=== PATIENT | female | born 1975 | race Two or more races ===

== ENCOUNTER 2016-08-09 08:21 | Emergency (ER) | payer OTHER ==
[~2016-08-09] VITALS: Ht 157.5 cm; Wt 72.6 kg
[~2016-08-09 08:21] MED LIST: ASPI-231 PO
[2016-08-09 09:31] LABS: Urine Bilirubin Negative (Negative); Urine Blood Negative /uL (Negative); Urine Color Yellow (Yellow); Urine Glucose Normal (Normal); Urine Ketone Negative (Negative); Urine RBC 3 /hpf (0 - 4); Urine Squamous Epithelial Cell FEW /hpf (<5); Urine Urobilinogen Normal (Negative); Urine pH 6.5 (5.0-8.0)
[2016-08-09 09:34] LABS: Urine Nitrite POSITIVE (Negative)
[2016-08-09 09:36] LABS: Basophils # (auto) 0 uL; Basophils % (auto) 0.5 % (0.0-2.0); Eosinophils # (auto) 0.1 uL; Eosinophils % (auto) 1.2 % (0.0-7.0); Hematocrit 42.7 % (36.0-46.0); Hemoglobin 14.3 g/dL (12.2-16.2); Lymphocytes # (auto) 1.8 uL; Lymphocytes % (auto) 21.2 % (10.0-50.0); Mean Corpuscular Hgb Conc. 33.4 g/dL (32.0-36.0); Mean Corpuscular Volume 92.7 fL (80.0-100.0); Monocytes # (auto) 0.4 uL; Neutrophils # (auto) 6.2 uL; Neutrophils % (auto) 72.1 % (37.0-80.0); Platelet Count (auto) 259 10^3/uL (140-450); Red Cell Distribution Width 13.1 % (11.6-16.0); White Blood Cell 8.6 10^3/uL (4.4-10.8)
[2016-08-09 09:53] LABS: Albumin 3.8 g/dL (3.4-5.0); BUN/Creatinine Ratio 14.9; Bilirubin, Total 0.3 mg/dL (0.2-1.0); Calcium 9.2 mg/dL (8.5-10.1); Potassium 3.8 mmol/L (3.5-5.1); Total Protein 7.9 g/dL (6.4-8.2)
[2016-08-09] MEDS ORDERED: MORPHINE SULFATE 4 MG/ML SYRG IV ONE (10:45)
[2016-08-09] MEDS ORDERED: ONDANSETRON HCL 4 MG/2 ML VIAL IV ONE (10:45)
[2016-08-09] MEDS ORDERED: SODIUM CHLORIDE 0.9% 1,000 ML IV ONE ×2 (11:49)
[2016-08-09] MEDS ORDERED: NITROFURANTOIN (MONO) 100 mg CAP PO ONE (12:00)
[2016-08-09 13:13] VITALS: BP 101/72
== END 2016-08-09 13:19 | disposition home or self-care (01) ==
LOC: ER 08:21
DX: N20.0 Calculus of kidney (principal); N39.0 Urinary tract infection, site not specified; K21.9 Gastro-esophageal reflux disease without esophagitis; E78.5 Hyperlipidemia, unspecified; I25.2 Old myocardial infarction
CPT/HCPCS: 36415; 74176; 80053; 81001; 81025; 85025; 85049; 96361; 96374; 96375; 99285; J2270; J2405; J7030

== ENCOUNTER 2016-12-10 17:50 | Inpatient (IN) | payer SELFPAY ==
[~2016-12-10] VITALS: Ht 154.9 cm; Wt 75.7 kg
[2016-12-10 18:39] LABS: Basophils # (auto) 0 uL; Basophils % (auto) 0.3 % (0.0-2.0); Eosinophils # (auto) 0.1 uL; Eosinophils % (auto) 1.1 % (0.0-7.0); Hematocrit 40.9 % (36.0-46.0); Hemoglobin 14.1 g/dL (12.2-16.2); Lymphocytes # (auto) 2.7 uL; Lymphocytes % (auto) 24.1 % (10.0-50.0); Mean Corpuscular Hemoglobin 32.4 pg (28.0-32.0); Mean Corpuscular Hgb Conc. 34.4 g/dL (32.0-36.0); Mean Platelet Volume 11.4 fL (7.4-10.4); Monocytes # (auto) 0.5 uL; Monocytes % (auto) 4.6 % (0.0-12.0); Neutrophils # (auto) 7.9 uL; Neutrophils % (auto) 69.9 % (37.0-80.0); Platelet Count (auto) 273 10^3/uL (140-450); Red Cell Distribution Width 13.2 % (11.6-16.0); White Blood Cell 11.3 10^3/uL (4.4-10.8)
[2016-12-10 19:02] LABS: Albumin 3.6 g/dL (3.4-5.0); Anion Gap 12 (5-15); Aspartate Aminotransferase 11 U/L (15-37); BUN/Creatinine Ratio 11.9; Blood Urea Nitrogen 18 mg/dL (7-18); Calcium 8.9 mg/dL (8.5-10.1); Carbon Dioxide 24 mmol/L (21-32); Chloride 104 mmol/L (98-107); GFR African American 49 mL/min; GFR Non-African American 41 mL/min; Glucose 110 mg/dL (74-106); Potassium 3.4 mmol/L (3.5-5.1); Sodium 140 mmol/L (136-145)
[2016-12-10 19:07] LABS: Alkaline Phosphatase 74 U/L (45-117); Bilirubin, Total 0.2 mg/dL (0.2-1.0); Total Protein 7.7 g/dL (6.4-8.2)
[2016-12-10 22:10] LABS: Urine Bilirubin Negative (Negative); Urine Blood Negative /uL (Negative); Urine Color Yellow (Yellow); Urine Glucose Normal (Normal); Urine Ketone Negative (Negative); Urine Mucus FEW (None Seen); Urine Nitrite Negative (Negative); Urine RBC 3 /hpf (0 - 4); Urine Squamous Epithelial Cell MOD /hpf (<5); Urine Urobilinogen Normal (Negative)
[2016-12-11] MEDS ORDERED: ONDANSETRON HCL 4 MG/2 ML VIAL IV ONE (00:15)
[2016-12-11] MEDS ORDERED: MORPHINE SULFATE 4 MG/ML SYRG IV ONE (00:15)
[2016-12-11] MEDS ORDERED: cefTRIAXone 1GM/50ML D5W 50 ML IV ONE (00:30)
[2016-12-11] MEDS ORDERED: NITROGLYCERIN 0.4 MG SL TAB SL PRN (03:00)
[2016-12-11] MEDS ORDERED: MORPHINE SULF INJ 2 MG/ML SYRINGE 1ML IV PRN (03:00)
[2016-12-11] MEDS ORDERED: CLOPIDOGREL BISULFATE 75 MG TAB PO ONE (03:00)
[2016-12-11] MEDS ORDERED: ONDANSETRON HCL 4 MG/2 ML VIAL IV PRN (03:00)
[2016-12-11] MEDS ORDERED: ATORVASTATIN 20 MG TAB PO ONE (03:00)
[2016-12-11] MEDS ORDERED: ACETAMINOPHEN 325 MG TAB PO PRN (03:00)
[2016-12-11] MEDS ORDERED: POTASSIUM CHL 20 Meq TABLET PO ONE (03:00)
[2016-12-11] MEDS ORDERED: TEMAZEPAM 15 MG CAP PO PRN (03:00)
[2016-12-11] MEDS ORDERED: HYDROcodone-ACET 5/325MG TAB PO PRN (03:00)
[2016-12-11 03:50] LABS: Cholesterol 192 mg/dL (< 200); HDL Cholesterol 42 mg/dL (40-59); LDL Cholesterol 132 mg/dL (< 100); Triglycerides 260 mg/dL (< 150)
[2016-12-11 05:17] VITALS: BP 109/71
[2016-12-11 09:00] VITALS: BP 99/60
[2016-12-11] MEDS: ASPirin 81 mg TAB PO SCH (09:49)
[2016-12-11] MEDS: ENOXAPARIN SOD 40 MG/0.4 ML SYRINGE SC SCH (09:49)
[2016-12-11] MEDS: FAMOTIDINE 20 MG TAB PO SCH ×2 (09:49→21:43)
[2016-12-11] MEDS ORDERED: CLOPIDOGREL BISULFATE 75 MG TAB PO SCH (10:00)
[2016-12-11 13:00] VITALS: BP 115/73
[2016-12-11] MEDS: SODIUM CHLORIDE 0.9% 1,000 ML IV SCH (14:04)
[2016-12-11 16:48] VITALS: BP 104/74
[2016-12-11 22:00] VITALS: BP 109/63
[2016-12-11] MEDS ORDERED: ATORVASTATIN 20 MG TAB PO SCH (22:00)
[2016-12-11] MEDS ORDERED: cefTRIAXone 1GM/50ML D5W 50 ML IV SCH (22:00)
[2016-12-12] MEDS: SODIUM CHLORIDE 0.9% 1,000 ML IV SCH (02:38)
[2016-12-12 05:30] VITALS: BP 106/65
[2016-12-12 09:00] VITALS: BP 112/72
[2016-12-12] MEDS: ENOXAPARIN SOD 40 MG/0.4 ML SYRINGE SC SCH (10:00)
[2016-12-12] MEDS ORDERED: ATOR20TA50 PO (10:45)
[2016-12-12] MEDS: FAMOTIDINE 20 MG TAB PO SCH (10:52)
[2016-12-12] MEDS: ASPirin 81 mg TAB PO SCH (10:52)
[2016-12-12 11:08] LABS: Basophils # (auto) 0.1 uL; Basophils % (auto) 0.7 % (0.0-2.0); Eosinophils # (auto) 0.1 uL; Eosinophils % (auto) 0.9 % (0.0-7.0); Hematocrit 39.5 % (36.0-46.0); Hemoglobin 13.6 g/dL (12.2-16.2); Lymphocytes # (auto) 1.8 uL; Lymphocytes % (auto) 19.6 % (10.0-50.0); Mean Corpuscular Hemoglobin 31.8 pg (28.0-32.0); Mean Corpuscular Hgb Conc. 34.3 g/dL (32.0-36.0); Mean Corpuscular Volume 92.5 fL (80.0-100.0); Mean Platelet Volume 10.9 fL (7.4-10.4); Monocytes # (auto) 0.6 uL; Monocytes % (auto) 6.4 % (0.0-12.0); Neutrophils # (auto) 6.6 uL; Neutrophils % (auto) 72.4 % (37.0-80.0); Platelet Count (auto) 254 10^3/uL (140-450); Red Cell Distribution Width 13.2 % (11.6-16.0); White Blood Cell 9.1 10^3/uL (4.4-10.8)
[2016-12-12 11:37] LABS: BUN/Creatinine Ratio 15.2; Calcium 8.7 mg/dL (8.5-10.1); Potassium 3.9 mmol/L (3.5-5.1)
[2016-12-12 13:00] VITALS: BP 111/77
[2016-12-12] MEDS ORDERED: DOXY-216 PO (15:14)
[2016-12-12] MEDS ORDERED: SACC250C PO (15:14)
[2016-12-12 16:39] VITALS: BP 103/69
== END 2016-12-12 17:10 | disposition home or self-care (01) | DRG 205 ==
LOC: ER 17:56 → TELE 17:57 → TELE-WESTW 12-11 03:30 → UNDODISIN 12-11 14:52
PROVIDERS: ADMIT Nurse Practitioner; ATTEND Internal Medicine
DX: M94.0 Chondrocostal junction syndrome [Tietze] (principal); N17.0 Acute kidney failure with tubular necrosis; N39.0 Urinary tract infection, site not specified; K21.9 Gastro-esophageal reflux disease without esophagitis; I10 Essential (primary) hypertension; E78.5 Hyperlipidemia, unspecified; E87.6 Hypokalemia; Z91.041 Radiographic dye allergy status; Z90.49 Acquired absence of other specified parts of digestive tract; I25.2 Old myocardial infarction; Z83.3 Family history of diabetes mellitus; Z82.49 Family history of ischemic heart disease and other diseases of the circulatory system; Z87.442 Personal history of urinary calculi
CPT/HCPCS: 36415; 71010; 76775; 80048; 80053; 80061; 81001; 81025; 83735; 84484; 85025; 85379; 87086; 87088; 87186; 93005; 93306; 96365; 96375; J0696; J2405

== ENCOUNTER 2017-06-30 13:43 | Emergency (ER) | payer SELFPAY ==
[~2017-06-30] VITALS: Ht 154.9 cm; Wt 77.1 kg
[~2017-06-30 13:43] MED LIST changes: +ATOR20TA50 PO; +DOXY-216 PO; +SACC250C PO
[2017-06-30 14:18] LABS: Basophils # (auto) 0.1 uL; Basophils % (auto) 0.8 % (0.0-2.0); Eosinophils # (auto) 0.1 uL; Eosinophils % (auto) 0.8 % (0.0-7.0); Hematocrit 43.4 % (36.0-46.0); Hemoglobin 14.7 g/dL (12.2-16.2); Lymphocytes # (auto) 2.1 uL; Lymphocytes % (auto) 22.2 % (10.0-50.0); Mean Corpuscular Hemoglobin 32.3 pg (28.0-32.0); Mean Corpuscular Hgb Conc. 33.9 g/dL (32.0-36.0); Mean Corpuscular Volume 95.2 fL (80.0-100.0); Mean Platelet Volume 10.1 fL (6.9-10.8); Monocytes # (auto) 0.4 uL; Monocytes % (auto) 4.3 % (0.0-12.0); Neutrophils # (auto) 6.7 uL; Neutrophils % (auto) 71.9 % (37.0-80.0); Nucleated Red Blood Cells % 0.1 %; Platelet Count (auto) 276 10^3/uL (140-450); Red Cell Distribution Width 13.4 % (11.8-14.3); White Blood Cell 9.4 10^3/uL (4.4-10.8)
[2017-06-30 15:01] LABS: Albumin 3.8 g/dL (3.4-5.0); Alkaline Phosphatase 71 U/L (45-117); Anion Gap 10 (5-15); Aspartate Aminotransferase 10 U/L (15-37); BUN/Creatinine Ratio 19.5; Bilirubin, Total 0.2 mg/dL (0.2-1.0); Blood Urea Nitrogen 16 mg/dL (7-18); Calcium 10.5 mg/dL (8.5-10.1); Carbon Dioxide 25 mmol/L (21-32); Chloride 103 mmol/L (98-107); GFR African American 99 mL/min; GFR Non-African American 82 mL/min; Glucose 88 mg/dL (74-106); Magnesium 2.2 mg/dL (1.6-2.6); Potassium 3.3 mmol/L (3.5-5.1); Sodium 138 mmol/L (136-145); Total Protein 8.3 g/dL (6.4-8.2)
[2017-06-30] MEDS ORDERED: POTASSIUM CHL 10% (20 MEQ/15ML) 15ml ORAL SOLN PO ONE (16:00)
[2017-06-30] MEDS ORDERED: POTASSIUM CHL 20 Meq TABLET PO ONE ×2 (16:02→16:15)
[2017-06-30 16:31] VITALS: BP 117/73
== END 2017-06-30 16:33 | disposition home or self-care (01) ==
LOC: ER 13:43
DX: F41.9 Anxiety disorder, unspecified (principal); K21.9 Gastro-esophageal reflux disease without esophagitis; E78.5 Hyperlipidemia, unspecified; I25.2 Old myocardial infarction; Z90.49 Acquired absence of other specified parts of digestive tract
CPT/HCPCS: 36415; 80053; 83735; 84484; 84702; 85025; 93005

== ENCOUNTER 2018-10-27 11:44 | Emergency (ER) | payer OTHER ==
[~2018-10-27] VITALS: Ht 152.4 cm; Wt 72.6 kg
[2018-10-27 12:19] LABS: Urine Bacteria NONE SEEN /hpf (None Seen); Urine Blood Negative /uL (Negative); Urine Mucus FEW (None Seen); Urine Specific Gravity 1.016 (1.001-1.035); Urine WBC 29 /hpf (0 - 5)
[2018-10-27 13:15] LABS: Basophils # (auto) 0 uL; Basophils % (auto) 0.4 % (0.0-2.0); Eosinophils # (auto) 0.1 uL; Eosinophils % (auto) 0.8 % (0.0-7.0); Hematocrit 44.1 % (36.0-46.0); Hemoglobin 14.8 g/dL (12.2-16.2); Lymphocytes # (auto) 1.9 uL; Lymphocytes % (auto) 24.4 % (10.0-50.0); Mean Corpuscular Hgb Conc. 33.6 g/dL (32.0-36.0); Mean Corpuscular Volume 95.3 fL (80.0-100.0); Monocytes # (auto) 0.6 uL; Monocytes % (auto) 7.4 % (0.0-12.0); Neutrophils # (auto) 5.2 uL; Nucleated Red Blood Cells % 0.1 %; Platelet Count (auto) 224 10^3/uL (140-450); Red Blood Cells 4.63 10^6/uL (4.0-5.20); Red Cell Distribution Width 13.3 % (11.8-14.3); White Blood Cell 7.8 10^3/uL (4.4-10.8)
[2018-10-27 13:31] LABS: Albumin 3.7 g/dL (3.4-5.0); Anion Gap 6 (5-15); Blood Urea Nitrogen 14 mg/dL (7-18); Calcium 9.3 mg/dL (8.5-10.1); Carbon Dioxide 25 mmol/L (21-32); Chloride 108 mmol/L (98-107); Glucose 89 mg/dL (74-106); Magnesium 2.3 mg/dL (1.6-2.6); Potassium 3.8 mmol/L (3.5-5.1); Sodium 139 mmol/L (136-145)
[2018-10-27 13:37] LABS: Alanine Aminotransferase 14 U/L (13-56); Alkaline Phosphatase 65 U/L (45-117); Aspartate Aminotransferase 13 U/L (15-37); BUN/Creatinine Ratio 15.2; Bilirubin, Total 0.3 mg/dL (0.2-1.0); GFR African American 86 mL/min; GFR Non-African American 71 mL/min; Total Protein 7.8 g/dL (6.4-8.2)
[2018-10-27] MEDS: NITROFURANTOIN (MONO) 100 mg CAP PO ONE (15:15)
[2018-10-27] MEDS: ASPirin 81 mg TAB PO ONE (15:15)
[2018-10-27 15:20] VITALS: BP 114/71
== END 2018-10-27 15:43 | disposition home or self-care (01) ==
LOC: ER 11:47
DX: R07.89 Other chest pain (principal); N39.0 Urinary tract infection, site not specified; R20.0 Anesthesia of skin; R42 Dizziness and giddiness; K21.9 Gastro-esophageal reflux disease without esophagitis; E78.5 Hyperlipidemia, unspecified; Z79.82 Long term (current) use of aspirin; Z79.899 Other long term (current) drug therapy; Z90.49 Acquired absence of other specified parts of digestive tract
CPT/HCPCS: 36415; 80053; 81001; 83735; 84484; 85025; 93005

== ENCOUNTER 2019-07-01 18:32 | Emergency (ER) | payer OTHER ==
[~2019-07-01] VITALS: Ht 152.4 cm; Wt 71.2 kg
[2019-07-01 19:22] LABS: Basophils # (auto) 0.1 uL; Basophils % (auto) 0.8 % (0.0-2.0); Eosinophils # (auto) 0.1 uL; Eosinophils % (auto) 1.5 % (0.0-7.0); Hematocrit 41.1 % (36.0-46.0); Hemoglobin 14.3 g/dL (12.2-16.2); Lymphocytes # (auto) 2.2 uL; Lymphocytes % (auto) 24.5 % (10.0-50.0); Mean Corpuscular Hgb Conc. 34.8 g/dL (32.0-36.0); Mean Corpuscular Volume 94.8 fL (80.0-100.0); Monocytes # (auto) 0.6 uL; Monocytes % (auto) 6.2 % (0.0-12.0); Nucleated Red Blood Cells % 0.1 %; Platelet Count (auto) 233 10^3/uL (140-450); Red Blood Cells 4.34 10^6/uL (4.0-5.20)
[2019-07-01 19:45] LABS: Albumin 3.8 g/dL (3.4-5.0); BUN/Creatinine Ratio 16.1; Calcium 8.7 mg/dL (8.5-10.1); Potassium 3.4 mmol/L (3.5-5.1)
[2019-07-01 19:47] LABS: Bilirubin, Total 0.4 mg/dL (0.2-1.0); Total Protein 7.8 g/dL (6.4-8.2)
[2019-07-01 20:43] LABS: Urine Blood 3+ /uL (Negative); Urine Specific Gravity 1.011 (1.001-1.035)
[2019-07-01 22:17] VITALS: BP 123/78
== END 2019-07-01 22:19 | disposition home or self-care (01) ==
LOC: ER 18:33
DX: R42 Dizziness and giddiness (principal); F41.9 Anxiety disorder, unspecified; N39.0 Urinary tract infection, site not specified; K21.9 Gastro-esophageal reflux disease without esophagitis; E78.5 Hyperlipidemia, unspecified; I25.2 Old myocardial infarction; Z90.49 Acquired absence of other specified parts of digestive tract; Z79.899 Other long term (current) drug therapy
CPT/HCPCS: 36415; 70450; 71046; 80053; 81003; 84484; 85025

== ENCOUNTER 2019-12-06 18:31 | Emergency (ER) | payer OTHER ==
[~2019-12-06] VITALS: Ht 154.9 cm; Wt 72.6 kg
[~2019-12-06 18:31] MED LIST changes: -DOXY-216 PO; +DOXY-286 PO
[2019-12-06 20:13] VITALS: BP 118/82
== END 2019-12-06 20:23 | disposition home or self-care (01) ==
LOC: ER 18:31
DX: B02.9 Zoster without complications (principal); M79.652 Pain in left thigh; K21.9 Gastro-esophageal reflux disease without esophagitis; E78.5 Hyperlipidemia, unspecified; I25.2 Old myocardial infarction; Z90.49 Acquired absence of other specified parts of digestive tract

== ENCOUNTER 2021-09-28 09:30 | Emergency (ER) | payer OTHER ==
[~2021-09-28] VITALS: Ht 154.9 cm; Wt 74.4 kg
[~2021-09-28 09:30] MED LIST changes: -ASPI-231 PO; +ASPI1TAB20 PO
[2021-09-28] MEDS ORDERED: MORPHINE SULFATE 4 MG/ML SYR/VIAL IM ONE (10:00)
[2021-09-28] MEDS ORDERED: ONDANSETRON HCL 4 MG/2 ML VIAL IM ONE (10:00)
[2021-09-28] MEDS ORDERED: NEOMYCIN-BACITRACIN-POLYM 15GM TOP OINT TOP ONE ×2 (11:39→11:45)
[2021-09-28] MEDS ORDERED: NEOMOIN6 EX (11:39)
[2021-09-28 11:56] VITALS: BP 122/87
== END 2021-09-28 11:57 | disposition home or self-care (01) ==
LOC: ER 09:30
DX: T23.202A Burn of second degree of left hand, unspecified site, initial encounter (principal); K21.9 Gastro-esophageal reflux disease without esophagitis; E78.5 Hyperlipidemia, unspecified; Z90.49 Acquired absence of other specified parts of digestive tract; X19.XXXA Contact with other heat and hot substances, initial encounter; Y93.89 Activity, other specified; Y92.89 Other specified places as the place of occurrence of the external cause; Y99.8 Other external cause status
CPT/HCPCS: 96372; 99284; J2270; J2405

== ENCOUNTER 2024-05-09 19:25 | Emergency (ER) | payer SELFPAY ==
[~2024-05-09] VITALS: Ht 152.4 cm; Wt 73.4 kg
[~2024-05-09 19:25] MED LIST changes: +NEOMOIN6 EX
[2024-05-09] MEDS ORDERED: AZIT-43 PO (21:26)
[2024-05-09] MEDS: DexAMETHasone SOD PHOS 10MG/1ML VIAL INJ IM ONE (21:45)
[2024-05-09 21:57] VITALS: BP 112/77; PULSE 79; RESP 19; TEMP 97.7; O2SAT 97
== END 2024-05-09 22:00 | disposition home or self-care (01) ==
LOC: ER 19:25
DX: J02.9 Acute pharyngitis, unspecified (principal); F41.9 Anxiety disorder, unspecified; K21.9 Gastro-esophageal reflux disease without esophagitis; E78.5 Hyperlipidemia, unspecified; Z79.899 Other long term (current) drug therapy; Z79.84 Long term (current) use of oral hypoglycemic drugs; Z90.49 Acquired absence of other specified parts of digestive tract
CPT/HCPCS: 96372; 99283; J1100

== ENCOUNTER 2024-12-21 16:01 | Inpatient (IN) | payer MEDICAID, OTHER ==
[~2024-12-21] VITALS: Ht 152.4 cm; Wt 71.7 kg
[~2024-12-21 16:01] MED LIST changes: +AZIT-43 PO
--- NOTE | 2024-12-21 16:13 | ED.PDOC ---
HPI Comments HPI: Poor Historian. 49-year-old female presents to emergency department for evaluation of midsternal and left-sided chest pain that started earlier today while at rest. Pain is intermittent in nature. No particular alleviating or precipitating factors. Patient has some mild associated shortness of breath. Denies any other acute symptoms. Vitals: temperature of 98.7F, pulse rate of 75, respiratory rate of 16, blood pressure of 161/74, SpO2 of 94%RA Past Medical History: [place] Past Surgical History: Cholecystectomy, breast cyst removal REVIEW OF SYSTEMS: CONSTITUTIONAL: Denies acute: fever, diaphoresis, chills, generalized weakness. HEAD: Denies acute: headache, photophobia Eyes: Denies acute: Double vision, vision loss, eye pain, eye discharge. EARS: Denies acute: tinnitus, hearing loss, ear discharge, ear pain, THROAT: Denies acute: sore throat, swelling, difficulty swallowing , pain with swallowing, change in voice. NECK: Denies acute: neck pain, neck swelling, stiff neck. HEART: Denies acute : palpitations, LUNGS: Denies acute: SOB, wheezing, cough, hemoptysis ABDOMEN: Denies acute: abdominal pain, Nausea, Vomiting, diarrhea, melena , hematemesis, hematochezia SKIN: Denies acute: rash, redness, lesions, itchiness. EXTREMITIES: Denies acute: calf pain, numbness, tingling, weakness, denies pain in extremity. Denies acute: Low back pain. Neuro: Denies acute: focal neurological deficit, motor or sensory focal neurological deficit, tremors, seizure like activity, confusion, dizziness, change in mental status, loss of bowel or bladder function, cauda equina like symptoms. : Denies acute: dysuria, hematuria, flank pain, increase in urinary frequency. PSYCH: Denies acute: hallucination, suicidal ideation, homicidal ideation. FEMALE: Denies acute: abnormal vaginal bleeding, foul odor, unusual discharge. PHYSICAL EXAM: General: --mild-----acute distress, awake and alert. Head: normocephalic, atraumatic. Neck: supple, trachea is midline, no swelling. Throat: Normal phonation. Eyes:, no erythema, no purulent discharge, no proptosis, no icterus. Heart: regular rate, regular rhythm, no significant murmur appreciated. Lungs: no apparent respiratory distress, Able to speak in full sentences. No wheezing, no rhonchi, no crackles. No stridors Clear to auscultation bilaterally. Abdomen: non tender to palpation, non distended, soft, no guarding, no rebound, + bowel sounds. Neuro: Awake, Alert, oriented to name, self, situation, follows commands GCS=15. Speech is normal. Skin: no petechia, no purpura, no cyanosis, non-pale, not jaundice. Lower extremities: --no - Pitting edema no deformity, no focal swelling, no calf TTP. Makes eye contact. moves all four extremities. Face: no apparent facial droop. Ambulating in the ED independently. ED COURSE: Time Seen by MD: 16:03 Primary Care Provider: LULÚ Reviewed Notes: Nurses Notes, Medications, Allergies Allergies: Uncoded Allergies: CONTRAST (Allergy, Unknown, 08/16/15) Home Meds Active Scripts Azithromycin (Azithromycin) 250 Mg Tab, 250 MG PO DAILY MDD 500 for 5 Days, #6 TAB 0 Refills 2 TABLETS ORALLY ON DAY ONE, THEN 1 TABLET ORALLY DAILY FOR 4 DAYS Prov:DUNCAN BARRON INVENTORY CONTROL MANAGER 05/09/24 Dhfqlouq-Odktxcitmz-Tqdnadwtv- (Neosporin + Pain Relief) Relf Max Oin, 1 MAX EX DAILY for 10 Days, #5 OIN Prov:PEGGY GORDON MD 09/28/21 Yeast (S. Boulardii)(S. Cerevi (Florastor) 250 Mg Cap, 250 MG PO DAILY, #10 CAP Prov:JADA JAIMES MD 12/12/16 Doxycycline Hyclate (DOXYCYCLINE HYCLATE) 100 Mg Tab, 1 TAB PO BID, #20 TAB Prov:JADA JAIMES MD 12/12/16 Atorvastatin Calcium (ATORVASTATIN CALCIUM) 20 Mg Tab, 20 MG PO HS, #30 TAB Prov:JADA JAIMES MD 12/12/16 Reported Medications Aspirin (Aspir-81) 81 Mg Tab, 1 TAB PO DAILY, #30 TAB 5 Refills 08/22/15 Information Source: Patient Past Medical History PAST MEDICAL HISTORY: Anxiety, GERD, High Lipids, [place] Surgical History: Cholecystectomy ASSISTANT CORPORATE SECRETARY History: No Pertinent ASSISTANT CORPORATE SECRETARY History Family History Family History: Reviewed,noncontributory to illness, Family hx of DM Social History Smoker: Non-Smoker Alcohol: Denies ETOH Use Drugs: Denies Drug Use Lives In: Home Was a procedure done? Was a procedure done?: No CP Differential Dx Differential Diagnosis: N/A Differential Diagnosis: Other (Ddx include but not limitied to gastritis, musculoskeletal pain, radiculopathy, atypical chest pain, dissection, aneurysm, ACS, unstable angina, hiatal hernia, GERD, anxiety, costochondritis, PE, pneumothroax, neoplasm, cardiac ischemia, drug abuse, anemia.) X-Ray, Labs, Meds, VS Vital Signs Date Time Temp Pulse Resp B/P (MAP) Pulse Ox O2 Delivery O2 Flow Rate FiO2 12/21/24 17:06 74 12/21/24 16:18 98.7 75 16 161/74 (103) 94 98.7 12/21/24 16:07 74 Lab Test 12/21/24 17:03 12/21/24 16:17 12/21/24 16:09 Range/Units Troponin I High Sensitivity < 3 L < 3 L </=34 ng/L White Blood Count 8.0 4.4-10.8 10^3/uL Red Blood Count 4.48 4.0-5.20 10^6/uL Hemoglobin 14.4 12.2-16.2 g/dL Hematocrit 42.2 36.0-46.0 % Mean Corpuscular Volume 94.4 80.0-100.0 fL Mean Corpuscular Hemoglobin 32.1 H 28.0-32.0 pg Mean Corpuscular Hemoglobin Concent 34.0 32.0-36.0 g/dL Red Cell Distribution Width 13.1 11.8-14.3 % Platelet Count 216 140-450 10^3/uL Mean Platelet Volume 10.9 H 6.9-10.8 fL Neutrophils (%) (Auto) 66.6 37.0-80.0 % Lymphocytes (%) (Auto) 24.9 10.0-50.0 % Monocytes (%) (Auto) 6.8 0.0-12.0 % Eosinophils (%) (Auto) 1.2 0.0-7.0 % Basophils (%) (Auto) 0.5 0.0-2.0 % Neutrophils # (Auto) 5.3 1.6-8.6 10 ^3/uL Lymphocytes # (Auto) 2.0 0.4-5.4 10 ^3/uL Monocytes # (Auto) 0.5 0-1.3 10 ^3/uL Eosinophils # (Auto) 0.1 0-0.8 10 ^3/uL Basophils # (Auto) 0 0-0.2 10 ^3/uL Nucleated Red Blood Cells 0.1 % Sodium Level 139 136-145 mmol/L Potassium Level 3.8 3.5-5.1 mmol/L Chloride Level 107 98-107 mmol/L Carbon Dioxide Level 23 20-31 mmol/L Anion Gap 9 5-15 Blood Urea Nitrogen 15 9-23 mg/dL Creatinine 0.91 0.550-1.02 mg/dL Glomerular Filtration Rate Calc 78 >90 mL/min BUN/Creatinine Ratio 16.5 10.0-20.0 Serum Glucose 92 74-106 mg/dL Calcium Level 10.2 8.7-10.4 mg/dL Magnesium Level 2.2 1.6-2.6 mg/dL Total Bilirubin 0.3 0.2-1.0 mg/dL Aspartate Amino Transferase (AST) 14 13-40 U/L Alanine Aminotransferase (ALT) 15 7-40 U/L Alkaline Phosphatase 56 46-116 U/L Total Protein 7.0 5.7-8.2 g/dL Albumin 4.4 3.2-4.8 g/dL Urine Color Light-yellow Yellow Urine Clarity Turbid H Clear Urine pH 6.0 5.0-9.0 Urine Specific [place] 1.012 1.001-1.035 Urine Protein Negative Negative Urine Ketones Negative Negative Urine Blood Trace H Negative /uL Urine Nitrite Negative Negative Urine Bilirubin Negative Negative Urine Urobilinogen Normal Negative mg/dL Urine Leukocyte Esterase 2+ Negative /uL Urine RBC 2 0 - 4 /hpf Urine Microscopic WBC 24 H 0-5 /HPF Urine Squamous Epithelial Cells Few <5 /hpf Urine Bacteria Few H None Seen /hpf Urine Mucus Few None Seen Urine Yeast (Budding) Occasional None Seen /hpf Urine Glucose Normal Normal mg/dL [facility] [id number] [place] [id number] Ph: [phone] DIAGNOSTIC IMAGING Diagnostic Imaging Report : [id number] Signed PATIENT: MAICOL AMARO ACCT: [id number] UNIT: [id number] : 1975 LOC: ER ROOM / BED: / AGE / SEX: 49 / F ADM STATUS: REG ER SERVICE 1609 ORDERING PHYSICIAN: JANES ARGUETA DO PROCEDURE(s): CXRP - CHEST PORTABLE REASON: cp ORDER NUMBER(s): [id number], ACCESSION NUMBER(s): [id number] CHEST RADIOGRAPH Indication: cp Technique: Single frontal view of the chest was obtained COMPARISON: None FINDINGS: Lines and Tubes: None Lungs: Clear Pleura: No effusion. No pneumothorax. Cardiomediastinal contours: Unremarkable Bones: Unremarkable IMPRESSION: 1. No acute disease. ATED BY: MERCY BUENO MD DICTATED DATE/TIME: 12/21/24 1640 SIGNED BY: MERCY BUENO MD SIGNED DATE/TIME: 12/21/24 1640 CC: Time of 1ST Reevaluation: 00:00 Reevaluation 1ST: Improved Patient Education/Counseling: Diagnosis, Treatment Family Education/Counseling: No Family Present Comments Patient presented with the above HPI.--chest pain----workup was initiated. patient was found with the above mentioned diagnosis. the following medications were ordered: please refer to order lists of meds and tests obtained by myself Dr. Argueta. Patient ED course and VS have been stabilized. Patient has been reassessed in the ED and remained in a stable condition. Pertinent incidental findings were discussed with the patient and/or family. Patient/family voices understanding and is agreeable with plan. Patient has been observed in the ED adequate length of time to insure improvement/stability. Escalation of care considered: Consideration of escalation to observation or admission Patient was ADMITTED to the medicine team for further evaluation and treatment of their presentation. All the reports of any imaging studies that were ordered by myself were reviewed by myself. Departure 1 Departure Time of Disposition: 16:31 Impression: Primary Impression: Chest pain Disposition: ADMITTED INPATIENT Admit to: [facility] Condition: Guarded Additional Instructions: [place] [address] Ph: [phone] DIAGNOSTIC IMAGING Diagnostic Imaging Report : [id number] Signed PATIENT: MAICOL AMARO ACCT: [id number] UNIT: [id number] : 1975 LOC: ER ROOM / BED: / AGE / SEX: 49 / F ADM STATUS: REG ER SERVICE 1609 ORDERING PHYSICIAN: JANES ARGUETA DO PROCEDURE(s): CXRP - CHEST PORTABLE REASON: cp ORDER NUMBER(s): [id number], ACCESSION NUMBER(s): [id number] CHEST RADIOGRAPH Indication: cp Technique: Single frontal view of the chest was obtained COMPARISON: None FINDINGS: Lines and Tubes: None Lungs: Clear Pleura: No effusion. No pneumothorax. Cardiomediastinal contours: Unremarkable Bones: Unremarkable IMPRESSION: 1. No acute disease. ATED BY: MERCY BUENO MD DICTATED DATE/TIME: 12/21/24 1640 SIGNED BY: MERCY BUENO MD SIGNED DATE/TIME: 12/21/24 1640 CC: Discharged With: Self Critical Care Note Critical Care Time?: No Heart Score Heart Score: Heart Score Response (Comments) Value History Moderate Suspicious 1 EKG Normal 0 Age 45-64 1 Risk Factors 1 or 2 risk factors 1 Troponin Normal limit 0 Total 3 I personally scribed for JANES ARGUETA DO ([email or web address]) on 12/21/24 at 16:53. Electronically submitted by Karen Roca ([email or web address]). I personally scribed for JANES ARGUETA DO ([email or web address]) on 12/21/24 at 23:58. Electronically submitted by Helder Lorenzana ([email or web address]). JANES ARGUETA DO December 21, 2024 16:13
[2024-12-21] MEDS: NITROGLYCERIN 0.4 MG SL TAB SL ONE (16:30)
[2024-12-21] MEDS: ASPirin-EC 325mg tab PO ONE (16:30)
--- NOTE | 2024-12-21 16:42 | DVH ---
CHEST RADIOGRAPH Indication: cp Technique: Single frontal view of the chest was obtained COMPARISON: None FINDINGS: Lines and Tubes: None Lungs: Clear Pleura: No effusion. No pneumothorax. Cardiomediastinal contours: Unremarkable Bones: Unremarkable IMPRESSION: 1. No acute disease.
[2024-12-21 16:43] LABS: Basophils # (auto) 0 10 ^3/uL (0-0.2); Basophils % (auto) 0.5 % (0.0-2.0); Eosinophils # (auto) 0.1 10 ^3/uL (0-0.8); Eosinophils % (auto) 1.2 % (0.0-7.0); Hematocrit 42.2 % (36.0-46.0); Hemoglobin 14.4 g/dL (12.2-16.2); Lymphocytes % (auto) 24.9 % (10.0-50.0); Mean Corpuscular Hemoglobin 32.1 pg (28.0-32.0); Mean Corpuscular Volume 94.4 fL (80.0-100.0); Monocytes # (auto) 0.5 10 ^3/uL (0-1.3); Monocytes % (auto) 6.8 % (0.0-12.0); Neutrophils # (auto) 5.3 10 ^3/uL (1.6-8.6); Neutrophils % (auto) 66.6 % (37.0-80.0); Nucleated Red Blood Cells % 0.1 %; Platelet Count (auto) 216 10^3/uL (140-450); Red Blood Cells 4.48 10^6/uL (4.0-5.20); Red Cell Distribution Width 13.1 % (11.8-14.3)
--- NOTE | 2024-12-21 16:47 | DVHHP2 ---
History of Present Illness Reason for Visit: chest pain History of Present Illness 49-year-old female past medical history [place] in 2009 hyperlipidemia anxiety occurs surgical history gallbladder surgery breast cyst removal on the left breast chief complaint patient complains of left chest wall pain that started around 2:12 a.m. today the pain is sharp in nature which is off and on nothing makes it better nothing makes it worse patient states she complain of shortness of the breath she also complains of leg swelling and calf pain patient denies any tearing sensation in her chest patient also complains about on her left breast she has a old surgical incision and she states it is there is pain there along with a lump under the skin she states it was old surgical incision where suture was never removed is causing some pain there was no drainage from the area no heat. When evaluating patient's labs and imaging from the ED CBC unremarkable CMP unremarkable chest x-ray unremarkable I patient was given nitro and aspirin in the ED UA with few bacteria but denies any urinary symptoms troponin x2 was negative. With these findings we will admit and ask for Cardiology evaluation Past Medical History See HPI above Past Surgical History See HPI above Family History Reviewed, non-contributory to the management of this case. Past Social History The patient lives at home, denies smoking, alcohol or illicit drugs abuse. Review of Systems Constitutional: No: Fever, Chills, Sweats, Weakness, Malaise, Other Eyes: No: Pain, Vision change, Conjunctivae inflammation, Eyelid inflammation, Other, Redness ENT: No: Ear pain, Ear discharge, Nose pain, Nose discharge, Nose congestion, Mouth pain, Mouth swelling, Throat pain, Throat swelling, Other Respiratory: No: Cough, Dry, Shortness of breath, SOB with excertion, Wheezing, Hemoptysis, Pleuritic Pain, Sputum, Wheezing, Other Cardiovascular: Chest Pain; No: Palpitations, Orthopnea, Paroxysmal Noc. Dyspnea, Edema, Lt Headedness, Other Gastrointestinal: No: Nausea, Vomiting, Abdominal Pain, Diarrhea, Constipation, Melena, Hematochezia, Other Genitourinary: No Dysuria, No Frequency, No Incontinence, No Hematuria, No Retention, No Other Musculoskeletal: No: other, neck pain, shoulder pain, arm pain, back pain, hand pain, leg pain, foot pain Skin: No: Rash, Lesions, Jaundice, Bruising, Other Neurological: No: Weakness, Numbness, Incoordination, Change in speech, Confusion, Seizures, Other Allergies: Uncoded Allergies: CONTRAST (Allergy, Unknown, 08/16/15) Exam Vital Signs Vital Signs Date Time Temp Pulse Resp B/P (MAP) Pulse Ox O2 Delivery O2 Flow Rate FiO2 12/21/24 16:18 98.7 75 16 161/74 (103) 94 98.7 General Appearance: Alert, Oriented X3, Cooperative, No acute distress HEENT: Atraumatic, PERRLA, EOMI, Mucous membr. moist/pink Respiratory: Clear to auscultation, Normal air movement Cardiovascular: Regular rate, Normal S1, Normal S2, No murmurs, Other (left chest wall surgical incision old healed no drainage noted ) Abdominal: Normal bowel sounds, Soft, No tenderness, No hepatospenomegaly, No masses Extremities: No clubbing, No cyanosis, No edema, Normal pulses, No tenderness/swelling Skin: No rashes, No breakdown, No significant lesion Neuro: Normal gait, Normal speech, Strength at 5/5 X4 ext, Normal tone, Sensation intact, Cranial nerves 3-12 NL Psych/Mental Status: Mental status NL, Mood NL Labs/Xrays Labs Test 12/21/24 16:17 Range/Units Assessment/Plan Assessment/Plan Acute chest pain r/o acs cxr normal ekg no stemi, trop negative ordered Cards consult pending eval and recs ordered asa atorvastatin ordered Echocardiogram follow-up results ordered ddimer fu results ordered morphine as needed for pain, ordered nitro prn chronic problems hld anxiety gerds FEN/PPx protonix No DVT prophylaxis patient is ambulatory SCDs Diet Plan admit to telemetry cards consult follow-up recs Plan discussed with: Patient Date of Service: December 21, 2024 Billing Provider: MARC MARTIN DNP Common Visit Codes: [id number] INP/OBS CARE (HIGH) MARC MARTIN DNP December 21, 2024 16:47
[2024-12-21 17:02] LABS: Alanine Aminotransferase 15 U/L (7-40); Albumin 4.4 g/dL (3.2-4.8); Alkaline Phosphatase 56 U/L (46-116); Anion Gap 9 (5-15); Aspartate Aminotransferase 14 U/L (13-40); BUN/Creatinine Ratio 16.5 (10.0-20.0); Blood Urea Nitrogen 15 mg/dL (9-23); Calcium 10.2 mg/dL (8.7-10.4); Carbon Dioxide 23 mmol/L (20-31); Chloride 107 mmol/L (98-107); Glucose 92 mg/dL (74-106); Potassium 3.8 mmol/L (3.5-5.1); Sodium 139 mmol/L (136-145)
[2024-12-21 17:03] LABS: Bilirubin, Total 0.3 mg/dL (0.2-1.0)
--- NOTE | 2024-12-21 17:03 | ECG ---
[facility] Test Date: 2024-12-21 Test Time: 16:07:24 Pat Name: MAICOL AMARO Department: ER Room: Gender: F Administrative Judge: MEAGAN : 1975 Requested By: JANES ARGUETA Order Number: [id number] Reading MD: Measurements Intervals [place] Rate: 74 P: 32 OR: 138 QRS: -11 QRSD: 84 T: 23 QT: 373 QTc: 414 Interpretive Statements Sinus rhythm Abnormal R-wave progression, early transition Please click the below link to view image of tracing.
--- NOTE | 2024-12-21 17:07 | ECG ---
[facility] Test Date: 2024-12-21 Test Time: 17:06:04 Pat Name: MAICOL AMARO Department: ER Room: Gender: F Choir Director: MEAGAN : 1975 Requested By: JANES ARGUETA Order Number: [id number] Reading MD: Measurements Intervals [place] Rate: 74 P: 25 SD: 148 QRS: -11 QRSD: 85 T: 15 QT: 386 QTc: 429 Interpretive Statements Sinus rhythm Abnormal R-wave progression, early transition Please click the below link to view image of tracing.
[2024-12-21 17:43] LABS: Urine Bacteria FEW /hpf (None Seen); Urine Blood TRACE /uL (Negative); Urine Budding Yeast OCCASIONAL /hpf (None Seen); Urine Clarity Turbid (Clear); Urine Color Light-Yellow (Yellow); Urine Mucus FEW (None Seen); Urine Protein, UAD Negative (Negative); Urine Specific Gravity 1.012 (1.001-1.035); Urine Squamous Epithelial Cell FEW /hpf (<5); Urine Urobilinogen Normal (Negative); Urine WBC 24 /HPF (0-5)
[2024-12-21] MEDS ORDERED: ONDANSETRON HCL 4 MG/2 ML VIAL IV PRN (18:15)
[2024-12-21] MEDS ORDERED: MORPHINE SULFATE 4 MG/ML SYR/VIAL IV PRN (18:15)
[2024-12-21] MEDS ORDERED: NITROGLYCERIN 0.4 MG SL TAB SL PRN ×2 (18:15)
--- NOTE | 2024-12-21 19:02 | DVH ---
US OF THE RIGHT BREAST INDICATION: eval for left breast cyst TECHNIQUE: All 4 quadrants, subareolar region and axillary region of the RIGHT breast were evaluated with ultrasound COMPARISON: None available FINDINGS: No solid or suspicious masses. No areas of architectural distortion. No malignant adenopathy. Left breast at total cochlear is cyst measuring 1.1 x 0.8 by 0.6 cm.. IMPRESSION: 1. There is no sonographic evidence for malignancy 2. Left breast at 12:00 p.m. there is a cysts as described above. 3. ACR Bi Rads Category:Category 2 Annual screening mammography recommended.
--- NOTE | 2024-12-21 20:55 | ECG ---
[facility] Test Date: 2024-12-21 Test Time: 19:03:04 Pat Name: MAICOL AMARO Department: ER Room: [address] [place] [address] Gender: F Spring Tester: JAYMIE : 1975 Requested By: JANES ARGUETA Order Number: [id number] Reading MD: Measurements Intervals [place] Rate: 68 P: 22 NM: 150 QRS: -3 QRSD: 87 T: 17 QT: 387 QTc: 412 Interpretive Statements Sinus rhythm Abnormal R-wave progression, early transition Please click the below link to view image of tracing.
[2024-12-21] MEDS: METOPROLOL TARTRATE 25 MG TAB PO SCH (22:00)
[2024-12-21] MEDS: ATORVASTATIN 20 MG TAB PO SCH (22:00)
[2024-12-22 02:45] VITALS: BP 131/80; PULSE 70; RESP 20; TEMP 97.8; O2SAT 98
[2024-12-22 05:00] VITALS: BP 97/60; PULSE 75; RESP 19; TEMP 97.9; O2SAT 95
[2024-12-22 06:43] LABS: Basophils # (auto) 0 10 ^3/uL (0-0.2); Basophils % (auto) 0.5 % (0.0-2.0); Eosinophils # (auto) 0.1 10 ^3/uL (0-0.8); Eosinophils % (auto) 1.6 % (0.0-7.0); Hemoglobin 13.8 g/dL (12.2-16.2); Lymphocytes % (auto) 28.1 % (10.0-50.0); Mean Corpuscular Hemoglobin 32.6 pg (28.0-32.0); Mean Corpuscular Hgb Conc. 34.6 g/dL (32.0-36.0); Mean Corpuscular Volume 94.1 fL (80.0-100.0); Monocytes # (auto) 0.5 10 ^3/uL (0-1.3); Monocytes % (auto) 7.1 % (0.0-12.0); Neutrophils # (auto) 4.5 10 ^3/uL (1.6-8.6); Neutrophils % (auto) 62.7 % (37.0-80.0); Platelet Count (auto) 198 10^3/uL (140-450); Red Blood Cells 4.25 10^6/uL (4.0-5.20); Red Cell Distribution Width 13.5 % (11.8-14.3); White Blood Cell 7.1 10^3/uL (4.4-10.8)
[2024-12-22 07:00] LABS: Alanine Aminotransferase 13 U/L (7-40); Albumin 4.1 g/dL (3.2-4.8); Alkaline Phosphatase 52 U/L (46-116); Anion Gap 9 (5-15); Aspartate Aminotransferase 13 U/L (13-40); BUN/Creatinine Ratio 15.1 (10.0-20.0); Blood Urea Nitrogen 13 mg/dL (9-23); Calcium 9.8 mg/dL (8.7-10.4); Carbon Dioxide 22 mmol/L (20-31); Glucose 91 mg/dL (74-106); Potassium 3.7 mmol/L (3.5-5.1); Sodium 141 mmol/L (136-145); Total Protein 6.7 g/dL (5.7-8.2)
[2024-12-22 07:01] LABS: Bilirubin, Total 0.4 mg/dL (0.2-1.0)
[2024-12-22 07:07] LABS: Chloride 110 mmol/L (98-107)
[2024-12-22 09:00] VITALS: BP 109/63; PULSE 77; RESP 18; TEMP 98.4; O2SAT 95
[2024-12-22] MEDS: ACETAMINOPHEN 325 MG TAB PO PRN (11:02)
[2024-12-22] MEDS: ASPirin 81 mg TAB PO SCH (11:02)
[2024-12-22] MEDS: DOCUSATE SOD 100 MG CAP PO SCH (12:14)
[2024-12-22 13:00] VITALS: BP 104/63; PULSE 79; RESP 18; TEMP 98.7; O2SAT 95
--- NOTE | 2024-12-22 14:34 | DVHPN2 ---
Reviewed: Care Plan, H&P, Labs, Medications, Previous Orders, Radiology Changes from previous H/P or p: No Changes Eyes: No Pain, No Vision change, No Conjunctivae inflammation, No Eyelid inflammation, No Other, No Redness ENT: No Ear pain, No Ear discharge, No Nose pain, No Nose discharge, No Nose congestion, No Mouth pain, No Mouth swelling, No Throat pain, No Throat swelling, No Other Cardiovascular: Chest Pain; No Palpitations, No Orthopnea, No Paroxysmal Noc. Dyspnea, No Edema, No Lt Headedness, No Other Respiratory: No Cough, No Dry, No Shortness of breath, No SOB with excertion, No Wheezing, No Hemoptysis, No Pleuritic Pain, No Sputum, No Other Gastrointestinal: No Nausea, No Vomiting, No Abdominal Pain, No Diarrhea, No Constipation, No Melena, No Hematochezia, No Other Genitourinary: No Dysuria, No Frequency, No Incontinence, No Hematuria, No Retention, No Other Musculoskeletal: No other, No neck pain, No shoulder pain, No arm pain, No back pain, No hand pain, No leg pain, No foot pain Skin: No Rash, No Lesions, No Jaundice, No Bruising, No Other Objective Vitals Vital Signs Date Time Temp Pulse Resp B/P (MAP) Pulse Ox O2 Delivery O2 Flow Rate FiO2 12/22/24 13:00 98.7 79 18 104/63 (77) 95 98.7 12/22/24 01:34 Room Air* 0 21 Medications Current Medications Medications Dose Ordered Sig/Natali Route Start Time Stop Time Status Last Admin Dose Admin Aspirin 81 mg DAILY PO 12/22/24 10:00 12/22/24 11:02 81 MG Atorvastatin Calcium 40 mg HS PO 12/21/24 22:00 Metoprolol Tartrate 25 mg Q12HR PO 12/21/24 22:00 Morphine Sulfate 2 mg Q30MP PRN IV 12/21/24 18:15 Acetaminophen 325 mg Q4HP PRN PO 12/21/24 18:15 12/22/24 11:02 325 MG Docusate Sodium 100 mg DAILY PO 12/22/24 10:00 12/22/24 12:14 100 MG Nitroglycerin 0.4 mg Q5MINP PRN SL 12/21/24 18:15 Ondansetron HCl 4 mg Q4HP PRN IV 12/21/24 18:15 Nitroglycerin 0.4 mg Q5MINP PRN SL 12/21/24 18:15 UNV Laboratory Results Laboratory Tests 12/22/24 05:48 Chemistry Test 12/21/24 16:17 12/22/24 05:48 Albumin 4.4 g/dL (3.2-4.8) 4.1 g/dL (3.2-4.8) Calcium Level 10.2 mg/dL (8.7-10.4) 9.8 mg/dL (8.7-10.4) Magnesium Level 2.2 mg/dL (1.6-2.6) Total Protein 7.0 g/dL (5.7-8.2) 6.7 g/dL (5.7-8.2) LFT Test 12/21/24 16:17 12/22/24 05:48 Alanine Aminotransferase (ALT) 15 U/L (7-40) 13 U/L (7-40) Alkaline Phosphatase 56 U/L (46-116) 52 U/L (46-116) Aspartate Amino Transferase (AST) 14 U/L (13-40) 13 U/L (13-40) Total Bilirubin 0.3 mg/dL (0.2-1.0) 0.4 mg/dL (0.2-1.0) Urinalysis Test 12/21/24 16:09 Urine Color Light-yellow (Yellow) Urine Clarity Turbid (Clear) H Urine pH 6.0 (5.0-9.0) Urine Specific [place] 1.012 (1.001-1.035) Urine Protein Negative (Negative) Urine Ketones Negative (Negative) Urine Blood Trace /uL (Negative) H Urine Nitrite Negative (Negative) Urine Bilirubin Negative (Negative) Urine Urobilinogen Normal mg/dL (Negative) Urine Leukocyte Esterase 2+ /uL (Negative) Urine RBC 2 /hpf (0 - 4) Urine Microscopic WBC 24 /HPF (0-5) H Urine Squamous Epithelial Cells Few /hpf (<5) Urine Bacteria Few /hpf (None Seen) H Urine Mucus Few (None Seen) Urine Yeast (Budding) Occasional /hpf (None Urine Glucose Normal mg/dL (Normal) Labs and/or images reviewed: Labs reviewed by me, Image(s) reviewed by me Assessment/Plan Assessment/Plan Chest pain rule out coronary artery disease: Troponin negative x3: Cardiology consult GERD Anxiety Hypercholesterolemia History of [place] 2008 Plan discussed with: Patient My Orders Orders - DEONDRE STEVENS MD Procedure Category Date Status Time * Cardiology Consult CONS 12/22/24 Verified 14:31 Date of Service: December 22, 2024 Billing Provider: DEONDRE STEVENS MD Common Visit Codes: [id number] INP/OBS CARE(HIGH) DEONDRE STEVENS MD December 22, 2024 14:33
[2024-12-22 17:00] VITALS: BP 118/71; PULSE 87; RESP 14; TEMP 99.2; O2SAT 98
--- NOTE | 2024-12-23 08:18 | DVHDS2 ---
Discharge Summary Date of Admission December 21, 2024 at 18:10 Date of Discharge: December 22, 2024 Admitting Diagnosis Chest pain Wounds: None Labs/Diagnostic Data: Laboratory Results Test 12/22/24 05:48 12/21/24 17:03 12/21/24 16:17 12/21/24 16:09 White Blood Count 7.1 10^3/uL (4.4-10.8) Red Blood Count 4.25 10^6/uL (4.0-5.20) Hemoglobin 13.8 g/dL (12.2-16.2) Hematocrit 40.0 % (36.0-46.0) Mean Corpuscular Volume 94.1 fL (80.0-100.0) Mean Corpuscular Hemoglobin 32.6 pg (28.0-32.0) Mean Corpuscular Hemoglobin Concent 34.6 g/dL (32.0-36.0) Red Cell Distribution Width 13.5 % (11.8-14.3) Platelet Count 198 10^3/uL (140-450) Mean Platelet Volume 10.9 fL (6.9-10.8) Neutrophils (%) (Auto) 62.7 % (37.0-80.0) Lymphocytes (%) (Auto) 28.1 % (10.0-50.0) Monocytes (%) (Auto) 7.1 % (0.0-12.0) Eosinophils (%) (Auto) 1.6 % (0.0-7.0) Basophils (%) (Auto) 0.5 % (0.0-2.0) Neutrophils # (Auto) 4.5 10 ^3/uL (1.6-8.6) Lymphocytes # (Auto) 2.0 10 ^3/uL (0.4-5.4) Monocytes # (Auto) 0.5 10 ^3/uL (0-1.3) Eosinophils # (Auto) 0.1 10 ^3/uL (0-0.8) Basophils # (Auto) 0 10 ^3/uL (0-0.2) Nucleated Red Blood Cells 0.0 % Sodium Level 141 mmol/L (136-145) Potassium Level 3.7 mmol/L (3.5-5.1) Chloride Level 110 mmol/L (98-107) Carbon Dioxide Level 22 mmol/L (20-31) Anion Gap 9 (5-15) Blood Urea Nitrogen 13 mg/dL (9-23) Creatinine 0.86 mg/dL (0.550-1.02) Glomerular Filtration Rate Calc 83 mL/min (>90) BUN/Creatinine Ratio 15.1 (10.0-20.0) Serum Glucose 91 mg/dL (74-106) Calcium Level 9.8 mg/dL (8.7-10.4) Total Bilirubin 0.4 mg/dL (0.2-1.0) Aspartate Amino Transferase (AST) 13 U/L (13-40) Alanine Aminotransferase (ALT) 13 U/L (7-40) Alkaline Phosphatase 52 U/L (46-116) Total Protein 6.7 g/dL (5.7-8.2) Albumin 4.1 g/dL (3.2-4.8) Troponin I High Sensitivity < 3 ng/L (</=34) Magnesium Level 2.2 mg/dL (1.6-2.6) Urine Color Light-yellow (Yellow) Urine Clarity Turbid (Clear) Urine pH 6.0 (5.0-9.0) Urine Specific [place] 1.012 (1.001-1.035) Urine Protein Negative (Negative) Urine Ketones Negative (Negative) Urine Blood Trace /uL (Negative) Urine Nitrite Negative (Negative) Urine Bilirubin Negative (Negative) Urine Urobilinogen Normal mg/dL (Negative) Urine Leukocyte Esterase 2+ /uL (Negative) Urine RBC 2 /hpf (0 - 4) Urine Microscopic WBC 24 /HPF (0-5) Urine Squamous Epithelial Cells Few /hpf (<5) Urine Bacteria Few /hpf (None Seen) Urine Mucus Few (None Seen) Urine Yeast (Budding) Occasional /hpf (None Urine Glucose Normal mg/dL (Normal) Other Laboratory Tests 12/22/24 05:48 Brief Hx & Hospital Course: 49-year-old female with a history of anxiety hypercholesterolemia TX in 2008 GERD came in complaining of chest pain. Troponin negative x3 all labs were normal treated per ACS protocol . Echocardiogram done result pending cardiology consult was placed but patient left AMA prior to cardiology evaluation. Consequences and complications of leaving AMA including possible explained to the patient and she verbalized understanding. Patient left AMA from the ER holding area. Consults/Reason for consult Cardiology consult pending Operations or Procedures Echocardiogram result pending Condition at Discharge: Fair Final Diagnosis/Problems List Chest pain rule out coronary artery disease: Troponin negative x3: Cardiology consult GERD Anxiety Hypercholesterolemia History of [place] 2009 Discharge Disposition: AMA Discharge Instruct/Medications Diet comment: Not applicable Patient left AMA Activity comment: Not applicable Patient left AMA Follow Up/Referral: Not applicable Patient left AMA Medications: Not applicable Patient left AMA 36 (Time taken for discharge summary 36 minutes) Discharge Statement: "Patient was advised to return to the ER or call 911 if any headaches, dizziness, shortness of breath, chest pain, abdominal pain, bleeding, fevers, or worsening of medical condition. Patient was counseled about treatment plan, medications, possible side effects, patientverbalized understanding. All questions were answered to the best of my ability. This discharge took greater then 30 minutes in planning, reviewing documentation, counseling the patient, and discussing with other team members." ASSESSMENT ASSESSMENT Hospital Course Left AMA Assessment Date of Service: December 23, 2024 Billing Provider: DEONDRE STEVENS MD Common Visit Codes: 33426-QSK/OBS DISCH DAY >30min DEONDRE STEVENS MD December 23, 2024 08:18
--- NOTE | 2024-12-23 11:42 | DVHSR ---
APPROVED REPORT EXAM: Two-dimensional and M-mode echocardiogram with Doppler and color Doppler. Blood Pressure: 97/60 mmHg INDICATION Chest Pain RISK FACTORS Height: 5', Weight: 158 DIMENSIONS LVDd4.4 (3.8-5.7cm)LA (2D)3.2 (1.9-4.0cm)Aortic Root3.5 (2.0-3.7cm) LVDs3.0 (2.5-4.0cm)LA (MM) (1.9-4.0cm)Aortic Cusp Exc1.7 (1.5-2.0cm) EF (%) 60.0 (55-70%)Rt. Atrium3.7 (1.9-4.0cm)Asc. Aorta cm IVSd0.9 (0.7-1.1cm)RV (D) (1.8-2.4cm) PWd1.0 (0.7-1.1cm) Mitral Valve MitralMitral Stenosis E wave0.60m/sMV Mean GR.mmHg A wave0.70m/sMV Peak GR.mmHg E/A ratio0.92D MVAcm2 Aortic Valve Aortic ValveAortic Stenosis V10.70m/Lili Mean GR.4mmHg V21.30m/Lili Peak GR.7mmHg LVOT Diameter2.2 (1.8-2.4cm)Doppler AVA2.05cm2 Pulmonic Valve V20.50m/s Tricuspid Valve TR Velocity2.20m/s [id number] Conclusion lvef 65% by visual estimate normal RV function normal atria no severe valve abnormalities noted limited study
== END 2024-12-22 19:03 | disposition left against medical advice (07) | DRG 198 ==
LOC: ER 16:01 → OVERFLOW 18:10
PROVIDERS: ADMIT Family Medicine; ATTEND Family Medicine
DX: I25.10 Atherosclerotic heart disease of native coronary artery without angina pectoris (principal); E78.00 Pure hypercholesterolemia, unspecified; F41.9 Anxiety disorder, unspecified; Z53.29 Procedure and treatment not carried out because of patient's decision for other reasons; K21.9 Gastro-esophageal reflux disease without esophagitis; I25.2 Old myocardial infarction; Z91.041 Radiographic dye allergy status; Z79.82 Long term (current) use of aspirin; Z90.49 Acquired absence of other specified parts of digestive tract
CPT/HCPCS: 36415; 71045; 76642; 80053; 81001; 83735; 84484; 85025; 93005; 93306; G0378

== ENCOUNTER 2025-02-01 09:49 | Inpatient (IN) | payer MEDICAID, OTHER ==
[~2025-02-01] VITALS: Ht 154.9 cm; Wt 71.8 kg
--- NOTE | 2025-02-01 10:27 | ED.PDOC ---
GI ASSESSMENT HPI Comments 49 y/o F, with PMHx of HTN, HLD, and GA presents to the ED for CC of bright red blood per rectum. Patient states, she has been experiencing bright red blood streaked bowels x1week with increased blood in stool onset, today (02/01/25). Patient denies previous symptoms in the past. She denies any EtOH or NSAID use or AC use. No prior abdominal surgeries. Patient denies abdominal pain, nausea, vomiting, constipation, or excessive strain with having a BM, dizziness, chest pain, palpitations. No other symptoms or modifying factors present at this time. She has never had a colonoscopy previously. Chief Complaint: GI Bleed Time Seen by MD: 10:00 Primary Care Provider: NONE Reviewed Notes: Nurses Notes, Medications, Allergies Allergies: Uncoded Allergies: CONTRAST (Allergy, Unknown, 08/16/15) Home Meds Active Scripts Azithromycin (Azithromycin) 250 Mg Tab, 250 MG PO DAILY MDD 500 for 5 Days, #6 TAB 0 Refills 2 TABLETS ORALLY ON DAY ONE, THEN 1 TABLET ORALLY DAILY FOR 4 DAYS Prov:DUNCAN BARRON INVENTORY REPRESENTATIVE 05/09/24 Kesjoucj-Mrjndnfwki-Ktpkskbke- (Neosporin + Pain Relief) Relf Max Oin, 1 MAX EX DAILY for 10 Days, #5 OIN Prov:PEGGY GORDON MD 09/28/21 Yeast (S. Boulardii)(S. Cerevi (Florastor) 250 Mg Cap, 250 MG PO DAILY, #10 CAP Prov:JADA JAIMES MD 12/12/16 Doxycycline Hyclate (DOXYCYCLINE HYCLATE) 100 Mg Tab, 1 TAB PO BID, #20 TAB Prov:JADA JAIMES MD 12/12/16 Atorvastatin Calcium (ATORVASTATIN CALCIUM) 20 Mg Tab, 20 MG PO HS, #30 TAB Prov:JADA JAIMES MD 12/12/16 Reported Medications Aspirin (Aspir-81) 81 Mg Tab, 1 TAB PO DAILY, #30 TAB 5 Refills 08/22/15 Information Source: Patient Mode of Arrival: Ambulatory Timing: Weeks Duration: Since onset Prehospital treatment: None Quality: None Vomitus: None Stool: Blood Streaked Severity: Moderate Recent: None Recent Hx of: None Pain Location: None Modifying Factors: Nothing Associated sign and symptoms: Blood in Stool Past Medical History PAST MEDICAL HISTORY: Anxiety, GERD, High Lipids, GA Surgical History: Cholecystectomy CLINICAL IMMUNOLOGIST History: No Pertinent CLINICAL IMMUNOLOGIST History Family History Family History: Reviewed,noncontributory to illness, Family hx of DM Social History Smoker: Non-Smoker Alcohol: Denies ETOH Use Drugs: Denies Drug Use Lives In: Home Constitutional: denies: chills, diaphoresis, fatigue, fever, malaise, sweats, weakness, others EENTM: denies: blurred vision, double vision, ear bleeding, ear discharge, ear drainage, ear pain, ear ringing, eye pain, eye redness, hearing loss, mouth pain, mouth swelling, nasal discharge, nose bleeding, nose congestion, nose pain, photophobia, tearing, throat pain, throat swelling, voice changes, others Respiratory: denies: cough, hemoptysis, orthopnea, SOB at rest, shortness of b reath, SOB with excertion, stridor, wheezing, others Cardiovascular: denies: chest pain, dizzy spells, diaphoresis, Dyspnea on exertion, edema, irregular heart beat, left arm pain, lightheadedness, palpitations, PND, syncope, others Gastrointestinal: reports: blood streaked bowels; denies: abdomen distended, abdominal pain, constipated, diarrhea, dysphagia, difficulty swallowing, hematemesis, melena, nausea, poor appetite, poor fluid intake, rectal bleeding, rectal pain, vomiting, others Genitourinary: denies: abnormal vagina bleeding, burning, dyspareunia, dysuria, flank pain, frequency, hematuria, incontinence, pain, , vagina discharge, urgency, others Neurological: denies: dizziness, fainting, headache, left sided numbness, left sided weakness, numbness, paresthesia, pre-existing deficit, right sided numbness, right sided weakness, seizure, speech problems, tingling, tremors, weakness, others Musculoskeletal: denies: back pain, gout, joint pain, joint swelling, muscle pain, muscle stiffness, neck pain, others Integumetry: denies: bruises, change in color, change in hair/nails, dryness, laceration, lesions, lumps, rash, wounds, others Allergic/Immunocompromised: denies: Difficulty Healing, Frequent Infections, Hives, Itching, others Hematologic/Lymphatic: denies: anemia, blood clots, easy bleeding, easy brui sing, swollen glands, others Endocrine: denies: excessive hunger, excessive sweating, excessive thirst, ex cessive urination, flushing, intolerance to cold, intolerance to heat, unexplained weight gain, unexplained weight loss, others Psychiatric: denies: anxiety, bipolar disorder, depression, hopeless, panic disorder, schizophrenia, sleepless, suicidal, others All Other Systems: Reviewed and Negative Physical Exam General Appearance: No Apparent Distress, Normal HEENT: Normal ENT Inspection, Pharynx Normal, TMs Normal Neck: Full Range of Motion, Non-Tender, Normal, Normal Inspection Respiratory: Chest Non-Tender, Lungs Clear, No Accessory Muscle Use, No Respiratory Distress, Normal Breath Sounds Cardiovascular: No Edema, No JVD, No Murmur, No Gallop, Normal Peripheral Pulses, Regular Rate/Rhythm Breast Exam: Deferred Gastrointestinal: No Organomegaly, Non Tender, No Pulsatile Mass, Normal Bowel Sounds, Soft Genitalia: Deferred Pelvic: Deferred Rectal: Deferred Extremities: No calf tenderness, Normal capillary refill, Normal inspection, Normal range of motion, Non-tender, No pedal edema Neurologic: Alert, rod buster II-XII nml as Tested, No Motor Deficits, Normal Affect, Normal Mood, No Sensory Deficits Cerebellar Function: Normal Reflexes: Normal Skin: Dry, Normal Color, Warm Lymphatic: No Adenopathy Was a procedure done? Was a procedure done?: No GI differential Dx Differential Diagnosis: Constipation, Diverticular disease, Gastritis/PUD, Gastroenteritis, GI hemorrhage, Inflammatory BD, Anemia, Stress Ulcer, Other (hemorrhiods) X-Ray, Labs, Meds, VS Vital Signs Date Time Temp Pulse Resp B/P (MAP) Pulse Ox O2 Delivery O2 Flow Rate FiO2 02/01/25 11:36 68 16 97 Room Air 02/01/25 11:36 97.9 78 16 142/68 (92) 97 97.9 02/01/25 09:54 98.0 76 16 123/68 (86) 96 98.0 Lab Test 02/01/25 10:23 Range/Units White Blood Count 7.2 4.4-10.8 10^3/uL Red Blood Count 4.38 4.0-5.20 10^6/uL Hemoglobin 14.1 12.2-16.2 g/dL Hematocrit 40.7 36.0-46.0 % Mean Corpuscular Volume 93.1 80.0-100.0 fL Mean Corpuscular Hemoglobin 32.3 H 28.0-32.0 pg Mean Corpuscular Hemoglobin Concent 34.7 32.0-36.0 g/dL Red Cell Distribution Width 13.3 11.8-14.3 % Platelet Count 208 140-450 10^3/uL Mean Platelet Volume 10.2 6.9-10.8 fL Neutrophils (%) (Auto) 72.4 37.0-80.0 % Lymphocytes (%) (Auto) 20.7 10.0-50.0 % Monocytes (%) (Auto) 5.6 0.0-12.0 % Eosinophils (%) (Auto) 0.8 0.0-7.0 % Basophils (%) (Auto) 0.5 0.0-2.0 % Neutrophils # (Auto) 5.2 1.6-8.6 10 ^3/uL Lymphocytes # (Auto) 1.5 0.4-5.4 10 ^3/uL Monocytes # (Auto) 0.4 0-1.3 10 ^3/uL Eosinophils # (Auto) 0.1 0-0.8 10 ^3/uL Basophils # (Auto) 0 0-0.2 10 ^3/uL Nucleated Red Blood Cells 0.1 % Prothrombin Time 10.9 9.3-11.8 sec Prothrombin Time INR 1.03 0.9-1.15 Activated Partial Thromboplast Time 26.9 24.5-34.5 SEC Sodium Level 140 136-145 mmol/L Potassium Level 3.8 3.5-5.1 mmol/L Chloride Level 107 98-107 mmol/L Carbon Dioxide Level 24 20-31 mmol/L Anion Gap 9 5-15 Blood Urea Nitrogen 11 9-23 mg/dL Creatinine 0.92 0.550-1.02 mg/dL Glomerular Filtration Rate Calc 77 >90 mL/min BUN/Creatinine Ratio 12.0 10.0-20.0 Serum Glucose 100 74-106 mg/dL Calcium Level 10.1 8.7-10.4 mg/dL Current Medications Medications (Trade) Dose Ordered Sig/Natali Route Start Time Stop Time Status Last Admin Pantoprazole Sodium (Protonix) 80 mg ONCE ONCE IV 02/01/25 11:15 02/01/25 11:16 DC 02/01/25 11:27 X-Ray, Labs, Meds, VS Comment Patient presenting with bright red blood per rectum for 1 week. VSS and no abdominal tenderness at this time. Will check labs to evaluate for anemia, infection, electrolyte abnormality, dehydration, etc. Urinalysis to evaluate for hematuria or infection CTAP to evaluate for acute appendicitis, colitis, diverticulitis, diverticulosis, etc. Will treat with IV protonix bolus Time of 1ST Reevaluation: 10:30 Reevaluation 1ST: Unchanged Patient Education/Counseling: Diagnosis, Treatment Family Education/Counseling: No Family Present SEPSIS Sepsis Screen Date sepsis recognized/suspect: Feb 01, 2025 Time Sepsis recognized/suspect: 953 Recent Procedure: No On Antibiotic Therapy: No Respiratory Rate >20: No Heart Rate >90: No Temp<36 C (96.8 F) or >38.3 C: No SBP <90 or MAP <65 mmHG: No New Acute Mental Status Change: No Is the patient on CPAP, BIPAP,: No Physician Orders Urinalysis (02/01/25 10:15) Ct Ab Pel Wo Con-No Oral Or Iv (02/01/25 11:05) Vital Signs Date Time Temp Pulse Resp B/P (MAP) Pulse Ox O2 Delivery O2 Flow Rate FiO2 02/01/25 11:36 68 16 97 Room Air 02/01/25 11:36 97.9 78 16 142/68 (92) 97 97.9 02/01/25 09:54 98.0 76 16 123/68 (86) 96 98.0 Laboratory Tests Test 02/01/25 10:23 White Blood Count 7.2 10^3/uL (4.4-10.8) Medications Medications Dose Ordered Sig/Natali Route Start Time Stop Time Status Last Admin Dose Admin Pantoprazole Sodium 80 mg ONCE ONCE IV 02/01/25 11:15 02/01/25 11:16 DC 02/01/25 11:27 Departure 1 Departure Time of Disposition: 12:27 (Labs unremarkable but pending CTAP. Signed out to Dr. Courtney pending results of CTAP and admission for GIB.) Impression: Primary Impression: GI bleed Qualified Codes: K92.2 - Gastrointestinal hemorrhage, unspecified Disposition: 30 STILL A PATIENT Condition: Guarded Critical Care Note Critical Care Time?: Yes (35 min-critical care time only) Critical care comment: GI bleed Stability Stability form required: No Heart Score Heart Score: Heart Score Response (Comments) Value History N/A 0 EKG N/A 0 Age N/A 0 Risk Factors N/A 0 Troponin N/A 0 Total 0 I personally scribed for TRIXIE MATTA MD ([email or web address]) on 02/01/25 at 10:27. Electronically submitted by Karen Roca ([email or web address]). TRIXIE MATTA MD Feb 01, 2025 10:27
[2025-02-01 10:35] LABS: Hematocrit 40.7 % (36.0-46.0); Hemoglobin 14.1 g/dL (12.2-16.2); Mean Corpuscular Hemoglobin 32.3 pg (28.0-32.0); Mean Corpuscular Volume 93.1 fL (80.0-100.0); Nucleated Red Blood Cells % 0.1 %
[2025-02-01 10:40] LABS: Potassium 3.8 mmol/L (3.5-5.1); Sodium 140 mmol/L (136-145)
[2025-02-01 10:41] LABS: Anion Gap 9 (5-15); Calcium 10.1 mg/dL (8.7-10.4); Carbon Dioxide 24 mmol/L (20-31)
[2025-02-01 10:42] LABS: Chloride 107 mmol/L (98-107)
[2025-02-01 10:47] LABS: BUN/Creatinine Ratio 12.0 (10.0-20.0); Blood Urea Nitrogen 11 mg/dL (9-23); Glucose 100 mg/dL (74-106)
[2025-02-01 10:49] LABS: INR 1.03 (0.9-1.15); Partial Thromboplastin Time 26.9 SEC (24.5-34.5); Prothrombin Time 10.9 sec (9.3-11.8)
[2025-02-01] MEDS: PANTOPRAZOLE 40 MG/10 ML VIAL INJ IV ONE (11:27)
--- NOTE | 2025-02-01 12:33 | DVH ---
CLINICAL INFORMATION: GI bleed. TECHNIQUE: Axial CT images of the abdomen and pelvis were obtained without IV contrast. Coronal and s agittal reformatted images were obtained, reviewed, and stored. Evaluation of the parenchymal organs is limited without IV contrast. Evaluation of the bowel and mesentery is limited without oral contras t. All CT scans at this medical facility are performed using dose modulation techniques as appropriat e to a performed exam including the following: Automated exposure control was utilized; adjustment of the MA and/or KV according to patient size; and use of iterative reconstruction technique. CTDIvol = 10.25 mGy DLP = 537.89 mGy-cm COMPARISON: None FINDINGS: Lung bases: Lung bases are clear. Liver: Grossly unremarkable in its noncontrast enhanced appearance. No abnormal density or focal lesi on identified. Biliary: Cholecystectomy. Spleen: Unremarkable. Pancreas: Grossly unremarkable in its noncontrast enhanced appearance. Adrenal glands: Unremarkable. No mass. Kidneys: Lobulated contour of both kidneys consistent with scarring. Large staghorn calculi involving most of the left renal collecting system, including the left renal pelvis, with additional left anuradha l cortical calculi. Multiple smaller right renal calculi also noted. No ureteral calculi are seen. No hydronephrosis. Aorta/Vascular: No aneurysm or significant calcification. Retroperitoneum: No mass or lymphadenopathy. Bowel/mesentery: No small bowel obstruction. No free air or free fluid. Appendix is visualized and ap pears unremarkable. Scattered small colonic diverticula without adjacent inflammatory changes to sug gest diverticulitis. Pelvic organs: Uterus is mildly lobulated, possibly due to fibroids. Bilateral adnexal cysts, with th e largest measuring up to 5 cm in the right adnexal region. Bladder: Unremarkable. No mass. Abdominal wall: Small fat containing umbilical hernia. Bones: No acute fracture or suspicious intraosseous lesion. Grade 1-2 anterolisthesis of L5 on S1 wit h chronic bilateral pars defects at L5. IMPRESSION: 1. Scattered small colonic diverticula without adjacent inflammatory changes to suggest diverticuliti s. 2. Bilateral renal calculi, including large staghorn calculi in the left kidney and areas of renal sc arring bilaterally. No hydronephrosis or ureteral calculi visualized. 3. Bilateral adnexal cysts, with the largest measuring up to 5 cm in the right adnexal region. Slight ly lobulated contour of the uterus, possibly due to fibroids. Correlate with clinical findings. If c linically indicated, pelvic ultrasound could be obtained to further characterize. 4. Additional findings as detailed above.
[2025-02-01 13:38] LABS: Urine Protein, UAD Negative (Negative)
--- NOTE | 2025-02-01 13:52 | ED.PDOC ---
Departure 1 Departure Time of Disposition: 12:27 (Labs unremarkable but pending CTAP. Signed out to Dr. Courtney pending results of CTAP and admission for GIB.) Impression: Primary Impression: GI bleed Qualified Codes: K92.2 - Gastrointestinal hemorrhage, unspecified Disposition: 09 ADMITTED INPATIENT Admit to: Med Surg Condition: Guarded TARI COURTNEY MD Feb 01, 2025 13:52
[2025-02-01] MEDS ORDERED: DOCUSATE SOD 100 MG CAP PO PRN (15:30)
[2025-02-01] MEDS ORDERED: ONDANSETRON HCL 4 MG/2 ML VIAL IV PRN (15:30)
[2025-02-01] MEDS ORDERED: HYDROcodone-ACET 5/325MG TAB PO PRN (15:30)
[2025-02-01] MEDS ORDERED: ACETAMINOPHEN 325 MG TAB PO PRN (15:30)
--- NOTE | 2025-02-01 18:26 | DVHHP2 ---
History of Present Illness Reason for Visit: GI bleed History of Present Illness The patient is a 49 years old female with past medical history of anxiety, GERD, hyperlipidemia, and [place] who presented to [facility] ED with complaint of bright red blood per rectum. Patient reports, she has been experiencing bright red blood streaked bowels x1week with increased blood in stool onset, today (02/01/25). Patient was seen and evaluated in the ED, laboratory data shows WBC 7.2, platelets 208, sodium 140, potassium 3.8, BUN 11, creatinine 0.92, glucose 100, calcium 10.1, blood pressure 142/68, heart rate 78, temperature 97.9 F, O2 saturation 97% on room air. Abdomen/pelvis CT revealing scattered small colonic diverticula without adjacent inflammatory changes to suggest diverticulitis. Please see medication orders section in the computer. On my assessment, patient denied chest pain, no headache, no dizziness, no shortness of breath, no abdominal pain, no nausea, no vomiting, no fever, no chills. Patient was admitted for further evaluation and medical management. Past Medical History Anxiety, GERD, High Lipids, [place] Past Surgical History Cholecystectomy Family History Reviewed, noncontributory to the management of this case. Past Social History The patient lives at home, denies smoking, alcohol or illicit drugs abuse. Review of Systems Constitutional: No: Fever, Chills, Sweats, Weakness, Malaise, Other Eyes: No: Pain, Vision change, Conjunctivae inflammation, Eyelid inflammation, Other, Redness ENT: No: Ear pain, Ear discharge, Nose pain, Nose discharge, Nose congestion, Mouth pain, Mouth swelling, Throat pain, Throat swelling, Other Respiratory: No: Cough, Dry, Shortness of breath, SOB with excertion, Wheezing, Hemoptysis, Pleuritic Pain, Sputum, Wheezing, Other Cardiovascular: No: Chest Pain, Palpitations, Orthopnea, Paroxysmal Noc. Dyspnea, Edema, Lt Headedness, Other Gastrointestinal: Melena, Other (Blood streak bowel); No: Nausea, Vomiting, Abdominal Pain, Diarrhea, Constipation, Hematochezia Genitourinary: No Dysuria, No Frequency, No Incontinence, No Hematuria, No Retention, No Other Musculoskeletal: No: other, neck pain, shoulder pain, arm pain, back pain, hand pain, leg pain, foot pain Skin: No: Rash, Lesions, Jaundice, Bruising, Other Neurological: No: Weakness, Numbness, Incoordination, Change in speech, Confusion, Seizures, Other Allergies: Uncoded Allergies: CONTRAST (Allergy, Unknown, 08/16/15) Medications Current Medications Medications Dose Ordered Sig/Natali Route Start Time Stop Time Status Last Admin Dose Admin Pantoprazole Sodium 40 mg DAILY IV 02/02/25 10:00 Sodium Chloride 10 ml Q8HR IV 02/01/25 22:00 Acetaminophen/ Hydrocodone Bitart 1 tab Q4HP PRN PO 02/01/25 15:30 Ondansetron HCl 4 mg Q4HP PRN IV 02/01/25 15:30 Docusate Sodium 100 mg BIDPRN PRN PO 02/01/25 15:30 Acetaminophen 650 mg Q6HP PRN PO 02/01/25 15:30 Exam Vital Signs Vital Signs Date Time Temp Pulse Resp B/P (MAP) Pulse Ox O2 Delivery O2 Flow Rate FiO2 02/01/25 17:35 97.5 76 24 123/72 (89) 96 97.5 02/01/25 11:36 Room Air General Appearance: Alert, Oriented X3, Cooperative, No acute distress HEENT: Atraumatic, PERRLA, EOMI, Mucous membr. moist/pink Respiratory: Normal air movement Cardiovascular: Regular rate, Normal S1, Normal S2, No murmurs Abdominal: Normal bowel sounds, Soft, No tenderness, No hepatospenomegaly, No masses Extremities: No clubbing, No cyanosis, No edema, Normal pulses, No tenderness/swelling Skin: No rashes, No breakdown, No significant lesion Neuro: Normal gait, Normal speech, Strength at 5/5 X4 ext, Normal tone, Sensation intact, Cranial nerves 3-12 NL, Reflexes 2+ Psych/Mental Status: Mental status NL, Mood NL Labs/Xrays Labs Test 02/01/25 13:28 02/01/25 10:23 Range/Units Urine Color Light-yellow Yellow Urine Clarity Clear Clear Urine pH 6.0 5.0-9.0 Urine Specific [place] 1.009 1.001-1.035 Urine Protein Negative Negative Urine Ketones Negative Negative Urine Blood Negative Negative /uL Urine Nitrite Negative Negative Urine Bilirubin Negative Negative Urine Urobilinogen Normal Negative mg/dL Urine Leukocyte Esterase 1+ Negative /uL Urine RBC 1 0 - 4 /hpf Urine Microscopic WBC 16 H 0-5 /HPF Urine Squamous Epithelial Cells Few <5 /hpf Urine Bacteria Few H None Seen /hpf Urine Glucose Normal Normal mg/dL White Blood Count 7.2 4.4-10.8 10^3/uL Red Blood Count 4.38 4.0-5.20 10^6/uL Hemoglobin 14.1 12.2-16.2 g/dL Hematocrit 40.7 36.0-46.0 % Mean Corpuscular Volume 93.1 80.0-100.0 fL Mean Corpuscular Hemoglobin 32.3 H 28.0-32.0 pg Mean Corpuscular Hemoglobin Concent 34.7 32.0-36.0 g/dL Red Cell Distribution Width 13.3 11.8-14.3 % Platelet Count 208 140-450 10^3/uL Mean Platelet Volume 10.2 6.9-10.8 fL Neutrophils (%) (Auto) 72.4 37.0-80.0 % Lymphocytes (%) (Auto) 20.7 10.0-50.0 % Monocytes (%) (Auto) 5.6 0.0-12.0 % Eosinophils (%) (Auto) 0.8 0.0-7.0 % Basophils (%) (Auto) 0.5 0.0-2.0 % Neutrophils # (Auto) 5.2 1.6-8.6 10 ^3/uL Lymphocytes # (Auto) 1.5 0.4-5.4 10 ^3/uL Monocytes # (Auto) 0.4 0-1.3 10 ^3/uL Eosinophils # (Auto) 0.1 0-0.8 10 ^3/uL Basophils # (Auto) 0 0-0.2 10 ^3/uL Nucleated Red Blood Cells 0.1 % Prothrombin Time 10.9 9.3-11.8 sec Prothrombin Time INR 1.03 0.9-1.15 Activated Partial Thromboplast Time 26.9 24.5-34.5 SEC Sodium Level 140 136-145 mmol/L Potassium Level 3.8 3.5-5.1 mmol/L Chloride Level 107 98-107 mmol/L Carbon Dioxide Level 24 20-31 mmol/L Anion Gap 9 5-15 Blood Urea Nitrogen 11 9-23 mg/dL Creatinine 0.92 0.550-1.02 mg/dL Glomerular Filtration Rate Calc 77 >90 mL/min BUN/Creatinine Ratio 12.0 10.0-20.0 Serum Glucose 100 74-106 mg/dL Calcium Level 10.1 8.7-10.4 mg/dL PATIENT: MAICOL AMARO ACCT: [id number] UNIT: [id number] : 1975 LOC: ER ROOM / BED: / AGE / SEX: 49 / F ADM STATUS: REG ER SERVICE 1105 ORDERING PHYSICIAN: TRIXIE MATTA MD PROCEDURE(s): ABPL - CT AB PEL WO CON-NO ORAL OR IV REASON: GI bleed ORDER NUMBER(s): [id number], ACCESSION NUMBER(s): [id number] CLINICAL INFORMATION: GI bleed. TECHNIQUE: Axial CT images of the abdomen and pelvis were obtained without IV contrast. Coronal and sagittal reformatted images were obtained, reviewed, and stored. Evaluation of the parenchymal organs is limited without IV contrast. Evaluation of the bowel and mesentery is limited without oral contrast. All CT scans at this medical facility are performed using dose modulation techniques as appropriate to a performed exam including the following: Automated exposure control was utilized; adjustment of the MA and/or KV according to patient size; and use of iterative reconstruction technique. CTDIvol = 10.25 mGy DLP = 537.89 mGy-cm COMPARISON: None FINDINGS: Lung bases: Lung bases are clear. Liver: Grossly unremarkable in its noncontrast enhanced appearance. No abnormal density or focal lesion identified. Biliary: Cholecystectomy. Spleen: Unremarkable. Pancreas: Grossly unremarkable in its noncontrast enhanced appearance. Adrenal glands: Unremarkable. No mass. Kidneys: Lobulated contour of both kidneys consistent with scarring. Large staghorn calculi involving most of the left renal collecting system, including the left renal pelvis, with additional left renal cortical calculi. Multiple smaller right renal calculi also noted. No ureteral calculi are seen. No hydronephrosis. Aorta/Vascular: No aneurysm or significant calcification. Retroperitoneum: No mass or lymphadenopathy. Bowel/mesentery: No small bowel obstruction. No free air or free fluid. Appendix is visualized and appears unremarkable. Scattered small colonic diverticula w ithout adjacent inflammatory changes to suggest diverticulitis. Pelvic organs: Uterus is mildly lobulated, possibly due to fibroids. Bilateral adnexal cysts, with the largest measuring up to 5 cm in the right adnexal region. Bladder: Unremarkable. No mass. Abdominal wall: Small fat containing umbilical hernia. Bones: No acute fracture or suspicious intraosseous lesion. Grade 1-2 anterolisthesis of L5 on S1 with chronic bilateral pars defects at L5. IMPRESSION: 1. Scattered small colonic diverticula without adjacent inflammatory changes to suggest diverticulitis. 2. Bilateral renal calculi, including large staghorn calculi in the left kidney and areas of renal scarring bilaterally. No hydronephrosis or ureteral calculi visualized. 3. Bilateral adnexal cysts, with the largest measuring up to 5 cm in the right adnexal region. Slightly lobulated contour of the uterus, possibly due to fibroids. Correlate with clinical findings. If clinically indicated, pelvic ultrasound could be obtained to further characterize. 4. Additional findings as detailed above. Assessment/Plan Assessment/Plan GI bleed Gastrointestinal hemorrhage, unspecified Plan 1. Admit to med surge unit 2. Breathing treatment 3. Pain control management 4. Management of fluids and electrolytes 5. Consultation for hospitalist 6. Diagnostic tests abdomen/pelvis CT 7. DVT prophylaxis-on SCDs 8. Repeat labs CBC, CMP in a.m. 9. Continue with current medical management 10. Treatment plan discussed with patient and RN. Patient verbalized understanding. Plan discussed with: Patient, Other (RN) My Orders Orders - JASEN SAXENA DNP Procedure Category Date Status Time Pantoprazole PHA 02/02/25 In Process (Protonix) 10:00 Allergies ROGELIO 02/01/25 In Process 15:19 Code Status CODE 02/01/25 Transmitted 15:19 Sodium Chloride Lock PHA 02/01/25 In Process (Saline Lock Ns) 22:00 Oxygen Per Hour RT 02/01/25 Transmitted 15:19 Hydrocodone-Acet PHA 02/01/25 In Process 5/325mg Tab (Fellows 15:30 Ondansetron Hcl PHA 02/01/25 In Process (Zofran) 15:30 Docusate Sodium PHA 02/01/25 In Process Capsule (Colace 15:30 Complete Blood Count LAB 02/02/25 Verified 04:00 Comprehensive LAB 02/02/25 Verified Metabolic Panel 04:00 Condition: Serious ROGELIO 02/01/25 In Process 15:19 Acetaminophen Tablet PHA 02/01/25 In Process (Tylenol Tablet) 15:30 Clear Liq Diet DIET 02/01/25 Transmitted Dinner Bedrest With Bathroom ROGELIO 02/01/25 In Process Privileg 15:19 Sequential ROGELIO 02/01/25 In Process Compression Device Problem List: (1) GI bleed (2) Gastrointestinal hemorrhage, unspecified Date of Service: Feb 01, 2025 Billing Provider: JASEN SAXENA DNP Common Visit Codes: 61087-[id number] INP/OBS CARE (HIGH) JASEN SAXENA DNP Feb 01, 2025 18:26
[2025-02-01] MEDS ORDERED: NITROGLYCERIN 0.4 MG SL TAB SL PRN (18:30)
[2025-02-01] MEDS ORDERED: MORPHINE SULFATE INJ 2 MG/ml SYRG IV PRN (18:30)
[2025-02-01 22:35] VITALS: RESP 16
[2025-02-01 22:45] VITALS: BP 114/73; PULSE 74; RESP 18; TEMP 97.5; O2SAT 96
[2025-02-01] MEDS: SODIUM CHLOR 0.9% PF (SALINE LOCK) 10ML VIAL/SYR IV SCH (22:57)
[2025-02-01 22:59] VITALS: BP 114/73; PULSE 72; RESP 19; TEMP 98.1; O2SAT 96
[2025-02-02 04:22] LABS: Hematocrit 39.2 % (36.0-46.0); Hemoglobin 13.6 g/dL (12.2-16.2); Mean Corpuscular Hemoglobin 32.5 pg (28.0-32.0); Mean Corpuscular Volume 93.4 fL (80.0-100.0); Nucleated Red Blood Cells % 0.0 %
[2025-02-02 04:28] LABS: Alanine Aminotransferase 15 U/L (7-40); Albumin 3.9 g/dL (3.2-4.8); Alkaline Phosphatase 50 U/L (46-116); Anion Gap 8 (5-15); BUN/Creatinine Ratio 12.6 (10.0-20.0); Bilirubin, Total 0.5 mg/dL (0.2-1.0); Blood Urea Nitrogen 11 mg/dL (9-23); Calcium 9.0 mg/dL (8.7-10.4); Carbon Dioxide 24 mmol/L (20-31); Glucose 91 mg/dL (74-106); Potassium 3.6 mmol/L (3.5-5.1); Sodium 140 mmol/L (136-145); Total Protein 6.4 g/dL (5.7-8.2)
[2025-02-02 04:29] LABS: Chloride 108 mmol/L (98-107)
[2025-02-02 05:10] VITALS: BP 114/64; PULSE 84; RESP 16; TEMP 98.3; O2SAT 96
[2025-02-02 08:32] VITALS: BP 116/72; PULSE 70; RESP 16; TEMP 98.2; O2SAT 95
[2025-02-02] MEDS: PANTOPRAZOLE 40 MG/10 ML VIAL INJ IV SCH (08:52)
[2025-02-02 12:00] VITALS: BP 111/67; PULSE 64; RESP 17; TEMP 98.1; O2SAT 95
--- NOTE | 2025-02-02 17:03 | DVHPN2 ---
Subjective Patient reporting having bloody stools history evening Reviewed: Care Plan, H&P, Labs, Medications Changes from previous H/P or p: No Changes General: Per HPI Eyes: No Pain, No Vision change, No Conjunctivae inflammation, No Eyelid inflammation, No Other, No Redness ENT: No Ear pain, No Ear discharge, No Nose pain, No Nose discharge, No Nose congestion, No Mouth pain, No Mouth swelling, No Throat pain, No Throat swelling, No Other Cardiovascular: No Chest Pain, No Palpitations, No Orthopnea, No Paroxysmal Noc. Dyspnea, No Edema, No Lt Headedness, No Other Respiratory: No Cough, No Dry, No Shortness of breath, No SOB with excertion, No Wheezing, No Hemoptysis, No Pleuritic Pain, No Sputum, No Other Gastrointestinal: No Nausea, No Vomiting, No Abdominal Pain, No Diarrhea, No Constipation; Melena; No Hematochezia; Other (Blood streak bowel) Genitourinary: No Dysuria, No Frequency, No Incontinence, No Hematuria, No Retention, No Other Musculoskeletal: No other, No neck pain, No shoulder pain, No arm pain, No back pain, No hand pain, No leg pain, No foot pain Skin: No Rash, No Lesions, No Jaundice, No Bruising, No Other Objective Vitals Vital Signs Date Time Temp Pulse Resp B/P (MAP) Pulse Ox O2 Delivery O2 Flow Rate FiO2 02/02/25 12:00 98.1 64 17 111/67 (82) 95 98.1 02/01/25 22:45 Room Air* 0 21 Intake/Output Intake and Output 02/02/25 07:00 Intake Total 200 ml Output Total 2 ml Balance 198 ml Intake Oral 200 ml Output Urine Total 2 ml General Appearance: Alert, Oriented X3, Cooperative, No acute distress, mild distress HEENT: Atraumatic, PERRLA Cardiovascular: Normal S1, Normal S2 Abdomen: Normal bowel sounds, Soft, No tenderness, No hepatospenomegaly Musculoskeletal: Normal sensory function, Normal motor function Skin: Dry, Intact Psych/Mental Status: Mental status NL, Mood NL Medications Current Medications Medications Dose Ordered Sig/Natali Route Start Time Stop Time Status Last Admin Dose Admin Pantoprazole Sodium 40 mg DAILY IV 02/02/25 10:00 02/02/25 08:52 40 MG Sodium Chloride 10 ml Q8HR IV 02/01/25 22:00 02/02/25 13:27 10 ML Acetaminophen/ Hydrocodone Bitart 1 tab Q4HP PRN PO 02/01/25 15:30 Ondansetron HCl 4 mg Q4HP PRN IV 02/01/25 15:30 Docusate Sodium 100 mg BIDPRN PRN PO 02/01/25 15:30 Acetaminophen 650 mg Q6HP PRN PO 02/01/25 15:30 Nitroglycerin 0.4 mg Q5MINP PRN SL 02/01/25 18:30 Morphine Sulfate 2 mg Q30M PRN IV 02/01/25 18:30 Laboratory Results Laboratory Tests 02/02/25 03:24 Chemistry Test 02/02/25 03:24 Albumin 3.9 g/dL (3.2-4.8) Calcium Level 9.0 mg/dL (8.7-10.4) Total Protein 6.4 g/dL (5.7-8.2) LFT Test 02/02/25 03:24 Alanine Aminotransferase (ALT) 15 U/L (7-40) Alkaline Phosphatase 50 U/L (46-116) Aspartate Amino Transferase (AST) 18 U/L (13-40) Total Bilirubin 0.5 mg/dL (0.2-1.0) Urinalysis Test 02/01/25 13:28 Urine Color Light-yellow (Yellow) Urine Clarity Clear (Clear) Urine pH 6.0 (5.0-9.0) Urine Specific [place] 1.009 (1.001-1.035) Urine Protein Negative (Negative) Urine Ketones Negative (Negative) Urine Blood Negative /uL (Negative) Urine Nitrite Negative (Negative) Urine Bilirubin Negative (Negative) Urine Urobilinogen Normal mg/dL (Negative) Urine Leukocyte Esterase 1+ /uL (Negative) Urine RBC 1 /hpf (0 - 4) Urine Microscopic WBC 16 /HPF (0-5) H Urine Squamous Epithelial Cells Few /hpf (<5) Urine Bacteria Few /hpf (None Seen) H Urine Glucose Normal mg/dL (Normal) Labs and/or images reviewed: Labs reviewed by me, Image(s) reviewed by me Assessment/Plan Assessment/Plan Impression: -rectal bleeding -rule out internal hemorrhoid bleeding -constipation -dyslipidemia -GERD Plan: -PPI -GI consultation -stool for occult blood -continue current diet -further course of care per GI recommendations Total time spent with patient discussing and formulating plan of care: 35 minutes. This medical document was created using an electronic medical record system with [employer] dictation system. Although this document has been carefully reviewed, there may still be some phonetic and typographical errors. These areas are purely typographical due to imperfections of the software programs, and do not reflect any compromise in the patient's medical care. Plan discussed with: Patient, Other (RN) Date of Service: Feb 03, 2025 Billing Provider: ASIF MATTHEWS NP Common Visit Codes: [id number] INP/OBS CARE(HIGH) ASIF MATTHEWS NP Feb 02, 2025 17:03
[2025-02-02 20:00] VITALS: PULSE 78; RESP 18; O2SAT 96
[2025-02-02 21:00] VITALS: BP 98/67; PULSE 78; RESP 18; TEMP 97.8; O2SAT 96
[2025-02-03 01:00] VITALS: BP 100/62; PULSE 68; RESP 16; TEMP 97.7; O2SAT 96
[2025-02-03 05:00] VITALS: BP 98/60; PULSE 72; RESP 18; TEMP 97.9; O2SAT 95
[2025-02-03 07:44] LABS: Hematocrit 40.6 % (36.0-46.0); Hemoglobin 14.0 g/dL (12.2-16.2); Mean Corpuscular Hemoglobin 32.1 pg (28.0-32.0); Mean Corpuscular Volume 93.3 fL (80.0-100.0); Nucleated Red Blood Cells % 0.1 %
[2025-02-03 08:00] VITALS: PULSE 72; RESP 18; O2SAT 95
[2025-02-03 09:00] VITALS: BP 100/64; PULSE 64; RESP 18; TEMP 98; O2SAT 94
[2025-02-03 13:00] VITALS: BP 116/64; PULSE 72; RESP 20; TEMP 98.6; O2SAT 96
--- NOTE | 2025-02-03 14:25 | DVHDS2 ---
Discharge Summary Date of Admission Feb 01, 2025 at 18:24 Date of Discharge: Feb 03, 2025 Admitting Diagnosis GI bleed Labs/Diagnostic Data: Laboratory Results Test 02/03/25 06:09 02/02/25 03:24 02/01/25 13:28 02/01/25 10:23 White Blood Count 7.1 10^3/uL (4.4-10.8) Red Blood Count 4.35 10^6/uL (4.0-5.20) Hemoglobin 14.0 g/dL (12.2-16.2) Hematocrit 40.6 % (36.0-46.0) Mean Corpuscular Volume 93.3 fL (80.0-100.0) Mean Corpuscular Hemoglobin 32.1 pg (28.0-32.0) Mean Corpuscular Hemoglobin Concent 34.4 g/dL (32.0-36.0) Red Cell Distribution Width 13.2 % (11.8-14.3) Platelet Count 186 10^3/uL (140-450) Mean Platelet Volume 11.1 fL (6.9-10.8) Neutrophils (%) (Auto) 69.2 % (37.0-80.0) Lymphocytes (%) (Auto) 21.7 % (10.0-50.0) Monocytes (%) (Auto) 7.0 % (0.0-12.0) Eosinophils (%) (Auto) 1.8 % (0.0-7.0) Basophils (%) (Auto) 0.3 % (0.0-2.0) Neutrophils # (Auto) 4.9 10 ^3/uL (1.6-8.6) Lymphocytes # (Auto) 1.5 10 ^3/uL (0.4-5.4) Monocytes # (Auto) 0.5 10 ^3/uL (0-1.3) Eosinophils # (Auto) 0.1 10 ^3/uL (0-0.8) Basophils # (Auto) 0 10 ^3/uL (0-0.2) Nucleated Red Blood Cells 0.1 % Sodium Level 140 mmol/L (136-145) Potassium Level 3.6 mmol/L (3.5-5.1) Chloride Level 108 mmol/L (98-107) Carbon Dioxide Level 24 mmol/L (20-31) Anion Gap 8 (5-15) Blood Urea Nitrogen 11 mg/dL (9-23) Creatinine 0.87 mg/dL (0.550-1.02) Glomerular Filtration Rate Calc 82 mL/min (>90) BUN/Creatinine Ratio 12.6 (10.0-20.0) Serum Glucose 91 mg/dL (74-106) Calcium Level 9.0 mg/dL (8.7-10.4) Total Bilirubin 0.5 mg/dL (0.2-1.0) Aspartate Amino Transferase (AST) 18 U/L (13-40) Alanine Aminotransferase (ALT) 15 U/L (7-40) Alkaline Phosphatase 50 U/L (46-116) Total Protein 6.4 g/dL (5.7-8.2) Albumin 3.9 g/dL (3.2-4.8) Urine Color Light-yellow (Yellow) Urine Clarity Clear (Clear) Urine pH 6.0 (5.0-9.0) Urine Specific [place] 1.009 (1.001-1.035) Urine Protein Negative (Negative) Urine Ketones Negative (Negative) Urine Blood Negative /uL (Negative) Urine Nitrite Negative (Negative) Urine Bilirubin Negative (Negative) Urine Urobilinogen Normal mg/dL (Negative) Urine Leukocyte Esterase 1+ /uL (Negative) Urine RBC 1 /hpf (0 - 4) Urine Microscopic WBC 16 /HPF (0-5) Urine Squamous Epithelial Cells Few /hpf (<5) Urine Bacteria Few /hpf (None Seen) Urine Glucose Normal mg/dL (Normal) Prothrombin Time 10.9 sec (9.3-11.8) Prothrombin Time INR 1.03 (0.9-1.15) Activated Partial Thromboplast Time 26.9 SEC (24.5-34.5) Other Laboratory Tests 02/03/25 06:09 02/02/25 03:24 Brief Hx & Hospital Course: History of Present Illness The patient is a 49 years old female with past medical history of anxiety, GERD, hyperlipidemia, and [place] who presented to [facility] ED with complaint of bright red blood per rectum. Patient reports, she has been experiencing bright red blood streaked bowels x1week with increased blood in stool onset, today (02/01/25). Patient was seen and evaluated in the ED, laboratory data shows WBC 7.2, platelets 208, sodium 140, potassium 3.8, BUN 11, creatinine 0.92, glucose 100, calcium 10.1, blood pressure 142/68, heart rate 78, temperature 97.9 F, O2 saturation 97% on room air. Abdomen/pelvis CT revealing scattered small colonic diverticula without adjacent inflammatory changes to suggest diverticulitis. Please see medication orders section in the computer. On my assessment, patient denied chest pain, no headache, no dizziness, no shortness of breath, no abdominal pain, no nausea, no vomiting, no fever, no chills. Patient was admitted for further evaluation and medical management. Course of hospitalization: Further discussion with the patient reveals that she has had intermittent blood- streaked bowels for the past one week, worse the day prior to coming in the hospital. While in the hospital she has not had any bowel movements. Patient's hematology has remained normal. GI consultation was obtained. Colonoscopy will be deferred to outpatient services. Patient was tolerating oral intake without any issues. Patient will be discharged home and is instructed to take [id number] Colace or other stool softeners for constipation greater than two days. Patient was also recommended to follow up with her PCP regarding her reported anxiety. Physical examination General: Alert and Oriented x3. No acute distress. Well-nourished. Eyes: EOMI. Anicteric. HENT: Moist mucous membranes. Lungs: Clear to auscultation bilaterally. No accessory muscle use. Cardiovascular: Regular rate and rhythm. No murmur. No JVD. Abdomen: Soft, non-tender and non-distended. No palpable masses. Extremities: No edema. Non-tender. Skin: No rashes or lesions. Warm. Neurologic: No focal neurological deficits. CN II-XII grossly intact, but not individually tested. Psychiatric: Cooperative. Appropriate mood and affect. Total time spent with patient discussing and formulating plan of care: 35 minutes. This medical document was created using an electronic medical record system with [employer] dictation system. Although this document has been carefully reviewed, there may still be some phonetic and typographical errors. These areas are purely typographical due to imperfections of the software programs, and do not reflect any compromise in the patient's medical care. Condition at Discharge: Fair Final Diagnosis/Problems List Rectal bleeding, probably secondary to internal hemorrhoids Secondary diagnosis: GERD Dyslipidemia Anxiety Discharge Disposition: Home Discharge Instruct/Medications Diet: Regular Activity: No Restrictions, As Tolerated Follow Up/Referral: Follow up with Dr. Vidhya Hankins in 3-4 weeks Medications: Recommend [id number] softeners for constipation greater than two days Scheduled Aspirin (Aspir-81), 1 TAB PO DAILY, (Reported) Atorvastatin Calcium (Atorvastatin Calcium), 20 MG PO HS Azithromycin (Azithromycin), 250 MG PO DAILY Doxycycline Hyclate (Doxycycline Hyclate), 1 TAB PO BID Eezhcoot-Nasmdqpszu-Ygazmhlmv- (Neosporin + Pain Relief), 1 MAX EX DAILY Yeast (S. Boulardii)(S. Cerevi (Florastor), 250 MG PO DAILY 36 Discharge Statement: "Patient was advised to return to the ER or call 911 if any headaches, dizziness, shortness of breath, chest pain, abdominal pain, bleeding, fevers, or worsening of medical condition. Patient was counseled about treatment plan, medications, possible side effects, patientverbalized understanding. All questions were answered to the best of my ability. This discharge took greater then 30 minutes in planning, reviewing documentation, counseling the patient, and discussing with other team members." ASSESSMENT ASSESSMENT Assessment Rectal bleeding, probably secondary to internal hemorrhoids Date of Service: Feb 03, 2025 Billing Provider: ASIF MATTHEWS NP Common Visit Codes: [id number]/OBS DISCH DAY >30min ASIF MATTHEWS NP Feb 03, 2025 14:25
[2025-02-03 15:46] VITALS: BP 128/75; PULSE 65; RESP 18; TEMP 98.2; O2SAT 98
--- NOTE | 2025-02-03 22:36 | DVHINCON2 ---
Date of service: Feb 03, 2025 (Late entryPatient seen at bedside at 10:00 a.m.) Referring Physician Carlo Hicks Reason for Consultation Rectal bleeding History of Present Illness The patient is a 49 years old female with past medical history of anxiety, GERD, hyperlipidemia, and NE who presented to [facility] ED with complaint of bright red blood per rectum. Patient reports, she has been experiencing brigh t red blood streaked bowels x1week with increased blood in stool onset on (02/01/25). Abdomen/pelvis CT revealing scattered small colonic diverticula without adjacent inflammatory changes to suggest diverticulitis. She has not had a prior colonoscopy Today patient was seen at bedside out of bed to chair, she states she has not had any further bleeding or a bowel movement. Her H&H is stable Past Medical History Past Medical History Anxiety, GERD, High Lipids, NE Past Surgical History Past Surgical History Cholecystectomy Family History: FH: diabetes mellitus GRANDMOTHER, Family History Family History Reviewed, noncontributory to the management of this case. Social History Social History The patient lives at home, denies smoking, alcohol or illicit drugs abuse. Allergies: Uncoded Allergies: CONTRAST (Allergy, Unknown, 08/16/15) Home Meds Active Scripts Azithromycin (Azithromycin) 250 Mg Tab, 250 MG PO DAILY MDD 500 for 5 Days, #6 TAB 0 Refills 2 TABLETS ORALLY ON DAY ONE, THEN 1 TABLET ORALLY DAILY FOR 4 DAYS Prov:DUNCAN BARRON 05/09/24 Vlqmptrg-Kzqpvlbmuv-Xywyfrwvb- (Neosporin + Pain Relief) Relf Max Oin, 1 MAX EX DAILY for 10 Days, #5 OIN Prov:PEGGY GORDON MD 09/28/21 Yeast (S. Boulardii)(S. Cerevi (Florastor) 250 Mg Cap, 250 MG PO DAILY, #10 CAP Prov:JADA JAIMES MD 12/12/16 Doxycycline Hyclate (DOXYCYCLINE HYCLATE) 100 Mg Tab, 1 TAB PO BID, #20 TAB Prov:JADA JAIMES MD 12/12/16 Atorvastatin Calcium (ATORVASTATIN CALCIUM) 20 Mg Tab, 20 MG PO HS, #30 TAB Prov:JADA JAIMES MD 12/12/16 Reported Medications Aspirin (Aspir-81) 81 Mg Tab, 1 TAB PO DAILY, #30 TAB 5 Refills 1/26/16 Vital Signs Vital Signs Date Time Temp Pulse Resp B/P (MAP) Pulse Ox O2 Delivery O2 Flow Rate FiO2 02/03/25 15:46 98.2 65 18 98 02/03/25 13:00 116/64 (81) 02/03/25 08:00 Room Air* 0 21 Physical Exam General Appearance: Alert, Oriented X3, Cooperative, No acute distress, mild distress HEENT: Atraumatic, PERRLA Cardiovascular: Normal S1, Normal S2 Abdomen: Normal bowel sounds, Soft, No tenderness, No hepatospenomegaly Musculoskeletal: Normal sensory function, Normal motor function Skin: Dry, Intact Psych/Mental Status: Mental status NL, Mood NL Labs/Diagnostic Data Labs Test 02/03/25 06:09 02/02/25 03:24 02/01/25 13:28 02/01/25 10:23 Range/Units White Blood Count 7.1 4.4-10.8 10^3/uL Red Blood Count 4.35 4.0-5.20 10^6/uL Hemoglobin 14.0 12.2-16.2 g/dL Hematocrit 40.6 36.0-46.0 % Mean Corpuscular Volume 93.3 80.0-100.0 fL Mean Corpuscular Hemoglobin 32.1 H 28.0-32.0 pg Mean Corpuscular Hemoglobin Concent 34.4 32.0-36.0 g/dL Red Cell Distribution Width 13.2 11.8-14.3 % Platelet Count 186 140-450 10^3/uL Mean Platelet Volume 11.1 H 6.9-10.8 fL Neutrophils (%) (Auto) 69.2 37.0-80.0 % Lymphocytes (%) (Auto) 21.7 10.0-50.0 % Monocytes (%) (Auto) 7.0 0.0-12.0 % Eosinophils (%) (Auto) 1.8 0.0-7.0 % Basophils (%) (Auto) 0.3 0.0-2.0 % Neutrophils # (Auto) 4.9 1.6-8.6 10 ^3/uL Lymphocytes # (Auto) 1.5 0.4-5.4 10 ^3/uL Monocytes # (Auto) 0.5 0-1.3 10 ^3/uL Eosinophils # (Auto) 0.1 0-0.8 10 ^3/uL Basophils # (Auto) 0 0-0.2 10 ^3/uL Nucleated Red Blood Cells 0.1 % Sodium Level 140 136-145 mmol/L Potassium Level 3.6 3.5-5.1 mmol/L Chloride Level 108 H 98-107 mmol/L Carbon Dioxide Level 24 20-31 mmol/L Anion Gap 8 5-15 Blood Urea Nitrogen 11 9-23 mg/dL Creatinine 0.87 0.550-1.02 mg/dL Glomerular Filtration Rate Calc 82 >90 mL/min BUN/Creatinine Ratio 12.6 10.0-20.0 Serum Glucose 91 74-106 mg/dL Calcium Level 9.0 8.7-10.4 mg/dL Total Bilirubin 0.5 0.2-1.0 mg/dL Aspartate Amino Transferase (AST) 18 13-40 U/L Alanine Aminotransferase (ALT) 15 7-40 U/L Alkaline Phosphatase 50 46-116 U/L Total Protein 6.4 5.7-8.2 g/dL Albumin 3.9 3.2-4.8 g/dL Urine Color Light-yellow Yellow Urine Clarity Clear Clear Urine pH 6.0 5.0-9.0 Urine Specific [place] 1.009 1.001-1.035 Urine Protein Negative Negative Urine Ketones Negative Negative Urine Blood Negative Negative /uL Urine Nitrite Negative Negative Urine Bilirubin Negative Negative Urine Urobilinogen Normal Negative mg/dL Urine Leukocyte Esterase 1+ Negative /uL Urine RBC 1 0 - 4 /hpf Urine Microscopic WBC 16 H 0-5 /HPF Urine Squamous Epithelial Cells Few <5 /hpf Urine Bacteria Few H None Seen /hpf Urine Glucose Normal Normal mg/dL Prothrombin Time 10.9 9.3-11.8 sec Prothrombin Time INR 1.03 0.9-1.15 Activated Partial Thromboplast Time 26.9 24.5-34.[address] SCAN ABD PELVIS IMPRESSION: 1. Scattered small colonic diverticula without adjacent inflammatory changes to suggest diverticulitis. 2. Bilateral renal calculi, including large staghorn calculi in the left kidney and areas of renal scarring bilaterally. No hydronephrosis or ureteral calculi visualized. 3. Bilateral adnexal cysts, with the largest measuring up to 5 cm in the right adnexal region. Slightly lobulated contour of the uterus, possibly due to fibroids. Correlate with clinical findings. If clinically indicated, pelvic ultrasound could be obtained to further characterize. Problems(with codes): (1) Fibroid uterus (2) Gastrointestinal hemorrhage, unspecified (3) GI bleed (4) Anxiety (5) Staghorn kidney stones (6) UTI (urinary tract infection) Plan/Recommendation Plan Patient appears to be stable for discharge from GI point of view She was advised to follow up in my office in 2-4 weeks to arrange outpatient elective colonoscopy Patient was advised to avoid aspirin NSAIDs and to take stool softeners as needed She will follow up with the urologist and OBGYN as an outpatient also Plan discussed with: Patient, Other (Nurse) FOREST VILLA MD Feb 03, 2025 22:36
== END 2025-02-03 16:30 | disposition home or self-care (01) | DRG 254 ==
LOC: ER 09:49 → OVERFLOW 18:24 → EAST 02-02 17:28
PROVIDERS: ADMIT Nurse Practitioner Acute Care; ATTEND Nurse Practitioner Acute Care
DX: K64.8 Other hemorrhoids (principal); E78.5 Hyperlipidemia, unspecified; K21.9 Gastro-esophageal reflux disease without esophagitis; K59.00 Constipation, unspecified; F41.9 Anxiety disorder, unspecified; K57.30 Diverticulosis of large intestine without perforation or abscess without bleeding; I25.2 Old myocardial infarction; Z90.49 Acquired absence of other specified parts of digestive tract; Z91.041 Radiographic dye allergy status; Z83.3 Family history of diabetes mellitus
CPT/HCPCS: 36415; 74176; 80048; 80053; 81001; 85025; 85610; 85730; 96374; 99291; G0378; J2470

== ENCOUNTER 2025-03-17 14:33 | Inpatient (IN) | payer MEDICAID ==
[~2025-03-17] VITALS: Ht 154.9 cm; Wt 68.3 kg
--- NOTE | 2025-03-17 15:19 | ED.PDOC ---
History of Present Illness HPI Comments 50-year-old female presents to the ER with a prior medical history of anxiety, GERD, high lipids, mi, kidney stones: Surgical history of cholecystectomy, cyst removal and a chief complaint of flank pain. Patient reports on having right flank pain for two days associated with no bowel movement. Denies chills, fever, N/V/D, SOB, CP. No other associated symptoms, modifiers, recent injuries or sick contacts present at this time. Chief Complaint: Flank Pain Time Seen by MD: 15:15 Primary Care Provider: NONE Reviewed Notes: Nurses Notes, Medications, Allergies Allergies: Uncoded Allergies: CONTRAST (Allergy, Unknown, 08/16/15) Home Meds Active Scripts Azithromycin (Azithromycin) 250 Mg Tab, 250 MG PO DAILY MDD 500 for 5 Days, #6 TAB 0 Refills 2 TABLETS ORALLY ON DAY ONE, THEN 1 TABLET ORALLY DAILY FOR 4 DAYS Prov:DUNCAN BARRON SENIOR GROUP MANAGER 05/09/24 Hjowuhmm-Omyuacoqwv-Tpapibwot- (Neosporin + Pain Relief) Relf Max Oin, 1 MAX EX DAILY for 10 Days, #5 OIN Prov:PEGGY GORDON MD 09/28/21 Yeast (S. Boulardii)(S. Cerevi (Florastor) 250 Mg Cap, 250 MG PO DAILY, #10 CAP Prov:JADA JAIMES MD 12/12/16 Doxycycline Hyclate (DOXYCYCLINE HYCLATE) 100 Mg Tab, 1 TAB PO BID, #20 TAB Prov:JADA JAIMES MD 12/12/16 Atorvastatin Calcium (ATORVASTATIN CALCIUM) 20 Mg Tab, 20 MG PO HS, #30 TAB Prov:JADA JAIMES MD 12/12/16 Reported Medications Aspirin (Aspir-81) 81 Mg Tab, 1 TAB PO DAILY, #30 TAB 5 Refills 08/22/15 Information Source: Patient Mode of Arrival: Ambulatory Severity: Moderate Timing: Days Duration: Since onset, Days Prehospital treatment: None Past Medical History PAST MEDICAL HISTORY: Anxiety, GERD, High Lipids, Kidney Stones, [place] Surgical History: Cholecystectomy Surgical History (Other): History removal [employer] History: Ovarian Cysts Family History Family History: Reviewed,noncontributory to illness, Unknown Social History Smoker: Non-Smoker Alcohol: Denies ETOH Use Drugs: Denies Drug Use Lives In: Home Constitutional: denies: chills, diaphoresis, fatigue, fever, malaise, sweats, weakness, others EENTM: denies: blurred vision, double vision, ear bleeding, ear discharge, ear drainage, ear pain, ear ringing, eye pain, eye redness, hearing loss, mouth pain, mouth swelling, nasal discharge, nose bleeding, nose congestion, nose pain, photophobia, tearing, throat pain, throat swelling, voice changes, others Respiratory: denies: cough, hemoptysis, orthopnea, SOB at rest, shortness of breath, SOB with excertion, stridor, wheezing, others Cardiovascular: denies: chest pain, dizzy spells, diaphoresis, Dyspnea on exertion, edema, irregular heart beat, left arm pain, lightheadedness, palpitations, PND, syncope, others Gastrointestinal: denies: abdomen distended, abdominal pain, blood streaked bowels, constipated, diarrhea, dysphagia, difficulty swallowing, hematemesis, melena, nausea, poor appetite, poor fluid intake, rectal bleeding, rectal pain, vomiting, others Genitourinary: reports: flank pain; denies: abnormal vagina bleeding, burning, dyspareunia, dysuria, frequency, hematuria, incontinence, pain, , vagina discharge, urgency, others Neurological: denies: dizziness, fainting, headache, left sided numbness, left sided weakness, numbness, paresthesia, pre-existing deficit, right sided numbness, right sided weakness, seizure, speech problems, tingling, tremors, weakness, others Musculoskeletal: denies: back pain, gout, joint pain, joint swelling, muscle pain, muscle stiffness, neck pain, others Integumetry: denies: bruises, change in color, change in hair/nails, dryness, laceration, lesions, lumps, rash, wounds, others Allergic/Immunocompromised: denies: Difficulty Healing, Frequent Infections, Hives, Itching, others Hematologic/Lymphatic: denies: anemia, blood clots, easy bleeding, easy bruising, swollen glands, others Endocrine: denies: excessive hunger, excessive sweating, excessive thirst, excessive urination, flushing, intolerance to cold, intolerance to heat, unexplained weight gain, unexplained weight loss, others Psychiatric: denies: anxiety, bipolar disorder, depression, hopeless, panic disorder, schizophrenia, sleepless, suicidal, others All Other Systems: Reviewed and Negative Physical Exam General Appearance: Moderate Distress, Normal HEENT: Normal ENT Inspection, Pharynx Normal, TMs Normal Neck: Full Range of Motion, Non-Tender, Normal, Normal Inspection Respiratory: Chest Non-Tender, Lungs Clear, No Accessory Muscle Use, No Respiratory Distress, Normal Breath Sounds Cardiovascular: No Edema, No JVD, No Murmur, No Gallop, Normal Peripheral Pulses, Regular Rate/Rhythm Breast Exam: Deferred Gastrointestinal: Diffuse, No Organomegaly, No Pulsatile Mass, Normal Bowel Sounds, Soft Genitalia: Deferred Pelvic: Deferred Rectal: Deferred Extremities: No calf tenderness, Normal capillary refill, Normal inspection, Normal range of motion, Non-tender, No pedal edema Musculoskeletal : Apperance: Normal Neurologic: Alert, perennial house manager II-XII nml as Tested, No Motor Deficits, Normal Affect, Normal Mood, No Sensory Deficits Cerebellar Function: Normal Reflexes: Normal Skin: Dry, Normal Color, Warm Peripheral Pulses: 3+ Radial (R), 3+ Radial (L) Lymphatic: No Adenopathy Was a procedure done? Was a procedure done?: No Differential Dx Considerations may include: Anemia Electrolyte imbalance X-Ray, Labs, Meds, VS Vital Signs Date Time Temp Pulse Resp B/P (MAP) Pulse Ox O2 Delivery O2 Flow Rate FiO2 03/17/25 14:36 99.0 119 18 109/76 96 99.0 Lab Test 03/17/25 15:55 03/17/25 15:52 Range/Units Urine Color Light-brown Yellow Urine Clarity Ex.turbid Clear Urine pH 6.0 5.0-9.0 Urine Specific [place] 1.012 1.001-1.035 Urine Protein 2+ H Negative Urine Ketones Negative Negative Urine Blood 3+ H Negative /uL Urine Nitrite Negative Negative Urine Bilirubin Negative Negative Urine Urobilinogen Normal Negative mg/dL Urine Leukocyte Esterase 3+ Negative /uL Urine RBC 27 0 - 4 /hpf Urine WBC Clumps Present None Seen /hpf Urine Microscopic WBC 465 H 0-5 /HPF Urine Squamous Epithelial Cells Few <5 /hpf Urine Bacteria Few H None Seen /hpf Urine Mucus Few None Seen Urine Yeast (Budding) Many None Seen /hpf Urine Glucose Normal Normal mg/dL White Blood Count 14.8 H 4.4-10.8 10^3/uL Red Blood Count 4.80 4.0-5.20 10^6/uL Hemoglobin 15.3 12.2-16.2 g/dL Hematocrit 45.3 36.0-46.0 % Mean Corpuscular Volume 94.4 80.0-100.0 fL Mean Corpuscular Hemoglobin 31.9 28.0-32.0 pg Mean Corpuscular Hemoglobin Concent 33.8 32.0-36.0 g/dL Red Cell Distribution Width 13.9 11.8-14.3 % Platelet Count 229 140-450 10^3/uL Mean Platelet Volume 10.3 6.9-10.8 fL Neutrophils (%) (Auto) 85.6 H 37.0-80.0 % Lymphocytes (%) (Auto) 7.9 L 10.0-50.0 % Monocytes (%) (Auto) 6.1 0.0-12.0 % Eosinophils (%) (Auto) 0.1 0.0-7.0 % Basophils (%) (Auto) 0.3 0.0-2.0 % Neutrophils # (Auto) 12.7 H 1.6-8.6 10 ^3/uL Lymphocytes # (Auto) 1.2 0.4-5.4 10 ^3/uL Monocytes # (Auto) 0.9 0-1.3 10 ^3/uL Eosinophils # (Auto) 0 0-0.8 10 ^3/uL Basophils # (Auto) 0 0-0.2 10 ^3/uL Nucleated Red Blood Cells 0.1 % Sodium Level 137 136-145 mmol/L Potassium Level 3.7 3.5-5.1 mmol/L Chloride Level 102 98-107 mmol/L Carbon Dioxide Level 25 20-31 mmol/L Anion Gap 10 5-15 Blood Urea Nitrogen 14 9-23 mg/dL Creatinine 1.13 H 0.550-1.02 mg/dL Glomerular Filtration Rate Calc 60 >90 mL/min BUN/Creatinine Ratio 12.4 10.0-20.0 Serum Glucose 107 H 74-106 mg/dL Calcium Level 9.6 8.7-10.4 mg/dL Patient alert. Complaining of flank pain. Vitals stable. Answering all questions. WBC elevated. Possible urosepsis. Establish intravenous access. Was given fluids. Was given Rocephin. Explained to the patient. Continue monitoring. Time of 1ST Reevaluation: 15:45 Reevaluation 1ST: Unchanged Patient Education/Counseling: Diagnosis, Treatment, Prognosis Family Education/Counseling: No Family Present SEPSIS Sepsis Screen Date sepsis recognized/suspect: Mar 17, 2025 Time Sepsis recognized/suspect: 6 Recent Procedure: No On Antibiotic Therapy: No Respiratory Rate >20: No Heart Rate >90: Yes Temp<36 C (96.8 F) or >38.3 C: No SBP <90 or MAP <65 mmHG: No New Acute Mental Status Change: No Is the patient on CPAP, BIPAP,: No Physician Orders Sodium Chloride 0.9% (03/17/25 15:45) Ct Ab Pel Wo Con-No Oral Or Iv (03/17/25 15:32) Vital Signs Date Time Temp Pulse Resp B/P (MAP) Pulse Ox O2 Delivery O2 Flow Rate FiO2 03/17/25 14:36 99.0 119 18 109/76 96 99.0 Laboratory Tests Test 03/17/25 15:52 White Blood Count 14.8 10^3/uL (4.4-10.8) H Departure 1 Departure Time of Disposition: 16:38 Impression: Primary Impression: Sepsis due to urinary tract infection Disposition: ADMITTED INPATIENT Admit to: Med Surg Condition: Guarded Critical Care Note Critical Care Time?: No Stability Stability form required: No Heart Score Heart Score: Heart Score Response (Comments) Value History N/A 0 EKG N/A 0 Age N/A 0 Risk Factors N/A 0 Troponin N/A 0 Total 0 I personally scribed for PEGGY GORDON MD ([email or web address]) on 03/17/25 at 15:19. Electronically submitted by Odell Ugalde ([email or web address]). PEGGY GORDON MD Mar 17, 2025 15:19
[2025-03-17] MEDS: SODIUM CHLORIDE 0.9% 1,000 ML IVB ONE (15:45)
[2025-03-17 16:10] LABS: Hematocrit 45.3 % (36.0-46.0); Hemoglobin 15.3 g/dL (12.2-16.2); Mean Corpuscular Hemoglobin 31.9 pg (28.0-32.0); Mean Corpuscular Volume 94.4 fL (80.0-100.0); Nucleated Red Blood Cells % 0.1 %
[2025-03-17 16:20] LABS: Chloride 102 mmol/L (98-107); Potassium 3.7 mmol/L (3.5-5.1); Sodium 137 mmol/L (136-145)
[2025-03-17 16:21] LABS: Anion Gap 10 (5-15); Carbon Dioxide 25 mmol/L (20-31)
[2025-03-17 16:22] LABS: Calcium 9.6 mg/dL (8.7-10.4)
[2025-03-17 16:26] LABS: Urine Budding Yeast MANY /hpf (None Seen); Urine Protein, UAD 2+ (Negative); Urine WBC Clumps PRESENT /hpf (None Seen)
[2025-03-17 16:27] LABS: BUN/Creatinine Ratio 12.4 (10.0-20.0); Blood Urea Nitrogen 14 mg/dL (9-23)
--- NOTE | 2025-03-17 16:27 | DVH ---
Exam: CT CT AB PEL WO CON-NO ORAL OR IV History: stone Comparison Study: CT CT AB PEL WO CON-NO ORAL OR IV on DOS: 02/01/25 TECHNIQUE: Multidetector CT of the abdomen andpelvis without IV contrast. Axial, coronal and sagittal multiplanar reformats were obtained from the axial data set by the technologist. Radiation Dose Information: CT Dose: CTDI volume is mGy. Dose-length product is mGy*cm FINDINGS: The lung bases are clear. Partially visualized heart is normal in size with trace pericardial effusi on. Mild hepatomegaly. Otherwise, liver, spleen, pancreas and adrenal glands unremarkable. Status post c holecystectomy. Redemonstration of Relatively unchanged multiple bilateral renal calculi with a large left renal stag horn calculus. There is associated dilatation of the left renal calyces with mild left hydroureter w ith no associated obstructing ureteral calculus. There is [id number] left renal perinephric fat stranding. Mild distention of the urinary bladder. Bulky appearance of the uterus with possible uter ine fibroids. 5.3 cm right ovarian cyst. Mild gastric wall thickening. Small bowel loops unremarkable. Appendix is not completely visualized w ith the visualized appendix unremarkable. Without complete visualization of the appendix, can not exc lude acute appendicitis. Small to moderate amount of fecal material within the colon. Mild distal rec rahul wall thickening which is most likely from inadequate distension. No evidence of intraperitoneal free air or free fluid. No evidence of aortic aneurysm. No significant lymphadenopathy. Soft tissues are unremarkable. Sclerotic focus over the bilateral femoral heads which may represent s [place]. IMPRESSION: Bilateral renal calculi with a large left renal staghorn calculus. There is associated dilatation of the left renal calyces with [id number] asymmetric left-sided perinephric fat stranding. 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 Mild left hydroureter with no obstructing calculus noted. 5.3 cm right ovarian cyst. Mild gastric wall thickening which may be due to inadequate distention with mild gastritis not exclud ed.
[2025-03-17 16:28] LABS: Glucose 107 mg/dL (74-106)
[2025-03-17] MEDS: SODIUM CHLORIDE 0.9% 1,000 ML IV ONE ×2 (16:30→19:43)
[2025-03-17] MEDS: CLINDAMYCIN 300MG IV 50 ML IV ONE (16:45)
[2025-03-17] MEDS: KETOROLAC TROMETH 30 MG/ML 1ML VIAL IV ONE (19:53)
[2025-03-17] MEDS: ONDANSETRON HCL 4 MG/2 ML VIAL IV ONE (19:53)
--- NOTE | 2025-03-17 23:12 | DVHHP2 ---
History of Present Illness History of Present Illness This is a 50-year-old female with a past medical history of anxiety, gastroesophageal reflux disease (GERD), hyperlipidemia, myocardial infarction 2008 , and rt kidney stones, who presents to the Emergency Department with a chief complaint of right flank pain for 2 days, suddenly worsen yesterday, 10/10 intensity, aggravated on walking and no relieving factors. She also has a surgical history of cholecystectomy and right ovarian cyst removal. The patient reports experiencing right flank pain which is associated with absence of bowel movements. She get fever at home and took Tylenol, loss of appetite, nausea, generalized weakness. She currently denies vomiting, diarrhea, shortness of breath, chest pain, or any other associated symptoms. There are no known recent injuries, sick contacts, or symptom modifiers. She arrived ambulatory and reports moderate severity of symptoms. No prehospital treatment was administered. Patient stated heart attack 2008 and hospitalization, angiogram done which came back negative. Seen by director of search engine optimization 3 years back and discontinue all medication. 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 Review of Systems Constitutional: Yes: Fever, Chills, Malaise; No: Sweats, Weakness, Other Eyes: No: Pain, Vision change, Conjunctivae inflammation, Eyelid inflammation, Other, Redness ENT: No: Ear pain, Ear discharge, Nose pain, Nose discharge, Nose congestion, Mouth pain, Mouth swelling, Throat pain, Throat swelling, Other Respiratory: No: Cough, Dry, Shortness of breath, SOB with excertion, Wheezing, Hemoptysis, Pleuritic Pain, Sputum, Wheezing, Other Cardiovascular: No: Chest Pain, Palpitations, Orthopnea, Paroxysmal Noc. Dyspnea, Edema, Lt Headedness, Other Gastrointestinal: Nausea, Abdominal Pain, Other (Both costo vertebral angle tender on deep palpation); No: Vomiting, Diarrhea, Constipation, Melena, Hematochezia Genitourinary: No Dysuria; Frequency; No Incontinence, No Hematuria, No Retention, No Other Musculoskeletal: back pain; No: other, neck pain, shoulder pain, arm pain, hand pain, leg pain, foot pain Skin: No: Rash, Lesions, Jaundice, Bruising, Other Neurological: No: Weakness, Numbness, Incoordination, Change in speech, Confusion, Seizures, Other Allergies: Uncoded Allergies: CONTRAST (Allergy, Unknown, 08/16/15) Medications Current Medications Medications Dose Ordered Sig/Natali Route Start Time Stop Time Status Last Admin Dose Admin Sodium Chloride 1,000 ml @ 120 mls/hr Q8H20M IV 03/17/25 23:15 UNV Ceftriaxone Sodium 50 ml @ 100 mls/hr DAILY@09 IV 03/18/25 09:00 UNV Exam Vital Signs Vital Signs Date Time Temp Pulse Resp B/P (MAP) Pulse Ox O2 Delivery O2 Flow Rate FiO2 03/17/25 20:43 110 20 99 Room Air 03/17/25 20:43 99.1 116/67 (83) 99.1 General Appearance: Alert, Oriented X3, Cooperative HEENT: Atraumatic, PERRLA, EOMI Respiratory: Clear to auscultation, Normal air movement Cardiovascular: Regular rate, Normal S1, Normal S2 Abdominal: Normal bowel sounds, Soft, Other (Costovertebral angle tender on deep palpation) Extremities: No clubbing, No cyanosis, No edema, Normal pulses Skin: No rashes, No breakdown Neuro: Normal gait, Normal speech, Strength at 5/5 X4 ext, Sensation intact Labs/Xrays Labs Test 03/17/25 15:55 03/17/25 15:52 Range/Units Urine Color Light-brown Yellow Urine Clarity Ex.turbid Clear Urine pH 6.0 5.0-9.0 Urine Specific [place] 1.012 1.001-1.035 Urine Protein 2+ H Negative Urine Ketones Negative Negative Urine Blood 3+ H Negative /uL Urine Nitrite Negative Negative Urine Bilirubin Negative Negative Urine Urobilinogen Normal Negative mg/dL Urine Leukocyte Esterase 3+ Negative /uL Urine RBC 27 0 - 4 /hpf Urine WBC Clumps Present None Seen /hpf Urine Microscopic WBC 465 H 0-5 /HPF Urine Squamous Epithelial Cells Few <5 /hpf Urine Bacteria Few H None Seen /hpf Urine Mucus Few None Seen Urine Yeast (Budding) Many None Seen /hpf Urine Glucose Normal Normal mg/dL White Blood Count 14.8 H 4.4-10.8 10^3/uL Red Blood Count 4.80 4.0-5.20 10^6/uL Hemoglobin 15.3 12.2-16.2 g/dL Hematocrit 45.3 36.0-46.0 % Mean Corpuscular Volume 94.4 80.0-100.0 fL Mean Corpuscular Hemoglobin 31.9 28.0-32.0 pg Mean Corpuscular Hemoglobin Concent 33.8 32.0-36.0 g/dL Red Cell Distribution Width 13.9 11.8-14.3 % Platelet Count 229 140-450 10^3/uL Mean Platelet Volume 10.3 6.9-10.8 fL Neutrophils (%) (Auto) 85.6 H 37.0-80.0 % Lymphocytes (%) (Auto) 7.9 L 10.0-50.0 % Monocytes (%) (Auto) 6.1 0.0-12.0 % Eosinophils (%) (Auto) 0.1 0.0-7.0 % Basophils (%) (Auto) 0.3 0.0-2.0 % Neutrophils # (Auto) 12.7 H 1.6-8.6 10 ^3/uL Lymphocytes # (Auto) 1.2 0.4-5.4 10 ^3/uL Monocytes # (Auto) 0.9 0-1.3 10 ^3/uL Eosinophils # (Auto) 0 0-0.8 10 ^3/uL Basophils # (Auto) 0 0-0.2 10 ^3/uL Nucleated Red Blood Cells 0.1 % Sodium Level 137 136-145 mmol/L Potassium Level 3.7 3.5-5.1 mmol/L Chloride Level 102 98-107 mmol/L Carbon Dioxide Level 25 20-31 mmol/L Anion Gap 10 5-15 Blood Urea Nitrogen 14 9-23 mg/dL Creatinine 1.13 H 0.550-1.02 mg/dL Glomerular Filtration Rate Calc 60 >90 mL/min BUN/Creatinine Ratio 12.4 10.0-20.0 Serum Glucose 107 H 74-106 mg/dL Calcium Level 9.6 8.7-10.4 mg/dL SEPSIS Sepsis Screen Date sepsis recognized/suspect: Mar 17, 2025 Time Sepsis recognized/suspect: 2045 Recent Procedure: No On Antibiotic Therapy: No Respiratory Rate >20: No Heart Rate >90: Yes Temp<36 C (96.8 F) or >38.3 C: No SBP <90 or MAP <65 mmHG: No New Acute Mental Status Change: No Is the patient on CPAP, BIPAP,: No Physician Orders Ct Ab Pel Wo Con-No Oral Or Iv (03/17/25 15:32) Urine Bacterial Culture (03/17/25 16:29) Admit (03/17/25 23:05) Code Status (03/17/25 23:05) 0.9% Ns 1000 Ml (03/17/25 23:15) Notify Md Of Changes From Base (03/17/25 23:05) Ceftriaxone Ivpb Rocephin (03/18/25 09:00) Regular Diet (03/18/25 Breakfast) Hydrocodone-Acet 5/325mg Tab ([place] (03/17/25 23:15) Enoxaparin Sodium (Lovenox) (03/18/25 10:00) * Urology Consult (03/17/25 23:05) Vital Signs Date Time Temp Pulse Resp B/P (MAP) Pulse Ox O2 Delivery O2 Flow Rate FiO2 03/17/25 20:43 110 20 99 Room Air 03/17/25 20:43 99.1 110 20 116/67 (83) 96 99.1 Laboratory Tests Test 03/17/25 15:52 White Blood Count 14.8 10^3/uL (4.4-10.8) H Medications Medications Dose Ordered Sig/Natali Route Start Time Stop Time Status Last Admin Dose Admin Ceftriaxone Sodium 50 ml @ 100 mls/hr ONCE ONCE IV 03/17/25 16:30 03/17/25 16:59 DC 03/17/25 19:53 100 MLS/HR Clindamycin Phosphate 50 ml @ 50 mls/hr ONCE ONCE IV 03/17/25 16:45 03/17/25 17:44 DC 03/17/25 16:45 50 MLS/HR Ketorolac Tromethamine 30 mg ONCE ONCE IV 03/17/25 15:45 03/17/25 15:46 DC 03/17/25 19:53 30 MG Ondansetron HCl 4 mg ONCE ONCE IV 03/17/25 15:45 03/17/25 15:46 DC 03/17/25 19:53 4 MG Sodium Chloride 1,000 ml @ 1,000 mls/hr Q1H ONCE IV 03/17/25 16:30 03/17/25 17:29 DC 03/17/25 16:30 1,000 MLS/HR Sodium Chloride 1,000 ml @ 1,000 mls/hr Q1H ONCE IVB 03/17/25 15:45 03/17/25 16:44 DC 03/17/25 15:45 1,000 MLS/HR Assessment/Plan Assessment/Plan Sepsis due to urinary tract infection/ pyelonephritis possible Gram-positive or Gram-negative organism Patient came with flank pain, nausea, decreased appetite, fatigue. Lab shows leukocytosis with left shift WBC 14.8, neutrophil 85.6, tachycardia, CT abdomen and pelvis without contrast:Bilateral renal calculi with a large left renal staghorn calculus. There is associated dilatation of the left renal calyces with [id number] asymmetric left-sided perinephric fat stranding. Correlate for Possible xanthogranulomatous pyelonephritis. Mild left hyd roureter with no obstructing calculus noted. UA shows turbid appearance, blood 3+, leukocyte esterase 3+, RBC 27, WBC clumps, WBC 465, bacteria few Blood culture and urine culture follow NSS 120 cc/ hour [place] 5 - 325 mg p.o. q.6 p.r.n. Ceftriaxone 1 g IV daily Urology consult TAMIA due to vasomotor nephropathy Creatinine 1.13, baseline 0.86 NSS 120 cc/hours Avoid nephrotoxic drugs History of [place] 2008 Not on any medication Medication dyskinesia continued by director of search engine optimization 3 years ago Right ovarian cyst CT abdomen and pelvis shows 5.3 cm right ovarian cyst Follow-up lining brusher as outpatient Gastritis CT abdomen shows:Mild gastric wall thickening which may be due to inadequate distention with mild gastritis. Pantoprazole 40 mg p.o. daily Depression Not on any medication Obesity, BMI 29.3 Lifestyle modification A1c, lipid profile Diet: Regular GI prophylaxis: Pantoprazole 40 mg p.o. daily DVT prophylaxis: Lovenox 40 mg sc daily Goals of care discussions, more than 29 minute spent with patient. Full code status. Case discussed with Dr. Foote Plan discussed with: Patient, Other (Nurse) My Orders Orders - JAY GASTON RESIDENT Procedure Category Date Status Time Admit ADMIT 03/17/25 Transmitted 23:05 Code Status CODE 03/17/25 Transmitted 23:05 0.9% Ns 1000 Ml PHA 03/17/25 Transmitted 23:15 Notify Md Of Changes ROGELIO 03/17/25 Transmitted From Base 23:05 Ceftriaxone Ivpb PHA 03/18/25 Transmitted Rocephin 09:00 Regular Diet DIET 03/18/25 Transmitted Breakfast Hydrocodone-Acet PHA 03/17/25 Transmitted 5/325mg Tab ([place] 23:15 Enoxaparin Sodium PHA 03/18/25 Transmitted (Lovenox) 10:00 * Urology Consult CONS 03/17/25 Transmitted 23:05 Date of Service: Mar 17, 2025 Billing Provider: MALACHI FOOTE MD Common Visit Codes: 06507-YLPQVIZ INP/OBS CARE (HIGH) Secondary Visit Codes: 73733-[id number] CARE PLAN 30 MINUTES JAY GASTON RESIDENT Mar 17, 2025 23:12
[2025-03-18] MEDS: HYDROcodone-ACET 5/325MG TAB PO PRN (02:36)
[2025-03-18 04:55] LABS: Hematocrit 40.5 % (36.0-46.0); Hemoglobin 13.6 g/dL (12.2-16.2); Mean Corpuscular Hemoglobin 32.0 pg (28.0-32.0); Mean Corpuscular Volume 95.1 fL (80.0-100.0); Nucleated Red Blood Cells % 0.1 %
[2025-03-18 05:00] VITALS: BP 93/45; PULSE 83; RESP 16; TEMP 98.1; O2SAT 98
[2025-03-18 05:10] LABS: Alanine Aminotransferase 11 U/L (7-40); Albumin 4.2 g/dL (3.2-4.8); Alkaline Phosphatase 60 U/L (46-116); Anion Gap 9 (5-15); BUN/Creatinine Ratio 12.6 (10.0-20.0); Bilirubin, Total 0.8 mg/dL (0.2-1.0); Blood Urea Nitrogen 11 mg/dL (9-23); Cholesterol 150 mg/dL (< 200); HDL Cholesterol 53 mg/dL (40-59); Potassium 3.8 mmol/L (3.5-5.1); Sodium 138 mmol/L (136-145); Total Protein 6.8 g/dL (5.7-8.2); Triglycerides 91 mg/dL (< 150)
[2025-03-18] MEDS: SODIUM CHLORIDE 0.9% 1,000 ML IV SCH (05:15)
[2025-03-18 05:19] LABS: Calcium 8.5 mg/dL (8.7-10.4); Carbon Dioxide 19 mmol/L (20-31); Chloride 110 mmol/L (98-107); Glucose 127 mg/dL (74-106)
[2025-03-18] MEDS: ENOXAPARIN SOD 40 MG/0.4 ML SYRINGE SC SCH (09:08)
[2025-03-18 09:38] VITALS: BP 90/47; PULSE 89; RESP 18; TEMP 98.6; O2SAT 91
[2025-03-18] MEDS: PIPERACILLIN-TAZOB 3.375GM 100 ML IV ONE (09:55)
[2025-03-18 11:28] LABS: Hepatitis B Surface Antigen Negative (Negative); Hepatitis C Antibody Negative (Negative)
[2025-03-18] MEDS: POLYETHYLENE GLYCOL 17 GM PWDR PO ONE (11:40)
--- NOTE | 2025-03-18 11:58 | DVHINCON2 ---
Date of service: Mar 18, 2025 Referring Physician Hospitalist Reason for Consultation Large left staghorn calculus History of Present Illness 50-year-old female presents to the ER with a prior medical history of anxiety, GERD, high lipids, mi, kidney stones: Surgical history of cholecystectomy, cyst removal and a chief complaint of flank pain. Patient reports on having right flank pain for two days associated with no bowel movement. Denies chills, fever, N/V/D, SOB, CP. No other associated symptoms, modifiers, recent injuries or sick contacts present at this time. Chief Complaint: Flank Pain Primary Care Provider: NONE Reviewed Notes: Nurses Notes, Medications, Allergies Allergies: Uncoded Allergies: CONTRAST (Allergy, Unknown, 08/16/15) Home Meds Active Scripts Azithromycin (Azithromycin) 250 Mg Tab, 250 MG PO DAILY MDD 500 for 5 Days, #6 TAB 0 Refills 2 TABLETS ORALLY ON DAY ONE, THEN 1 TABLET ORALLY DAILY FOR 4 DAYS Prov:DUNCAN BARRON SENIOR AUDITOR 05/09/24 Acrixsdp-Sovxtprcmh-Vimeupnow- (Neosporin + Pain Relief) Relf Max Oin, 1 MAX EX DAILY for 10 Days, #5 OIN Prov:PEGGY GORDON MD 09/28/21 Yeast (S. Boulardii)(S. Cerevi (Florastor) 250 Mg Cap, 250 MG PO DAILY, #10 CAP Prov:JADA JAIMES MD 12/12/16 Doxycycline Hyclate (DOXYCYCLINE HYCLATE) 100 Mg Tab, 1 TAB PO BID, #20 TAB Prov:JADA JAIMES MD 12/12/16 Atorvastatin Calcium (ATORVASTATIN CALCIUM) 20 Mg Tab, 20 MG PO HS, #30 TAB Prov:JADA JAIMES MD 12/12/16 Reported Medications Aspirin (Aspir-81) 81 Mg Tab, 1 TAB PO DAILY, #30 TAB 5 Refills 08/22/15 Information Source: Patient Mode of Arrival: Ambulatory Severity: Moderate Timing: Days Duration: Since onset, Days Prehospital treatment: None Past Medical History Anxiety, GERD, High Lipids, Kidney Stones, [place] Surgical History: Cholecystectomy Past Surgical History Family History: FH: diabetes mellitus GRANDMOTHER, Allergies: Uncoded Allergies: CONTRAST (Allergy, Unknown, 08/16/15) Home Meds Active Scripts Azithromycin (Azithromycin) 250 Mg Tab, 250 MG PO DAILY MDD 500 for 5 Days, #6 TAB 0 Refills 2 TABLETS ORALLY ON DAY ONE, THEN 1 TABLET ORALLY DAILY FOR 4 DAYS Prov:DUNCAN BARRON SENIOR AUDITOR 05/09/24 Qqzirfku-Otqniavebt-Cjqvisbmd- (Neosporin + Pain Relief) Relf Max Oin, 1 MAX EX DAILY for 10 Days, #5 OIN Prov:PEGGY GORDON MD 09/28/21 Yeast (S. Boulardii)(S. Cerevi (Florastor) 250 Mg Cap, 250 MG PO DAILY, #10 CAP Prov:JADA JAIMES MD 12/12/16 Doxycycline Hyclate (DOXYCYCLINE HYCLATE) 100 Mg Tab, 1 TAB PO BID, #20 TAB Prov:JADA JAIMES MD 12/12/16 Atorvastatin Calcium (ATORVASTATIN CALCIUM) 20 Mg Tab, 20 MG PO HS, #30 TAB Prov:JADA JAIMES MD 12/12/16 Reported Medications Aspirin (Aspir-81) 81 Mg Tab, 1 TAB PO DAILY, #30 TAB 5 Refills 08/22/15 Current Medications Current Medications Medications (Trade) Dose Ordered Sig/Natali Route PRN Reason Start Time Stop Time Status Last Admin Sodium Chloride 1,000 ml @ 120 mls/hr Q8H20M IV 03/17/25 23:15 03/18/25 09:56 Ceftriaxone Sodium 50 ml @ 100 mls/hr DAILY@2000 IV 03/18/25 20:00 03/18/25 08:41 DC Acetaminophen/ Hydrocodone Bitart ([place] 5/325MG Tab) 1 tab Q6HPRN PRN PO MILD PAIN (1-3 PAIN SCALE) 03/17/25 23:15 03/18/25 02:36 Enoxaparin Sodium (Lovenox) 40 mg DAILY SC 03/18/25 10:00 03/18/25 09:08 Piperacillin Sod/ Tazobactam Sod 100 ml @ 25 mls/hr Q8HR IV 03/18/25 14:00 Review of Systems Constitutional: denies: chills, diaphoresis, fatigue, fever, malaise, sweats, weakness, others EENTM: denies: blurred vision, double vision, ear bleeding, ear discharge, ear drainage, ear pain, ear ringing, eye pain, eye redness, hearing loss, mouth pain, mouth swelling, nasal discharge, nose bleeding, nose congestion, nose pain, photophobia, tearing, throat pain, throat swelling, voice changes, others Respiratory: denies: cough, hemoptysis, orthopnea, SOB at rest, shortness of breath, SOB with excertion, stridor, wheezing, others Cardiovascular: denies: chest pain, dizzy spells, diaphoresis, Dyspnea on exertion, edema, irregular heart beat, left arm pain, lightheadedness, palpitations, PND, syncope, others Gastrointestinal: denies: abdomen distended, abdominal pain, blood streaked bowels, constipated, diarrhea, dysphagia, difficulty swallowing, hematemesis, melena, nausea, poor appetite, poor fluid intake, rectal bleeding, rectal pain, vomiting, others Genitourinary: reports: flank pain; denies: abnormal vagina bleeding, burning, dyspareunia, dysuria, frequency, hematuria, incontinence, pain, , vagina discharge, urgency, others Neurological: denies: dizziness, fainting, headache, left sided numbness, left sided weakness, numbness, paresthesia, pre-existing deficit, right sided numbness, right sided weakness, seizure, speech problems, tingling, tremors, weakness, others Musculoskeletal: denies: back pain, gout, joint pain, joint swelling, muscle pain, muscle stiffness, neck pain, others Integumetry: denies: bruises, change in color, change in hair/nails, dryness, laceration, lesions, lumps, rash, wounds, others Allergic/Immunocompromised: denies: Difficulty Healing, Frequent Infections, Hives, Itching, others Hematologic/Lymphatic: denies: anemia, blood clots, easy bleeding, easy bruising, swollen glands, others Endocrine: denies: excessive hunger, excessive sweating, excessive thirst, excessive urination, flushing, intolerance to cold, intolerance to heat, unexplained weight gain, unexplained weight loss, others Psychiatric: denies: anxiety, bipolar disorder, depression, hopeless, panic disorder, schizophrenia, sleepless, suicidal, others All Other Systems: Reviewed and Negative Vital Signs Vital Signs Date Time Temp Pulse Resp B/P (MAP) Pulse Ox O2 Delivery O2 Flow Rate FiO2 03/18/25 09:38 98.6 89 18 90/47 (61) 91 98.6 03/17/25 20:43 Room Air Physical Exam General Appearance: Moderate Distress, Normal HEENT: Normal ENT Inspection, Pharynx Normal, TMs Normal Neck: Full Range of Motion, Non-Tender, Normal, Normal Inspection Respiratory: Chest Non-Tender, Lungs Clear, No Accessory Muscle Use, No Respiratory Distress, Normal Breath Sounds Cardiovascular: No Edema, No JVD, No Murmur, No Gallop, Normal Peripheral Pulses, Regular Rate/Rhythm Breast Exam: Deferred Gastrointestinal: Diffuse, No Organomegaly, No Pulsatile Mass, Normal Bowel Sounds, Soft Genitalia: Deferred Pelvic: Deferred Rectal: Deferred Extremities: No calf tenderness, Normal capillary refill, Normal inspection, Normal range of motion, Non-tender, No pedal edema Musculoskeletal : Apperance: Normal Neurologic: Alert, enginehouse brakeman II-XII nml as Tested, No Motor Deficits, Normal Affect, Normal Mood, No Sensory Deficits Cerebellar Function: Normal Reflexes: Normal Skin: Dry, Normal Color, Warm Peripheral Pulses: 3+ Radial (R), 3+ Radial (L) Lymphatic: No Adenopathy Labs/Diagnostic Data Labs Test 03/18/25 09:14 03/18/25 04:16 03/17/25 15:55 Range/Units Lactic Acid Level 1.0 0.4-2.0 mmol/L White Blood Count 17.4 H 4.4-10.8 10^3/uL Red Blood Count 4.26 4.0-5.20 10^6/uL Hemoglobin 13.6 12.2-16.2 g/dL Hematocrit 40.5 # 36.0-46.0 % Mean Corpuscular Volume 95.1 80.0-100.0 fL Mean Corpuscular Hemoglobin 32.0 28.0-32.0 pg Mean Corpuscular Hemoglobin Concent 33.7 32.0-36.0 g/dL Red Cell Distribution Width 13.7 11.8-14.3 % Platelet Count 204 140-450 10^3/uL Mean Platelet Volume 10.5 6.9-10.8 fL Neutrophils (%) (Auto) 85.8 H 37.0-80.0 % Lymphocytes (%) (Auto) 5.7 L 10.0-50.0 % Monocytes (%) (Auto) 8.2 0.0-12.0 % Eosinophils (%) (Auto) 0.0 0.0-7.0 % Basophils (%) (Auto) 0.3 0.0-2.0 % Neutrophils # (Auto) 14.9 H 1.6-8.6 10 ^3/uL Lymphocytes # (Auto) 1.0 0.4-5.4 10 ^3/uL Monocytes # (Auto) 1.4 H 0-1.3 10 ^3/uL Eosinophils # (Auto) 0 0-0.8 10 ^3/uL Basophils # (Auto) 0 0-0.2 10 ^3/uL Nucleated Red Blood Cells 0.1 % Sodium Level 138 136-145 mmol/L Potassium Level 3.8 3.5-5.1 mmol/L Chloride Level 110 H 98-107 mmol/L Carbon Dioxide Level 19 L 20-31 mmol/L Anion Gap 9 5-15 Blood Urea Nitrogen 11 9-23 mg/dL Creatinine 0.87 0.550-1.02 mg/dL Glomerular Filtration Rate Calc 82 >90 mL/min BUN/Creatinine Ratio 12.6 10.0-20.0 Serum Glucose 127 H 74-106 mg/dL Hemoglobin A1c 5.2 <5.7 % A1C Calcium Level 8.5 L 8.7-10.4 mg/dL Total Bilirubin 0.8 0.2-1.0 mg/dL Aspartate Amino Transferase (AST) 13 13-40 U/L Alanine Aminotransferase (ALT) 11 7-40 U/L Alkaline Phosphatase 60 46-116 U/L Total Protein 6.8 5.7-8.2 g/dL Albumin 4.2 3.2-4.8 g/dL Triglycerides Level 91 < 150 mg/dL Cholesterol Level 150 < 200 mg/dL LDL Cholesterol 89 < 100 mg/dL HDL Cholesterol 53 40-59 mg/dL Vitamin D 25-Hydroxy 28.4 L 30.0-100 ng/mL Thyroid Stimulating Hormone (TSH) 1.12 0.55-4.78 uIU/mL Hepatitis B Surface Antigen Negative Negative Hepatitis C Antibody Negative Negative Urine Color Light-brown Yellow Urine Clarity Ex.turbid Clear Urine pH 6.0 5.0-9.0 Urine Specific [place] 1.012 1.001-1.035 Urine Protein 2+ H Negative Urine Ketones Negative Negative Urine Blood 3+ H Negative /uL Urine Nitrite Negative Negative Urine Bilirubin Negative Negative Urine Urobilinogen Normal Negative mg/dL Urine Leukocyte Esterase 3+ Negative /uL Urine RBC 27 0 - 4 /hpf Urine WBC Clumps Present None Seen /hpf Urine Microscopic WBC 465 H 0-5 /HPF Urine Squamous Epithelial Cells Few <5 /hpf Urine Bacteria Few H None Seen /hpf Urine Mucus Few None Seen Urine Yeast (Budding) Many None Seen /hpf Urine Glucose Normal Normal mg/dL [facility] [id number] [facility] [address] Ph: [phone] DIAGNOSTIC IMAGING Diagnostic Imaging Report : [id number] Signed PATIENT: MAICOL AMARO ACCT: [id number] UNIT: [id number] : 1975 LOC: ER ROOM / BED: / AGE / SEX: 50 / F ADM STATUS: REG ER SERVICE 1532 ORDERING PHYSICIAN: PEGGY GORDON MD PROCEDURE(s): ABPL - CT AB PEL WO CON-NO ORAL OR IV REASON: stone ORDER NUMBER(s): [id number], ACCESSION NUMBER(s): [id number] Exam: CT CT AB PEL WO CON-NO ORAL OR IV History: stone Comparison Study: CT CT AB PEL WO CON-NO ORAL OR IV on DOS: 02/01/25 TECHNIQUE: Multidetector CT of the abdomen andpelvis without IV contrast. Axial, coronal and sagittal multiplanar reformats were obtained from the axial data set by the technologist. Radiation Dose Information: CT Dose: CTDI volume is mGy. Dose-length product is mGy*cm FINDINGS: The lung bases are clear. Partially visualized heart is normal in size with trace pericardial effusion. Mild hepatomegaly. Otherwise, liver, spleen, pancreas and adrenal glands unremarkable. Status post cholecystectomy. Redemonstration of Relatively unchanged multiple bilateral renal calculi with a large left renal staghorn calculus. There is associated dilatation of the left renal calyces with mild left hydroureter with no associated obstructing ureteral calculus. There is [id number] left renal perinephric fat stranding. Mild distention of the urinary bladder. Bulky appearance of the uterus with possible uterine fibroids. 5.3 cm right ovarian cyst. Mild gastric wall thickening. Small bowel loops unremarkable. Appendix is not completely visualized with the visualized appendix unremarkable. Without complete visualization of the appendix, can not exclude acute appendicitis. Small to moderate amount of fecal material within the colon. Mild distal rectal wall thickening which is most likely from inadequate distension. No evidence of intraperitoneal free air or free fluid. No evidence of aortic aneurysm. No significant lymphadenopathy. Soft tissues are unremarkable. Sclerotic focus over the bilateral femoral heads which may represent small bone island. IMPRESSION: Bilateral renal calculi with a large left renal staghorn calculus. There is associated dilatation of the left renal calyces with [id number] asymmetric left-sided perinephric fat stranding. Correlate for Possible xanthogranulomatous pyelonephritis. Mild left hydroureter with no obstructing calculus noted. 5.3 cm right ovarian cyst. Mild gastric wall thickening which may be due to inadequate distention with mild gastritis not excluded. ATED BY: EMI PARKER DO DICTATED DATE/TIME: 03/17/25 1624 SIGNED BY: EMI PARKER DO SIGNED DATE/TIME: 03/17/25 1624 CC: Assessment Bilateral nephrolithiasis Large left staghorn calculus Plan/Recommendation Left percutaneous nephrostomy tube for access and proceed with PCNL when stable Plan discussed with: Patient, Other LINDSEY DANIELSON MD Mar 18, 2025 11:58
[2025-03-18 13:00] VITALS: BP 96/45; PULSE 94; RESP 20; TEMP 98.6; O2SAT 96
[2025-03-18] MEDS: SODIUM CHLORIDE 0.9% 1,000 ML IV ONE (13:06)
[2025-03-18 13:55] LABS: INR 1.15 (0.9-1.15); Partial Thromboplastin Time 37.1 SEC (24.5-34.5); Prothrombin Time 12.0 sec (9.3-11.8)
--- NOTE | 2025-03-18 14:29 | DVH ---
CHEST RADIOGRAPH Indication: R/o effusion Technique: Single frontal view of the chest was obtained Comparison: XY CHEST PORTABLE on DOS: 12/21/24 FINDINGS: Lines and Tubes: None Lungs: No focal consolidation. Pleura: No effusion. No pneumothorax. Cardiomediastinal contours: Unremarkable Bones: No acute osseous abnormality. IMPRESSION: No acute cardiopulmonary disease.
[2025-03-18] MEDS: PIPERACILLIN-TAZOB 3.375GM 100 ML IV SCH (16:17)
[2025-03-18 16:33] VITALS: BP 126/71; PULSE 115; RESP 18; TEMP 99.2; O2SAT 95
--- NOTE | 2025-03-18 16:36 | DVHPNRES ---
Progress Note Date Seen: Mar 18, 2025 Resident Creating Document: DONITA BILLY RESIDENT Medical Necessity Reason Pt with a Central, PICC or Fol: No Subjective Review of Systems Patient is a 50 year old female with prior medical history of nephrolithiasis, myocardial infarction without stent placement in 2008, and GERD, who presented to the ED with chief complaint of flank pain. The patient refers sudden onset of intense flank pain 3 days ago described as cramp like, bilateral but worse on her left, radiating forward to lumbar region and down toward lower extremities, 10/10 in intensity, aggravated by movements, with no relieving factors, associated with chills, nausea, and febrile sensation. Additionally refers constipation for the last 3 days. The patient states she started her menstrual period on Friday, and for this reason is unsure if she has had hematuria associated to current symptoms. She denies vomiting, chest pain, palpitations, and other symptoms. Due to persistence of symptoms she sought medical care. on evaluation in the ED, the patient was in moderate distress and tachycardic. Initial labs show WBCs 14.8, neutrophils 12.7, creatinine 1.13. UA turbid, nitrites negative, ULE 3+, WBCs 27, WBC clumps, WBC 465, and bacteria few. Abdominal pelvis CT shows bilateral renal calculi with a large left renal staghorn calculus, there is associated dilation of the left renal calyces with [id number] asymmetric left-sided perinephric fat stranding, mild left hydroureter with no obstructing calculus noted. The patient was placed on IV fluids, IV antibiotics, and pain regimen. The patient was admitted for further workup monitoring. Personal history: Nephrolithiasis, [place] in 2008 without placement of stents, GERD Allergies: IV contrast states it causes hives Surgical: Cholecystectomy, angiogram, ovarian cyst removal, left breast cyst removal, tubal ligation Social: Denies drug, tobacco, and alcohol use. States she lives with her children and feels safe. Patient seen at bedside. Patient states that she feels well, states that the abdominal pain has resolved, she is tolerating oral diet and has slept well. Currently denies abdominal pain, back pain, nausea, vomiting, bowel movements, palpitations, and fever. Patient has been hypotensive since last night, she has been given bolus of IV fluids, other vitals have been within range. Follow-up labs show an increasing leukocytosis to 17.4, neutrophils 14.9, and improvement in renal function. The patient was seen by Urology, state they will place left percutaneous nephrostomy tube and we will proceed with a percutaneous nephrolithotomy when stable. Due to patient of sepsis, ceftriaxone has been discontinued the patient has been started on Zosyn. We will continue to monitor. Review of Systems: Constitutional: Denies weight loss, fever and chills. HEENT: Denies changes in vision and hearing. Respiratory: Denies shortness of breath and cough Cardiovascular: Denies chest discomfort or palpitations GI: refers constipation, denies abdominal distention, abdominal pain, diarrhea : Denies dysuria and urinary frequency. Musculoskeletal: Currently refers no symptoms Skin: Denies rash and pruritus. Neurological: denies dizziness headache vision or hearing problems Objective vital signs Vital Sign Date Time Temp Pulse Resp B/P (MAP) Pulse Ox O2 Delivery O2 Flow Rate FiO2 03/18/25 13:00 98.6 94 20 96/45 (62) 96 98.6 03/18/25 08:00 Room Air* 0 21 medications Current Medications Medications Dose Ordered Sig/Natali Route Start Time Stop Time Status Last Admin Dose Admin Sodium Chloride 1,000 ml @ 120 mls/hr Q8H20M IV 03/17/25 23:15 03/18/25 16:17 120 MLS/HR Acetaminophen/ Hydrocodone Bitart 1 tab Q6HPRN PRN PO 03/17/25 23:15 03/18/25 02:36 1 TAB Enoxaparin Sodium 40 mg DAILY SC 03/18/25 10:00 03/18/25 09:08 40 MG Piperacillin Sod/ Tazobactam Sod 100 ml @ 25 mls/hr Q8HR IV 03/18/25 14:00 03/18/25 16:17 25 MLS/HR Examination General: The patient seems comfortable, alert and oriented in person place and time. Patient following commands HEENT: Normocephalic, atraumatic, normal reactive pupils, EOM intact, pink conjunctiva, pink dry mucous membrane Respiratory/pulmonary: Bilateral chest expansion, no pain on chest palpation, clear lungs bilaterally, vesicular murmurs present in almost all lung simpson, no associated crackles or wheezes. Cardiovascular: On evaluation patient is slightly tachycardic, normal rhythm, normal S1 and S2 Abdomen: Abdomen nondistended, normal bowel sounds, soft, mild pain to palpation in left lumbar region, no CVA tenderness, no palpable masses. Extremities: no deformities, there is no peripheral edema present at the lower extremities, pulses are palpable. Skin: No rashes or pruritus Neurological: Intact cranial nerves with no focal neurologic deficits laboratory and microbiology Laboratory Tests 03/18/25 04:16 Test 03/18/25 04:16 Range/Units Serum Glucose 127 H 74-106 mg/dL Problem List/Assessment/Plan Problem List/Assessment/Plan Assessment and Plan: Sepsis secondary to acute complicated UTI - Ceftriaxone 1 g IV, discontinued - Zosyn 3.375 g IV q8hrs - NS 500 cc bolus IV once - NS 120cc/hr IV - Blood cultures ordered - Urine culture ordered - Continue to monitor vitals and labs Acute intractable abdominal and back pain due to Left Staghorn Calculi -Abdominopelvic CT: Large left renal staghorn calculus -Urology: will place left percutaneous nephrostomy tube and we will proceed with a percutaneous nephrolithotomy when stable -Monitor renal function -[place] 5 mg p.o. q.6 hours PRN TAMIA likely due to obstructive uropathy, secondary to above - IV fluids - Monitor renal function - Avoid nephrotoxic drugs Bilateral nephrolithiasis -Abdominopelvic CT: Abdominal pelvis CT shows bilateral renal calculi with a large left renal staghorn calculus - IV fluids Left hydroureter -Abdominopelvic CT: mild left hydroureter with no obstructing calculus noted GERD Right Ovarian Cyst -Abdominopelvic CT: 5.3 cm right ovarian cyst History of [place] in 2008 with no stents Diet: Regular DVT prophylaxis: Enoxaparin 40 mg sc daily GI prophylaxis: Not indicated Case discussed with Dr. Arias Goals of care discussed with the patient for over 25 minutes. FULL CODE. Plan discussed with: Patient My Orders My Orders Orders - DONITA BILLY RESIDENT Procedure Category Date Status Time Piperacillin-Tazob PHA 03/18/25 In Process 3.375gm (Zosyn 3.375g 14:00 Strict I & O ROGELIO 03/18/25 In Process 13:44 Chest Xray 1 View XY 03/18/25 Resulted 13:44 Date of Service: Mar 18, 2025 Billing Provider: GRISEL ARIAS MD Common Visit Codes: [id number] INP/OBS CARE(HIGH) Secondary Visit Codes: [id number] CARE PLAN 30 MINUTES DONITA BILLY RESIDENT Mar 18, 2025 16:36 GRISEL ARIAS MD Mar 20, 2025 20:57
[2025-03-18 21:00] VITALS: BP 114/68; PULSE 118; RESP 20; TEMP 100.5; O2SAT 94
[2025-03-18] MEDS: LACTULOSE 20Gm/30ML SOLN PO ONE (21:40)
[2025-03-19 01:00] VITALS: BP 105/61; PULSE 112; RESP 20; TEMP 101; O2SAT 94
[2025-03-19] MEDS: ACETAMINOPHEN 325 MG TAB PO ONE (02:58)
[2025-03-19 05:00] VITALS: BP 96/59; PULSE 89; RESP 20; TEMP 98.7; O2SAT 91
[2025-03-19 05:26] LABS: Hematocrit 35.4 % (36.0-46.0); Hemoglobin 11.9 g/dL (12.2-16.2); Mean Corpuscular Hemoglobin 31.8 pg (28.0-32.0); Mean Corpuscular Volume 94.8 fL (80.0-100.0); Nucleated Red Blood Cells % 0.0 %
[2025-03-19 05:35] LABS: Potassium 3.8 mmol/L (3.5-5.1); Sodium 141 mmol/L (136-145)
[2025-03-19 05:36] LABS: Anion Gap 9 (5-15); Carbon Dioxide 22 mmol/L (20-31)
[2025-03-19 05:39] LABS: Calcium 8.3 mg/dL (8.7-10.4); Chloride 110 mmol/L (98-107)
[2025-03-19 05:41] LABS: BUN/Creatinine Ratio 7.8 (10.0-20.0)
[2025-03-19 05:43] LABS: Blood Urea Nitrogen 8 mg/dL (9-23); Glucose 121 mg/dL (74-106)
[2025-03-19 09:30] VITALS: BP 100/67; PULSE 83; RESP 16; TEMP 98.2; O2SAT 95
[2025-03-19] MEDS: SODIUM CHLORIDE 0.9% 500 ML IV ONE (13:07)
[2025-03-19 13:27] VITALS: BP 101/69; PULSE 80; RESP 17; TEMP 98.6; O2SAT 96
--- NOTE | 2025-03-19 15:50 | DVHPNRES ---
Progress Note Date Seen: Mar 19, 2025 Resident Creating Document: DONITA BILLY RESIDENT Medical Necessity Reason Pt with a Central, PICC or Fol: No Subjective Review of Systems Patient is a 50 year old female with prior medical history of nephrolithiasis, myocardial infarction without stent placement in 2008, and GERD, who presented to the ED with chief complaint of flank pain. The patient refers sudden onset of intense flank pain 3 days ago described as cramp like, bilateral but worse on her left, radiating forward to lumbar region and down toward lower extremities, 10/10 in intensity, aggravated by movements, with no relieving factors, associated with chills, nausea, and febrile sensation. Additionally refers constipation for the last 3 days. The patient states she started her menstrual period on Friday, and for this reason is unsure if she has had hematuria associated to current symptoms. She denies vomiting, chest pain, palpitations, and other symptoms. Due to persistence of symptoms she sought medical care. on evaluation in the ED, the patient was in moderate distress and tachycardic. Initial labs show WBCs 14.8, neutrophils 12.7, creatinine 1.13. UA turbid, nitrites negative, ULE 3+, WBCs 27, WBC clumps, WBC 465, and bacteria few. Abdominal pelvis CT shows bilateral renal calculi with a large left renal staghorn calculus, there is associated dilation of the left renal calyces with [id number] asymmetric left-sided perinephric fat stranding, mild left hydroureter with no obstructing calculus noted. The patient was placed on IV fluids, IV antibiotics, and pain regimen. The patient was admitted for further workup monitoring. Personal history: Nephrolithiasis, [place] in 2008 without placement of stents, GERD Allergies: IV contrast states it causes hives Surgical: Cholecystectomy, angiogram, ovarian cyst removal, left breast cyst removal, tubal ligation Social: Denies drug, tobacco, and alcohol use. States she lives with her children and feels safe. Patient seen at bedside. Patient states that she feels well, denies any abdominal pain, tolerating oral diet, slept well, and has been able to ambulate without issue. Refers overnight she had 1 febrile episode, But otherwise felt fine. Currently denies abdominal pain, back pain, nausea, vomiting, palpitations, and fever. Patient had febrile spikes overnight ranging from 100.5-101.3. Blood pressure has continued to be borderline, NS bolus has been given and she will continue on fluids. Labs are significant for improvement of leukocytosis. Preliminary urine culture is growing >100,000 CFU/mL mixed lisa, blood cultures are negative at 24 hours of growth. she will continue on current management of IV antibiotics and IV fluids. Pending procedure with Urology on Friday. We will continue to monitor. Objective vital signs Vital Sign Date Time Temp Pulse Resp B/P (MAP) Pulse Ox O2 Delivery O2 Flow Rate FiO2 03/19/25 13:27 98.6 80 17 101/69 (80) 96 98.6 03/19/25 08:00 Room Air* 0 21 Total Intake and Output 03/18/25 03/18/25 03/19/25 15:00 23:00 07:00 Intake Total 100 ml 700 ml Balance 100 ml 700 ml medications Current Medications Medications Dose Ordered Sig/Natali Route Start Time Stop Time Status Last Admin Dose Admin Sodium Chloride 1,000 ml @ 120 mls/hr Q8H20M IV 03/17/25 23:15 03/19/25 08:37 120 MLS/HR Acetaminophen/ Hydrocodone Bitart 1 tab Q6HPRN PRN PO 03/17/25 23:15 03/18/25 02:36 1 TAB Enoxaparin Sodium 40 mg DAILY SC 03/18/25 10:00 03/19/25 10:03 40 MG Piperacillin Sod/ Tazobactam Sod 100 ml @ 25 mls/hr Q8HR IV 03/18/25 14:00 03/19/25 05:17 25 MLS/HR Examination General: The patient seems comfortable, alert and oriented in person place and time. Patient following commands HEENT: Normocephalic, atraumatic, normal reactive pupils, EOM intact, pink conjunctiva, pink dry mucous membrane Respiratory/pulmonary: Bilateral chest expansion, no pain on chest palpation, clear lungs bilaterally, vesicular murmurs present in almost all lung simpson, no associated crackles or wheezes. Cardiovascular: On evaluation patient is slightly tachycardic, normal rhythm, normal S1 and S2 Abdomen: Abdomen nondistended, normal bowel sounds, soft, no pain to palpation in left lumbar region, no CVA tenderness, no palpable masses. Extremities: no deformities, there is no peripheral edema present at the lower extremities, pulses are palpable. Skin: No rashes or pruritus Neurological: Intact cranial nerves with no focal neurologic deficits laboratory and microbiology Laboratory Tests 03/19/25 05:02 Test 03/19/25 05:02 Range/Units Serum Glucose 121 H 74-106 mg/dL Microbiology Date/Time Source Procedure Growth Status 03/18/25 15:00 Voided Urine Urine Culture - Preliminary Resulted 03/18/25 09:14 Blood Blood Culture - Preliminary NO GROWTH AFTER 24 HOURS OF INCUBATION. Resulted Problem List/Assessment/Plan Problem List/Assessment/Plan Assessment and Plan: Sepsis secondary to acute complicated UTI - Ceftriaxone 1 g IV, discontinued - Zosyn 3.375 g IV q8hrs - NS 500 cc bolus IV - NS 120cc/hr IV - Blood cultures Preliminary: Negative at 24 hours of incubation - Urine culture preliminary: >100,000 CFU/mL mixed lisa - Continue to monitor vitals and labs Acute intractable abdominal and back pain due to Left Staghorn Calculi -Abdominopelvic CT: Large left renal staghorn calculus -Urology: will place left percutaneous nephrostomy tube and we will proceed with a percutaneous nephrolithotomy when stable -Monitor renal function -[place] 5 mg p.o. q.6 hours PRN TAMIA likely due to obstructive uropathy, secondary to above - IV fluids - Monitor renal function - Avoid nephrotoxic drugs Bilateral nephrolithiasis -Abdominopelvic CT: Abdominal pelvis CT shows bilateral renal calculi with a large left renal staghorn calculus - IV fluids Left hydroureter -Abdominopelvic CT: mild left hydroureter with no obstructing calculus noted GERD Right Ovarian Cyst -Abdominopelvic CT: 5.3 cm right ovarian cyst History of [place] in 2008 with no stents Diet: Regular DVT prophylaxis: Enoxaparin 40 mg sc daily GI prophylaxis: Not indicated Case discussed with Dr. Arias Goals of care discussed with the patient for over 30 minutes. FULL CODE. Plan discussed with: Patient Date of Service: Mar 19, 2025 Billing Provider: GRISEL ARISA MD Common Visit Codes: [id number] INP/OBS CARE(HIGH) DONITA BILLY RESIDENT Mar 19, 2025 15:50 GRISEL ARIAS MD Mar 20, 2025 20:57
[2025-03-19 17:17] VITALS: BP 111/72; PULSE 82; RESP 18; TEMP 98.9; O2SAT 95
[2025-03-19 21:00] VITALS: BP_SYST 101; BP_SYST 122; BP_DIAS 59; BP_DIAS 76; PULSE 68; PULSE 87; RESP 17; TEMP 98; TEMP 98.1; O2SAT 93; O2SAT 96
[2025-03-20] VITALS (7 sets, daily range): BP systolic 103–122; BP diastolic 56–80; PULSE 80–89; RESP 14–20; TEMP 97.9–98.3; O2SAT 95–97
[2025-03-20 07:31] LABS: Hematocrit 34.1 % (36.0-46.0); Hemoglobin 11.7 g/dL (12.2-16.2); Mean Corpuscular Hemoglobin 32.4 pg (28.0-32.0); Mean Corpuscular Volume 94.0 fL (80.0-100.0); Nucleated Red Blood Cells % 0.1 %
[2025-03-20 07:40] LABS: Sodium 141 mmol/L (136-145)
[2025-03-20 07:41] LABS: Anion Gap 10 (5-15); Calcium 8.7 mg/dL (8.7-10.4); Carbon Dioxide 22 mmol/L (20-31); Chloride 109 mmol/L (98-107); Potassium 3.4 mmol/L (3.5-5.1)
[2025-03-20 07:46] LABS: BUN/Creatinine Ratio 7.6 (10.0-20.0); Glucose 90 mg/dL (74-106)
[2025-03-20 07:50] LABS: Blood Urea Nitrogen 6 mg/dL (9-23)
[2025-03-20] MEDS: POTASSIUM CHL 20 Meq TABLET PO ONE (11:35)
[2025-03-20] MEDS: CHOLECALCIFEROL (VITD3) 1,000UNIT=25mCg TAB PO ONE (11:38)
[2025-03-20 13:17] LABS: Urine Protein, UAD Negative (Negative); Urine WBC Clumps PRESENT /hpf (None Seen)
--- NOTE | 2025-03-20 15:37 | DVHPNRES ---
Progress Note Date Seen: Mar 20, 2025 Resident Creating Document: JEREMÍAS STEPHEN RESIDENT Medical Necessity Reason Pt with a Central, PICC or Fol: No Subjective Review of Systems Patient is a 50 year old female with prior medical history of nephrolithiasis, myocardial infarction without stent placement in 2008, and GERD, who presented to the ED with chief complaint of flank pain. The patient refers sudden onset of intense flank pain 3 days ago described as cramp like, bilateral but worse on her left, radiating forward to lumbar region and down towards lower extremities, 10/10 in intensity, aggravated by movements, with no relieving factors, associated with chills, nausea, and febrile sensation. Additionally refers constipation for the last 3 days. The patient states she started her menstrual period on Friday, and for this reason is unsure if she has had hematuria associated to current symptoms. She denies vomiting, chest pain, palpitations, and other symptoms. Due to persistence of symptoms she sought medical care. On evaluation in the ED, the patient was in moderate distress and tachycardic. Initial labs show WBCs 14.8, neutrophils 12.7, creatinine 1.13. UA turbid, nitrites negative, ULE 3+, WBCs 27, WBC clumps, WBC 465, and bacteria few. Abdominal pelvis CT shows bilateral renal calculi with a large left renal staghorn calculus, there is associated dilation of the left renal calyces with [id number] asymmetric left-sided perinephric fat stranding, mild left hydroureter with no obstructing calculus noted. The patient was placed on IV fluids, IV antibiotics, and pain regimen. The patient was admitted for further workup monitoring. Personal history: Nephrolithiasis, [place] in 2008 without placement of stents, GERD Allergies: IV contrast states it causes hives Surgical: Cholecystectomy, angiogram, ovarian cyst removal, left breast cyst removal, tubal ligation Social: Denies drug, tobacco, and alcohol use. States she lives with her children and feels safe. Review of Systems: Constitutional: Denies weight loss, fever and chills. HEENT: Denies changes in vision and hearing. Respiratory: Denies shortness of breath and cough Cardiovascular: Denies chest discomfort or palpitations GI: refers constipation, denies abdominal distention, abdominal pain, diarrhea : Denies dysuria and urinary frequency. Musculoskeletal: Currently refers no symptoms Skin: Denies rash and pruritus. Neurological: denies dizziness headache vision or hearing problems Patient seen at bedside. Patient states that she feels well, denies any abdominal pain, tolerating oral diet, slept well, and has been able to ambulate without issue. Refers overnight she had 1 febrile episode, But otherwise felt fine. Currently denies abdominal pain, back pain, nausea, vomiting, palpitations, and fever. Patient had febrile spikes overnight ranging from 100.5-101.3. Blood pressure has continued to be borderline, NS bolus has been given and she will continue on fluids. Labs are significant for improvement of leukocytosis. Preliminary urine culture is growing >100,000 CFU/mL mixed lisa, blood cultures are negative at 24 hours of growth. She will continue on current management of IV antibiotics and IV fluids. Pending procedure with Urology on Friday. We will continue to monitor. Patient was seen at bedside. She states that she has no abdominal pain, vomiting and fever overnight. Labs sow marked improvement in leukocytosis with WBC now at 8.8. We will continue to monitor her while continuing IV antibiotics and IV fluids. She was given 2000 mg daily of oral vitamin-D after her vitamin-D was found to be below normal. She has a pending urology procedure tomorrow. Objective vital signs Vital Sign Date Time Temp Pulse Resp B/P (MAP) Pulse Ox O2 Delivery O2 Flow Rate FiO2 03/20/25 13:28 98.1 86 14 122/74 (90) 95 98.1 03/20/25 08:00 Room Air* 0 21 Total Intake and Output 03/19/25 03/19/25 03/20/25 15:00 23:00 07:00 Intake Total 680 ml 1625 ml Output Total 600 ml 1600 ml Balance 80 ml 25 ml medications Current Medications Medications Dose Ordered Sig/Natali Route Start Time Stop Time Status Last Admin Dose Admin Sodium Chloride 1,000 ml @ 120 mls/hr Q8H20M IV 03/17/25 23:15 03/20/25 01:43 120 MLS/HR Acetaminophen/ Hydrocodone Bitart 1 tab Q6HPRN PRN PO 03/17/25 23:15 03/18/25 02:36 1 TAB Enoxaparin Sodium 40 mg DAILY SC 03/18/25 10:00 03/19/25 10:03 40 MG Piperacillin Sod/ Tazobactam Sod 100 ml @ 25 mls/hr Q8HR IV 03/18/25 14:00 03/20/25 15:05 25 MLS/HR Cholecalciferol 2,000 unit DAILY PO 03/21/25 10:00 Examination General: The patient seems comfortable, alert and oriented in person place and time. Patient following commands HEENT: Normocephalic, atraumatic, normal reactive pupils, EOM intact, pink conjunctiva, pink dry mucous membrane Respiratory/pulmonary: Bilateral chest expansion, no pain on chest palpation, clear lungs bilaterally, vesicular murmurs present in almost all lung simpson, no associated crackles or wheezes. Cardiovascular: On evaluation patient is slightly tachycardic, normal rhythm, normal S1 and S2 Abdomen: Abdomen nondistended, normal bowel sounds, soft, no pain to palpation in left lumbar region, no CVA tenderness, no palpable masses. Extremities: no deformities, there is no peripheral edema present at the lower extremities, pulses are palpable. Skin: No rashes or pruritus Neurological: Intact cranial nerves with no focal neurologic deficits laboratory and microbiology Laboratory Tests 03/20/25 06:38 Test 03/20/25 06:38 Range/Units Serum Glucose 90 74-106 mg/dL Microbiology Date/Time Source Procedure Growth Status 03/18/25 15:00 Voided Urine Urine Culture - Final Complete 03/18/25 09:14 Blood Blood Culture - Preliminary NO GROWTH AFTER 48 HOURS OF INCUBATION. Resulted Labs and/or images reviewed: Labs reviewed by me, Image(s) reviewed by me Problem List/Assessment/Plan Problem List/Assessment/Plan Sepsis secondary to acute complicated UTI - Ceftriaxone 1 g IV, discontinued - Zosyn 3.375 g IV q8hrs - NS 500 cc bolus IV - NS 120cc/hr IV - Blood cultures Preliminary: Negative at 24 hours of incubation - Urine culture preliminary: >100,000 CFU/mL mixed lisa - Continue to monitor vitals and labs Acute intractable abdominal and back pain due to Left Staghorn Calculi -Abdominopelvic CT: Large left renal staghorn calculus -Urology: will place left percutaneous nephrostomy tube and we will proceed with a percutaneous nephrolithotomy when stable -Monitor renal function -[place] 5 mg p.o. q.6 hours PRN TAMIA likely due to obstructive uropathy, secondary to above - IV fluids - Monitor renal function - Avoid nephrotoxic drugs Bilateral nephrolithiasis -Abdominopelvic CT: Abdominal pelvis CT shows bilateral renal calculi with a large left renal staghorn calculus - IV fluids Left hydroureter -Abdominopelvic CT: mild left hydroureter with no obstructing calculus noted GERD Right Ovarian Cyst -Abdominopelvic CT: 5.3 cm right ovarian cyst History of [place] in 2009 with no stents Diet: Regular DVT prophylaxis: Enoxaparin 40 mg sc daily GI prophylaxis: Not indicated Case discussed with Dr. Arias Goals of care discussed with the patient for over 30 minutes. FULL CODE. Plan discussed with: Patient Plan discussed with: Patient My Orders My Orders Orders - JEREMÍAS STEPHEN Procedure Category Date Status Time Cholecalciferol PHA 03/21/25 In Process Tablet (Vitamin D3 10:00 Dietary Evaluation Review Comments: 1) Add cardiac restriction to diet 2) Encourage optimal PO intake 3) Refer to outpatient RD for weigth management 4) Follow-up with urology and cardiology 5) Continue to monitor I&O, labs, and skin integrity Expected Outcomes/Goals: 1) appetite and labs to improve 2) gradual wt loss 3) f/u in 3-5 days Date of Service: Mar 20, 2025 Billing Provider: GRISEL ARIAS MD Common Visit Codes: [id number] INP/OBS CARE(HIGH) JEREMÍAS STEPHEN RESIDENT Mar 20, 2025 15:37 GRISEL ARIAS MD Mar 20, 2025 20:58
[2025-03-21] VITALS (7 sets, daily range): BP systolic 113–128; BP diastolic 67–84; PULSE 71–84; RESP 18–20; TEMP 97.9–98.4; O2SAT 95–98
[2025-03-21 01:16] LABS: Urine Protein, UAD Negative (Negative)
--- NOTE | 2025-03-21 07:24 | DVH ---
CLINICAL INFORMATION: 50 years old, Female; Procedure. TECHNIQUE: Single AP portable chest radiograph was obtained. COMPARISON: XY CHEST XRAY 1 VIEW on DOS: 03/18/25, XY CHEST PORTABLE on DOS: 12/21/24 FINDINGS: Lungs: Low lung volumes with bibasilar atelectasis. Ill-defined opacities in the left lower lung, may be atelectasis, although infectious or inflammatory etiology not excluded. No pneumothorax or pleura l effusion visualized. Small calcified granuloma in the left upper lung. Cardiac: Heart size is within normal limits. Pulmonary vasculature: Unremarkable. Mediastinum/ricardo: Unremarkable. Bones: No acute osseous abnormality identified. Other: No other significant findings. IMPRESSION: Low lung volumes with bibasilar atelectasis. Ill-defined opacities in the left lung base, possibly a telectasis. Superimposed infectious or inflammatory etiology not excluded in the appropriate clinica l setting. Correlate with clinical findings.
[2025-03-21 07:26] LABS: Hematocrit 35.0 % (36.0-46.0); Hemoglobin 12.1 g/dL (12.2-16.2); Mean Corpuscular Hemoglobin 32.4 pg (28.0-32.0); Mean Corpuscular Volume 93.7 fL (80.0-100.0); Nucleated Red Blood Cells % 0.1 %
[2025-03-21 07:40] LABS: INR 1.03 (0.9-1.15); Partial Thromboplastin Time 29.5 SEC (24.5-34.5); Prothrombin Time 10.9 sec (9.3-11.8)
[2025-03-21 07:50] LABS: Alanine Aminotransferase 25 U/L (7-40); Alkaline Phosphatase 83 U/L (46-116); Anion Gap 11 (5-15); BUN/Creatinine Ratio 9.4 (10.0-20.0); Calcium 9.1 mg/dL (8.7-10.4); Carbon Dioxide 22 mmol/L (20-31); Glucose 93 mg/dL (74-106); Potassium 3.7 mmol/L (3.5-5.1); Sodium 142 mmol/L (136-145); Total Protein 6.5 g/dL (5.7-8.2)
[2025-03-21 07:51] LABS: Albumin 3.9 g/dL (3.2-4.8); Bilirubin, Total 0.4 mg/dL (0.2-1.0)
[2025-03-21 07:52] LABS: Blood Urea Nitrogen 8 mg/dL (9-23); Chloride 109 mmol/L (98-107)
[2025-03-21] MEDS: CHOLECALCIFEROL (VITD3) 1,000UNIT=25mCg TAB PO SCH (08:52)
--- NOTE | 2025-03-21 10:11 | DVHPNRES ---
Progress Note Date Seen: Mar 21, 2025 Resident Creating Document: JEREMÍAS STEPHEN RESIDENT Medical Necessity Reason Pt with a Central, PICC or Fol: No Subjective Review of Systems Patient is a 50 year old female with prior medical history of nephrolithiasis, myocardial infarction without stent placement in 2008, and GERD, who presented to the ED with chief complaint of flank pain. The patient refers sudden onset of intense flank pain 3 days ago described as cramp like, bilateral but worse on her left, radiating forward to lumbar region and down towards lower extremities, 10/10 in intensity, aggravated by movements, with no relieving factors, associated with chills, nausea, and febrile sensation. Additionally refers constipation for the last 3 days. The patient states she started her menstrual period on Friday, and for this reason is unsure if she has had hematuria associated to current symptoms. She denies vomiting, chest pain, palpitations, and other symptoms. Due to persistence of symptoms she sought medical care. On evaluation in the ED, the patient was in moderate distress and tachycardic. Initial labs show WBCs 14.8, neutrophils 12.7, creatinine 1.13. UA turbid, nitrites negative, ULE 3+, WBCs 27, WBC clumps, WBC 465, and bacteria few. Abdominal pelvis CT shows bilateral renal calculi with a large left renal staghorn calculus, there is associated dilation of the left renal calyces with [id number] asymmetric left-sided perinephric fat stranding, mild left hydroureter with no obstructing calculus noted. The patient was placed on IV fluids, IV antibiotics, and pain regimen. The patient was admitted for further workup monitoring. Personal history: Nephrolithiasis[place] in [place] without placement of stents, GERD Allergies: IV contrast states it causes hives Surgical: Cholecystectomy, angiogram, ovarian cyst removal, left breast cyst removal, tubal ligation Social: Denies drug, tobacco, and alcohol use. States she lives with her children and feels safe. Review of Systems: Constitutional: Denies weight loss, fever and chills. HEENT: Denies changes in vision and hearing. Respiratory: Denies shortness of breath and cough Cardiovascular: Denies chest discomfort or palpitations GI: refers constipation, denies abdominal distention, abdominal pain, diarrhea : Denies dysuria and urinary frequency. Musculoskeletal: Currently refers no symptoms Skin: Denies rash and pruritus. Neurological: denies dizziness headache vision or hearing problems 03/19-Patient seen at bedside. Patient states that she feels well, denies any abdominal pain, tolerating oral diet, slept well, and has been able to ambulate without issue. Refers overnight she had 1 febrile episode, But otherwise felt fine. Currently denies abdominal pain, back pain, nausea, vomiting, palpitations, and fever. Patient had febrile spikes overnight ranging from 100.5-101.3. Blood pressure has continued to be borderline, NS bolus has been given and she will continue on fluids. Labs are significant for improvement of leukocytosis. Preliminary urine culture is growing >100,000 CFU/mL mixed lisa, blood cultures are negative at 24 hours of growth. She will continue on current management of IV antibiotics and IV fluids. Pending procedure with Urology on Friday. We will continue to monitor. 03/20-Patient was seen at bedside. She states that she has no abdominal pain, vomiting and fever overnight. Labs sow marked improvement in leukocytosis with WBC now at 8.8. We will continue to monitor her while continuing IV antibiotics and IV fluids. She was given 2000 mg daily of oral vitamin-D after her vitamin- D was found to be below normal. She has a pending urology procedure tomorrow. 03/21-The patient was seen at bedside and mentioned she has no abdominal pain fever or vomiting. Labs are within normal and vitals are stable. She could not undergo the procedure today as Nephrology is waiting for Interventional Radiology to place an access sheath for PCNL. She was told the procedure will be done tomorrow morning. Her antibiotics were discontinued and she was started on oral doxycycline. Objective vital signs Vital Sign Date Time Temp Pulse Resp B/P (MAP) Pulse Ox O2 Delivery O2 Flow Rate FiO2 03/21/25 09:04 97.9 84 18 128/84 (99) 98 97.9 03/21/25 08:00 Room Air* 0 21 Total Intake and Output 03/20/25 03/20/25 03/21/25 15:00 23:00 07:00 Intake Total 3280 ml 850 ml Balance 3280 ml 850 ml medications Current Medications Medications Dose Ordered Sig/Natali Route Start Time Stop Time Status Last Admin Dose Admin Sodium Chloride 1,000 ml @ 120 mls/hr Q8H20M IV 03/17/25 23:15 03/20/25 23:01 120 MLS/HR Acetaminophen/ Hydrocodone Bitart 1 tab Q6HPRN PRN PO 03/17/25 23:15 03/18/25 02:36 1 TAB Enoxaparin Sodium 40 mg DAILY SC 03/18/25 10:00 03/19/25 10:03 40 MG Piperacillin Sod/ Tazobactam Sod 100 ml @ 25 mls/hr Q8HR IV 03/18/25 14:00 03/21/25 05:46 25 MLS/HR Cholecalciferol 2,000 unit DAILY PO 03/21/25 10:00 03/21/25 08:52 2,000 UNIT Examination General: The patient seems comfortable, alert and oriented in person place and time. Patient following commands HEENT: Normocephalic, atraumatic, normal reactive pupils, EOM intact, pink conjunctiva, pink dry mucous membrane Respiratory/pulmonary: Bilateral chest expansion, no pain on chest palpation, clear lungs bilaterally, vesicular murmurs present in almost all lung simpson, no associated crackles or wheezes. Cardiovascular: On evaluation patient is slightly tachycardic, normal rhythm, normal S1 and S2 Abdomen: Abdomen nondistended, normal bowel sounds, soft, no pain to palpation in left lumbar region, no CVA tenderness, no palpable masses. Extremities: no deformities, there is no peripheral edema present at the lower extremities, pulses are palpable. Skin: No rashes or pruritus Neurological: Intact cranial nerves with no focal neurologic deficits laboratory and microbiology Laboratory Tests 03/21/25 06:46 Test 03/21/25 06:46 Range/Units Serum Glucose 93 74-106 mg/dL Microbiology Date/Time Source Procedure Growth Status 03/18/25 15:00 Voided Urine Urine Culture - Final Complete 03/18/25 09:14 Blood Blood Culture - Preliminary NO GROWTH AFTER 72 HOURS OF INCUBATION. Resulted Labs and/or images reviewed: Labs reviewed by me, Image(s) reviewed by me Problem List/Assessment/Plan Problem List/Assessment/Plan Sepsis secondary to acute complicated UTI - Ceftriaxone 1 g IV, discontinued - Zosyn 3.375 g IV q8hrs - NS 500 cc bolus IV - NS 120cc/hr IV - Blood cultures Preliminary: Negative at 24 hours of incubation - Urine culture preliminary: >100,000 CFU/mL mixed lisa - Continue to monitor vitals and labs Acute intractable abdominal and back pain due to Left Staghorn Calculi -Abdominopelvic CT: Large left renal staghorn calculus -Urology: will place left percutaneous nephrostomy tube and we will proceed with a percutaneous nephrolithotomy when stable -Monitor renal function -[place] 5 mg p.o. q.6 hours PRN TAMIA likely due to obstructive uropathy, secondary to above - IV fluids - Monitor renal function - Avoid nephrotoxic drugs Bilateral nephrolithiasis -Abdominopelvic CT: Abdominal pelvis CT shows bilateral renal calculi with a large left renal staghorn calculus - IV fluids Left hydroureter -Abdominopelvic CT: mild left hydroureter with no obstructing calculus noted GERD Right Ovarian Cyst -Abdominopelvic CT: 5.3 cm right ovarian cyst History of [place] in 2008 with no stents Diet: Regular DVT prophylaxis: Enoxaparin 40 mg sc daily GI prophylaxis: Not indicated Case discussed with Dr. Arias Goals of care discussed with the patient for over 30 minutes. FULL CODE. Plan discussed with: Patient Plan discussed with: Patient My Orders My Orders Orders - JEREMÍAS STEPHEN RESIDENT Procedure Category Date Status Time Cholecalciferol PHA 03/21/25 In Process Tablet (Vitamin D3 10:00 Dietary Evaluation Review Comments: 1) Add cardiac restriction to diet 2) Encourage optimal PO intake 3) Refer to outpatient RD for weigth management 4) Follow-up with urology and cardiology 5) Continue to monitor I&O, labs, and skin integrity Expected Outcomes/Goals: 1) appetite and labs to improve 2) gradual wt loss 3) f/u in 3-5 days Date of Service: Mar 21, 2025 Billing Provider: GRISEL ARIAS MD Common Visit Codes: [id number] INP/OBS CARE(HIGH) JEREMÍAS STEPHEN RESIDENT Mar 21, 2025 10:11 GRISEL ARIAS MD Mar 24, 2025 08:54
--- NOTE | 2025-03-21 14:09 | DVHPN2 ---
Progress Note - Dictate Date Seen: Mar 21, 2025 Medical Necessity Reason Pt with a Central, PICC or Fol: No Medical Necessity Reason Staghorn calculus, left kidney vital signs Vital Sign Date Time Temp Pulse Resp B/P (MAP) Pulse Ox O2 Delivery O2 Flow Rate FiO2 03/21/25 13:00 97.9 71 19 122/74 (90) 96 97.9 03/21/25 08:00 Room Air* 0 21 Total Intake and Output 03/20/25 03/20/25 03/21/25 15:00 23:00 07:00 Intake Total 3280 ml 850 ml Balance 3280 ml 850 ml medications Current Medications Medications Dose Ordered Sig/Natali Route Start Time Stop Time Status Last Admin Dose Admin Sodium Chloride 1,000 ml @ 120 mls/hr Q8H20M IV 03/17/25 23:15 03/20/25 23:01 120 MLS/HR Acetaminophen/ Hydrocodone Bitart 1 tab Q6HPRN PRN PO 03/17/25 23:15 03/18/25 02:36 1 TAB Enoxaparin Sodium 40 mg DAILY SC 03/18/25 10:00 03/19/25 10:03 40 MG Cholecalciferol 2,000 unit DAILY PO 03/21/25 10:00 03/21/25 08:52 2,000 UNIT Ceftriaxone Sodium 50 ml @ 100 mls/hr DAILY@09 IV 03/21/25 11:43 03/21/25 13:36 100 MLS/HR laboratory and microbiology Laboratory Tests 03/21/25 06:46 Test 03/21/25 06:46 Range/Units Serum Glucose 93 74-106 mg/dL Problem List Left staghorn renal calculus Assessment/Plan Bilateral nephrolithiasis Large left staghorn calculus Awaiting for Interventional Radiology to place an access sheath for PCNL Dietary Evaluation Review Comments: 1) Add cardiac restriction to diet 2) Encourage optimal PO intake 3) Refer to outpatient RD for weigth management 4) Follow-up with urology and cardiology 5) Continue to monitor I&O, labs, and skin integrity Expected Outcomes/Goals: 1) appetite and labs to improve 2) gradual wt loss 3) f/u in 3-5 days Plan discussed with: Patient, Other LINDSEY DANIELSON MD Mar 21, 2025 14:09
[2025-03-22] VITALS (11 sets, daily range): BP systolic 103–119; BP diastolic 57–76; PULSE 58–87; RESP 15–18; TEMP 97.9–98.2; O2SAT 94–99
[2025-03-22 07:16] LABS: Hematocrit 37.4 % (36.0-46.0); Hemoglobin 12.8 g/dL (12.2-16.2); Mean Corpuscular Hemoglobin 32.0 pg (28.0-32.0); Mean Corpuscular Volume 93.4 fL (80.0-100.0); Nucleated Red Blood Cells % 0.1 %
[2025-03-22 07:21] LABS: Anion Gap 11 (5-15); Carbon Dioxide 24 mmol/L (20-31); Potassium 3.8 mmol/L (3.5-5.1); Sodium 142 mmol/L (136-145)
[2025-03-22 07:22] LABS: Calcium 9.3 mg/dL (8.7-10.4)
[2025-03-22 07:27] LABS: BUN/Creatinine Ratio 9.8 (10.0-20.0); Glucose 97 mg/dL (74-106)
[2025-03-22 07:31] LABS: Blood Urea Nitrogen 8 mg/dL (9-23); Chloride 107 mmol/L (98-107)
[2025-03-22] MEDS: fentaNYL CITRATE 100 MCG/2 ML VL ONE (12:23)
[2025-03-22] MEDS: LIDOCAINE 2%HCL (LOCAL ANESTH.) INJ 20ML MDV ONE (12:24)
[2025-03-22] MEDS: MIDAZOLAM HCL 2MG/2ML 2ml VIAL (1mg/ml) ONE (12:24)
[2025-03-22] MEDS: IODIXANOL 320MG/ML 100ML BTL IV ONE (12:24)
[2025-03-22] MEDS: methylPREDNISolone SOD SUCC 125 MG/2 ML VL ONE (12:41)
[2025-03-22] MEDS: diphenhdrAMINE HCL 50 MG/1 ML VL ONE (12:42)
[2025-03-22] MEDS ORDERED: GLYCOPYRROLATE 0.2 MG/ML 1ML VIAL ONE (12:47)
[2025-03-22] MEDS ORDERED: MIDAZOLAM HCL 2MG/2ML 2ml VIAL (1mg/ml) ONE (12:47)
[2025-03-22] MEDS ORDERED: fentaNYL CITRATE 100 MCG/2 ML VL ONE (12:47)
[2025-03-22] MEDS ORDERED: SUGAMMADEX 200mg/2ml Vial (100MG/ML) IV ONE ×2 (12:47→16:56)
[2025-03-22] MEDS ORDERED: PROPOFOL 10 MG/ML 20 ML IV ONE (12:47)
[2025-03-22] MEDS ORDERED: KETAMINE 50mg/ML 10ml Vial 10 ML ONE (12:47)
[2025-03-22] MEDS ORDERED: ROCURONIUM 10MG/ML 10ML VIAL IV ONE ×2 (12:47→16:34)
[2025-03-22] MEDS ORDERED: ONDANSETRON HCL 4 MG/2 ML VIAL ONE (12:47)
[2025-03-22] MEDS ORDERED: HYDROmorphone HCL 2 MG/ML VL/or syr ONE (12:47)
[2025-03-22] MEDS ORDERED: LIDOCAINE 2% (LOCAL ANESTH.) PF 5ml SDV ONE (12:47)
[2025-03-22] MEDS ORDERED: KETOROLAC TROMETH 30 MG/ML 1ML VIAL ONE (12:47)
--- NOTE | 2025-03-22 15:19 | DVHPNRES ---
Progress Note Date Seen: Mar 22, 2025 Resident Creating Document: ROSY NEIL RESIDENT Medical Necessity Reason Pt with a Central, PICC or Fol: No Subjective Review of Systems Patient is a 50 year old female with prior medical history of nephrolithiasis, myocardial infarction without stent placement in 2008, and GERD, who presented to the ED with chief complaint of flank pain. The patient refers sudden onset of intense flank pain 3 days ago described as cramp like, bilateral but worse on her left, radiating forward to lumbar region and down towards lower extremities, 10/10 in intensity, aggravated by movements, with no relieving factors, associated with chills, nausea, and febrile sensation. Additionally refers constipation for the last 3 days. The patient states she started her menstrual period on Friday, and for this reason is unsure if she has had hematuria associated to current symptoms. She denies vomiting, chest pain, palpitations, and other symptoms. Due to persistence of symptoms she sought medical care. On evaluation in the ED, the patient was in moderate distress and tachycardic. Initial labs show WBCs 14.8, neutrophils 12.7, creatinine 1.13. UA turbid, nitrites negative, ULE 3+, WBCs 27, WBC clumps, WBC 465, and bacteria few. Abdominal pelvis CT shows bilateral renal calculi with a large left renal staghorn calculus, there is associated dilation of the left renal calyces with [id number] asymmetric left-sided perinephric fat stranding, mild left hydroureter with no obstructing calculus noted. The patient was placed on IV fluids, IV antibiotics, and pain regimen. The patient was admitted for further workup monitoring. Personal history: Nephrolithiasis, [place] in 2008 without placement of stents, GERD Allergies: IV contrast states it causes hives Surgical: Cholecystectomy, angiogram, ovarian cyst removal, left breast cyst removal, tubal ligation Social: Denies drug, tobacco, and alcohol use. States she lives with her children and feels safe. Review of Systems: Constitutional: Denies weight loss, fever and chills. HEENT: Denies changes in vision and hearing. Respiratory: Denies shortness of breath and cough Cardiovascular: Denies chest discomfort or palpitations GI: refers constipation, denies abdominal distention, abdominal pain, diarrhea : Denies dysuria and urinary frequency. Musculoskeletal: Currently refers no symptoms Skin: Denies rash and pruritus. Neurological: denies dizziness headache vision or hearing problems 03/19-Patient seen at bedside. Patient states that she feels well, denies any abdominal pain, tolerating oral diet, slept well, and has been able to ambulate without issue. Refers overnight she had 1 febrile episode, But otherwise felt fine. Currently denies abdominal pain, back pain, nausea, vomiting, palpitations, and fever. Patient had febrile spikes overnight ranging from 100.5-101.3. Blood pressure has continued to be borderline, NS bolus has been given and she will continue on fluids. Labs are significant for improvement of leukocytosis. Preliminary urine culture is growing >100,000 CFU/mL mixed lisa, blood cultures are negative at 24 hours of growth. She will continue on current management of IV antibiotics and IV fluids. Pending procedure with Urology on Friday. We will continue to monitor. 03/20-Patient was seen at bedside. She states that she has no abdominal pain, vomiting and fever overnight. Labs sow marked improvement in leukocytosis with WBC now at 8.8. We will continue to monitor her while continuing IV antibiotics and IV fluids. She was given 2000 mg daily of oral vitamin-D after her vitamin- D was found to be below normal. She has a pending urology procedure tomorrow. 03/21-The patient was seen at bedside and mentioned she has no abdominal pain fever or vomiting. Labs are within normal and vitals are stable. She could not undergo the procedure today as Nephrology is waiting for Interventional Radiology to place an access sheath for PCNL. She was told the procedure will be done tomorrow morning. Her antibiotics were discontinued and she was started on oral doxycycline. 03/22-patient is seen today at bedside. Patient denied acute pain. Patient had knee left sided nephrostomy done today. Patient's ceftriaxone 1 g IV daily. Tolerating well. Objective vital signs Vital Sign Date Time Temp Pulse Resp B/P (MAP) Pulse Ox O2 Delivery O2 Flow Rate FiO2 03/22/25 14:20 58 18 105/58 (74) 96 03/22/25 13:50 97.9 97.9 03/21/25 20:00 Room Air* 0 21 Total Intake and Output 03/21/25 03/21/25 03/22/25 15:00 23:00 07:00 Intake Total 150 ml 1950 ml 1700 ml Balance 150 ml 1950 ml 1700 ml medications Current Medications Medications Dose Ordered Sig/Natali Route Start Time Stop Time Status Last Admin Dose Admin Sodium Chloride 1,000 ml @ 120 mls/hr Q8H20M IV 03/17/25 23:15 03/22/25 04:07 120 MLS/HR Acetaminophen/ Hydrocodone Bitart 1 tab Q6HPRN PRN PO 03/17/25 23:15 03/18/25 02:36 1 TAB Enoxaparin Sodium 40 mg DAILY SC 03/18/25 10:00 03/19/25 10:03 40 MG Cholecalciferol 2,000 unit DAILY PO 03/21/25 10:00 03/22/25 09:26 2,000 UNIT Ceftriaxone Sodium 50 ml @ 100 mls/hr DAILY@09 IV 03/21/25 11:43 03/22/25 09: 100 MLS/HR Examination General: The patient seems comfortable, alert and oriented in person place and time. Patient following commands HEENT: Normocephalic, atraumatic, normal reactive pupils, EOM intact, pink conjunctiva, pink dry mucous membrane Respiratory/pulmonary: Bilateral chest expansion, no pain on chest palpation, clear lungs bilaterally, vesicular murmurs present in almost all lung simpson, no associated crackles or wheezes. Cardiovascular: On evaluation patient is slightly tachycardic, normal rhythm, normal S1 and S2 Abdomen: Abdomen nondistended, normal bowel sounds, soft, no pain to palpation in left lumbar region, no CVA tenderness, no palpable masses. Extremities: no deformities, there is no peripheral edema present at the lower extremities, pulses are palpable. Skin: No rashes or pruritus Neurological: Intact cranial nerves with no focal neurologic deficits laboratory and microbiology Laboratory Tests 03/22/25 06:45 Test 03/22/25 06:45 Range/Units Serum Glucose 97 74-106 mg/dL Microbiology Date/Time Source Procedure Growth Status 03/19/25 03:30 Nose MRSA Screen - Final Complete 03/18/25 15:00 Voided Urine Urine Culture - Final Complete 03/18/25 09:14 Blood Blood Culture - Preliminary NO GROWTH AFTER 72 HOURS OF INCUBATION. Resulted Problem List/Assessment/Plan Problem List/Assessment/Plan ASSESSMENT AND PLAN Sepsis secondary to acute complicated UTI -blood culture and uterine culture negative -continue ceftriaxone 1 g IV daily -continue IV normal saline as prescribed Acute intractable abdominal and back pain due to Left Staghorn Calculi Bilateral nephrolithiasis Left hydroureter -Abdominopelvic CT: Abdominal pelvis CT shows bilateral renal calculi with a large left renal staghorn calculus -patient is being followed by Urology -status post left-sided percutaneous nephrostomy -PRN [place] as prescribed TAMIA likely due to obstructive uropathy, secondary to above -continue IV normal saline as prescribed GERD -pantoprazole 40 mg p.o. daily Right Ovarian Cyst -Abdominopelvic CT: 5.3 cm right ovarian cyst -asymptomatic Patient was advised to follow up with the hide puller and janitorial assistant outpatient for further evaluation and care History of [place] in 2008 with no stents Diet: Regular DVT prophylaxis: Enoxaparin 40 mg sc daily GI prophylaxis: Pantoprazole Case discussed with Dr. Arias Goals of care discussed with the patient for over 30 minutes. FULL CODE. Plan discussed with: Patient Plan discussed with: Patient Plan discussed with: Patient, Other (RN) My Orders My Orders Orders - ROSY NEIL Procedure Category Date Status Time Percutaneous XY 03/22/25 Taken Nephrostomy 13:03 Complete Blood Count LAB 03/23/25 Verified 04:00 Basic Metabolic Panel LAB 03/23/25 Verified 04:00 Magnesium LAB 03/23/25 Verified 04:00 Dietary Evaluation Review Comments: 1) Add cardiac restriction to diet 2) Encourage optimal PO intake 3) Refer to outpatient RD for weigth management 4) Follow-up with urology and cardiology 5) Continue to monitor I&O, labs, and skin integrity Expected Outcomes/Goals: 1) appetite and labs to improve 2) gradual wt loss 3) f/u in 3-5 days Date of Service: Mar 22, 2025 Billing Provider: GRISEL ARIAS MD Common Visit Codes: [id number] INP/OBS CARE(HIGH) ROSY NEIL Mar 22, 2025 15:19 GRISEL ARIAS MD Mar 24, 2025 08:54
--- NOTE | 2025-03-22 15:29 | DVH ---
DATE: 03/22/2025 PROCEDURE: Nephrostomy tube placement HISTORY: LT NEPH DRAIN PL DOCUMENTATION: Informed consent was obtained and a procedural time out was performed. SEDATION: Moderate sedation was utilized during the procedure. The patient received benzodiazepines a nd opioids, the dosing of which was documented in the patient s permanent medical record. Pre-sedatio n history and evaluation revealed no contraindications to sedation. The patient s level of consciousn ess and physiologic status was monitored continuously by the physician and nursing staff throughout t he procedure. Total intra-service moderate sedation time was 60 minutes. FLUORO TIME: 9 minutes 5 seconds TECHNIQUE: Following standard prep and under fluoroscopic guidance the lower pole calyx of the left r enal collecting system was punctured with an Accustick needle. A wire was then coiled within the irish al collecting system. Contrast was injected. I attempted numerous times to gain access into the uret er using a stiff Glidewire and Berenstein catheter but was unsuccessful. The catheter was then excha nged over an Amplatz wire for an 8.5 English nephrostomy tube. FINDINGS: An attempt was made to pass a wire and catheter into the bladder which was unsuccessful. I talked to Dr. Vasquez the urologist and explained to him I could take the patient back to the angiography suite tomorrow morning once the system decompresses an attempt again to get into the bladder. IMPRESSION: 1. Unsuccessful attempt to pass a wire and catheter into the bladder, a nephrostomy tube was left in place, if the patient is still here tomorrow I will attempt again to gain access into the bladder thr ough the indwelling access site.
[2025-03-22] MEDS: IOHEXOL 300 MG/ML 100ML BOTTLE IJ ONE (16:31)
[2025-03-22] MEDS ORDERED: ONDANSETRON HCL 4 MG/2 ML VIAL IV PRN (17:30)
[2025-03-22] MEDS ORDERED: METOCLOPRAMIDE HCL 5MG/ml INJ 2ml VIAL IV PRN (17:30)
--- NOTE | 2025-03-22 17:30 | DVHNC2 ---
Procedure - OPERATIVE REPORT Pre-op. Diagnosis: Bilateral renal stones Staghorn calculus, left (>4 cm) Left percutaneous nephrostomy tube Post-op. Diagnosis: Same as pre-op diagnosis Operation: Left ureteroscopy/pyeloscopy, laser lithotripsy with renal evacuation, partial Cystoscopy with left ureteral stent placement Removal of left PNT Anesthesia: General Indications: Patient with large left staghorn calculus underwent left percutaneous nephrostomy tube placement by Interventional Radiology for preparation of PCNL. unfortunately the access was inadequate for percutaneous access of the kidney. Patient was also consented for ureteroscope epic laser lithotripsy with renal evacuation (CVAC). The indications, risks, complications, alternatives and benefits were discussed. All questions were encouraged and answered. Patient is aware of risks/complications including but not limited to infection, bleeding, persistent pain, possible ureteral injury/ureteral stricture requiring additional surgical management, urethral injury, urethral stricture and meatal stenosis. Details of Procedure: After obtaining the consent, patient was taken to OR suite and underwent general anesthesia. Preop antibiotic was given. Timeout was performed and deemed to be correct. With the patient positioned in the lithotomy, the area of the genitalia prepped and draped in usual sterile fashion. 22 F Cystoscope was used to access the urethra and bladder. A sensor tip guide wire was advanced through the scope into the left ureter all the way to the left collecting system under fluoroscopic control. I advanced 13x15 Fr 36 cm access sheet over the working wire all the way to the proximal ureter under fluoroscopy control, then the inner sheet and the working wire was removed. The Digital flexible ureteroscope was advanced through the access sheet. The tip of the renal pelvic staghorn stone was visualized. Now using a 200 micron laser fiber the stone was partially fragmented at the tip into small fragments and suctioned out while in dusting mode. the stone was too hard for the laser lithotripsy. Ureteroscope was then removed and guidewire replaced. The existing nephrostomy tube was not in the collecting system, and it was removed. Ureteral sheath was then removed. At this point the cystoscope was advanced over the wire into the bladder. Now a 6 [address] ureteral stent was advanced under direct visualization through the left ureteral orifice into the kidney. Good proximal curl was seen in the Upper calyce under fluoroscopy and the distal end was seen in the bladder once the wire was removed. Temporary Owens catheter was placed. Patient was placed in supine position in the OR table. Anesthesia was reversed, patient was extubated and transferred awake and in stable conditions to recovery room. Specimens: renal stone fragments Complications: None Findings: The left percutaneous access was inadequate for PCNL. We will re-attempt the percutaneous access at a later time Notes: [address] ureteral stent - Left LINDSEY DANIELSON MD Mar 22, 2025 17:30
[2025-03-22] MEDS ORDERED: HYDROmorphone HCL 2 MG/ML VL/or syr IV PRN (18:00)
[2025-03-22] MEDS: LIDOCAINE W/ EPINEPHRINE 1% 20ML VIAL ONE (18:43)
[2025-03-22] MEDS: PANTOPRAZOLE 40 MG TAB PO ONE (18:43)
--- NOTE | 2025-03-22 19:32 | DVH ---
C-ARM FLUOROSCOPY: PROCEDURE: Lithotripsy. FLUOROSCOPY TIME: 104.3 sec DAP: 22.14 mgy FINDINGS: Spot intraoperative C arm radiographs demonstrating lithotripsy. IMPRESSION: Please refer to surgical report for detailed findings.
--- NOTE | 2025-03-22 19:55 | DVH ---
EXAM: XY KUB ABDOMEN SINGLE VIEW HISTORY: left ureteral stent placement COMPARISON: XY KUB ABDOMEN SINGLE VIEW on DOS: 03/22/25 TECHNIQUE: Supine view of the abdomen FINDINGS/IMPRESSION: Nonobstructive bowel gas pattern noted. There is no evidence for pneumoperitoneum. No abnormal calcif ications noted. Left-sided double-J ureteral stent. Contrast within the left kidney.
[2025-03-23] VITALS (8 sets, daily range): BP systolic 104–121; BP diastolic 65–76; PULSE 67–119; RESP 0–20; TEMP 97.1–99; O2SAT 94–98
[2025-03-23] MEDS: PANTOPRAZOLE 40 MG TAB PO SCH (06:00)
[2025-03-23 06:45] LABS: Hematocrit 35.8 % (36.0-46.0); Hemoglobin 12.4 g/dL (12.2-16.2); Mean Corpuscular Hemoglobin 32.5 pg (28.0-32.0); Mean Corpuscular Volume 93.8 fL (80.0-100.0); Nucleated Red Blood Cells % 0.0 %
[2025-03-23 06:50] LABS: Anion Gap 10 (5-15); Calcium 8.8 mg/dL (8.7-10.4); Carbon Dioxide 22 mmol/L (20-31); Potassium 4.2 mmol/L (3.5-5.1); Sodium 140 mmol/L (136-145)
[2025-03-23 06:56] LABS: BUN/Creatinine Ratio 11.0 (10.0-20.0); Blood Urea Nitrogen 10 mg/dL (9-23); Magnesium 1.9 mg/dL (1.6-2.6)
[2025-03-23 06:58] LABS: Chloride 108 mmol/L (98-107); Glucose 127 mg/dL (74-106)
[2025-03-23] MEDS: HYDROmorphone HCL 2 MG/ML VL/or syr IV ONE (09:41)
--- NOTE | 2025-03-23 14:19 | DVHPNRES ---
Progress Note Date Seen: Mar 23, 2025 Resident Creating Document: JEREMÍAS STEPHEN RESIDENT Medical Necessity Reason Pt with a Central, PICC or Fol: Yes Subjective Review of Systems Patient is a 50 year old female with prior medical history of nephrolithiasis, myocardial infarction without stent placement in 2008, and GERD, who presented to the ED with chief complaint of flank pain. The patient refers sudden onset of intense flank pain 3 days ago described as cramp like, bilateral but worse on her left, radiating forward to lumbar region and down towards lower extremities, 10/10 in intensity, aggravated by movements, with no relieving factors, associated with chills, nausea, and febrile sensation. Additionally refers constipation for the last 3 days. The patient states she started her menstrual period on Friday, and for this reason is unsure if she has had hematuria associated to current symptoms. She denies vomiting, chest pain, palpitations, and other symptoms. Due to persistence of symptoms she sought medical care. On evaluation in the ED, the patient was in moderate distress and tachycardic. Initial labs show WBCs 14.8, neutrophils 12.7, creatinine 1.13. UA turbid, nitrites negative, ULE 3+, WBCs 27, WBC clumps, WBC 465, and bacteria few. Abdominal pelvis CT shows bilateral renal calculi with a large left renal staghorn calculus, there is associated dilation of the left renal calyces with [id number] asymmetric left-sided perinephric fat stranding, mild left hydroureter with no obstructing calculus noted. The patient was placed on IV fluids, IV antibiotics, and pain regimen. The patient was admitted for further workup monitoring. Personal history: Nephrolithiasis, PR in 2008 without placement of stents, GERD Allergies: IV contrast states it causes hives Surgical: Cholecystectomy, angiogram, ovarian cyst removal, left breast cyst removal, tubal ligation Social: Denies drug, tobacco, and alcohol use. States she lives with her children and feels safe. Review of Systems: Constitutional: Denies weight loss, fever and chills. HEENT: Denies changes in vision and hearing. Respiratory: Denies shortness of breath and cough Cardiovascular: Denies chest discomfort or palpitations GI: refers constipation, denies abdominal distention, abdominal pain, diarrhea : Denies dysuria and urinary frequency. Musculoskeletal: Currently refers no symptoms Skin: Denies rash and pruritus. Neurological: denies dizziness headache vision or hearing problems 03/19-Patient seen at bedside. Patient states that she feels well, denies any abdominal pain, tolerating oral diet, slept well, and has been able to ambulate without issue. Refers overnight she had 1 febrile episode, But otherwise felt fine. Currently denies abdominal pain, back pain, nausea, vomiting, palpitations, and fever. Patient had febrile spikes overnight ranging from 100.5-101.3. Blood pressure has continued to be borderline, NS bolus has been given and she will continue on fluids. Labs are significant for improvement of leukocytosis. Preliminary urine culture is growing >100,000 CFU/mL mixed lisa, blood cultures are negative at 24 hours of growth. She will continue on current management of IV antibiotics and IV fluids. Pending procedure with Urology on Friday. We will continue to monitor. 03/20-Patient was seen at bedside. She states that she has no abdominal pain, vomiting and fever overnight. Labs sow marked improvement in leukocytosis with WBC now at 8.8. We will continue to monitor her while continuing IV antibiotics and IV fluids. She was given 2000 mg daily of oral vitamin-D after her vitamin- D was found to be below normal. She has a pending urology procedure tomorrow. 03/21-The patient was seen at bedside and mentioned she has no abdominal pain fever or vomiting. Labs are within normal and vitals are stable. She could not undergo the procedure today as Nephrology is waiting for Interventional Radiology to place an access sheath for PCNL. She was told the procedure will be done tomorrow morning. Her antibiotics were discontinued and she was started on oral doxycycline. 03/22-patient is seen today at bedside. Patient denied acute pain. Patient had left sided nephrostomy done today. Patient's ceftriaxone 1 g IV daily. Tolerating well. 03/23-patient was seen at bedside and complained of abdominal pain. Left ureteroscopy/pyeloscopy, laser lithotripsy with partial renal evacuation was done yesterday. As per the procedure note, the percutaneous access was insufficient to remove the calculus we will be attempted again. The nephrostomy tube was removed and a temporary Owens catheter was placed. Patient was given Dilaudid 0.25 mg once for the abdominal pain. Patient's vitals were stable. White count was high which could be reactive and we are going to follow up on that tomorrow. Objective vital signs Vital Sign Date Time Temp Pulse Resp B/P (MAP) Pulse Ox O2 Delivery O2 Flow Rate FiO2 03/23/25 13:00 97.6 82 20 111/72 (85) 97 97.6 03/22/25 20:00 Nasal Cannula* 2 28 Total Intake and Output 03/22/25 03/22/25 03/23/25 15:00 23:00 07:00 Intake Total 1000 ml 1230 ml Output Total 800 ml 500 ml Balance 200 ml 730 ml medications Current Medications Medications Dose Ordered Sig/Natali Route Start Time Stop Time Status Last Admin Dose Admin Sodium Chloride 1,000 ml @ 120 mls/hr Q8H20M IV 03/17/25 23:15 03/23/25 13:01 120 MLS/HR Acetaminophen/ Hydrocodone Bitart 1 tab Q6HPRN PRN PO 03/17/25 23:15 03/23/25 13:11 1 TAB Enoxaparin Sodium 40 mg DAILY SC 03/18/25 10:00 03/19/25 10:03 40 MG Cholecalciferol 2,000 unit DAILY PO 03/21/25 10:00 03/22/25 09:26 2,000 UNIT Ceftriaxone Sodium 50 ml @ 100 mls/hr DAILY@09 IV 03/21/25 11:43 03/23/25 09:40 100 MLS/HR Pantoprazole Sodium 40 mg DAILY@0600 PO 03/23/25 06:00 03/23/25 06:00 40 MG Examination General: The patient seems comfortable, alert and oriented in person place and time. Patient following commands HEENT: Normocephalic, atraumatic, normal reactive pupils, EOM intact, pink conjunctiva, pink dry mucous membrane Respiratory/pulmonary: Bilateral chest expansion, no pain on chest palpation, clear lungs bilaterally, vesicular murmurs present in almost all lung simpson, no associated crackles or wheezes. Cardiovascular: On evaluation patient is slightly tachycardic, normal rhythm, normal S1 and S2 Abdomen: Abdomen nondistended, normal bowel sounds, soft, no pain to palpation in left lumbar region, no CVA tenderness, no palpable masses. Extremities: no deformities, there is no peripheral edema present at the lower extremities, pulses are palpable. Skin: No rashes or pruritus Neurological: Intact cranial nerves with no focal neurologic deficits laboratory and microbiology Laboratory Tests 03/23/25 04:56 Test 03/23/25 04:56 Range/Units Serum Glucose 127 H 74-106 mg/dL Microbiology Date/Time Source Procedure Growth Status 03/19/25 03:30 Nose MRSA Screen - Final Complete 03/18/25 15:00 Voided Urine Urine Culture - Final Complete 03/18/25 09:14 Blood Blood Culture - Final NO GROWTH AFTER 5 DAYS OF INCUBATION. Complete Labs and/or images reviewed: Labs reviewed by me, Image(s) reviewed by me Problem List/Assessment/Plan Problem List/Assessment/Plan Sepsis secondary to acute complicated UTI - Ceftriaxone 1 g IV, discontinued - Zosyn 3.375 g IV q8hrs - NS 500 cc bolus IV - NS 120cc/hr IV - Blood cultures Preliminary: Negative at 24 hours of incubation - Urine culture preliminary: >100,000 CFU/mL mixed lisa - Continue to monitor vitals and labs Acute intractable abdominal and back pain due to Left Staghorn Calculi -Abdominopelvic CT: Large left renal staghorn calculus -Urology: Left ureteroscopy and laser lithotripsy with partial renal evacuation done on 03/22/25 -Monitor renal function -Brusett 5 mg p.o. q.6 hours PRN TAMIA likely due to obstructive uropathy, secondary to above - IV fluids - Monitor renal function - Avoid nephrotoxic drugs Bilateral nephrolithiasis -Abdominopelvic CT: Abdominal pelvis CT shows bilateral renal calculi with a large left renal staghorn calculus - IV fluids Left hydroureter -Abdominopelvic CT: mild left hydroureter with no obstructing calculus noted GERD Right Ovarian Cyst -Abdominopelvic CT: 5.3 cm right ovarian cyst History of PR in 2008 with no stents Diet: Regular DVT prophylaxis: Enoxaparin 40 mg sc daily GI prophylaxis: Not indicated Case discussed with Dr. Arias Goals of care discussed with the patient for over 30 minutes. FULL CODE. Plan discussed with: Patient Plan discussed with: Patient, Other (rn) Dietary Evaluation Review Comments: 1) Add cardiac restriction to diet 2) Encourage optimal PO intake 3) Refer to outpatient RD for weigth management 4) Follow-up with urology and cardiology 5) Continue to monitor I&O, labs, and skin integrity Expected Outcomes/Goals: 1) appetite and labs to improve 2) gradual wt loss 3) f/u in 3-5 days Date of Service: Mar 23, 2025 Billing Provider: GRISEL ARIAS MD Common Visit Codes: [id number] INP/OBS CARE(HIGH) JULIABERTHAJEREMÍAS RESIDENT Mar 23, 2025 14:19 EMMANUELCHRISTIANANEHEMIAH RESIDENT Mar 24, 2025 07:05 GRISEL ARIAS MD Mar 24, 2025 08:55
[2025-03-24] VITALS (7 sets, daily range): BP systolic 98–119; BP diastolic 57–78; PULSE 94–120; RESP 19–22; TEMP 98–101.5; O2SAT 90–96
[2025-03-24 06:40] LABS: Hematocrit 36.2 % (36.0-46.0); Hemoglobin 12.8 g/dL (12.2-16.2); Mean Corpuscular Hemoglobin 33.1 pg (28.0-32.0); Mean Corpuscular Volume 93.7 fL (80.0-100.0); Nucleated Red Blood Cells % 0.0 %
[2025-03-24 07:02] LABS: Anion Gap 10 (5-15); Carbon Dioxide 24 mmol/L (20-31); Chloride 105 mmol/L (98-107); Potassium 3.9 mmol/L (3.5-5.1); Sodium 139 mmol/L (136-145)
[2025-03-24 07:04] LABS: Calcium 8.6 mg/dL (8.7-10.4)
[2025-03-24 07:09] LABS: BUN/Creatinine Ratio 7.8 (10.0-20.0); Blood Urea Nitrogen 8 mg/dL (9-23); Glucose 115 mg/dL (74-106)
--- NOTE | 2025-03-24 07:58 | DVHPN2 ---
Progress Note - Dictate Date Seen: Mar 24, 2025 Has the PT tested + for MRSA If YES, has PT been informed?: No Medical Necessity Reason Pt with a Central, PICC or Fol: Yes Medical Necessity Reason s/p left URSLL with stent placement Left PCNL not doable due to inadequate access by IR. vital signs Vital Sign Date Time Temp Pulse Resp B/P (MAP) Pulse Ox O2 Delivery O2 Flow Rate FiO2 03/24/25 05:00 98.0 101 22 103/63 (76) 95 98.0 03/23/25 20:00 Room Air* 0 21 Total Intake and Output 03/23/25 03/23/25 03/24/25 15:00 23:00 07:00 Intake Total 300 ml 250 ml Output Total 1000 ml 2500 ml Balance -700 ml -2250 ml medications Current Medications Medications Dose Ordered Sig/Natali Route Start Time Stop Time Status Last Admin Dose Admin Sodium Chloride 1,000 ml @ 120 mls/hr Q8H20M IV 03/17/25 23:15 03/24/25 05:15 120 MLS/HR Acetaminophen/ Hydrocodone Bitart 1 tab Q6HPRN PRN PO 03/17/25 23:15 03/24/25 00:55 1 TAB Enoxaparin Sodium 40 mg DAILY SC 03/18/25 10:00 03/19/25 10:03 40 MG Cholecalciferol 2,000 unit DAILY PO 03/21/25 10:00 03/22/25 09:26 2,000 UNIT Ceftriaxone Sodium 50 ml @ 100 mls/hr DAILY@09 IV 03/21/25 11:43 03/23/25 09:40 100 MLS/HR Pantoprazole Sodium 40 mg DAILY@0600 PO 03/23/25 06:00 03/24/25 06:11 40 MG laboratory and microbiology Laboratory Tests 03/24/25 06:27 Test 03/24/25 06:27 Range/Units Serum Glucose 115 H 74-106 mg/dL Problem List Left staghorn renal calculus Failed percutaneous nephrostomy access Assessment/Plan Bilateral nephrolithiasis Large left staghorn calculus- s/p left URSLL with CVAC and stent placement KUB Will need left PCNL TBA as outpatient. D/C Graciela f/u in clinic one week Dietary Evaluation Review Comments: 1) Add cardiac restriction to diet 2) Encourage optimal PO intake 3) Refer to outpatient RD for weigth management 4) Follow-up with urology and cardiology 5) Continue to monitor I&O, labs, and skin integrity Expected Outcomes/Goals: 1) appetite and labs to improve 2) gradual wt loss 3) f/u in 3-5 days Plan discussed with: Patient, Other LINDSEY DANIELSON MD Mar 24, 2025 07:58
--- NOTE | 2025-03-24 10:58 | DVH ---
Date: 03/24/2025 10:05 AM Examination: XY KUB ABDOMEN SINGLE VIEW History: Left ureteral stent Comparison: XY KUB ABDOMEN SINGLE VIEW on DOS: 03/22/25, XY KUB ABDOMEN SINGLE VIEW on DOS: 03/22/25, C T CT AB PEL WO CON-NO ORAL OR IV on DOS: 03/17/25, CT CT AB PEL WO CON-NO ORAL OR IV on DOS: 02/01/25 TECHNIQUE: Frontal views of the abdomen was obtained. FINDINGS: Bowel gas pattern is unremarkable. The lung bases are unremarkable. No acute osseous abnormality identified. IMPRESSION: Nonobstructive bowel gas pattern. Left ureteral stent. Multiple right renal calculi.
[2025-03-24] MEDS ORDERED: MORPHINE SULFATE INJ 2 MG/ml SYRG IV PRN (11:15)
[2025-03-24] MEDS: SODIUM CHLORIDE 0.9% 1,000 ML IV SCH (14:20)
[2025-03-24] MEDS: CEFEPIME 1GM/50ML 50 ML IV SCH (14:31)
[2025-03-24] MEDS: POLYETHYLENE GLYCOL 17 GM PWDR PO ONE (17:00)
[2025-03-24] MEDS: ACETAMINOPHEN 325 MG TAB PO PRN (17:02)
--- NOTE | 2025-03-24 18:09 | DVHPNRES ---
Progress Note Date Seen: Mar 24, 2025 Resident Creating Document: JEREMÍAS STEPHEN RESIDENT Has the PT tested + for MRSA If YES, has PT been informed?: No Medical Necessity Reason Pt with a Central, PICC or Fol: Yes Subjective Review of Systems Patient is a 50 year old female with prior medical history of nephrolithiasis, myocardial infarction without stent placement in 2008, and GERD, who presented to the ED with chief complaint of flank pain. The patient refers sudden onset of intense flank pain 3 days ago described as cramp like, bilateral but worse on her left, radiating forward to lumbar region and down towards lower extremities, 10/10 in intensity, aggravated by movements, with no relieving factors, associated with chills, nausea, and febrile sensation. Additionally refers constipation for the last 3 days. The patient states she started her menstrual period on Friday, and for this reason is unsure if she has had hematuria associated to current symptoms. She denies vomiting, chest pain, palpitations, and other symptoms. Due to persistence of symptoms she sought medical care. On evaluation in the ED, the patient was in moderate distress and tachycardic. Initial labs show WBCs 14.8, neutrophils 12.7, creatinine 1.13. UA turbid, nitrites negative, ULE 3+, WBCs 27, WBC clumps, WBC 465, and bacteria few. Abdominal pelvis CT shows bilateral renal calculi with a large left renal staghorn calculus, there is associated dilation of the left renal calyces with [id number] asymmetric left-sided perinephric fat stranding, mild left hydroureter with no obstructing calculus noted. The patient was placed on IV fluids, IV antibiotics, and pain regimen. The patient was admitted for further workup monitoring. Personal history: Nephrolithiasis, AL in 2008 without placement of stents, GERD Allergies: IV contrast states it causes hives Surgical: Cholecystectomy, angiogram, ovarian cyst removal, left breast cyst removal, tubal ligation Social: Denies drug, tobacco, and alcohol use. States she lives with her children and feels safe. Review of Systems: Constitutional: Denies weight loss, fever and chills. HEENT: Denies changes in vision and hearing. Respiratory: Denies shortness of breath and cough Cardiovascular: Denies chest discomfort or palpitations GI: refers constipation, denies abdominal distention, abdominal pain, diarrhea : Denies dysuria and urinary frequency. Musculoskeletal: Currently refers no symptoms Skin: Denies rash and pruritus. Neurological: denies dizziness headache vision or hearing problems 03/19-Patient seen at bedside. Patient states that she feels well, denies any abdominal pain, tolerating oral diet, slept well, and has been able to ambulate without issue. Refers overnight she had 1 febrile episode, But otherwise felt fine. Currently denies abdominal pain, back pain, nausea, vomiting, palpitations, and fever. Patient had febrile spikes overnight ranging from 100.5-101.3. Blood pressure has continued to be borderline, NS bolus has been given and she will continue on fluids. Labs are significant for improvement of leukocytosis. Preliminary urine culture is growing >100,000 CFU/mL mixed lisa, blood cultures are negative at 24 hours of growth. She will continue on current management of IV antibiotics and IV fluids. Pending procedure with Urology on Friday. We will continue to monitor. 03/20-Patient was seen at bedside. She states that she has no abdominal pain, vomiting and fever overnight. Labs sow marked improvement in leukocytosis with WBC now at 8.8. We will continue to monitor her while continuing IV antibiotics and IV fluids. She was given 2000 mg daily of oral vitamin-D after her vitamin- D was found to be below normal. She has a pending urology procedure tomorrow. 03/21-The patient was seen at bedside and mentioned she has no abdominal pain fever or vomiting. Labs are within normal and vitals are stable. She could not undergo the procedure today as Nephrology is waiting for Interventional Radiology to place an access sheath for PCNL. She was told the procedure will be done tomorrow morning. Her antibiotics were discontinued and she was started on oral doxycycline. 03/22- Patient is seen today at bedside. Patient denied acute pain. Patient had left sided nephrostomy done today. Patient's ceftriaxone 1 g IV daily. Tolerating well. 03/23- Patient was seen at bedside and complained of abdominal pain. Left ureteroscopy/pyeloscopy, laser lithotripsy with partial renal evacuation was done yesterday. As per the procedure note, the percutaneous access was insufficient to remove the calculus we will be attempted again. The nephrostomy tube was removed and a temporary Owens catheter was placed. Patient was given Dilaudid 0.25 mg once for the abdominal pain. Patient's vitals were stable. White count was high which could be reactive and we are going to follow up on that tomorrow. 03/24- Patient is seen at bedside. She mentions that her abdominal pain has gone down considerably. Her white count today was 15.7 she had tachycardia and low blood pressure. We ordered a repeat urine culture blood culture and started the patient on cefepime. Nephrology saw the patient today and they mentioned that she will need left PCNL TBA as outpatient. They asked her to follow up outpatient in 1 week. We are going to observe the patient and watch for any signs of sepsis. Objective vital signs Vital Sign Date Time Temp Pulse Resp B/P (MAP) Pulse Ox O2 Delivery O2 Flow Rate FiO2 03/24/25 17:02 101.5 03/24/25 16:59 108 20 119/78 (92) 95 03/23/25 20:00 Room Air* 0 21 Total Intake and Output 03/23/25 03/23/25 03/24/25 15:00 23:00 07:00 Intake Total 300 ml 250 ml Output Total 1000 ml 2500 ml Balance -700 ml -2250 ml medications Current Medications Medications Dose Ordered Sig/Natali Route Start Time Stop Time Status Last Admin Dose Admin Enoxaparin Sodium 40 mg DAILY SC 03/18/25 10:00 03/24/25 08:47 40 MG Cholecalciferol 2,000 unit DAILY PO 03/21/25 10:00 03/24/25 08:47 2,000 UNIT Pantoprazole Sodium 40 mg DAILY@0600 PO 03/23/25 06:00 03/24/25 06:11 40 MG Sodium Chloride 1,000 ml @ 60 mls/hr [id number] IV 03/24/25 11:15 03/24/25 14:20 60 MLS/HR Morphine Sulfate 2 mg Q4HPRN PRN IV 03/24/25 11:15 Hold Acetaminophen/ Hydrocodone Bitart 1 tab Q6HP PRN PO 03/24/25 11:15 Cefepime HCl 50 ml @ 12.5 mls/hr Q8HR IV 03/24/25 14:00 03/24/25 14:31 12.5 MLS/HR Acetaminophen 650 mg Q6HP PRN PO 03/24/25 16:45 03/24/25 17:02 650 MG Polyethylene Glycol 17 gm DAILY PO 03/25/25 10:00 Examination General: The patient seems comfortable, alert and oriented in person place and time. Patient following commands HEENT: Normocephalic, atraumatic, normal reactive pupils, EOM intact, pink conjunctiva, pink dry mucous membrane Respiratory/pulmonary: Bilateral chest expansion, no pain on chest palpation, clear lungs bilaterally, vesicular murmurs present in almost all lung simpson, no associated crackles or wheezes. Cardiovascular: On evaluation patient is slightly tachycardic, normal rhythm, normal S1 and S2 Abdomen: Abdomen nondistended, normal bowel sounds, soft, no pain to palpation in left lumbar region, no CVA tenderness, no palpable masses. Extremities: no deformities, there is no peripheral edema present at the lower extremities, pulses are palpable. Skin: No rashes or pruritus Neurological: Intact cranial nerves with no focal neurologic deficits laboratory and microbiology Laboratory Tests 03/24/25 06:27 Test 03/24/25 06:27 Range/Units Serum Glucose 115 H 74-106 mg/dL Microbiology Date/Time Source Procedure Growth Status 03/19/25 03:30 Nose MRSA Screen - Final Complete 03/18/25 15:00 Voided Urine Urine Culture - Final Complete 03/18/25 09:14 Blood Blood Culture - Final NO GROWTH AFTER 5 DAYS OF INCUBATION. Complete Labs and/or images reviewed: Labs reviewed by me, Image(s) reviewed by me Problem List/Assessment/Plan Problem List/Assessment/Plan Sepsis secondary to acute complicated UTI - Ceftriaxone 1 g IV, discontinued - Zosyn 3.375 g IV q8hrs, discontinued -cefepime - NS 500 cc bolus IV - NS 120cc/hr IV - Blood cultures Preliminary: Negative at 24 hours of incubation - Urine culture preliminary: >100,000 CFU/mL mixed lisa - Continue to monitor vitals and labs Acute intractable abdominal and back pain due to Left Staghorn Calculi - s/p left URSLL with CVAC and stent placement -Abdominopelvic CT: Large left renal staghorn calculus on admission -Urology: Left ureteroscopy and laser lithotripsy with partial renal evacuation done on 03/22/25 -Monitor renal function -Foster 5 mg p.o. q.6 hours PRN TAMIA likely due to obstructive uropathy, secondary to above - IV fluids - Monitor renal function - Avoid nephrotoxic drugs Bilateral nephrolithiasis -Abdominopelvic CT: Abdominal pelvis CT shows bilateral renal calculi with a large left renal staghorn calculus - IV fluids Left hydroureter -Abdominopelvic CT: mild left hydroureter with no obstructing calculus noted GERD Right Ovarian Cyst -Abdominopelvic CT: 5.3 cm right ovarian cyst History of AL in 2009 with no stents Diet: Regular DVT prophylaxis: Enoxaparin 40 mg sc daily GI prophylaxis: Not indicated Case discussed with Dr. Wang Goals of care discussed with the patient for over 30 minutes. FULL CODE. Plan discussed with: Patient Plan discussed with: Patient My Orders My Orders Orders - JEREMÍAS STEPHEN Procedure Category Date Status Time Sodium Chloride 0.9% PHA 03/24/25 In Process 11:15 Morphine Sulfate PHA 03/24/25 In Process Injection 11:15 Hydrocodone-Acet PHA 03/24/25 In Process 10/325mg Tab (Foster 11:15 Cefepime 1gm/ 50ml PHA 03/24/25 In Process (Maxipime 1gm/50ml) 14:00 Dietary Evaluation Review Comments: 1) Add cardiac restriction to diet 2) Encourage optimal PO intake 3) Refer to outpatient RD for weigth management 4) Follow-up with urology and cardiology 5) Continue to monitor I&O, labs, and skin integrity Expected Outcomes/Goals: 1) appetite and labs to improve 2) gradual wt loss 3) f/u in 3-5 days Date of Service: Mar 24, 2025 Billing Provider: PEG MURPHY MD Common Visit Codes: [id number] INP/OBS CARE(HIGH) JEREMÍAS STEPHEN Mar 24, 2025 18:08 PEG MURPHY MD Mar 27, 2025 22:14
[2025-03-24] MEDS: HYDROcodone-ACET 10/325MG TAB PO PRN (20:00)
[2025-03-25] VITALS (7 sets, daily range): BP systolic 100–119; BP diastolic 62–79; PULSE 99–106; RESP 18–19; TEMP 98–100.3; O2SAT 94–96
[2025-03-25 07:18] LABS: Hematocrit 35.2 % (36.0-46.0); Hemoglobin 12.0 g/dL (12.2-16.2); Mean Corpuscular Hemoglobin 32.0 pg (28.0-32.0); Mean Corpuscular Volume 93.9 fL (80.0-100.0); Nucleated Red Blood Cells % 0.0 %
[2025-03-25 07:42] LABS: Anion Gap 10 (5-15); Carbon Dioxide 24 mmol/L (20-31); Chloride 104 mmol/L (98-107); Potassium 3.7 mmol/L (3.5-5.1); Sodium 138 mmol/L (136-145)
[2025-03-25 07:43] LABS: Calcium 9.2 mg/dL (8.7-10.4)
[2025-03-25 07:48] LABS: BUN/Creatinine Ratio 9.2 (10.0-20.0)
[2025-03-25 08:09] LABS: Blood Urea Nitrogen 8 mg/dL (9-23); Glucose 107 mg/dL (74-106)
[2025-03-25] MEDS: POLYETHYLENE GLYCOL 17 GM PWDR PO SCH (10:58)
--- NOTE | 2025-03-25 14:43 | DVHPNRES ---
Progress Note Date Seen: Mar 25, 2025 Resident Creating Document: JEREMÍAS STEPHEN RESIDENT Has the PT tested + for MRSA If YES, has PT been informed?: No Medical Necessity Reason Pt with a Central, PICC or Fol: Yes Subjective Review of Systems Patient is a 50 year old female with prior medical history of nephrolithiasis, myocardial infarction without stent placement in 2008, and GERD, who presented to the ED with chief complaint of flank pain. The patient refers sudden onset of intense flank pain 3 days ago described as cramp like, bilateral but worse on her left, radiating forward to lumbar region and down towards lower extremities, 10/10 in intensity, aggravated by movements, with no relieving factors, associated with chills, nausea, and febrile sensation. Additionally refers constipation for the last 3 days. The patient states she started her menstrual period on Friday, and for this reason is unsure if she has had hematuria associated to current symptoms. She denies vomiting, chest pain, palpitations, and other symptoms. Due to persistence of symptoms she sought medical care. On evaluation in the ED, the patient was in moderate distress and tachycardic. Initial labs show WBCs 14.8, neutrophils 12.7, creatinine 1.13. UA turbid, nitrites negative, ULE 3+, WBCs 27, WBC clumps, WBC 465, and bacteria few. Abdominal pelvis CT shows bilateral renal calculi with a large left renal staghorn calculus, there is associated dilation of the left renal calyces with [id number] asymmetric left-sided perinephric fat stranding, mild left hydroureter with no obstructing calculus noted. The patient was placed on IV fluids, IV antibiotics, and pain regimen. The patient was admitted for further workup monitoring. Personal history: Nephrolithiasis, AR in 2008 without placement of stents, GERD Allergies: IV contrast states it causes hives Surgical: Cholecystectomy, angiogram, ovarian cyst removal, left breast cyst removal, tubal ligation Social: Denies drug, tobacco, and alcohol use. States she lives with her children and feels safe. Review of Systems: Constitutional: Denies weight loss, fever and chills. HEENT: Denies changes in vision and hearing. Respiratory: Denies shortness of breath and cough Cardiovascular: Denies chest discomfort or palpitations GI: refers constipation, denies abdominal distention, abdominal pain, diarrhea : Denies dysuria and urinary frequency. Musculoskeletal: Currently refers no symptoms Skin: Denies rash and pruritus. Neurological: denies dizziness headache vision or hearing problems 03/19-Patient seen at bedside. Patient states that she feels well, denies any abdominal pain, tolerating oral diet, slept well, and has been able to ambulate without issue. Refers overnight she had 1 febrile episode, But otherwise felt fine. Currently denies abdominal pain, back pain, nausea, vomiting, palpitations, and fever. Patient had febrile spikes overnight ranging from 100.5-101.3. Blood pressure has continued to be borderline, NS bolus has been given and she will continue on fluids. Labs are significant for improvement of leukocytosis. Preliminary urine culture is growing >100,000 CFU/mL mixed lisa, blood cultures are negative at 24 hours of growth. She will continue on current management of IV antibiotics and IV fluids. Pending procedure with Urology on Friday. We will continue to monitor. 03/20-Patient was seen at bedside. She states that she has no abdominal pain, vomiting and fever overnight. Labs sow marked improvement in leukocytosis with WBC now at 8.8. We will continue to monitor her while continuing IV antibiotics and IV fluids. She was given 2000 mg daily of oral vitamin-D after her vitamin- D was found to be below normal. She has a pending urology procedure tomorrow. 03/21-The patient was seen at bedside and mentioned she has no abdominal pain fever or vomiting. Labs are within normal and vitals are stable. She could not undergo the procedure today as Nephrology is waiting for Interventional Radiology to place an access sheath for PCNL. She was told the procedure will be done tomorrow morning. Her antibiotics were discontinued and she was started on oral doxycycline. 03/22- Patient is seen today at bedside. Patient denied acute pain. Patient had left sided nephrostomy done today. Patient's ceftriaxone 1 g IV daily. Tolerating well. 03/23- Patient was seen at bedside and complained of abdominal pain. Left ureteroscopy/pyeloscopy, laser lithotripsy with partial renal evacuation was done yesterday. As per the procedure note, the percutaneous access was insufficient to remove the calculus we will be attempted again. The nephrostomy tube was removed and a temporary [place] catheter was placed. Patient was given Dilaudid 0.25 mg once for the abdominal pain. Patient's vitals were stable. White count was high which could be reactive and we are going to follow up on that tomorrow. 03/24- Patient is seen at bedside. She mentions that her abdominal pain has gone down considerably. Her white count today was 15.7 she had tachycardia and low blood pressure. We ordered a repeat urine culture blood culture and started the patient on cefepime. Nephrology saw the patient today and they mentioned that she will need left PCNL TBA as outpatient. They asked her to follow up outpatient in 1 week. We are going to observe the patient and watch for any signs of sepsis. 03/25-The patient was seen at bedside. She states that she has no abdominal pain. Her white count today was 15 and she had 3 spikes a fever since yesterday. She looks better clinically and will likely be discharged tomorrow if the vitals remained stable and the labs are within range for outpatient follow-up with Urology. Objective vital signs Vital Sign Date Time Temp Pulse Resp B/P (MAP) Pulse Ox O2 Delivery O2 Flow Rate FiO2 03/25/25 12:47 98.3 106 18 119/79 (92) 96 98.3 03/24/25 20:00 Room Air* 0 21 Total Intake and Output 03/24/25 03/24/25 03/25/25 15:00 23:00 07:00 Intake Total 950 ml 162.5 ml Output Total 1650 ml 1100 ml Balance -700 ml -937.5 ml medications Current Medications Medications Dose Ordered Sig/Natali Route Start Time Stop Time Status Last Admin Dose Admin Enoxaparin Sodium 40 mg DAILY SC 03/18/25 10:00 03/24/25 08:47 40 MG Cholecalciferol 2,000 unit DAILY PO 03/21/25 10:00 03/25/25 11:09 2,000 UNIT Pantoprazole Sodium 40 mg DAILY@0600 PO 03/23/25 06:00 03/25/25 05:07 40 MG Sodium Chloride 1,000 ml @ 60 mls/hr [id number] IV 03/24/25 11:15 03/24/25 14:20 60 MLS/HR Morphine Sulfate 2 mg Q4HPRN PRN IV 03/24/25 11:15 Hold Acetaminophen/ Hydrocodone Bitart 1 tab Q6HP PRN PO 03/24/25 11:15 03/24/25 20:00 1 TAB Cefepime HCl 50 ml @ 12.5 mls/hr Q8HR IV 03/24/25 14:00 03/25/25 05:07 12.5 MLS/HR Acetaminophen 650 mg Q6HP PRN PO 03/24/25 16:45 03/24/25 17:02 650 MG Polyethylene Glycol 17 gm DAILY PO 03/25/25 10:00 03/25/25 10:58 17 GM Examination General: The patient seems comfortable, alert and oriented in person place and time. Patient following commands HEENT: Normocephalic, atraumatic, normal reactive pupils, EOM intact, pink conjunctiva, pink dry mucous membrane Respiratory/pulmonary: Bilateral chest expansion, no pain on chest palpation, clear lungs bilaterally, vesicular murmurs present in almost all lung simpson, no associated crackles or wheezes. Cardiovascular: On evaluation patient is slightly tachycardic, normal rhythm, normal S1 and S2 Abdomen: Abdomen nondistended, normal bowel sounds, soft, no pain to palpation in left lumbar region, no CVA tenderness, no palpable masses. Extremities: no deformities, there is no peripheral edema present at the lower extremities, pulses are palpable. Skin: No rashes or pruritus Neurological: Intact cranial nerves with no focal neurologic deficits laboratory and microbiology Laboratory Tests 03/25/25 06:35 Test 03/25/25 06:35 Range/Units Serum Glucose 107 H 74-106 mg/dL Microbiology Date/Time Source Procedure Growth Status 03/24/25 13:12 Urine - [place] Urine Culture - Preliminary Resulted 03/19/25 03:30 Nose MRSA Screen - Final Complete 03/18/25 09:14 Blood Blood Culture - Final NO GROWTH AFTER 5 DAYS OF INCUBATION. Complete Labs and/or images reviewed: Labs reviewed by me, Image(s) reviewed by me Problem List/Assessment/Plan Problem List/Assessment/Plan Sepsis secondary to acute complicated UTI - Ceftriaxone 1 g IV, discontinued - Zosyn 3.375 g IV q8hrs, discontinued -cefepime - NS 500 cc bolus IV - NS 120cc/hr IV - Blood cultures Preliminary: Negative at 24 hours of incubation - Urine culture preliminary: >100,000 CFU/mL mixed lisa - Continue to monitor vitals and labs Acute intractable abdominal and back pain due to Left Staghorn Calculi - s/p left URSLL with CVAC and stent placement -Abdominopelvic CT: Large left renal staghorn calculus on admission -Urology: Left ureteroscopy and laser lithotripsy with partial renal evacuation done on 03/22/25 -Monitor renal function -[place] 5 mg p.o. q.6 hours PRN TAMIA likely due to obstructive uropathy, secondary to above - IV fluids - Monitor renal function - Avoid nephrotoxic drugs Bilateral nephrolithiasis -Abdominopelvic CT: Abdominal pelvis CT shows bilateral renal calculi with a large left renal staghorn calculus - IV fluids Left hydroureter -Abdominopelvic CT: mild left hydroureter with no obstructing calculus noted GERD Right Ovarian Cyst -Abdominopelvic CT: 5.3 cm right ovarian cyst History of AR in 2008 with no stents Diet: Regular DVT prophylaxis: Enoxaparin 40 mg sc daily GI prophylaxis: Not indicated Case discussed with Dr. Wang Goals of care discussed with the patient for over 30 minutes. FULL CODE. Plan discussed with: Patient Plan discussed with: Patient My Orders My Orders Orders - JEREMÍAS STEPHEN RESIDENT Procedure Category Date Status Time Blood Culture CRISTIAN 03/25/25 Logged 13:33 Dietary Evaluation Review Comments: 1) Add cardiac restriction to diet 2) Encourage optimal PO intake 3) Refer to outpatient RD for weigth management 4) Follow-up with urology and cardiology 5) Continue to monitor I&O, labs, and skin integrity Expected Outcomes/Goals: 1) appetite and labs to improve 2) gradual wt loss 3) f/u in 3-5 days Date of Service: Mar 25, 2025 Billing Provider: PEG MURPHY MD Common Visit Codes: [id number] INP/OBS CARE(HIGH) JEREMÍAS STEPHEN RESIDENT Mar 25, 2025 14:42 SABINE BENITEZ RESIDENT Mar 25, 2025 19:11 PEG MURPHY MD Mar 27, 2025 22:21
[2025-03-26] VITALS (8 sets, daily range): BP systolic 104–115; BP diastolic 65–72; PULSE 67–98; RESP 17–20; TEMP 98.1–99.1; O2SAT 90–97
[2025-03-26 06:52] LABS: Anion Gap 10 (5-15); Carbon Dioxide 25 mmol/L (20-31); Chloride 104 mmol/L (98-107); Sodium 139 mmol/L (136-145)
[2025-03-26 06:53] LABS: Calcium 9.0 mg/dL (8.7-10.4); Hematocrit 34.6 % (36.0-46.0); Hemoglobin 11.7 g/dL (12.2-16.2); Mean Corpuscular Hemoglobin 31.7 pg (28.0-32.0); Mean Corpuscular Volume 93.8 fL (80.0-100.0); Nucleated Red Blood Cells % 0.0 %
[2025-03-26 06:58] LABS: BUN/Creatinine Ratio 8.0 (10.0-20.0); Glucose 105 mg/dL (74-106)
[2025-03-26 07:00] LABS: Blood Urea Nitrogen 7 mg/dL (9-23); Potassium 3.4 mmol/L (3.5-5.1)
[2025-03-26] MEDS ORDERED: POTASSIUM EFFERVESENT TAB 25 MEQ GT ONE (08:30)
[2025-03-26] MEDS: POTASSIUM EFFERVESENT TAB 25 MEQ PO ONE (09:26)
[2025-03-26] MEDS: ERTAPENEM SOD INJ 1 GM in SODIUM CHL 0.9% 50 ML IV SCH (13:41)
--- NOTE | 2025-03-26 15:29 | DVHPNRES ---
Progress Note Date Seen: Mar 26, 2025 Resident Creating Document: JEREMÍAS STEPHEN RESIDENT Has the PT tested + for MRSA If YES, has PT been informed?: No Medical Necessity Reason Pt with a Central, PICC or Fol: Yes Subjective Review of Systems Patient is a 50 year old female with prior medical history of nephrolithiasis, myocardial infarction without stent placement in 2008, and GERD, who presented to the ED with chief complaint of flank pain. The patient refers sudden onset of intense flank pain 3 days ago described as cramp like, bilateral but worse on her left, radiating forward to lumbar region and down towards lower extremities, 10/10 in intensity, aggravated by movements, with no relieving factors, associated with chills, nausea, and febrile sensation. Additionally refers constipation for the last 3 days. The patient states she started her menstrual period on Friday, and for this reason is unsure if she has had hematuria associated to current symptoms. She denies vomiting, chest pain, palpitations, and other symptoms. Due to persistence of symptoms she sought medical care. On evaluation in the ED, the patient was in moderate distress and tachycardic. Initial labs show WBCs 14.8, neutrophils 12.7, creatinine 1.13. UA turbid, nitrites negative, ULE 3+, WBCs 27, WBC clumps, WBC 465, and bacteria few. Abdominal pelvis CT shows bilateral renal calculi with a large left renal staghorn calculus, there is associated dilation of the left renal calyces with [id number] asymmetric left-sided perinephric fat stranding, mild left hydroureter with no obstructing calculus noted. The patient was placed on IV fluids, IV antibiotics, and pain regimen. The patient was admitted for further workup monitoring. Personal history: Nephrolithiasis, [place] in 2008 without placement of stents, GERD Allergies: IV contrast states it causes hives Surgical: Cholecystectomy, angiogram, ovarian cyst removal, left breast cyst removal, tubal ligation Social: Denies drug, tobacco, and alcohol use. States she lives with her children and feels safe. Review of Systems: Constitutional: Denies weight loss, fever and chills. HEENT: Denies changes in vision and hearing. Respiratory: Denies shortness of breath and cough Cardiovascular: Denies chest discomfort or palpitations GI: refers constipation, denies abdominal distention, abdominal pain, diarrhea : Denies dysuria and urinary frequency. Musculoskeletal: Currently refers no symptoms Skin: Denies rash and pruritus. Neurological: denies dizziness headache vision or hearing problems 03/19-Patient seen at bedside. Patient states that she feels well, denies any abdominal pain, tolerating oral diet, slept well, and has been able to ambulate without issue. Refers overnight she had 1 febrile episode, But otherwise felt fine. Currently denies abdominal pain, back pain, nausea, vomiting, palpitations, and fever. Patient had febrile spikes overnight ranging from 100.5-101.3. Blood pressure has continued to be borderline, NS bolus has been given and she will continue on fluids. Labs are significant for improvement of leukocytosis. Preliminary urine culture is growing >100,000 CFU/mL mixed lisa, blood cultures are negative at 24 hours of growth. She will continue on current management of IV antibiotics and IV fluids. Pending procedure with Urology on Friday. We will continue to monitor. 03/20-Patient was seen at bedside. She states that she has no abdominal pain, vomiting and fever overnight. Labs sow marked improvement in leukocytosis with WBC now at 8.8. We will continue to monitor her while continuing IV antibiotics and IV fluids. She was given 2000 mg daily of oral vitamin-D after her vitamin- D was found to be below normal. She has a pending urology procedure tomorrow. 03/21-The patient was seen at bedside and mentioned she has no abdominal pain fever or vomiting. Labs are within normal and vitals are stable. She could not undergo the procedure today as Nephrology is waiting for Interventional Radiology to place an access sheath for PCNL. She was told the procedure will be done tomorrow morning. Her antibiotics were discontinued and she was started on oral doxycycline. 03/22- Patient is seen today at bedside. Patient denied acute pain. Patient had left sided nephrostomy done today. Patient's ceftriaxone 1 g IV daily. Tolerating well. 03/23- Patient was seen at bedside and complained of abdominal pain. Left ureteroscopy/pyeloscopy, laser lithotripsy with partial renal evacuation was done yesterday. As per the procedure note, the percutaneous access was insufficient to remove the calculus we will be attempted again. The nephrostomy tube was removed and a temporary Owens catheter was placed. Patient was given Dilaudid 0.25 mg once for the abdominal pain. Patient's vitals were stable. White count was high which could be reactive and we are going to follow up on that tomorrow. 03/24- Patient is seen at bedside. She mentions that her abdominal pain has gone down considerably. Her white count today was 15.7 she had tachycardia and low blood pressure. We ordered a repeat urine culture blood culture and started the patient on cefepime. Nephrology saw the patient today and they mentioned that she will need left PCNL TBA as outpatient. They asked her to follow up outpatient in 1 week. We are going to observe the patient and watch for any signs of sepsis. 03/25-The patient was seen at bedside. She states that she has no abdominal pain. Her white count today was 15 and she had 3 spikes a fever since yesterday. She looks better clinically and will likely be discharged tomorrow if the vitals remained stable and the labs are within range for outpatient follow-up with Urology. 03/26- The patient was seen at bedside. White Count is showing a downward trend with no fever spikes in the last 24 hours. The patient also mentions she does not have any abdominal pain. Antibiotic was changed from cefepime to IV ertapenem and a midline was placed to continue IV antibiotics at home on discharge tomorrow. Objective vital signs Vital Sign Date Time Temp Pulse Resp B/P (MAP) Pulse Ox O2 Delivery O2 Flow Rate FiO2 03/26/25 13:00 98.6 93 17 109/67 (81) 91 98.6 03/26/25 08:00 Room Air* 0 21 Total Intake and Output 03/25/25 03/25/25 03/26/25 15:00 23:00 07:00 Intake Total 900 ml 362.5 ml Output Total 1550 ml 900 ml Balance -650 ml -537.5 ml medications Current Medications Medications Dose Ordered Sig/Natali Route Start Time Stop Time Status Last Admin Dose Admin Enoxaparin Sodium 40 mg DAILY SC 03/18/25 10:00 03/24/25 08:47 40 MG Cholecalciferol 2,000 unit DAILY PO 03/21/25 10:00 03/26/25 09:00 2,000 UNIT Pantoprazole Sodium 40 mg DAILY@0600 PO 03/23/25 06:00 03/26/25 05:12 40 MG Sodium Chloride 1,000 ml @ 60 mls/hr [id number] IV 03/24/25 11:15 03/25/25 21:03 60 MLS/HR Morphine Sulfate 2 mg Q4HPRN PRN IV 03/24/25 11:15 Hold Acetaminophen/ Hydrocodone Bitart 1 tab Q6HP PRN PO 03/24/25 11:15 03/24/25 20:00 1 TAB Acetaminophen 650 mg Q6HP PRN PO 03/24/25 16:45 03/24/25 17:02 650 MG Polyethylene Glycol 17 gm DAILY PO 03/25/25 10:00 03/26/25 09:00 17 GM Ertapenem 1 gm/ Sodium Chloride 50 ml @ 100 mls/hr DAILY IV 03/26/25 12:45 03/26/25 13:41 100 MLS/HR Examination General: The patient seems comfortable, alert and oriented in person place and time. Patient is following commands. HEENT: Normocephalic, atraumatic, normal reactive pupils, EOM intact, pink conjunctiva, pink dry mucous membrane Respiratory/pulmonary: Bilateral chest expansion, no pain on chest palpation, clear lungs bilaterally, vesicular murmurs present in almost all lung simpson, no associated crackles or wheezes. Cardiovascular: On evaluation patient is slightly tachycardic, normal rhythm, normal S1 and S2 Abdomen: Abdomen nondistended, normal bowel sounds, soft, no pain to palpation in left lumbar region, no CVA tenderness, no palpable masses. Extremities: no deformities, there is no peripheral edema present at the lower extremities, pulses are palpable. Skin: No rashes or pruritus Neurological: Intact cranial nerves with no focal neurologic deficits laboratory and microbiology Laboratory Tests 03/26/25 06:11 Test 03/26/25 06:11 Range/Units Serum Glucose 105 74-106 mg/dL Microbiology Date/Time Source Procedure Growth Status 03/25/25 14:30 Blood Blood Culture - Preliminary NO GROWTH AFTER 24 HOURS OF INCUBATION. Resulted 03/24/25 13:12 Urine - [place] Urine Culture - Final Complete 03/19/25 03:30 Nose MRSA Screen - Final Complete Labs and/or images reviewed: Labs reviewed by me, Image(s) reviewed by me Problem List/Assessment/Plan Problem List/Assessment/Plan Sepsis secondary to acute complicated UTI - Ceftriaxone 1 g IV, discontinued - Zosyn 3.375 g IV q8hrs, discontinued -cefepime - NS 500 cc bolus IV - NS 120cc/hr IV - Blood cultures Preliminary: Negative at 24 hours of incubation - Urine culture preliminary: >100,000 CFU/mL mixed lisa - Continue to monitor vitals and labs Acute intractable abdominal and back pain due to Left Staghorn Calculi - s/p left URSLL with CVAC and stent placement -Abdominopelvic CT: Large left renal staghorn calculus on admission -Urology: Left ureteroscopy and laser lithotripsy with partial renal evacuation done on 03/22/25 -Monitor renal function -[place] 5 mg p.o. q.6 hours PRN TAMIA likely due to obstructive uropathy, secondary to above - IV fluids - Monitor renal function - Avoid nephrotoxic drugs Bilateral nephrolithiasis -Abdominopelvic CT: Abdominal pelvis CT shows bilateral renal calculi with a large left renal staghorn calculus - IV fluids Left hydroureter -Abdominopelvic CT: mild left hydroureter with no obstructing calculus noted GERD Right Ovarian Cyst -Abdominopelvic CT: 5.3 cm right ovarian cyst History of OR in 2008 with no stents Diet: Regular DVT prophylaxis: Enoxaparin 40 mg sc daily GI prophylaxis: Not indicated Case discussed with Dr. Wang Goals of care discussed with the patient for over 30 minutes. FULL CODE. Plan discussed with: Patient Plan discussed with: Patient Plan discussed with: Patient My Orders My Orders Orders - JEREMÍAS STEPHEN Procedure Category Date Status Time Insert Midline ORDERS 03/26/25 Transmitted 12:36 Ertapenem Sod Inj PHA 03/26/25 In Process (Invanz) 12:45 Dietary Evaluation Review Comments: 1) Add cardiac restriction to diet 2) Encourage optimal PO intake 3) Refer to outpatient RD for weigth management 4) Follow-up with urology and cardiology 5) Continue to monitor I&O, labs, and skin integrity Expected Outcomes/Goals: 1) appetite and labs to improve 2) gradual wt loss 3) f/u in 3-5 days Date of Service: Mar 26, 2025 Billing Provider: PEG MURPHY MD Common Visit Codes: [id number] INP/OBS CARE(HIGH) JEREMÍAS STEPHEN RESIDENT Mar 26, 2025 15:29 PEG MURPHY MD Mar 27, 2025 22:36
[2025-03-27] VITALS (7 sets, daily range): BP systolic 104–115; BP diastolic 67–76; PULSE 81–98; RESP 17–19; TEMP 97.9–99.4; O2SAT 90–97
[2025-03-27 07:29] LABS: Hematocrit 33.7 % (36.0-46.0); Hemoglobin 11.7 g/dL (12.2-16.2); Mean Corpuscular Hemoglobin 32.5 pg (28.0-32.0); Mean Corpuscular Volume 93.3 fL (80.0-100.0); Nucleated Red Blood Cells % 0.0 %
[2025-03-27 07:37] LABS: Anion Gap 9 (5-15); Carbon Dioxide 25 mmol/L (20-31); Chloride 105 mmol/L (98-107); Potassium 3.9 mmol/L (3.5-5.1); Sodium 139 mmol/L (136-145)
[2025-03-27 07:38] LABS: Calcium 9.1 mg/dL (8.7-10.4)
[2025-03-27 07:43] LABS: BUN/Creatinine Ratio 10.7 (10.0-20.0); Glucose 96 mg/dL (74-106)
[2025-03-27 07:48] LABS: Blood Urea Nitrogen 8 mg/dL (9-23)
[2025-03-27] MEDS ORDERED: PANT40T PO (10:38)
[2025-03-27] MEDS ORDERED: ERGO1CAP23 PO (10:38)
--- NOTE | 2025-03-27 10:40 | DVHDSRES ---
Discharge Summary Date of Admission Resident Creating Document: JEREMÍAS STEPHEN RESIDENT Mar 17, 2025 at 23:05 Date of Discharge: Mar 27, 2025 Admitting Diagnosis Acute intractable abdominal and back pain due to Left Staghorn Calculi Labs/Diagnostic Data: Laboratory Results Test 03/27/25 06:19 03/23/25 04:56 03/22/25 17:00 03/21/25 06:46 White Blood Count 10.3 10^3/uL (4.4-10.8) Red Blood Count 3.61 10^6/uL (4.0-5.20) Hemoglobin 11.7 g/dL (12.2-16.2) Hematocrit 33.7 % (36.0-46.0) Mean Corpuscular Volume 93.3 fL (80.0-100.0) Mean Corpuscular Hemoglobin 32.5 pg (28.0-32.0) Mean Corpuscular Hemoglobin Concent 34.8 g/dL (32.0-36.0) Red Cell Distribution Width 13.6 % (11.8-14.3) Platelet Count 330 10^3/uL (140-450) Mean Platelet Volume 8.8 fL (6.9-10.8) Neutrophils (%) (Auto) 78.1 % (37.0-80.0) Lymphocytes (%) (Auto) 14.6 % (10.0-50.0) Monocytes (%) (Auto) 5.5 % (0.0-12.0) Eosinophils (%) (Auto) 1.5 % (0.0-7.0) Basophils (%) (Auto) 0.3 % (0.0-2.0) Neutrophils # (Auto) 8.0 10 ^3/uL (1.6-8.6) Lymphocytes # (Auto) 1.5 10 ^3/uL (0.4-5.4) Monocytes # (Auto) 0.6 10 ^3/uL (0-1.3) Eosinophils # (Auto) 0.2 10 ^3/uL (0-0.8) Basophils # (Auto) 0 10 ^3/uL (0-0.2) Nucleated Red Blood Cells 0.0 % Sodium Level 139 mmol/L (136-145) Potassium Level 3.9 mmol/L (3.5-5.1) Chloride Level 105 mmol/L (98-107) Carbon Dioxide Level 25 mmol/L (20-31) Anion Gap 9 (5-15) Blood Urea Nitrogen 8 mg/dL (9-23) Creatinine 0.75 mg/dL (0.550-1.02) Glomerular Filtration Rate Calc 98 mL/min (>90) BUN/Creatinine Ratio 10.7 (10.0-20.0) Serum Glucose 96 mg/dL (74-106) Calcium Level 9.1 mg/dL (8.7-10.4) Magnesium Level 1.9 mg/dL (1.6-2.6) Prothrombin Time 10.9 sec (9.3-11.8) Prothrombin Time INR 1.03 (0.9-1.15) Activated Partial Thromboplast Time 29.5 SEC (24.5-34.5) Total Bilirubin 0.4 mg/dL (0.2-1.0) Aspartate Amino Transferase (AST) 18 U/L (13-40) Alanine Aminotransferase (ALT) 25 U/L (7-40) Alkaline Phosphatase 83 U/L (46-116) Total Protein 6.5 g/dL (5.7-8.2) Albumin 3.9 g/dL (3.2-4.8) Beta HCG, Quantitative 0.4 mIU/mL (1.5-4.2) Test 03/21/25 00:40 03/20/25 03:30 03/18/25 09:14 03/18/25 04:16 Urine Color Colorless (Yellow) Urine Clarity Turbid (Clear) Urine pH 6.5 (5.0-9.0) Urine Specific [place] 1.011 (1.001-1.035) Urine Protein Negative (Negative) Urine Ketones Negative (Negative) Urine Blood 1+ /uL (Negative) Urine Nitrite Negative (Negative) Urine Bilirubin Negative (Negative) Urine Urobilinogen Normal mg/dL (Negative) Urine Leukocyte Esterase 3+ /uL (Negative) Urine RBC 10 /hpf (0 - 4) Urine Microscopic WBC 176 /HPF (0-5) Urine Squamous Epithelial Cells Few /hpf (<5) Urine Bacteria None seen /hpf (None Seen) Urine Mucus Few (None Seen) Urine Glucose Normal mg/dL (Normal) Urine WBC Clumps Present /hpf (None Seen) Lactic Acid Level 1.0 mmol/L (0.4-2.0) Hemoglobin A1c 5.2 % A1C (<5.7) B-Type Natriuretic Peptide 22.23 pg/mL (0-100) Triglycerides Level 91 mg/dL (< 150) Cholesterol Level 150 mg/dL (< 200) LDL Cholesterol 89 mg/dL (< 100) HDL Cholesterol 53 mg/dL (40-59) Vitamin D 25-Hydroxy 28.4 ng/mL (30.0-100) Thyroid Stimulating Hormone (TSH) 1.12 uIU/mL (0.55-4.78) Hepatitis B Surface Antigen Negative (Negative) Hepatitis C Antibody Negative (Negative) Test 03/17/25 15:55 Urine Yeast (Budding) Many /hpf (None Seen) Other Laboratory Tests 03/27/25 06:19 Brief Hx & Hospital Course: HPI- Patient is a 50 year old female with prior medical history of nephrolithiasis, myocardial infarction without stent placement in 2008, and GERD, who presented to the ED with chief complaint of flank pain. The patient refers sudden onset of intense flank pain 3 days ago described as cramp like, bilateral but worse on her left, radiating forward to lumbar region and down towards lower extremities, 10/10 in intensity, aggravated by movements, with no relieving factors, associated with chills, nausea, and febrile sensation. Additionally refers constipation for the last 3 days. The patient states she started her menstrual period on Friday, and for this reason is unsure if she has had hematuria associated to current symptoms. She denies vomiting, chest pain, palpitations, and other symptoms. Due to persistence of symptoms she sought medical care. On evaluation in the ED, the patient was in moderate distress and tachycardic. Initial labs show WBCs 14.8, neutrophils 12.7, creatinine 1.13. UA turbid, nitrites negative, ULE 3+, WBCs 27, WBC clumps, WBC 465, and bacteria few. Abdominal pelvis CT shows bilateral renal calculi with a large left renal staghorn calculus, there is associated dilation of the left renal calyces with iibu-dz-hjmqauxr asymmetric left-sided perinephric fat stranding, mild left hydroureter with no obstructing calculus noted. Hospital course-during hospital course patient was seen by urologist. Patient had- Left ureteroscopy/pyeloscopy, laser lithotripsy with partial renal evacuation, partial Cystoscopy with left ureteral stent placement. Large left staghorn calculus- s/p left URSLL with CVAC and stent placement. Left PCNL not doable due to inadequate access by IR.. As per urology patient will need left PCNL TBA as outpatient. Patient is on IV antibiotic ertapenem due to sepsis likely due to pyelonephritis. Patient is being discharged home with the home health for IV antibiotic therapy you ertapenem 1 g IV daily for 8 days. And follow up with the primary care physician/at the discharge clinic with a CBC, CMP, ESR, CRP in 1 week.. Patient's meds were sent to the pharmacy electronically. Patient was hemodynamically stable on discharge. 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 daily Atorvastatin 20 mg p.o. daily Pantoprazole 20 mg p.o. daily Ergo cholecalciferol 09755 units q.week Please follow up with the primary care physician/at the discharge clinic [address] in 1 week with CBC, CMPM, ESR, CRP Please follow up with the urologist Dr. Dietrich in 1-2 weeks for further evaluation and care of nephrolithiasis/kidney stone Consults/Reason for consult Patient: MAICOL AMARO Acct: [id number] : 1975 Loc: [facility] Age/Sex: 50/F [id number] Progress Note - Dictate Date Seen: Mar 24, 2025 Has the PT tested + for MRSA If YES, has PT been informed?: No Medical Necessity Reason Pt with a Central, PICC or Fol: Yes Medical Necessity Reason s/p left URSLL with stent placement Left PCNL not doable due to inadequate access by IR. vital signs Vital Sign Date Time Temp Pulse Resp B/P (MAP) Pulse Ox O2 Delivery O2 Flow Rate FiO2 03/24/25 05:00 98.0 101 22 103/63 (76) 95 98.0 03/23/25 20:00 Room Air* 0 21 Total Intake and Output 803/23/25 03/24/25 15:00 23:00 07:00 Intake Total 300 ml 250 ml Output Total 1000 ml 2500 ml Balance -700 ml -2250 ml medications Current Medications Medications Dose Ordered Sig/Natali Route Start Time Stop Time Status Last Admin Dose Admin Sodium Chloride 1,000 ml @ 120 mls/hr Q8H20M IV 03/17/25 23:15 03/24/25 05:15 120 MLS/HR Acetaminophen/ Hydrocodone Bitart 1 tab Q6HPRN PRN PO 03/17/25 23:15 03/24/25 00:55 1 TAB Enoxaparin Sodium 40 mg DAILY SC 03/18/25 10:00 03/19/25 10:03 40 MG Cholecalciferol 2,000 unit DAILY PO 03/21/25 10:00 03/22/25 09:26 2,000 UNIT Ceftriaxone Sodium 50 ml @ 100 mls/hr DAILY@09 IV 03/21/25 11:43 03/23/25 09:40 100 MLS/HR Pantoprazole Sodium 40 mg DAILY@0600 PO 03/23/25 06:00 03/24/25 06:11 40 MG laboratory and microbiology Laboratory Tests 03/24/25 06:27 Test 03/24/25 06:27 Range/Units Serum Glucose 115 H 74-106 mg/dL Problem List Left staghorn renal calculus Failed percutaneous nephrostomy access Assessment/Plan Bilateral nephrolithiasis Large left staghorn calculus- s/p left URSLL with CVAC and stent placement KUB Will need left PCNL TBA as outpatient. D/C Owens f/u in clinic one week Dietary Evaluation Review Comments: 1) Add cardiac restriction to diet 2) Encourage optimal PO intake 3) Refer to outpatient RD for weigth management 4) Follow-up with urology and cardiology 5) Continue to monitor I&O, labs, and skin integrity Expected Outcomes/Goals: 1) appetite and labs to improve 2) gradual wt loss 3) f/u in 3-5 days Plan discussed with: Patient, Other LINDSEY VASQUEZ MD Mar 24, 2025 07:58 E/M VISIT PERFORMED BY: TRANSCRIBED BY:LINDSEY VASQUEZ MD TRANSCRIBED DATE/TIME:03/24/25757 ELECTRONICALLY SIGNED BY:LINDSEY VASQUEZ MD 03/24/25757 ELECTRONICALLY CO-SIGNED BY: [facility] [address] [facility] [address] Ph: [phone] PATIENT: MAICOL AMARO ACCT: [id number] : 1975 LOC: CENTRAL ROOM/ROOM: 0221-A AGE/SEX: 50/F ADM STATUS: ADM IN ADM DATE: 03/17/25 UNIT: [id number] HEALTH INFORMATION MANAGEMENT PROCEDURE NOTE - DV :[id number] Signed ORDERING PHYSICIAN: PROCEDURE(s): ORDER NUMBER(s): , ACCESSION NUMBER(s): Procedure - OPERATIVE REPORT Pre-op. Diagnosis: Bilateral renal stones Staghorn calculus, left (>4 cm) Left percutaneous nephrostomy tube Post-op. Diagnosis: Same as pre-op diagnosis Operation: Left ureteroscopy/pyeloscopy, laser lithotripsy with renal evacuation, partial Cystoscopy with left ureteral stent placement Removal of left PNT Anesthesia: General Indications: Patient with large left staghorn calculus underwent left percutaneous nephrostomy tube placement by Interventional Radiology for preparation of PCNL. unfortunately the access was inadequate for percutaneous access of the kidney. Patient was also consented for ureteroscope epic laser lithotripsy with renal evacuation (CVAC). The indications, risks, complications, alternatives and benefits were discussed. All questions were encouraged and answered. Patient is aware of risks/complications including but not limited to infection, bleeding, persistent pain, possible ureteral injury/ureteral stricture requiring additional surgical management, urethral injury, urethral stricture and meatal stenosis. Details of Procedure: After obtaining the consent, patient was taken to OR suite and underwent general anesthesia. Preop antibiotic was given. Timeout was performed and deemed to be correct. With the patient positioned in the lithotomy, the area of the genitalia prepped and draped in usual sterile fashion. 22 F Cystoscope was used to access the urethra and bladder. A sensor tip guide wire was advanced through the scope into the left ureter all the way to the left collecting system under fluoroscopic control. I advanced 13x15 Fr 36 cm access sheet over the working wire all the way to the proximal ureter under fluoroscopy control, then the inner sheet and the working wire was removed. The Digital flexible ureteroscope was advanced through the access sheet. The tip of the renal pelvic staghorn stone was visualized. Now using a 200 micron laser fiber the stone was partially fragmented at the tip into small fragments and suctioned out while in dusting mode. the stone was too hard for the laser lithotripsy. Ureteroscope was then removed and guidewire replaced. The existing nephrostomy tube was not in the collecting system, and it was removed. Ureteral sheath was then removed. At this point the cystoscope was advanced over the wire into the bladder. Now a 6 Fr x [address] ureteral stent was advanced under direct visualization through the left ureteral orifice into the kidney. Good proximal curl was seen in the Upper calyce under fluoroscopy and the distal end was seen in the bladder once the wire was removed. Temporary Owens catheter was placed. Patient was placed in supine position in the OR table. Anesthesia was reversed, patient was extubated and transferred awake and in stable conditions to recovery room. Specimens: renal stone fragments Complications: None Findings: The left percutaneous access was inadequate for PCNL. We will re-attempt the percutaneous access at a later time Notes: 6 [address] x [address] ureteral stent - Left LINDSEY VASQUEZ MD Mar 22, 2025 17:30 DICTATED BY: LINDSEY VASQUEZ MD DICATED DATE/TIME: 03/22/251729 SIGNED BY: LINDSEY VASQUEZ MD <<Signature on File>> SIGNED DATE/TIME: 03/22/25 173 CC: Operations or Procedures [place] [address] Ph: [phone] DIAGNOSTIC IMAGING Diagnostic Imaging Report : [id number] Signed PATIENT: MAICOL AMARO ACCT: [id number] UNIT: [id number] : 1975 LOC: ER ROOM / BED: / AGE / SEX: 50 / F ADM STATUS: REG ER SERVICE 1532 ORDERING PHYSICIAN: PEGGY GORDON MD PROCEDURE(s): ABPL - CT AB PEL WO CON-NO ORAL OR IV REASON: stone ORDER NUMBER(s): [id number], ACCESSION NUMBER(s): [id number] Exam: CT CT AB PEL WO CON-NO ORAL OR IV History: stone Comparison Study: CT CT AB PEL WO CON-NO ORAL OR IV on DOS: 02/01/25 TECHNIQUE: Multidetector CT of the abdomen andpelvis without IV contrast. Axial, coronal and sagittal multiplanar reformats were obtained from the axial data set by the technologist. Radiation Dose Information: CT Dose: CTDI volume is mGy. Dose-length product is mGy*cm FINDINGS: The lung bases are clear. Partially visualized heart is normal in size with trace pericardial effusion. Mild hepatomegaly. Otherwise, liver, spleen, pancreas and adrenal glands unremarkable. Status post cholecystectomy. Redemonstration of Relatively unchanged multiple bilateral renal calculi with a large left renal staghorn calculus. There is associated dilatation of the left renal calyces with mild left hydroureter with no associated obstructing ureteral calculus. There is qvoo-bt-ykxurqpf left renal perinephric fat stranding. Mild distention of the urinary bladder. Bulky appearance of the uterus with possible uterine fibroids. 5.3 cm right ovarian cyst. Mild gastric wall thickening. Small bowel loops unremarkable. Appendix is not completely visualized with the visualized appendix unremarkable. Without complete visualization of the appendix, can not exclude acute appendicitis. Small to moderate amount of fecal material within the colon. Mild distal rectal wall thickening which is most likely from inadequate distension. No evidence of intraperitoneal free air or free fluid. No evidence of aortic aneurysm. No significant lymphadenopathy. Soft tissues are unremarkable. Sclerotic focus over the bilateral femoral heads which may represent small bone island. IMPRESSION: Bilateral renal calculi with a large left renal staghorn calculus. There is associated dilatation of the left renal calyces with pryv-bf-cgynkvke asymmetric left-sided perinephric fat stranding. Correlate for Possible xanthogranulomatous pyelonephritis. Mild left hydroureter with no obstructing calculus noted. 5.3 cm right ovarian cyst. Mild gastric wall thickening which may be due to inadequate distention with mild gastritis not excluded. ATED BY: EMI PARKER DO DICTATED DATE/TIME: 03/17/251623 SIGNED BY: EMI PARKER DO SIGNED DATE/TIME: 03/17/251623 CC: [address] [address] Ph: [phone] DIAGNOSTIC IMAGING Diagnostic Imaging Report : [id number] Signed PATIENT: MAICOL AMARO ACCT: [id number] UNIT: [id number] : 1975 LOC: OVERFLOW ROOM / BED: 1029-ER / A AGE / SEX: 50 / F ADM STATUS: ADM IN SERVICE 1344 ORDERING PHYSICIAN: DONITA BILLY PROCEDURE(s): CXR1 - CHEST XRAY 1 VIEW REASON: R/o effusion ORDER NUMBER(s): [id number], ACCESSION NUMBER(s): [id number] CHEST RADIOGRAPH Indication: R/o effusion Technique: Single frontal view of the chest was obtained Comparison: XY CHEST PORTABLE on DOS: 12/21/24 FINDINGS: Lines and Tubes: None Lungs: No focal consolidation. Pleura: No effusion. No pneumothorax. Cardiomediastinal contours: Unremarkable Bones: No acute osseous abnormality. IMPRESSION: No acute cardiopulmonary disease. ATED BY: LILI SYLVESTER MD DICTATED DATE/TIME: 03/18/25 142 SIGNED BY: LILI SYLVESTER MD SIGNED DATE/TIME: 03/18/25 142 CC: [place] [address] Ph: [phone] DIAGNOSTIC IMAGING Diagnostic Imaging Report : [id number] Signed PATIENT: MAICOL AMARO ACCT: [id number] UNIT: [id number] : 1975 LOC: CENTRAL ROOM / BED: 0221 / A AGE / SEX: 50 / F ADM STATUS: ADM IN SERVICE 1303 ORDERING PHYSICIAN: RSOY NEIL PROCEDURE(s): PERNEPH - PERCUTANEOUS NEPHROSTOMY REASON: LT NEPH DRAIN PL ORDER NUMBER(s): [id number], ACCESSION NUMBER(s): [id number] DATE: 03/22/2025 PROCEDURE: Nephrostomy tube placement HISTORY: LT NEPH DRAIN PL DOCUMENTATION: Informed consent was obtained and a procedural time out was performed. SEDATION: Moderate sedation was utilized during the procedure. The patient received benzodiazepines and opioids, the dosing of which was documented in the patient s permanent medical record. Pre-sedation history and evaluation revealed no contraindications to sedation. The patient s level of consciousness and physiologic status was monitored continuously by the physician and nursing staff throughout the procedure. Total intra-service moderate sedation time was 60 minutes. FLUORO TIME: 9 minutes 5 seconds TECHNIQUE: Following standard prep and under fluoroscopic guidance the lower pole calyx of the left renal collecting system was punctured with an Accustick needle. A wire was then coiled within the renal collecting system. Contrast was injected. I attempted numerous times to gain access into the ureter using a stiff Glidewire and Berenstein catheter but was unsuccessful. The catheter was then exchanged over an Amplatz wire for an 8.5 Indian nephrostomy tube. FINDINGS: An attempt was made to pass a wire and catheter into the bladder which was unsuccessful. I talked to Dr. Vasquez the urologist and explained to him I could take the patient back to the angiography suite tomorrow morning once the system decompresses an attempt again to get into the bladder. IMPRESSION: 1. Unsuccessful attempt to pass a wire and catheter into the bladder, a nephrostomy tube was left in place, if the patient is still here tomorrow I will attempt again to gain access into the bladder through the indwelling access site. ATED BY: MELISSA JEREZ MD DICTATED DATE/TIME: 03/22/251423 SIGNED BY: MELISSA JEREZ MD SIGNED DATE/TIME: 03/22/251423 CC: [place] [address] Ph: [phone] DIAGNOSTIC IMAGING Diagnostic Imaging Report : [id number] Signed PATIENT: MAICOL AMARO ACCT: [id number] UNIT: [id number] : 1975 LOC: CENTRAL ROOM / BED: [address] [place] [address] AGE / SEX: 50 / F ADM STATUS: ADM IN SERVICE 2827 ORDERING PHYSICIAN: LINDSEY VASQUEZ MD PROCEDURE(s): KUB - KUB ABDOMEN SINGLE VIEW REASON: left ureteral stent placement ORDER NUMBER(s): [id number], ACCESSION NUMBER(s): [id number] EXAM: XY KUB ABDOMEN SINGLE VIEW HISTORY: left ureteral stent placement COMPARISON: XY KUB ABDOMEN SINGLE VIEW on DOS: 03/22/25 TECHNIQUE: Supine view of the abdomen FINDINGS/IMPRESSION: Nonobstructive bowel gas pattern noted. There is no evidence for pneumoperitoneum. No abnormal calcifications noted. Left-sided double-J ureteral stent. Contrast within the left kidney. ATED BY: LILI SYLVESTER MD DICTATED DATE/TIME: 03/22/251952 SIGNED BY: LILI SYLVESTER MD SIGNED DATE/TIME: 03/22/251952 CC: [place] [address] Ph: [phone] DIAGNOSTIC IMAGING Diagnostic Imaging Report : [id number] Signed PATIENT: MAICOL AMARO ACCT: [id number] UNIT: [id number] : 1975 LOC: CENTRAL ROOM / BED: [facility] [place]note 2[place] / A AGE / SEX: 50 / F ADM STATUS: ADM IN SERVICE 51 ORDERING PHYSICIAN: LINDSEY VASQUEZ MD PROCEDURE(s): CARM1 - C ARM FLUOROSCOPY UP TO 60MIN REASON: KIDNEY STONE ORDER NUMBER(s): [id number], ACCESSION NUMBER(s): [id number] C-ARM FLUOROSCOPY: PROCEDURE: Lithotripsy. FLUOROSCOPY TIME: 104.3 sec DAP: 22.14 mgy FINDINGS: Spot intraoperative C arm radiographs demonstrating lithotripsy. IMPRESSION: Please refer to surgical report for detailed findings. ATED BY: LILI SYLVESTER MD DICTATED DATE/TIME: 03/22/251928 SIGNED BY: LILI SYLVESTER MD SIGNED DATE/TIME: 03/22/251928 CC: [place] [address] Ph: [phone] DIAGNOSTIC IMAGING Diagnostic Imaging Report : [id number] Signed PATIENT: MAICOL AMARO ACCT: [id number] UNIT: [id number] : 1975 LOC: CENTRAL ROOM / BED: [address] [place] [address] AGE / SEX: 50 / F ADM STATUS: ADM IN SERVICE 51 ORDERING PHYSICIAN: LINDSEY VASQUEZ MD PROCEDURE(s): KUB - KUB ABDOMEN SINGLE VIEW REASON: KIDNEY STONE ORDER NUMBER(s): [id number], ACCESSION NUMBER(s): [id number] C-ARM FLUOROSCOPY: PROCEDURE: Lithotripsy. FLUOROSCOPY TIME: 104.3 sec DAP: 22.14 mgy FINDINGS: Spot intraoperative C arm radiographs demonstrating lithotripsy. IMPRESSION: Please refer to surgical report for detailed findings. ATED BY: LILI SYLVESTER MD DICTATED DATE/TIME: 03/22/251928 SIGNED BY: LILI SYLVESTER MD SIGNED DATE/TIME: 03/22/251928 CC: [place] [address] Ph: [phone] DIAGNOSTIC IMAGING Diagnostic Imaging Report : [id number] Signed PATIENT: MAICOL AMARO ACCT: [id number] UNIT: [id number] : 1975 LOC: CENTRAL ROOM / BED: [address] [place] [address] AGE / SEX: 50 / F ADM STATUS: ADM IN SERVICE 0755 ORDERING PHYSICIAN: LINDSEY VASQUEZ MD PROCEDURE(s): KUB - KUB ABDOMEN SINGLE VIEW REASON: Left ureteral stent ORDER NUMBER(s): [id number], ACCESSION NUMBER(s): [id number] Date: 03/24/2025 10:05 AM Examination: XY KUB ABDOMEN SINGLE VIEW History: Left ureteral stent Comparison: XY KUB ABDOMEN SINGLE VIEW on DOS: 03/22/25, XY KUB ABDOMEN SINGLE VIEW on DOS: 03/22/25, CT CT AB PEL WO CON-NO ORAL OR IV on DOS: 03/17/25, CT CT AB PEL WO CON-NO ORAL OR IV on DOS: 02/01/25 TECHNIQUE: Frontal views of the abdomen was obtained. FINDINGS: Bowel gas pattern is unremarkable. The lung bases are unremarkable. No acute osseous abnormality identified. IMPRESSION: Nonobstructive bowel gas pattern. Left ureteral stent. Multiple right renal calculi. 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 Dietrich in 1-2 weeks magnesium Medications: As above Scheduled Aspirin (Aspir-81), 1 TAB PO DAILY, (Reported) Atorvastatin Calcium (Atorvastatin Calcium), 20 MG PO HS Azithromycin (Azithromycin), 250 MG PO DAILY Doxycycline Hyclate (Doxycycline Hyclate), 1 TAB PO BID Ergocalciferol (Vitamin D 56371 Unit), 50,000 UNIT PO QWEEKLY Ertapenem Sodium (Ertapenem), 1 GM IV DAILY Hucptyvo-Ncezgqrexr-Lkkccvwwh- (Neosporin + Pain Relief), 1 MAX EX DAILY Pantoprazole Sodium Sesquihydr (Pantoprazole Sodium), 20 MG PO DAILY Yeast (S. Boulardii)(S. Cerevi (Florastor), 250 MG PO DAILY Discharge Statement: "Patient was advised to return to the ER or call 911 if any headaches, dizziness, shortness of breath, chest pain, abdominal pain, bleeding, fevers, or worsening of medical condition. Patient was counseled about treatment plan, medications, possible side effects, patientverbalized understanding. All questions were answered to the best of my ability. This discharge took greater then 30 minutes in planning, reviewing documentation, counseling the patient, and discussing with other team members." ASSESSMENT ASSESSMENT Assessment Date of Service: Mar 27, 2025 Billing Provider: PEG MURPHY MD Common Visit Codes: 60560-DGF/OBS DISCH DAY >30min ROSY NEIL Mar 27, 2025 10:40 PEG MURPHY MD Mar 27, 2025 23:02
[2025-03-27] MEDS ORDERED: ERTA1INJ3 IV (12:42)
[2025-03-28] VITALS (7 sets, daily range): BP systolic 107–112; BP diastolic 66–74; PULSE 80–90; RESP 16–19; TEMP 98.2–99; O2SAT 93–97
--- NOTE | 2025-03-28 15:25 | DVHPNRES ---
Progress Note Date Seen: Mar 28, 2025 Resident Creating Document: JEREMÍAS STEPHEN RESIDENT Has the PT tested + for MRSA If YES, has PT been informed?: No Medical Necessity Reason Pt with a Central, PICC or Fol: No Subjective Review of Systems Patient is a 50 year old female with prior medical history of nephrolithiasis, myocardial infarction without stent placement in 2008, and GERD, who presented to the ED with chief complaint of flank pain. The patient refers sudden onset of intense flank pain 3 days ago described as cramp like, bilateral but worse on her left, radiating forward to lumbar region and down towards lower extremities, 10/10 in intensity, aggravated by movements, with no relieving factors, associated with chills, nausea, and febrile sensation. Additionally refers constipation for the last 3 days. The patient states she started her menstrual period on Friday, and for this reason is unsure if she has had hematuria associated to current symptoms. She denies vomiting, chest pain, palpitations, and other symptoms. Due to persistence of symptoms she sought medical care. On evaluation in the ED, the patient was in moderate distress and tachycardic. Initial labs show WBCs 14.8, neutrophils 12.7, creatinine 1.13. UA turbid, nitrites negative, ULE 3+, WBCs 27, WBC clumps, WBC 465, and bacteria few. Abdominal pelvis CT shows bilateral renal calculi with a large left renal staghorn calculus, there is associated dilation of the left renal calyces with [id number] asymmetric left-sided perinephric fat stranding, mild left hydroureter with no obstructing calculus noted. The patient was placed on IV fluids, IV antibiotics, and pain regimen. The patient was admitted for further workup monitoring. Personal history: Nephrolithiasis[place] in [place] without placement of stents, GERD Allergies: IV contrast states it causes hives Surgical: Cholecystectomy, angiogram, ovarian cyst removal, left breast cyst removal, tubal ligation Social: Denies drug, tobacco, and alcohol use. States she lives with her children and feels safe. Review of Systems: Constitutional: Denies weight loss, fever and chills. HEENT: Denies changes in vision and hearing. Respiratory: Denies shortness of breath and cough Cardiovascular: Denies chest discomfort or palpitations GI: refers constipation, denies abdominal distention, abdominal pain, diarrhea : Denies dysuria and urinary frequency. Musculoskeletal: Currently refers no symptoms Skin: Denies rash and pruritus. Neurological: denies dizziness headache vision or hearing problems 03/19-Patient seen at bedside. Patient states that she feels well, denies any abdominal pain, tolerating oral diet, slept well, and has been able to ambulate without issue. Refers overnight she had 1 febrile episode, But otherwise felt fine. Currently denies abdominal pain, back pain, nausea, vomiting, palpitations, and fever. Patient had febrile spikes overnight ranging from 100.5-101.3. Blood pressure has continued to be borderline, NS bolus has been given and she will continue on fluids. Labs are significant for improvement of leukocytosis. Preliminary urine culture is growing >100,000 CFU/mL mixed lisa, blood cultures are negative at 24 hours of growth. She will continue on current management of IV antibiotics and IV fluids. Pending procedure with Urology on Friday. We will continue to monitor. 03/20-Patient was seen at bedside. She states that she has no abdominal pain, vomiting and fever overnight. Labs sow marked improvement in leukocytosis with WBC now at 8.8. We will continue to monitor her while continuing IV antibiotics and IV fluids. She was given 2000 mg daily of oral vitamin-D after her vitamin- D was found to be below normal. She has a pending urology procedure tomorrow. 03/21-The patient was seen at bedside and mentioned she has no abdominal pain fever or vomiting. Labs are within normal and vitals are stable. She could not undergo the procedure today as Nephrology is waiting for Interventional Radiology to place an access sheath for PCNL. She was told the procedure will be done tomorrow morning. Her antibiotics were discontinued and she was started on oral doxycycline. 03/22- Patient is seen today at bedside. Patient denied acute pain. Patient had left sided nephrostomy done today. Patient's ceftriaxone 1 g IV daily. Tolerating well. 03/23- Patient was seen at bedside and complained of abdominal pain. Left ureteroscopy/pyeloscopy, laser lithotripsy with partial renal evacuation was done yesterday. As per the procedure note, the percutaneous access was insufficient to remove the calculus we will be attempted again. The nephrostomy tube was removed and a temporary Owens catheter was placed. Patient was given Dilaudid 0.25 mg once for the abdominal pain. Patient's vitals were stable. White count was high which could be reactive and we are going to follow up on that tomorrow. 03/24- Patient is seen at bedside. She mentions that her abdominal pain has gone down considerably. Her white count today was 15.7 she had tachycardia and low blood pressure. We ordered a repeat urine culture blood culture and started the patient on cefepime. Nephrology saw the patient today and they mentioned that she will need left PCNL TBA as outpatient. They asked her to follow up outpatient in 1 week. We are going to observe the patient and watch for any signs of sepsis. 03/25-The patient was seen at bedside. She states that she has no abdominal pain. Her white count today was 15 and she had 3 spikes a fever since yesterday. She looks better clinically and will likely be discharged tomorrow if the vitals remained stable and the labs are within range for outpatient follow-up with Urology. 03/26- The patient was seen at bedside. White Count is showing a downward trend with no fever spikes in the last 24 hours. The patient also mentions she does not have any abdominal pain. Antibiotic was changed from cefepime to IV ertapenem and a midline was placed to continue IV antibiotics at home on discharge tomorrow. 03/27- The patient was seen at bedside. She had no fever spikes and no abdominal pain. She is continued on IV ertapenem while awaiting midline placement for discharge. 03/28- The patient was seen at bedside. Vitals were stable and labs within range. Midline was placed this morning. Patient is currently waiting for availability of home health services. Patient reports: Feels better Objective vital signs Vital Sign Date Time Temp Pulse Resp B/P (MAP) Pulse Ox O2 Delivery O2 Flow Rate FiO2 03/28/25 13:00 98.2 80 19 108/68 (81) 93 98.2 03/28/25 08:00 Room Air* 0 21 Total Intake and Output 03/27/25 03/27/25 03/28/25 15:00 23:00 07:00 Intake Total 700 ml 720 ml Balance 700 ml 720 ml medications Current Medications Medications Dose Ordered Sig/Natali Route Start Time Stop Time Status Last Admin Dose Admin Enoxaparin Sodium 40 mg DAILY SC 03/18/25 10:00 03/24/25 08:47 40 MG Cholecalciferol 2,000 unit DAILY PO 03/21/25 10:00 03/28/25 10:22 2,000 UNIT Pantoprazole Sodium 40 mg DAILY@0600 PO 03/23/25 06:00 03/28/25 05:50 40 MG Sodium Chloride 1,000 ml @ 60 mls/hr [id number] IV 03/24/25 11:15 03/27/25 21:55 60 MLS/HR Morphine Sulfate 2 mg Q4HPRN PRN IV 03/24/25 11:15 Hold Acetaminophen/ Hydrocodone Bitart 1 tab Q6HP PRN PO 03/24/25 11:15 03/24/25 20:00 1 TAB Acetaminophen 650 mg Q6HP PRN PO 03/24/25 16:45 03/27/25 16:49 650 MG Polyethylene Glycol 17 gm DAILY PO 03/25/25 10:00 03/28/25 10:22 17 GM Ertapenem 1 gm/ Sodium Chloride 50 ml @ 100 mls/hr DAILY IV 03/26/25 12:45 03/28/25 10:12 100 MLS/HR Examination General: The patient seems comfortable, alert and oriented in person place and time. Patient is following commands. HEENT: Normocephalic, atraumatic, normal reactive pupils, EOM intact, pink conjunctiva, pink dry mucous membrane Respiratory/pulmonary: Bilateral chest expansion, no pain on chest palpation, clear lungs bilaterally, vesicular murmurs present in almost all lung simpson, no associated crackles or wheezes. Cardiovascular: On evaluation patient is slightly tachycardic, normal rhythm, normal S1 and S2 Abdomen: Abdomen nondistended, normal bowel sounds, soft, no pain to palpation in left lumbar region, no CVA tenderness, no palpable masses. Extremities: no deformities, there is no peripheral edema present at the lower extremities, pulses are palpable. Skin: No rashes or pruritus Neurological: Intact cranial nerves with no focal neurologic deficits laboratory and microbiology Laboratory Tests 03/27/25 06:19 Test 03/27/25 06:19 Range/Units Serum Glucose 96 74-106 mg/dL Microbiology Date/Time Source Procedure Growth Status 03/25/25 14:30 Blood Blood Culture - Preliminary NO GROWTH AFTER 72 HOURS OF INCUBATION. Resulted 03/24/25 13:12 Urine - [place] Urine Culture - Final Complete 03/19/25 03:30 Nose MRSA Screen - Final Complete Labs and/or images reviewed: Labs reviewed by me, Image(s) reviewed by me Problem List/Assessment/Plan Problem List/Assessment/Plan Sepsis secondary to acute complicated UTI - Ceftriaxone 1 g IV, discontinued - Zosyn 3.375 g IV q8hrs, discontinued -cefepime - NS 500 cc bolus IV - NS 120cc/hr IV - Blood cultures Preliminary: Negative at 24 hours of incubation - Urine culture preliminary: >100,000 CFU/mL mixed lisa - Continue to monitor vitals and labs Acute intractable abdominal and back pain due to Left Staghorn Calculi - s/p left URSLL with CVAC and stent placement -Abdominopelvic CT: Large left renal staghorn calculus on admission -Urology: Left ureteroscopy and laser lithotripsy with partial renal evacuation done on 03/22/25 -Monitor renal function -[place] 5 mg p.o. q.6 hours PRN TAMIA likely due to obstructive uropathy, secondary to above - IV fluids - Monitor renal function - Avoid nephrotoxic drugs Bilateral nephrolithiasis -Abdominopelvic CT: Abdominal pelvis CT shows bilateral renal calculi with a large left renal staghorn calculus - IV fluids Left hydroureter -Abdominopelvic CT: mild left hydroureter with no obstructing calculus noted GERD Right Ovarian Cyst -Abdominopelvic CT: 5.3 cm right ovarian cyst History of [place] in 2008 with no stents Diet: Regular DVT prophylaxis: Enoxaparin 40 mg sc daily GI prophylaxis: Not indicated Case discussed with Dr. Wang Goals of care discussed with the patient for over 30 minutes. FULL CODE. Plan discussed with: Patient Plan discussed with: Patient Dietary Evaluation Review Comments: 1) Add cardiac restriction to diet 2) Encourage optimal PO intake 3) Refer to outpatient RD for weigth management 4) Follow-up with urology and cardiology 5) Continue to monitor I&O, labs, and skin integrity Expected Outcomes/Goals: 1) appetite and labs to improve 2) gradual wt loss 3) f/u in 3-5 days JEREMÍAS STEPHEN RESIDENT Mar 28, 2025 15:25
[2025-03-29 05:13] VITALS: BP 102/65; PULSE 88; RESP 18; TEMP 98; O2SAT 92
[2025-03-29 07:05] LABS: Hematocrit 37.9 % (36.0-46.0); Hemoglobin 12.9 g/dL (12.2-16.2); Mean Corpuscular Hemoglobin 31.9 pg (28.0-32.0); Mean Corpuscular Volume 93.9 fL (80.0-100.0); Nucleated Red Blood Cells % 0.0 %
[2025-03-29 07:14] LABS: Chloride 103 mmol/L (98-107); Potassium 4.4 mmol/L (3.5-5.1); Sodium 136 mmol/L (136-145)
[2025-03-29 07:15] LABS: Anion Gap 9 (5-15); Carbon Dioxide 24 mmol/L (20-31)
[2025-03-29 07:16] LABS: Calcium 9.6 mg/dL (8.7-10.4)
[2025-03-29 07:20] LABS: Glucose 88 mg/dL (74-106)
[2025-03-29 07:21] LABS: BUN/Creatinine Ratio 11.3 (10.0-20.0)
[2025-03-29 07:23] LABS: Blood Urea Nitrogen 8 mg/dL (9-23)
[2025-03-29 08:00] VITALS: PULSE 78; RESP 16; O2SAT 97
[2025-03-29 09:00] VITALS: BP 109/73; PULSE 106; RESP 20; TEMP 97.1; O2SAT 92
[2025-03-29 13:00] VITALS: BP 110/70; PULSE 88; RESP 18; TEMP 98.7; O2SAT 92
[2025-03-29 13:42] VITALS: BP 128/87; PULSE 72; RESP 18; TEMP 98.7; O2SAT 98
--- NOTE | 2025-03-29 16:05 | DVHPNRES ---
Progress Note Date Seen: Mar 29, 2025 Resident Creating Document: JEREMÍAS STEPHEN RESIDENT Has the PT tested + for MRSA If YES, has PT been informed?: No Medical Necessity Reason Pt with a Central, PICC or Fol: No Subjective Review of Systems Patient is a 50 year old female with prior medical history of nephrolithiasis, myocardial infarction without stent placement in 2008, and GERD, who presented to the ED with chief complaint of flank pain. The patient refers sudden onset of intense flank pain 3 days ago described as cramp like, bilateral but worse on her left, radiating forward to lumbar region and down towards lower extremities, 10/10 in intensity, aggravated by movements, with no relieving factors, associated with chills, nausea, and febrile sensation. Additionally refers constipation for the last 3 days. The patient states she started her menstrual period on Friday, and for this reason is unsure if she has had hematuria associated to current symptoms. She denies vomiting, chest pain, palpitations, and other symptoms. Due to persistence of symptoms she sought medical care. On evaluation in the ED, the patient was in moderate distress and tachycardic. Initial labs show WBCs 14.8, neutrophils 12.7, creatinine 1.13. UA turbid, nitrites negative, ULE 3+, WBCs 27, WBC clumps, WBC 465, and bacteria few. Abdominal pelvis CT shows bilateral renal calculi with a large left renal staghorn calculus, there is associated dilation of the left renal calyces with [id number] asymmetric left-sided perinephric fat stranding, mild left hydroureter with no obstructing calculus noted. The patient was placed on IV fluids, IV antibiotics, and pain regimen. The patient was admitted for further workup monitoring. Personal history: Nephrolithiasis, [place] without placement of stents, GERD Allergies: IV contrast states it causes hives Surgical: Cholecystectomy, angiogram, ovarian cyst removal, left breast cyst removal, tubal ligation Social: Denies drug, tobacco, and alcohol use. States she lives with her children and feels safe. Review of Systems: Constitutional: Denies weight loss, fever and chills. HEENT: Denies changes in vision and hearing. Respiratory: Denies shortness of breath and cough Cardiovascular: Denies chest discomfort or palpitations GI: refers constipation, denies abdominal distention, abdominal pain, diarrhea : Denies dysuria and urinary frequency. Musculoskeletal: Currently refers no symptoms Skin: Denies rash and pruritus. Neurological: denies dizziness headache vision or hearing problems 03/19-Patient seen at bedside. Patient states that she feels well, denies any abdominal pain, tolerating oral diet, slept well, and has been able to ambulate without issue. Refers overnight she had 1 febrile episode, But otherwise felt fine. Currently denies abdominal pain, back pain, nausea, vomiting, palpitations, and fever. Patient had febrile spikes overnight ranging from 100.5-101.3. Blood pressure has continued to be borderline, NS bolus has been given and she will continue on fluids. Labs are significant for improvement of leukocytosis. Preliminary urine culture is growing >100,000 CFU/mL mixed lisa, blood cultures are negative at 24 hours of growth. She will continue on current management of IV antibiotics and IV fluids. Pending procedure with Urology on Friday. We will continue to monitor. 03/20-Patient was seen at bedside. She states that she has no abdominal pain, vomiting and fever overnight. Labs sow marked improvement in leukocytosis with WBC now at 8.8. We will continue to monitor her while continuing IV antibiotics and IV fluids. She was given 2000 mg daily of oral vitamin-D after her vitamin- D was found to be below normal. She has a pending urology procedure tomorrow. 03/21-The patient was seen at bedside and mentioned she has no abdominal pain fever or vomiting. Labs are within normal and vitals are stable. She could not undergo the procedure today as Nephrology is waiting for Interventional Radiology to place an access sheath for PCNL. She was told the procedure will be done tomorrow morning. Her antibiotics were discontinued and she was started on oral doxycycline. 03/22- Patient is seen today at bedside. Patient denied acute pain. Patient had left sided nephrostomy done today. Patient's ceftriaxone 1 g IV daily. Tolerating well. 03/23- Patient was seen at bedside and complained of abdominal pain. Left ureteroscopy/pyeloscopy, laser lithotripsy with partial renal evacuation was done yesterday. As per the procedure note, the percutaneous access was insufficient to remove the calculus we will be attempted again. The nephrostomy tube was removed and a temporary Owens catheter was placed. Patient was given Dilaudid 0.25 mg once for the abdominal pain. Patient's vitals were stable. White count was high which could be reactive and we are going to follow up on that tomorrow. 03/24- Patient is seen at bedside. She mentions that her abdominal pain has gone down considerably. Her white count today was 15.7 she had tachycardia and low blood pressure. We ordered a repeat urine culture blood culture and started the patient on cefepime. Nephrology saw the patient today and they mentioned that she will need left PCNL TBA as outpatient. They asked her to follow up outpatient in 1 week. We are going to observe the patient and watch for any signs of sepsis. 03/25-The patient was seen at bedside. She states that she has no abdominal pain. Her white count today was 15 and she had 3 spikes a fever since yesterday. She looks better clinically and will likely be discharged tomorrow if the vitals remained stable and the labs are within range for outpatient follow-up with Urology. 03/26- The patient was seen at bedside. White Count is showing a downward trend with no fever spikes in the last 24 hours. The patient also mentions she does not have any abdominal pain. Antibiotic was changed from cefepime to IV ertapenem and a midline was placed to continue IV antibiotics at home on discharge tomorrow. 03/27- The patient was seen at bedside. Vitals were stable and labs within range. The patient did not have any abdominal pain. Patient was discharged home on IV antibiotics with home health asked to follow-up with urology. All medications were explained thoroughly and all questions answered with all concerns addressed Objective vital signs Vital Sign Date Time Temp Pulse Resp B/P (MAP) Pulse Ox O2 Delivery O2 Flow Rate FiO2 03/29/25 13:42 98.7 72 18 98 03/29/25 13:00 110/70 (83) 03/29/25 08:00 Room Air* 0 21 Total Intake and Output 03/28/25 03/28/25 03/29/25 15:00 23:00 07:00 Intake Total 50 ml 525 ml 400 ml Balance 50 ml 525 ml 400 ml Examination General: The patient seems comfortable, alert and oriented in person place and time. Patient is following commands. HEENT: Normocephalic, atraumatic, normal reactive pupils, EOM intact, pink conjunctiva, pink dry mucous membrane Respiratory/pulmonary: Bilateral chest expansion, no pain on chest palpation, clear lungs bilaterally, vesicular murmurs present in almost all lung simpson, no associated crackles or wheezes. Cardiovascular: On evaluation patient is slightly tachycardic, normal rhythm, normal S1 and S2 Abdomen: Abdomen nondistended, normal bowel sounds, soft, no pain to palpation in left lumbar region, no CVA tenderness, no palpable masses. Extremities: no deformities, there is no peripheral edema present at the lower extremities, pulses are palpable. Skin: No rashes or pruritus Neurological: Intact cranial nerves with no focal neurologic deficits laboratory and microbiology Laboratory Tests 03/29/25 06:40 Test 03/29/25 06:40 Range/Units Serum Glucose 88 74-106 mg/dL Microbiology Date/Time Source Procedure Growth Status 03/25/25 14:30 Blood Blood Culture - Preliminary NO GROWTH AFTER 72 HOURS OF INCUBATION. Resulted 03/24/25 13:12 Urine - [place] Urine Culture - Final Complete 03/19/25 03:30 Nose MRSA Screen - Final Complete Labs and/or images reviewed: Labs reviewed by me, Image(s) reviewed by me Problem List/Assessment/Plan Problem List/Assessment/Plan Sepsis secondary to acute complicated UTI - Ceftriaxone 1 g IV, discontinued - Zosyn 3.375 g IV q8hrs, discontinued -cefepime - NS 500 cc bolus IV - NS 120cc/hr IV - Blood cultures Preliminary: Negative at 24 hours of incubation - Urine culture preliminary: >100,000 CFU/mL mixed lisa - Continue to monitor vitals and labs Acute intractable abdominal and back pain due to Left Staghorn Calculi - s/p left URSLL with CVAC and stent placement -Abdominopelvic CT: Large left renal staghorn calculus on admission -Urology: Left ureteroscopy and laser lithotripsy with partial renal evacuation done on 03/22/25 -Monitor renal function -[place] 5 mg p.o. q.6 hours PRN TAMIA likely due to obstructive uropathy, secondary to above - IV fluids - Monitor renal function - Avoid nephrotoxic drugs Bilateral nephrolithiasis -Abdominopelvic CT: Abdominal pelvis CT shows bilateral renal calculi with a large left renal staghorn calculus - IV fluids Left hydroureter -Abdominopelvic CT: mild left hydroureter with no obstructing calculus noted GERD Right Ovarian Cyst -Abdominopelvic CT: 5.3 cm right ovarian cyst History of [place] with no stents Diet: Regular DVT prophylaxis: Enoxaparin 40 mg sc daily GI prophylaxis: Not indicated Case discussed with Dr. Wang Goals of care discussed with the patient for over 30 minutes. FULL CODE. Plan discussed with: Patient Plan discussed with: Patient Plan discussed with: Patient Plan discussed with: Patient Dietary Evaluation Review Comments: 1) Add cardiac restriction to diet 2) Encourage optimal PO intake 3) Refer to outpatient RD for weigth management 4) Follow-up with urology and cardiology 5) Continue to monitor I&O, labs, and skin integrity Expected Outcomes/Goals: 1) appetite and labs to improve 2) gradual wt loss 3) f/u in 3-5 days JEREMÍAS STEPHEN RESIDENT Mar 29, 2025 16:05
== END 2025-03-29 14:00 | disposition home health service (06) | DRG 710 ==
LOC: ER 14:33 → OVERFLOW 23:05 → CENTRAL 03-18 16:33 → TELE-CENTR 03-19 08:18 → CENTRAL 03-20 06:59
PROVIDERS: ADMIT Student in an Organized Health Care Education/Training Program; ATTEND Student in an Organized Health Care Education/Training Program
PROC: 0TC18ZZ Extirpation of Matter from Left Kidney, Via Natural or Artificial Opening Endoscopic (ICD-10-PCS; 2025-03-22)
PROC: 0T778DZ Dilation of Left Ureter with Intraluminal Device, Via Natural or Artificial Opening Endoscopic (ICD-10-PCS; principal; 2025-03-22 15:57)
PROC: 05HD33Z Insertion of Infusion Device into Right Cephalic Vein, Percutaneous Approach (ICD-10-PCS; 2025-03-28)
PROC: B54MZZA Ultrasonography of Right Upper Extremity Veins, Guidance (ICD-10-PCS; 2025-03-28)
DX: A41.9 Sepsis, unspecified organism (principal); N17.0 Acute kidney failure with tubular necrosis; N13.6 Pyonephrosis; E66.9 Obesity, unspecified; F32.A Depression, unspecified; N20.0 Calculus of kidney; N83.201 Unspecified ovarian cyst, right side; E78.5 Hyperlipidemia, unspecified; F41.9 Anxiety disorder, unspecified; K21.9 Gastro-esophageal reflux disease without esophagitis; N13.9 Obstructive and reflux uropathy, unspecified; Z68.29 Body mass index [BMI] 29.0-29.9, adult; I25.2 Old myocardial infarction; Z91.041 Radiographic dye allergy status; Z79.82 Long term (current) use of aspirin; Z79.899 Other long term (current) drug therapy; Z90.49 Acquired absence of other specified parts of digestive tract; Z83.3 Family history of diabetes mellitus
CPT/HCPCS: 36415; 71045; 74018; 74176; 74425; 76000; 80048; 80053; 80061; 81001; 82306; 82360; 83036; 83605; 83735; 83880; 84443; 84702; 85025; 85610; 85730; 86803; 86850; 86900; 86901; 87040; 87081; 87086; 87340; 96361; 96365; 99152; G0378; J1100; J1335; J1885; J2003; J2250; J2405; J2543; J2704; J3490; Q9967

== ENCOUNTER 2025-04-12 07:20 | Outpatient (CLI) | payer MEDICAID ==
[~2025-04-12 07:20] MED LIST changes: -ASPI1TAB20 PO; +ERGO1CAP23 PO; +ERTA1INJ3 IV; +PANT40T PO
[2025-04-12 08:15] LABS: Hematocrit 37.9 % (36.0-46.0); Hemoglobin 12.9 g/dL (12.2-16.2); Mean Corpuscular Hemoglobin 31.4 pg (28.0-32.0); Mean Corpuscular Volume 92.0 fL (80.0-100.0); Nucleated Red Blood Cells % 0.1 %
[2025-04-12 08:27] LABS: Alanine Aminotransferase 20 U/L (7-40); Albumin 4.1 g/dL (3.2-4.8); Alkaline Phosphatase 90 U/L (46-116); Anion Gap 11 (5-15); BUN/Creatinine Ratio 14.5 (10.0-20.0); Bilirubin, Total 0.3 mg/dL (0.2-1.0); Blood Urea Nitrogen 12 mg/dL (9-23); Calcium 9.7 mg/dL (8.7-10.4); Carbon Dioxide 24 mmol/L (20-31); Chloride 104 mmol/L (98-107); Glucose 104 mg/dL (74-106); Potassium 4.2 mmol/L (3.5-5.1); Sodium 139 mmol/L (136-145); Total Protein 7.6 g/dL (5.7-8.2)
== END 2025-04-12 17:00 | disposition home or self-care (01) ==
LOC: LAB 07:20
PROVIDERS: ATTEND Internal Medicine
DX: Z00.00 Encounter for general adult medical examination without abnormal findings (principal)
CPT/HCPCS: 36415; 80053; 82043; 82306; 83036; 84439; 84443; 85025

== ENCOUNTER 2025-05-01 11:09 | Inpatient (IN) | payer MEDICAID ==
[~2025-05-01] VITALS: Ht 154.9 cm; Wt 71.0 kg
[2025-05-01] MEDS: ONDANSETRON HCL 4 MG/2 ML VIAL IV ONE (12:00)
[2025-05-01] MEDS: MORPHINE SULFATE 4 MG/ML SYR/VIAL IV ONE (12:00)
[2025-05-01] MEDS: SODIUM CHLORIDE 0.9% 1,000 ML IVB ONE (12:15)
[2025-05-01 12:28] LABS: Urine Protein, UAD 2+ (Negative); Urine WBC Clumps PRESENT /hpf (None Seen)
--- NOTE | 2025-05-01 12:36 | DVH ---
Exam: CT CT AB PEL WO CON-NO ORAL OR IV History: left flank pain Comparison Study: CT CT AB PEL WO CON-NO ORAL OR IV on DOS: 03/17/25, CT CT AB PEL WO CON-NO ORAL OR I V on DOS: 02/01/25 Technique: Multidetector spiral CT of the abdomen and pelvis was performed from lung bases to pubic s ymphysis. Imaging was performed without intravenous contrast. Coronal and sagittal multiplanar reform ats were obtained from the axial data set by the technologist. Radiation Dose : 1. Abdomen/Pelvis: CTDIvol 8.8 mGy, DLP 440.9 mGy*cm. Findings: Evaluation of vasculature and solid organs is limited due to lack of intravenous contrast use. Lung Bases: Lung bases are clear. Visualized portions of the heart and pericardium are unremarkable. Liver: The liver is normal in size. No focal lesions. Gallbladder and Biliary Tree: The gallbladder is surgically absent. No intrahepatic or extrahepatic b iliary ductal dilatation. Spleen: Unremarkable Pancreas: The pancreas is grossly unremarkable. Adrenal Glands: Unremarkable Kidneys: There is staghorn calculus in the left renal pelvis measuring 1.8 cm with the additional irish al calculi measuring up to 1 cm. There is a left double-J ureteral stent with tips coiled in the pel vis. Severe left hydronephrosis. There is left perinephric fat stranding. Nonobstructive right neph rolithiasis measuring 6 mm. GI tract: The stomach is grossly normal in appearance. No evidence of small bowel wall thickening or abnormal dilatation to suggest bowel obstruction. The colon is unremarkable. The appendix is not visu alized, however no inflammatory changes in the right lower quadrant to suggest acute appendicitis. Peritoneum/mesentery/retroperitoneum. No evidence of free intraperitoneal air. No ascites. No evidenc e of suspicious lymphadenopathy. Abdominal Wall: Unremarkable. Vasculature: The visualized abdominal aorta is normal in size and caliber. Evaluation of abdominal a nd pelvic vessels is limited due to lack of intravenous contrast. Urinary Bladder: Grossly unremarkable for degree of distention. Pelvic Organs: Right adnexal cystic lesion is noted measuring 4.9 cm. The uterus is enlarged. Musculoskeletal: No aggressive focal bony lesions, acute fractures or dislocation. Grade 1 anterolist hesis at L5-S1. IMPRESSION: 1. Seevere left hydronephrosis secondary to staghorn calculus in the left renal pelvis measuring 1.8 cm with the additional renal calculi measuring up to 1 cm. There is a left double-J ureteral stent wi th tips coiled in the pelvis. 2. Nonobstructive right nephrolithiasis measuring 6 mm. 3. Right ovarian cystic lesion measuring 4.9 cm. Enlarged uterus. These findings can be further eval uated with pelvic ultrasound.
[2025-05-01 12:39] LABS: Hematocrit 42.5 % (36.0-46.0); Hemoglobin 14.3 g/dL (12.2-16.2); Mean Corpuscular Hemoglobin 31.1 pg (28.0-32.0); Mean Corpuscular Volume 92.4 fL (80.0-100.0); Nucleated Red Blood Cells % 0.1 %
[2025-05-01 12:53] LABS: Anion Gap 11 (5-15); Carbon Dioxide 27 mmol/L (20-31); Chloride 103 mmol/L (98-107); Potassium 3.8 mmol/L (3.5-5.1); Sodium 141 mmol/L (136-145)
[2025-05-01 12:54] LABS: Calcium 9.7 mg/dL (8.7-10.4)
[2025-05-01 12:59] LABS: BUN/Creatinine Ratio 15.4 (10.0-20.0); Blood Urea Nitrogen 14 mg/dL (9-23); Glucose 111 mg/dL (74-106)
[2025-05-01] MEDS: KETOROLAC TROMETH 30 MG/ML 1ML VIAL IV ONE (13:02)
--- NOTE | 2025-05-01 13:16 | ED.PDOC ---
History of Present Illness HPI Comments This is a 50-year-old female who comes in with chief complaint of left-sided flank pain. The patient states that the symptoms radiate down her legs as well as with the left abdominal area. She states that the symptoms started at 10:00 a.m. last night in his a 05/06. She is complaining of some nausea as well as chills. She denies any vomiting at this time. The patient has had lithotripsy in the past. She states she has has a history of kidney stones in the past. Chief Complaint: Back Pain Time Seen by MD: 11:11 Primary Care Provider: NONE Reviewed Notes: Nurses Notes, Medications, Allergies (Allergies to contrast) Allergies: Uncoded Allergies: CONTRAST (Allergy, Unknown, 08/16/15) Home Meds Active Scripts Ertapenem Sodium (Ertapenem) 1 Gm Inj, 1 GM IV DAILY for 8 Days, #8 INJ [facility]25 Pantoprazole Sodium Sesquihydr (Pantoprazole Sodium) 40 Mg Tab, 20 MG PO DAILY for 14 Days, #14 TAB Prov:[facility] 03/27/25 Ergocalciferol (VITAMIN D 42521 UNIT) 50,000 [place], [address] UNIT PO QWEEKLY, #10 CAP Prov:[facility] 03/27/25 Azithromycin (Azithromycin) 250 Mg Tab, 250 MG PO DAILY MDD 500 for 5 Days, #6 TAB 0 Refills 2 TABLETS ORALLY ON DAY ONE, THEN 1 TABLET ORALLY DAILY FOR 4 DAYS Prov:[facility] 05/09/24 Kaqumwxj-Cztrbbvirl-Ttmskuqld- (Neosporin + Pain Relief) Relf Max Oin, 1 MAX EX DAILY for 10 Days, #5 OIN Prov:PEGGY GORDON MD 09/28/21 Yeast (S. Boulardii)(S. Cerevi (Florastor) 250 Mg Cap, 250 MG PO DAILY, #10 CAP Prov:JADA JAIMES MD 12/12/16 Doxycycline Hyclate (DOXYCYCLINE HYCLATE) 100 Mg Tab, 1 TAB PO BID, #20 TAB Prov:JADA JAIMES MD 12/12/16 Atorvastatin Calcium (ATORVASTATIN CALCIUM) 20 Mg Tab, 20 MG PO HS, #30 TAB Prov:JADA JAIMES MD 12/12/16 Information Source: Patient Mode of Arrival: Ambulatory Severity: Moderate Timing: Hours Duration: Since onset Prehospital treatment: None Location: Left-sided flank pain Associated signs and symptoms The patient has nausea as well as chills Past Medical History PAST MEDICAL HISTORY: Anxiety, GERD, High Lipids, Kidney Stones, MA Surgical History: BTL, Cholecystectomy, PTCA Surgical History (Other): Lithotripsy in the past, previous angiogram, ovarian cyst removal as well as breast cyst 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 Family History Family History: Family hx of heart pamela Social History Smoker: Non-Smoker Alcohol: Denies ETOH Use Drugs: Denies Drug Use Lives In: Home Constitutional: reports: chills; denies: diaphoresis, fatigue, fever, malaise, sweats, weakness, others EENTM: denies: blurred vision, double vision, ear bleeding, ear discharge, ear drainage, ear pain, ear ringing, eye pain, eye redness, hearing loss, mouth pain, mouth swelling, nasal discharge, nose bleeding, nose congestion, nose pain, photophobia, tearing, throat pain, throat swelling, voice changes, others Respiratory: denies: cough, hemoptysis, orthopnea, SOB at rest, shortness of breath, SOB with excertion, stridor, wheezing, others Cardiovascular: denies: chest pain, dizzy spells, diaphoresis, Dyspnea on exertion, edema, irregular heart beat, left arm pain, lightheadedness, palpitations, PND, syncope, others Gastrointestinal: reports: nausea; denies: abdomen distended, abdominal pain, blood streaked bowels, constipated, diarrhea, dysphagia, difficulty swallowing, hematemesis, melena, poor appetite, poor fluid intake, rectal bleeding, rectal pain, vomiting, others Genitourinary: reports: flank pain (Left-sided flank pain); denies: abnormal vagina bleeding, burning, dyspareunia, dysuria, frequency, hematuria, incontinence, pain, , vagina discharge, urgency, others Neurological: denies: dizziness, fainting, headache, left sided numbness, left sided weakness, numbness, paresthesia, pre-existing deficit, right sided numbness, right sided weakness, seizure, speech problems, tingling, tremors, weakness, others Musculoskeletal: denies: back pain, gout, joint pain, joint swelling, muscle pain, muscle stiffness, neck pain, others Integumetry: denies: bruises, change in color, change in hair/nails, dryness, laceration, lesions, lumps, rash, wounds, others Allergic/Immunocompromised: denies: Difficulty Healing, Frequent Infections, Hives, Itching, others Hematologic/Lymphatic: denies: anemia, blood clots, easy bleeding, easy bruising, swollen glands, others Endocrine: denies: excessive hunger, excessive sweating, excessive thirst, excessive urination, flushing, intolerance to cold, intolerance to heat, unexplained weight gain, unexplained weight loss, others Psychiatric: denies: anxiety, bipolar disorder, depression, hopeless, panic disorder, schizophrenia, sleepless, suicidal, others Physical Exam General Appearance: Moderate Distress HEENT: Normal ENT Inspection, Pharynx Normal, TMs Normal Neck: Full Range of Motion, Non-Tender, Normal, Normal Inspection Respiratory: Chest Non-Tender, Lungs Clear, No Accessory Muscle Use, No Respira tory Distress, Normal Breath Sounds Cardiovascular: No Edema, No JVD, No Murmur, No Gallop, Normal Peripheral Pulses, Regular Rate/Rhythm Breast Exam: Deferred Gastrointestinal: No Organomegaly, Non Tender, No Pulsatile Mass, Normal Bowel Sounds, Soft Genitalia: Deferred Pelvic: Deferred Rectal: Deferred Extremities: No calf tenderness, Normal capillary refill, No pedal edema Musculoskeletal : Location: Left Extremity Location: Back Apperance: Limited ROM, Tenderness: Moderate Neurologic: Alert, 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 Was a procedure done?: No Differential Dx Considerations may include: Kidney stones, UTI, generalized weakness, electrolyte imbalance X-Ray, Labs, Meds, VS Vital Signs Date Time Temp Pulse Resp B/P (MAP) Pulse Ox O2 Delivery O2 Flow Rate FiO2 05/01/25 13:07 99.9 116 19 110/54 (72) 95 99.9 05/01/25 13:03 116 19 110/54 05/01/25 12:37 116 18 123/76 (92) 97 05/01/25 12:00 119 18 123/76 05/01/25 11:47 122 18 140/59 (86) 96 05/01/25 11:47 122 18 96 Room Air 05/01/25 11:10 97.1 113 18 145/86 96 97.1 Lab Test 05/01/25 12:12 05/01/25 11:54 Range/Units White Blood Count 14.5 H 4.4-10.8 10^3/uL Red Blood Count 4.59 4.0-5.20 10^6/uL Hemoglobin 14.3 12.2-16.2 g/dL Hematocrit 42.5 36.0-46.0 % Mean Corpuscular Volume 92.4 80.0-100.0 fL Mean Corpuscular Hemoglobin 31.1 28.0-32.0 pg Mean Corpuscular Hemoglobin Concent 33.6 32.0-36.0 g/dL Red Cell Distribution Width 14.1 11.8-14.3 % Platelet Count 280 140-450 10^3/uL Mean Platelet Volume 9.6 6.9-10.8 fL Neutrophils (%) (Auto) 84.9 H 37.0-80.0 % Lymphocytes (%) (Auto) 7.6 L 10.0-50.0 % Monocytes (%) (Auto) 6.4 0.0-12.0 % Eosinophils (%) (Auto) 0.8 0.0-7.0 % Basophils (%) (Auto) 0.3 0.0-2.0 % Neutrophils # (Auto) 12.3 H 1.6-8.6 10 ^3/uL Lymphocytes # (Auto) 1.1 0.4-5.4 10 ^3/uL Monocytes # (Auto) 0.9 0-1.3 10 ^3/uL Eosinophils # (Auto) 0.1 0-0.8 10 ^3/uL Basophils # (Auto) 0 0-0.2 10 ^3/uL Nucleated Red Blood Cells 0.1 % Sodium Level 141 136-145 mmol/L Potassium Level 3.8 3.5-5.1 mmol/L Chloride Level 103 98-107 mmol/L Carbon Dioxide Level 27 20-31 mmol/L Anion Gap 11 5-15 Blood Urea Nitrogen 14 9-23 mg/dL Creatinine 0.91 0.550-1.02 mg/dL Glomerular Filtration Rate Calc 77 >90 mL/min BUN/Creatinine Ratio 15.4 10.0-20.0 Serum Glucose 111 H 74-106 mg/dL Calcium Level 9.7 8.7-10.4 mg/dL Urine Color Light-yellow Yellow Urine Clarity Cloudy H Clear Urine pH 6.5 5.0-9.0 Urine Specific [place] 1.013 1.001-1.035 Urine Protein 2+ H Negative Urine Ketones Negative Negative Urine Blood 3+ H Negative /uL Urine Nitrite Negative Negative Urine Bilirubin Negative Negative Urine Urobilinogen Normal Negative mg/dL Urine Leukocyte Esterase 3+ Negative /uL Urine RBC 110 0 - 4 /hpf Urine WBC Clumps Present None Seen /hpf Urine Microscopic WBC 981 H 0-5 /HPF Urine Squamous Epithelial Cells Few <5 /hpf Urine Bacteria Few H None Seen /hpf Urine Glucose Normal Normal mg/dL Current Medications Medications (Trade) Dose Ordered Sig/Natali Route Start Time Stop Time Status Last Admin Ondansetron HCl (Zofran) 4 mg ONCE ONCE IV 05/01/25 12:00 05/01/25 12:01 DC 05/01/25 12:00 Sodium Chloride 1,000 ml @ 1,000 mls/hr Q1H ONCE IVB 05/01/25 12:00 05/01/25 12:59 DC 05/01/25 12:15 Morphine Sulfate 4 mg ONCE ONCE IV 05/01/25 12:00 05/01/25 12:01 DC 05/01/25 12:00 Ketorolac Tromethamine (Toradol Injection) 30 mg ONCE ONCE IV 05/01/25 12:00 05/01/25 12:01 DC 05/01/25 13:02 IV Hep-Lock was established. The patient was given a 1 L bolus of normal saline The patient was given morphine 4 mg IV push The patient was given Zofran 4 mg IV push The patient was also given ketorolac 30 mg IV push The urine test is positive for a significant UTI The patient's CBC shows an elevated white blood cell count of 14.5 The chemistry panel is within normal limits The patient is being admitted at this time A CAT scan of the abdomen and pelvis shows: IMPRESSION: 1. Seevere left hydronephrosis secondary to staghorn calculus in the left renal pelvis measuring 1.8 cm with the additional renal calculi measuring up to 1 cm. There is a left double-J ureteral stent with tips coiled in the pelvis. 2. Nonobstructive right nephrolithiasis measuring 6 mm. 3. Right ovarian cystic lesion measuring 4.9 cm. Enlarged uterus. These findings can be further evaluated with pelvic ultrasound. The patient will have a Urology consult Images Reviewed?: Images reviewed and evaluated by me Time of 1ST Reevaluation: 13:14 Reevaluation 1ST: Unchanged Patient Education/Counseling: Diagnosis, Treatment, Prognosis Family Education/Counseling: No Family Present SEPSIS Sepsis Screen Date sepsis recognized/suspect: May 01, 2025 Time Sepsis recognized/suspect: 1109 Recent Procedure: No On Antibiotic Therapy: No Respiratory Rate >20: No Heart Rate >90: Yes Temp<36 C (96.8 F) or >38.3 C: No SBP <90 or MAP <65 mmHG: No New Acute Mental Status Change: No Is the patient on CPAP, BIPAP,: No Physician Orders Ct Ab Pel Wo Con-No Oral Or Iv (05/01/25 11:50) Heplock Iv (05/01/25 11:50) Vital Signs Date Time Temp Pulse Resp B/P (MAP) Pulse Ox O2 Delivery O2 Flow Rate FiO2 05/01/25 13:07 99.9 116 19 110/54 (72) 95 99.9 05/01/25 13:03 116 19 110/54 05/01/25 12:37 116 18 123/76 (92) 97 05/01/25 12:00 119 18 123/76 05/01/25 11:47 122 18 140/59 (86) 96 05/01/25 11:47 122 18 96 Room Air 05/01/25 11:10 97.1 113 18 145/86 96 97.1 Laboratory Tests Test 05/01/25 12:12 White Blood Count 14.5 10^3/uL (4.4-10.8) H Medications Medications Dose Ordered Sig/Natali Route Start Time Stop Time Status Last Admin Dose Admin Ketorolac Tromethamine 30 mg ONCE ONCE IV 05/01/25 12:00 05/01/25 12:01 DC 05/01/25 13:02 Morphine Sulfate 4 mg ONCE ONCE IV 05/01/25 12:00 05/01/25 12:01 DC 05/01/25 12:00 Ondansetron HCl 4 mg ONCE ONCE IV 05/01/25 12:00 05/01/25 12:01 DC 05/01/25 12:00 Sodium Chloride 1,000 ml @ 1,000 mls/hr Q1H ONCE IVB 05/01/25 12:00 05/01/25 12:59 DC 05/01/25 12:15 Departure 1 Departure Time of Disposition: 13:15 Impression: Primary Impression: UTI (urinary tract infection) Qualified Codes: N30.01 - Acute cystitis with hematuria Additional Impressions: Staghorn kidney stones Ureterolithiasis Hydronephrosis Qualified Codes: N13.30 - Unspecified hydronephrosis Disposition: ADMITTED INPATIENT Admit to: Med Surg Condition: Fair Critical Care Note Critical Care Time?: No Stability Stability form required: No Heart Score Heart Score: Heart Score Response (Comments) Value History N/A 0 EKG N/A 0 Age N/A 0 Risk Factors N/A 0 Troponin N/A 0 Total 0 LEXI HOPKINS MD May 01, 2025 13:16
[2025-05-01] MEDS: SODIUM CHLORIDE 0.9% 1,000 ML IV SCH (14:23)
[2025-05-01 14:40] VITALS: BP 95/58; PULSE 85; RESP 16; TEMP 98.6; O2SAT 94
[2025-05-01 15:09] LABS: Alanine Aminotransferase 14 U/L (7-40); Albumin 4.4 g/dL (3.2-4.8); Alkaline Phosphatase 79 U/L (46-116); Magnesium 2.0 mg/dL (1.6-2.6); Total Protein 8.1 g/dL (5.7-8.2)
[2025-05-01 15:10] LABS: Bilirubin, Direct < 0.1 mg/dL (<0.3); Bilirubin, Total 0.3 mg/dL (0.2-1.0)
[2025-05-01 15:12] VITALS: BP 95/58; PULSE 85; RESP 16; TEMP 98.6; O2SAT 94
[2025-05-01 15:15] LABS: INR 1.04 (0.9-1.15); Partial Thromboplastin Time 28.6 SEC (24.5-34.5); Prothrombin Time 11.0 sec (9.3-11.8)
--- NOTE | 2025-05-01 15:20 | DVHHPRES ---
History of Present Illness Resident Creating Document: SABINE BENITEZ RESIDENT History of Present Illness MAICOL AMARO is a 50-year-old female with a PMH of nephrolithiasis, CAD, GERD Presented to the ED with the chief complaints of left-sided flank pain and chills since yesterday. Patient was recently hospitalized last month for nephrolithiasis, Urology recommended left PCNL TBA as outpatient, patient visited urologist on outpatient and advised she might need 2 more procedures but in scheduled. since discharge the patient reports intermittent sensation something poking her in the flank area med yesterday the pain is consistent the left-sided that radiates to legs the pain is associated with chills and feeling generalized weakness which brought her to visit ED today. Patient also reported mild burning sensation after urination but denies other urinary symptoms. PMH: Anxiety, GERD, HLD, nephrolithiasis recurrent, CAD PSH: Cholecystectomy, right ovarian cyst removal, ureteral stent Family history: Noncontributory Personal history: Lives at home. Denies smoking, alcohol and other drug abuse Allergies: No known allergies except contrast Patient seen and examined at the bedside. Patient currently reporting chills, fatigue, left flank pain and mild burning sensation after urination. Review of Systems Allergies: Uncoded Allergies: CONTRAST (Allergy, Unknown, 08/16/15) Medications Current Medications Medications Dose Ordered Sig/Natali Route Start Time Stop Time Status Last Admin Dose Admin Sodium Chloride 1,000 ml @ 120 mls/hr Q8H20M IV 05/01/25 14:15 05/01/25 14:23 120 MLS/HR Acetaminophen/ Hydrocodone Bitart 1 tab Q4HP PRN PO 05/01/25 14:15 Ondansetron HCl 4 mg Q4HP PRN IV 05/01/25 14:15 Enoxaparin Sodium 40 mg DAILY SC 05/02/25 10:00 Acetaminophen 650 mg Q6HP PRN PO 05/01/25 14:15 Morphine Sulfate 2 mg Q4HPRN PRN IV 05/01/25 14:30 Piperacillin Sod/ Tazobactam Sod 100 ml @ 25 mls/hr Q8HR IV 05/01/25 15:00 UNV Tamsulosin HCl 0.4 mg QPM PO 05/01/25 18:00 UNV Pantoprazole Sodium 40 mg DAILY IV 05/02/25 10:00 UNV Exam Vital Signs Vital Signs Date Time Temp Pulse Resp B/P (MAP) Pulse Ox O2 Delivery O2 Flow Rate FiO2 05/01/25 13:07 99.9 116 19 110/54 (72) 95 99.9 05/01/25 11:47 Room Air Exam Pt is lying on bed General Appearance: Alert, Oriented X3, Cooperative, Mild distress HEENT: Atraumatic, Mucous membranes moist/pink Respiratory: Clear to auscultation, Normal air movement, No added sounds Cardiovascular: Regular rate, Normal S1, Normal S2, No murmurs Abdominal: Active bowel sounds, Soft, no distention, Left-sided flank tenderness, suprapubic tenderness Extremities: No edema, Normal pulses, No tenderness/swelling Skin: No Significant rash, except past surgical scars Neuro: Normal speech, sensorimotor deficits none Psych/Mental Status: Mental status NL, Mood NL Nurse was there as onion tier during examination Labs/Xrays Labs Test 05/01/25 15:03 05/01/25 12:12 05/01/25 11:54 Range/Units White Blood Count 14.5 H 4.4-10.8 10^3/uL Red Blood Count 4.59 4.0-5.20 10^6/uL Hemoglobin 14.3 12.2-16.2 g/dL Hematocrit 42.5 36.0-46.0 % Mean Corpuscular Volume 92.4 80.0-100.0 fL Mean Corpuscular Hemoglobin 31.1 28.0-32.0 pg Mean Corpuscular Hemoglobin Concent 33.6 32.0-36.0 g/dL Red Cell Distribution Width 14.1 11.8-14.3 % Platelet Count 280 140-450 10^3/uL Mean Platelet Volume 9.6 6.9-10.8 fL Neutrophils (%) (Auto) 84.9 H 37.0-80.0 % Lymphocytes (%) (Auto) 7.6 L 10.0-50.0 % Monocytes (%) (Auto) 6.4 0.0-12.0 % Eosinophils (%) (Auto) 0.8 0.0-7.0 % Basophils (%) (Auto) 0.3 0.0-2.0 % Neutrophils # (Auto) 12.3 H 1.6-8.6 10 ^3/uL Lymphocytes # (Auto) 1.1 0.4-5.4 10 ^3/uL Monocytes # (Auto) 0.9 0-1.3 10 ^3/uL Eosinophils # (Auto) 0.1 0-0.8 10 ^3/uL Basophils # (Auto) 0 0-0.2 10 ^3/uL Nucleated Red Blood Cells 0.1 % Prothrombin Time 11.0 9.3-11.8 sec Prothrombin Time INR 1.04 0.9-1.15 Activated Partial Thromboplast Time 28.6 24.5-34.5 SEC Sodium Level 141 136-145 mmol/L Potassium Level 3.8 3.5-5.1 mmol/L Chloride Level 103 98-107 mmol/L Carbon Dioxide Level 27 20-31 mmol/L Anion Gap 11 5-15 Blood Urea Nitrogen 14 9-23 mg/dL Creatinine 0.91 0.550-1.02 mg/dL Glomerular Filtration Rate Calc 77 >90 mL/min BUN/Creatinine Ratio 15.4 10.0-20.0 Serum Glucose 111 H 74-106 mg/dL Calcium Level 9.7 8.7-10.4 mg/dL Magnesium Level 2.0 1.6-2.6 mg/dL Total Bilirubin 0.3 0.2-1.0 mg/dL Direct Bilirubin < 0.1 <0.3 mg/dL Aspartate Amino Transferase (AST) 18 13-40 U/L Alanine Aminotransferase (ALT) 14 7-40 U/L Alkaline Phosphatase 79 46-116 U/L Total Protein 8.1 5.7-8.2 g/dL Albumin 4.4 3.2-4.8 g/dL Urine Color Light-yellow Yellow Urine Clarity Cloudy H Clear Urine pH 6.5 5.0-9.0 Urine Specific [place] 1.013 1.001-1.035 Urine Protein 2+ H Negative Urine Ketones Negative Negative Urine Blood 3+ H Negative /uL Urine Nitrite Negative Negative Urine Bilirubin Negative Negative Urine Urobilinogen Normal Negative mg/dL Urine Leukocyte Esterase 3+ Negative /uL Urine RBC 110 0 - 4 /hpf Urine WBC Clumps Present None Seen /hpf Urine Microscopic WBC 981 H 0-5 /HPF Urine Squamous Epithelial Cells Few <5 /hpf Urine Bacteria Few H None Seen /hpf Urine Glucose Normal Normal mg/dL SEPSIS Sepsis Screen Date sepsis recognized/suspect: May 01, 2025 Time Sepsis recognized/suspect: 1110 Recent Procedure: No On Antibiotic Therapy: No Respiratory Rate >20: No Heart Rate >90: Yes Temp<36 C (96.8 F) or >38.3 C: No SBP <90 or MAP <65 mmHG: No New Acute Mental Status Change: No Is the patient on CPAP, BIPAP,: No Physician Orders Ct Ab Pel Wo Con-No Oral Or Iv (05/01/25 11:50) Heplock Iv (05/01/25 11:50) Admit (05/01/25 14:06) Allergies (05/01/25 14:06) Code Status (05/01/25 14:06) Renal Standard(2gna,3gk,Lopho) (05/01/25 Dinner) Sodium Chloride 0.9% (05/01/25 14:15) Hydrocodone-Acet 5/325mg Tab ([place] /32 (05/01/25 14:15) Ondansetron Hcl (Zofran) (05/01/25 14:15) Enoxaparin Sodium (Lovenox) (05/02/25 10:00) Complete Blood Count (05/02/25 04:00) Comprehensive Metabolic Panel (05/02/25 04:00) Condition: Fair (05/01/25 14:06) Acetaminophen Tablet (Tylenol Tablet) (05/01/25 14:15) Morphine Sulfate Injection (05/01/25 14:30) * Urology Consult (05/01/25 14:46) Piperacillin-Tazob 3.375gm (Zosyn 3.375g (05/01/25 15:00) Tamsulosin Hydrochloride (Flomax) (05/01/25 18:00) Pantoprazole (Protonix) (05/01/25 15:00) Pantoprazole (Protonix) (05/02/25 10:00) Lactic Acid W/ Reflex Order (05/01/25 14:46) Drug Screen (05/01/25 14:46) Strain All Urine (05/01/25 ) Urine Bacterial Culture (05/01/25 15:17) Blood Culture (05/01/25 15:17) Vital Signs Date Time Temp Pulse Resp B/P (MAP) Pulse Ox O2 Delivery O2 Flow Rate FiO2 05/01/25 13:07 99.9 116 19 110/54 (72) 95 99.9 05/01/25 13:03 116 19 110/54 05/01/25 12:37 116 18 123/76 (92) 97 05/01/25 12:00 119 18 123/76 05/01/25 11:47 122 18 140/59 (86) 96 05/01/25 11:47 122 18 96 Room Air 05/01/25 11:10 97.1 113 18 145/86 96 97.1 Laboratory Tests Test 05/01/25 12:12 05/01/25 15:03 White Blood Count 14.5 10^3/uL (4.4-10.8) H Lactic Acid Level Pending Medications Medications Dose Ordered Sig/Natali Route Start Time Stop Time Status Last Admin Dose Admin Ketorolac Tromethamine 30 mg ONCE ONCE IV 05/01/25 12:00 05/01/25 12:01 DC 05/01/25 13:02 30 MG Morphine Sulfate 4 mg ONCE ONCE IV 05/01/25 12:00 05/01/25 12:01 DC 05/01/25 12:00 4 MG Ondansetron HCl 4 mg ONCE ONCE IV 05/01/25 12:00 05/01/25 12:01 DC 05/01/25 12:00 4 MG Sodium Chloride 1,000 ml @ 120 mls/hr Q8H20M IV 05/01/25 14:15 05/01/25 14:23 120 MLS/HR Sodium Chloride 1,000 ml @ 1,000 mls/hr Q1H ONCE IVB 05/01/25 12:00 05/01/25 12:59 DC 05/01/25 12:15 1,000 MLS/HR Assessment/Plan Assessment/Plan # sepsis likely from UTI # Acute complicated UTI likely from obstruction - evident on urinalysis - ordered urine bacterial culture and pancultures - currently giving Zosyn # Severe left hydronephrosis # Staghorn calculus in the left renal pelvis status post ureteral stent # Bilateral nephrolithiasis - CT abd/pel severe left hydronephrosis secondary to staghorn calculus in the left renal pelvis measuring 1.8 cm with the additional renal calculi measuring up to 1 cm. There is a left double-J ureteral stent with tips coiled in the pelvis and nonobstructive right nephrolithiasis measuring 6 mm. - urology consult - tamsulosin - Owens catheter - pain management # Rt Ovarian cyst - CT abdominal pelvis shows Right ovarian cystic lesion measuring 4.9 cm. These findings can be further evaluated with pelvic ultrasound. - outpatient follow up with OBGYN # GERD - Protonix GI PPX: Protonix VTE ppx: Lovenox Diet: cardiac and renal Goals of care addressed with the patient for more than 27 minutes: Full code status Case discussed with Dr. Arias ,patient and nurse Plan discussed with: Patient My Orders Orders - SABINE BENITEZ RESIDENT Procedure Category Date Status Time Admit ADMIT 05/01/25 Transmitted 14:06 Allergies ROGELIO 05/01/25 In Process 14:06 Code Status CODE 05/01/25 Transmitted 14:06 Renal DIET 05/01/25 Transmitted Standard(2gna,3gk,Lopho) Dinner Sodium Chloride 0.9% PHA 05/01/25 In Process 14:15 Hydrocodone-Acet PHA 05/01/25 In Process 5/325mg Tab ([place] 14:15 Ondansetron Hcl PHA 05/01/25 In Process (Zofran) 14:15 Enoxaparin Sodium PHA 05/02/25 In Process (Lovenox) 10:00 Complete Blood Count LAB 05/02/25 Verified 04:00 Comprehensive LAB 05/02/25 Verified Metabolic Panel 04:00 Condition: Fair ROGELIO 05/01/25 In Process 14:06 Acetaminophen Tablet PHA 05/01/25 In Process (Tylenol Tablet) 14:15 Morphine Sulfate PHA 05/01/25 In Process Injection 14:30 * Urology Consult CONS 05/01/25 Transmitted 14:46 Piperacillin-Tazob PHA 05/01/25 Logged 3.375gm (Zosyn 3.375g 15:00 Tamsulosin PHA 05/01/25 Logged Hydrochloride (Flomax) 18:00 Pantoprazole PHA 05/01/25 Logged (Protonix) 15:00 Pantoprazole PHA 05/02/25 Logged (Protonix) 10:00 Lactic Acid W/ Reflex LAB 05/01/25 In Process Order 14:46 Drug Screen LAB 05/01/25 In Process 14:46 Strain All Urine ED NURSING 05/01/25 Transmitted Urine Bacterial CRISTIAN 05/01/25 Logged Culture 15:17 Blood Culture CRISTIAN 05/01/25 Logged 15:17 EMMANUEL,KHAJA RESIDENT May 01, 2025 15:20
[2025-05-01 15:21] VITALS: PULSE 61; RESP 16; O2SAT 96
[2025-05-01 15:30] LABS: Amphetamine Screen, Urine Neg (NEGATIVE); Barbiturate Scree,Urine Neg (NEGATIVE); Benzodiazephine Screen, Urine Neg (NEGATIVE); Cannabinoid Screen, Urine Neg (NEGATIVE); Cocaine Screen, Urine Neg (NEGATIVE); Opiate Scree,Urine Neg (NEGATIVE); Phencyclidine Screen, Urine Neg (NEGATIVE)
[2025-05-01] MEDS: PANTOPRAZOLE 40 MG/10 ML VIAL INJ IV ONE (16:04)
[2025-05-01] MEDS: PIPERACILLIN-TAZOB 3.375GM 100 ML IV SCH (16:04)
[2025-05-01] MEDS: TAMSULOSIN HYDROCHLORIDE 0.4 MG CAP PO SCH (18:17)
[2025-05-01 20:00] VITALS: PULSE 97; RESP 18; O2SAT 95
[2025-05-01 21:00] VITALS: BP 118/70; PULSE 97; RESP 17; TEMP 100.8; O2SAT 95
[2025-05-02] VITALS (12 sets, daily range): BP systolic 104–145; BP diastolic 64–74; PULSE 96–117; RESP 12–28; TEMP 97–101.4; O2SAT 84–100
[2025-05-02 07:48] LABS: Hematocrit 36.5 % (36.0-46.0); Hemoglobin 12.2 g/dL (12.2-16.2); Mean Corpuscular Hemoglobin 31.3 pg (28.0-32.0); Mean Corpuscular Volume 93.3 fL (80.0-100.0); Nucleated Red Blood Cells % 0.0 %
[2025-05-02 08:06] LABS: Alanine Aminotransferase 13 U/L (7-40); Alkaline Phosphatase 72 U/L (46-116); Anion Gap 13 (5-15); BUN/Creatinine Ratio 13.8 (10.0-20.0); Blood Urea Nitrogen 13 mg/dL (9-23); Calcium 8.7 mg/dL (8.7-10.4); Carbon Dioxide 23 mmol/L (20-31); Chloride 104 mmol/L (98-107); Potassium 3.6 mmol/L (3.5-5.1); Sodium 140 mmol/L (136-145); Total Protein 6.7 g/dL (5.7-8.2)
[2025-05-02 08:07] LABS: Albumin 3.7 g/dL (3.2-4.8); Bilirubin, Total 0.9 mg/dL (0.2-1.0); Glucose 107 mg/dL (74-106)
--- NOTE | 2025-05-02 08:47 | DVHINCON2 ---
Date of service: May 02, 2025 Referring Physician Hospitalist Reason for Consultation Left staghorn calculus with indwelling ureteral stent. History of Present Illness Patient has known left staghorn calculus and underwent attempted left percutaneous nephrolithotripsy on 03/16. The procedure was unsuccessful due to inadequate percutaneous access. I proceeded with limited retrograde ureteroscopy with laser and stent placement. Patient needs to undergo another access placement for the percutaneous nephrostomy lithotripsy to be arranged Family History: FH: diabetes mellitus GRANDMOTHER, Allergies: Uncoded Allergies: CONTRAST (Allergy, Unknown, 08/16/15) Home Meds Active Scripts Ertapenem Sodium (Ertapenem) 1 Gm Inj, 1 GM IV DAILY for 8 Days, #8 INJ [facility] 03/27/25 Pantoprazole Sodium Sesquihydr (Pantoprazole Sodium) 40 Mg Tab, 20 MG PO DAILY for 14 Days, #14 TAB Prov:[facility] 03/27/25 Ergocalciferol (VITAMIN D 62470 UNIT) 50,000 [place], [address] UNIT PO QWEEKLY, #10 CAP Prov:[facility] 03/27/25 Azithromycin (Azithromycin) 250 Mg Tab, 250 MG PO DAILY MDD 500 for 5 Days, #6 TAB 0 Refills 2 TABLETS ORALLY ON DAY ONE, THEN 1 TABLET ORALLY DAILY FOR 4 DAYS Prov:[facility] 05/09/24 Blqvfltv-Qngxzzpjgr-Bevusmfyc- (Neosporin + Pain Relief) Relf Max Oin, 1 MAX EX DAILY for 10 Days, #5 OIN Prov:PEGGY GORDON MD 09/28/21 Yeast (S. Boulardii)(S. Cerevi (Florastor) 250 Mg Cap, 250 MG PO DAILY, #10 CAP Prov:JADA JAIMES MD 12/12/16 Doxycycline Hyclate (DOXYCYCLINE HYCLATE) 100 Mg Tab, 1 TAB PO BID, #20 TAB Prov:JADA JAIMES MD 12/12/16 Atorvastatin Calcium (ATORVASTATIN CALCIUM) 20 Mg Tab, 20 MG PO HS, #30 TAB Prov:JADA JAIMES MD 12/12/16 Current Medications Current Medications Medications (Trade) Dose Ordered Sig/Natali Route PRN Reason Start Time Stop Time Status Last Admin Sodium Chloride 1,000 ml @ 120 mls/hr Q8H20M IV 05/01/25 14:15 05/02/25 05:23 Acetaminophen/ Hydrocodone Bitart ([place] 5/325MG Tab) 1 tab Q4HP PRN PO MODERATE PAIN (4-6 PAIN SCALE) 05/01/25 14:15 Ondansetron HCl (Zofran) 4 mg Q4HP PRN IV NAUSEA / VOMITING 05/01/25 14:15 Enoxaparin Sodium (Lovenox) 40 mg DAILY SC 05/02/25 10:00 Acetaminophen (Tylenol Tablet) 650 mg Q6HP PRN PO PAIN SCALE 1-3 OR TEMP>100.4 05/01/25 14:15 Morphine Sulfate 2 mg Q4HPRN PRN IV SEVERE PAIN (7-10 PAIN SCALE) 05/01/25 14:30 Piperacillin Sod/ Tazobactam Sod 100 ml @ 25 mls/hr Q8HR IV 05/01/25 15:00 05/02/25 05:22 Tamsulosin HCl (Flomax) 0.4 mg QPM PO 05/01/25 18:00 05/01/25 18:17 Pantoprazole Sodium (Protonix) 40 mg DAILY IV 05/02/25 10:00 Vital Signs Vital Signs Date Time Temp Pulse Resp B/P (MAP) Pulse Ox O2 Delivery O2 Flow Rate FiO2 05/02/25 08:42 97.7 102 14 108/65 (79) 95 97.7 05/01/25 20:00 Room Air* 0 21 Labs/Diagnostic Data Labs Test 05/02/25 05:39 05/01/25 15:03 05/01/25 12:12 05/01/25 11:54 Range/Units White Blood Count 13.9 H 4.4-10.8 10^3/uL Red Blood Count 3.91 L 4.0-5.20 10^6/uL Hemoglobin 12.2 12.2-16.2 g/dL Hematocrit 36.5 # 36.0-46.0 % Mean Corpuscular Volume 93.3 80.0-100.0 fL Mean Corpuscular Hemoglobin 31.3 28.0-32.0 pg Mean Corpuscular Hemoglobin Concent 33.6 32.0-36.0 g/dL Red Cell Distribution Width 14.4 H 11.8-14.3 % Platelet Count 228 140-450 10^3/uL Mean Platelet Volume 10.4 6.9-10.8 fL Neutrophils (%) (Auto) 82.9 H 37.0-80.0 % Lymphocytes (%) (Auto) 9.6 L 10.0-50.0 % Monocytes (%) (Auto) 6.9 0.0-12.0 % Eosinophils (%) (Auto) 0.3 0.0-7.0 % Basophils (%) (Auto) 0.3 0.0-2.0 % Neutrophils # (Auto) 11.5 H 1.6-8.6 10 ^3/uL Lymphocytes # (Auto) 1.3 0.4-5.4 10 ^3/uL Monocytes # (Auto) 1.0 0-1.3 10 ^3/uL Eosinophils # (Auto) 0 0-0.8 10 ^3/uL Basophils # (Auto) 0 0-0.2 10 ^3/uL Nucleated Red Blood Cells 0.0 % Sodium Level 140 136-145 mmol/L Potassium Level 3.6 3.5-5.1 mmol/L Chloride Level 104 98-107 mmol/L Carbon Dioxide Level 23 20-31 mmol/L Anion Gap 13 5-15 Blood Urea Nitrogen 13 9-23 mg/dL Creatinine 0.94 0.550-1.02 mg/dL Glomerular Filtration Rate Calc 74 >90 mL/min BUN/Creatinine Ratio 13.8 10.0-20.0 Serum Glucose 107 H 74-106 mg/dL Calcium Level 8.7 8.7-10.4 mg/dL Total Bilirubin 0.9 0.2-1.0 mg/dL Aspartate Amino Transferase (AST) 12 L 13-40 U/L Alanine Aminotransferase (ALT) 13 7-40 U/L Alkaline Phosphatase 72 46-116 U/L Total Protein 6.7 5.7-8.2 g/dL Albumin 3.7 3.2-4.8 g/dL Lactic Acid Level 1.1 0.4-2.0 mmol/L Prothrombin Time 11.0 9.3-11.8 sec Prothrombin Time INR 1.04 0.9-1.15 Activated Partial Thromboplast Time 28.6 24.5-34.5 SEC Magnesium Level 2.0 1.6-2.6 mg/dL Direct Bilirubin < 0.1 <0.3 mg/dL Urine Color Light-yellow Yellow Urine Clarity Cloudy H Clear Urine pH 6.5 5.0-9.0 Urine Specific [place] 1.013 1.001-1.035 Urine Protein 2+ H Negative Urine Ketones Negative Negative Urine Blood 3+ H Negative /uL Urine Nitrite Negative Negative Urine Bilirubin Negative Negative Urine Urobilinogen Normal Negative mg/dL Urine Leukocyte Esterase 3+ Negative /uL Urine RBC 110 0 - 4 /hpf Urine WBC Clumps Present None Seen /hpf Urine Microscopic WBC 981 H 0-5 /HPF Urine Squamous Epithelial Cells Few <5 /hpf Urine Bacteria Few H None Seen /hpf Urine Glucose Normal Normal mg/dL Urine Opiates Screen Neg NEGATIVE Urine Fentanyl Screen Neg NEGATIVE Urine Barbiturates Screen Neg NEGATIVE Urine Phencyclidine Screen Neg NEGATIVE Urine Amphetamines Screen Neg NEGATIVE Urine Benzodiazepines Screen Neg NEGATIVE Urine Cocaine Screen Neg NEGATIVE Urine Cannabinoids Screen Neg NEGATIVE Assessment Left staghorn calculus with indwelling left ureteral stent and previously failed PCNL attempt Plan/Recommendation We will request left percutaneous access by Interventional Radiology. Once adequate access is achieved, we will proceed with PCNL Plan discussed with: Patient, Other LINDSEY DANIELSON MD May 02, 2025 08:47
[2025-05-02] MEDS: ENOXAPARIN SOD 40 MG/0.4 ML SYRINGE SC SCH (08:53)
[2025-05-02] MEDS: PANTOPRAZOLE 40 MG/10 ML VIAL INJ IV SCH (08:53)
--- NOTE | 2025-05-02 10:53 | DVHPN2 ---
Progress Note Date Seen: May 02, 2025 Medical Necessity Reason Pt with a Central, PICC or Fol: No Subjective Patient reports: No new complaints Review of Systems: HEENT:Normal, CVS:Normal, RESPIRATORY:Normal, GI:Normal, :Normal, MSK:Normal, NEURO:Normal Objective vital signs Vital Sign Date Time Temp Pulse Resp B/P (MAP) Pulse Ox O2 Delivery O2 Flow Rate FiO2 05/02/25 08:42 97.7 102 14 108/65 (79) 95 97.7 05/02/25 08:00 Room Air* 0 21 Total Intake and Output 05/01/25 05/01/25 05/02/25 15:00 23:00 07:00 Intake Total 300 ml 500 ml Balance 300 ml 500 ml medications Current Medications Medications Dose Ordered Sig/Natali Route Start Time Stop Time Status Last Admin Dose Admin Sodium Chloride 1,000 ml @ 120 mls/hr Q8H20M IV 05/01/25 14:15 05/02/25 05:23 120 MLS/HR Acetaminophen/ Hydrocodone Bitart 1 tab Q4HP PRN PO 05/01/25 14:15 Ondansetron HCl 4 mg Q4HP PRN IV 05/01/25 14:15 Enoxaparin Sodium 40 mg DAILY SC 05/02/25 10:00 05/02/25 08:53 40 MG Acetaminophen 650 mg Q6HP PRN PO 05/01/25 14:15 Morphine Sulfate 2 mg Q4HPRN PRN IV 05/01/25 14:30 Piperacillin Sod/ Tazobactam Sod 100 ml @ 25 mls/hr Q8HR IV 05/01/25 15:00 05/02/25 05:22 25 MLS/HR Tamsulosin HCl 0.4 mg QPM PO 05/01/25 18:00 05/01/25 18:17 0.4 MG Pantoprazole Sodium 40 mg DAILY IV 05/02/25 10:00 05/02/25 08:53 40 MG Examination: GENERAL:Normal, HEENT:Normal, NECK:Normal, LUNGS:Normal, CVS:Normal, ABDOMEN:Normal, MSK:Normal, SKIN:Normal, NEURO:Normal, :Normal, :Abnormal (left flank tenderness) laboratory and microbiology Laboratory Tests 05/02/25 05:39 Test 05/02/25 05:39 Range/Units Serum Glucose 107 H 74-106 mg/dL Problem List/Assessment/Plan Problem List/Assessment/Plan #1 sepsis with uti: iv zosyn #2 left renal staghorn calculus with hydronephrosis with stent: nephrostomy tube placement #3 cad #4 obesity #5 hyperlipidemia Plan discussed with: Patient My Orders My Orders Orders - TREV COATS MD Procedure Category Date Status Time 0.9% Ns 1000 Ml PHA 05/02/25 Verified 11:00 Urine Bacterial CRISTIAN 05/02/25 Verified Culture 10:48 Basic Metabolic Panel LAB 05/03/25 Verified 06:00 Date of Service: May 02, 2025 Billing Provider: TREV COATS MD Common Visit Codes: [id number] INP/OBS CARE(HIGH) TREV COATS MD May 02, 2025 10:53
[2025-05-02] MEDS: SODIUM CHLORIDE 0.9% 1,000 ML IV SCH (10:57)
[2025-05-02] MEDS: fentaNYL CITRATE 100 MCG/2 ML VL ONE (12:22)
[2025-05-02] MEDS: LIDOCAINE 2%HCL (LOCAL ANESTH.) INJ 20ML MDV ONE (12:24)
[2025-05-02] MEDS: MIDAZOLAM HCL 2MG/2ML 2ml VIAL (1mg/ml) ONE (12:24)
[2025-05-02] MEDS: diphenhdrAMINE HCL 50 MG/1 ML VL ONE (12:27)
--- NOTE | 2025-05-02 14:19 | DVH ---
XY PERCUTANEOUS NEPHROSTOMY, US US GUIDANCE FOR NEEDLE PLACEME, HISTORY: LEFT NEPH-U TUBE placement for PCNL PROCEDURE: Informed consent was obtained. The patient was placed on the fluoroscopic table in a prone position and IV sedation administered. The left flank was prepped with chlorhexidine which was allow ed to dry and draped in the usual sterile fashion. Time out was performed. and the soft tissues infil trated with 1% lidocaine local anesthetic. Under ultrasound guidance, a 21 gauge Accu Stick needle wa s advanced into stone bearing mid pole calyx, and a contrast nephrostogram performed. Over a mandril wire, exchange was made to a non-vascular access set, through which was advanced an 0.035 wire. Wire and catheter were advanced down the ureter and into the bladder. A 5 [place] KMP catheter advanced i nto the bladder. The catheter was secured in place. A sterile dressing was applied. No immediate comp lication was identified. DAP 391 FLUOROSCOPY TIME: 5.3 minutes. CONTRAST USED: 25 mL. SEDATION: Dr. Jane Jeff was personally responsible for the administration of moderate sedation during the procedure performed, including the use of an independent trained observer who had no other duties during the procedure. The drugs utilized were IV fentanyl and versed (see nursing log for details). The total time of supervision by the attending physician was approximately 45 minutes. FINDINGS: Left staghorn renal stone. New 5 azeri nephroureteral catheter via a posterior mid pole c alyceal access, with distal end in the bladder. Contrast flows freely into the bladder. IMPRESSION: Left Staghorna calculi, status post successful placement of 5 [place] left percutaneous nephrouretera l catheter for PCNL tomorrow.
[2025-05-02] MEDS: HYDROcodone-ACET 5/325MG TAB PO PRN (14:54)
[2025-05-03] VITALS (10 sets, daily range): BP systolic 99–111; BP diastolic 50–73; PULSE 86–118; RESP 14–18; TEMP 97.4–99.2; O2SAT 93–98
[2025-05-03 05:55] LABS: Hematocrit 35.9 % (36.0-46.0); Hemoglobin 12.1 g/dL (12.2-16.2); Mean Corpuscular Hemoglobin 31.4 pg (28.0-32.0); Mean Corpuscular Volume 93.0 fL (80.0-100.0); Nucleated Red Blood Cells % 0.0 %
[2025-05-03 06:11] LABS: Chloride 105 mmol/L (98-107); Potassium 3.9 mmol/L (3.5-5.1); Sodium 140 mmol/L (136-145)
[2025-05-03 06:12] LABS: Anion Gap 9 (5-15); Calcium 9.1 mg/dL (8.7-10.4); Carbon Dioxide 26 mmol/L (20-31)
[2025-05-03 06:18] LABS: BUN/Creatinine Ratio 9.8 (10.0-20.0)
[2025-05-03 06:30] LABS: Blood Urea Nitrogen 8 mg/dL (9-23); Glucose 115 mg/dL (74-106)
[2025-05-03] MEDS ORDERED: SUCCINYLCHOLINE CHLORIDE 20 MG/ML 10ML VIAL IV ONE (08:57)
[2025-05-03] MEDS ORDERED: fentaNYL CITRATE 100 MCG/2 ML VL ONE (09:07)
[2025-05-03] MEDS ORDERED: HYDROmorphone HCL 2 MG/ML VL/or syr ONE (09:22)
[2025-05-03] MEDS: CIPROFLOXACIN 400MG/200ML 200 ML IV ONE (09:40)
[2025-05-03] MEDS ORDERED: ONDANSETRON HCL 4 MG/2 ML VIAL ONE (09:41)
[2025-05-03] MEDS: IOHEXOL 300 MG/ML 100ML BOTTLE IJ ONE (10:00)
--- NOTE | 2025-05-03 10:39 | DVHNC2 ---
Procedure - OPERATIVE REPORT Pre-op. Diagnosis: Renal Calculi, LEFT Staghorn stone Left ureteral stent, in situ Right renal stones Post-op. Diagnosis: Same as pre-op diagnosis Operation: Percutaneous Nephrolithotripsy, LEFT Nephrostomy tube placement, LEFT Fluoroscopy Nephroscopy with stone basket extraction, LEFT Anesthesia: General Indications: Patient presented with left Staghorn stone, previous attempt for access was inadequate. Left URSLL with CVAC was attempted and stent was placed. She is here for left percutaneous nephrolithotomy. The indications, risks, complications, alternatives and benefits of percutaneous nephrolithotomies (PCNL)were discussed with patient. All questions were encouraged and answered. Patient was aware of specific risks/complications, including but not limited to infections, bleeding, pain, renal injury, persistent stone disease requiring additional, possible other procedures such as laser or extracorporeal shockwave lithotripsies. Patient was also aware of alternatives of this surgery including open nephrolithotomy, ESWL, endoscopic retrograde laser lithotripsy and stent placement with chronic antibiotic management. Patient was competent and understood these risks and benefits and elected to proceed. Details of Procedure: Patient was taken to the operating room and underwent general endotracheal intubation. 16Fr Owens catheter was placed while in supine position. Next, appropriate prone positioning was accomplished as well as the area of flank where the temporary nephrostomy tube, placed by Interventional Radiology, was included in the wide prepping and draping. Under fluoroscopy, the sensor guidewire was placed through the nephrostomy tube and positioned into the bladder. Dual lumen catheter was placed over the Sensor tip guidewire and second superstiff Amplatz guidewire was placed into the bladder as the safety guidewire. Next nephrostomy tract was dilated with UroMax balloon dilation system, followed by 26 F sheath placement. Rigid nephroscope was used to access the cavity where the large renal stones were identified in the mid pole and renal pelvis. Ultrasonic lithoclast device was used to fragment and suction the stones. Once the stones were small enough, a three prong grasper was used to take them out. At this point, Visualization became difficult secondary to extensive bleeding. Procedure had to be aborted with some of the stones remaining in the upper and lower calyces. 75% of the Staghorn calculus was removed. Under fluoroscopy, the Amplatz guidewire was removed keeping the Senor guidewire in place through which a 18 Fr [place] catheter was placed and positioned over the guidewire into the renal pelvis in an antegrade fashion. Proper placement was verified. The subcutaneous tissue and the skin were closed with 3-0 Chromic. Patient was placed in supine, extubated and taken to RR in stable condition. Owens catheter remained in place. All counts were correct. Specimens: Stone fragments Complications: None Findings: large Staghorn calculus treated 75% successfully with PCNL EBL: 250 ml Notes: Patient will need to undergo right ESWL and left ureteral stent removal in 4 weeks. Subsequently the left nephrolithiasis (residual) we will be readdressed. Diagnosis: Visit Code: Procedure Codes: 32155 PERCUTANEUS NEPHROLITHOTOMY. 00596 FLUOROSCOPE EXAM, EXTENSIVE. LINDSEY DANIELSON MD May 03, 2025 10:38
--- NOTE | 2025-05-03 10:58 | DVHPN2 ---
Progress Note Date Seen: May 03, 2025 Medical Necessity Reason Pt with a Central, PICC or Fol: No Subjective Patient reports: No new complaints Review of Systems: HEENT:Normal, CVS:Normal, RESPIRATORY:Normal, GI:Normal, :Normal, MSK:Normal, NEURO:Normal Objective vital signs Vital Sign Date Time Temp Pulse Resp B/P (MAP) Pulse Ox O2 Delivery O2 Flow Rate FiO2 05/03/25 10:30 110 16 93 Mask 8.0 05/03/25 10:30 93 05/03/25 09:00 98.9 101/59 (73) 98.9 Total Intake and Output 05/02/25 05/02/25 05/03/25 15:00 23:00 07:00 Intake Total 100 ml 100 ml Output Total 0 ml Balance 100 ml 100 ml medications Current Medications Medications Dose Ordered Sig/Natali Route Start Time Stop Time Status Last Admin Dose Admin Acetaminophen/ Hydrocodone Bitart 1 tab Q4HP PRN PO 05/01/25 14:15 05/03/25 05:25 1 TAB Ondansetron HCl 4 mg Q4HP PRN IV 05/01/25 14:15 Acetaminophen 650 mg Q6HP PRN PO 05/01/25 14:15 Morphine Sulfate 2 mg Q4HPRN PRN IV 05/01/25 14:30 Piperacillin Sod/ Tazobactam Sod 100 ml @ 25 mls/hr Q8HR IV 05/01/25 15:00 05/03/25 05:08 25 MLS/HR Pantoprazole Sodium 40 mg DAILY IV 05/02/25 10:00 05/02/25 08:53 40 MG Sodium Chloride 1,000 ml @ 100 mls/hr Q10H IV 05/02/25 11:00 05/02/25 10:57 100 MLS/HR Examination: GENERAL:Normal, HEENT:Normal, NECK:Normal, LUNGS:Normal, CVS:Normal, ABDOMEN:Normal, MSK:Normal, SKIN:Normal, NEURO:Normal, :Normal, :Abnormal (LEFT NEPHROSTOMY) laboratory and microbiology Laboratory Tests 05/03/25 05:32 Test 05/03/25 05:32 Range/Units Serum Glucose 115 H 74-106 mg/dL Microbiology Date/Time Source Procedure Growth Status 05/01/25 17:38 Blood Blood Culture - Preliminary NO GROWTH AFTER 24 HOURS OF INCUBATION. Resulted 05/01/25 11:54 Voided Urine Urine Culture - Preliminary Resulted Problem List/Assessment/Plan Problem List/Assessment/Plan #1 sepsis with uti: iv zosyn #2 left renal staghorn calculus with hydronephrosis with stent: nephrostomy tube placement, eswl/extraction by dr Vasquez #3 cad #4 obesity #5 hyperlipidemia Plan discussed with: Other (rn) Date of Service: May 03, 2025 Billing Provider: TREV COATS MD Common Visit Codes: [id number] INP/OBS CARE(HIGH) TREV COATS MD May 03, 2025 10:58
--- NOTE | 2025-05-03 16:28 | DVH ---
C-ARM FLUOROSCOPY: PROCEDURE: Nephrolithotripsy FLUOROSCOPY TIME: 57.1 seconds Air Kerma: 11.3 mgy FINDINGS: Spot intraoperative C arm radiographs demonstrating nephrolithotripsy. IMPRESSION: Please refer to surgical report for detailed findings.
[2025-05-04] VITALS (9 sets, daily range): BP systolic 92–110; BP diastolic 57–72; PULSE 95–125; RESP 16–20; TEMP 98.1–100.6; O2SAT 90–97
[2025-05-04 06:27] LABS: Hematocrit 32.3 % (36.0-46.0); Hemoglobin 10.9 g/dL (12.2-16.2); Mean Corpuscular Hemoglobin 31.5 pg (28.0-32.0); Mean Corpuscular Volume 93.3 fL (80.0-100.0); Nucleated Red Blood Cells % 0.0 %
[2025-05-04 06:31] LABS: Anion Gap 11 (5-15); Carbon Dioxide 24 mmol/L (20-31); Chloride 104 mmol/L (98-107); Potassium 3.8 mmol/L (3.5-5.1); Sodium 139 mmol/L (136-145)
[2025-05-04 06:36] LABS: Calcium 8.6 mg/dL (8.7-10.4)
[2025-05-04 06:37] LABS: BUN/Creatinine Ratio 8.3 (10.0-20.0)
[2025-05-04 06:38] LABS: Magnesium 1.9 mg/dL (1.6-2.6)
[2025-05-04 06:40] LABS: Blood Urea Nitrogen 7 mg/dL (9-23); Glucose 112 mg/dL (74-106)
[2025-05-04] MEDS: ONDANSETRON HCL 4 MG/2 ML VIAL IV PRN (09:01)
[2025-05-04] MEDS: MORPHINE SULFATE 4 MG/ML SYR/VIAL IV PRN (09:02)
--- NOTE | 2025-05-04 11:27 | DVHPN2 ---
Progress Note Date Seen: May 04, 2025 Medical Necessity Reason Pt with a Central, PICC or Fol: No Subjective Patient reports: No new complaints Review of Systems: HEENT:Normal, CVS:Normal, RESPIRATORY:Normal, GI:Normal, :Normal, MSK:Normal, NEURO:Normal Objective vital signs Vital Sign Date Time Temp Pulse Resp B/P (MAP) Pulse Ox O2 Delivery O2 Flow Rate FiO2 05/04/25 09:02 104 16 110/71 05/04/25 09:00 98.9 93 98.9 05/04/25 08:00 Nasal Cannula* 2 28 Total Intake and Output 05/03/25 05/03/25 05/04/25 15:00 23:00 07:00 Intake Total 425 ml 820 ml 950 ml Output Total 0 ml 510 ml 300 ml Balance 425 ml 310 ml 650 ml medications Current Medications Medications Dose Ordered Sig/Natali Route Start Time Stop Time Status Last Admin Dose Admin Acetaminophen/ Hydrocodone Bitart 1 tab Q4HP PRN PO 05/01/25 14:15 05/04/25 03:51 1 TAB Ondansetron HCl 4 mg Q4HP PRN IV 05/01/25 14:15 05/04/25 09:01 4 MG Acetaminophen 650 mg Q6HP PRN PO 05/01/25 14:15 Morphine Sulfate 2 mg Q4HPRN PRN IV 05/01/25 14:30 05/04/25 09:02 2 MG Piperacillin Sod/ Tazobactam Sod 100 ml @ 25 mls/hr Q8HR IV 05/01/25 15:00 05/04/25 06:34 25 MLS/HR Pantoprazole Sodium 40 mg DAILY IV 05/02/25 10:00 05/04/25 08:56 40 MG Sodium Chloride 1,000 ml @ 100 mls/hr Q10H IV 05/02/25 11:00 05/03/25 12:11 100 MLS/HR Examination: GENERAL:Normal, HEENT:Normal, NECK:Normal, LUNGS:Normal, CVS:Normal, ABDOMEN:Normal, MSK:Normal, SKIN:Normal, NEURO:Normal, :Normal, :Abnormal (left nephrostomy tube) laboratory and microbiology Laboratory Tests 05/04/25 05:38 Test 05/04/25 05:38 Range/Units Serum Glucose 112 H 74-106 mg/dL Microbiology Date/Time Source Procedure Growth Status 05/01/25 17:38 Blood Blood Culture - Preliminary NO GROWTH AFTER 48 HOURS OF INCUBATION. Resulted 05/01/25 11:54 Voided Urine Urine Culture - Final Escherichia coli Complete Problem List/Assessment/Plan Problem List/Assessment/Plan #1 sepsis with uti due to e coli: iv rocephin #2 left renal staghorn calculus with hydronephrosis with stent: nephrostomy tube placement, eswl/extraction by dr Vasquez #3 cad #4 obesity #5 hyperlipidemia Plan discussed with: Patient My Orders My Orders Orders - TREV COATS MD Procedure Category Date Status Time Stone Analysis Urinary LAB 05/03/25 In Process 13:15 Dietary Evaluation Review Comments: Nutrition Recommendation 1) Consider cardiac diet if PO intake >75% 2) Monitor PO intake, lab values, weight trend, and I/O Expected Outcomes/Goals: To meet >75% estimated needs Fu 3-5 days Date of Service: May 04, 2025 Billing Provider: TREV COATS MD Common Visit Codes: [id number] INP/OBS CARE(HIGH) TREV COATS MD May 04, 2025 11:27
[2025-05-04] MEDS: ACETAMINOPHEN 325 MG TAB PO PRN (18:08)
[2025-05-05 01:00] VITALS: BP 109/75; PULSE 94; RESP 16; TEMP 96.7; O2SAT 95
[2025-05-05 05:00] VITALS: BP 109/72; PULSE 93; RESP 18; TEMP 97.8; O2SAT 96
[2025-05-05 05:54] LABS: Hematocrit 30.7 % (36.0-46.0); Hemoglobin 10.4 g/dL (12.2-16.2); Mean Corpuscular Hemoglobin 31.3 pg (28.0-32.0); Mean Corpuscular Volume 92.7 fL (80.0-100.0); Nucleated Red Blood Cells % 0.1 %
[2025-05-05 06:00] LABS: Anion Gap 11 (5-15); Carbon Dioxide 25 mmol/L (20-31); Chloride 103 mmol/L (98-107); Potassium 3.8 mmol/L (3.5-5.1); Sodium 139 mmol/L (136-145)
[2025-05-05 06:01] LABS: Calcium 8.8 mg/dL (8.7-10.4)
[2025-05-05 06:06] LABS: BUN/Creatinine Ratio 8.6 (10.0-20.0)
[2025-05-05 06:14] LABS: Blood Urea Nitrogen 7 mg/dL (9-23); Glucose 121 mg/dL (74-106)
[2025-05-05 08:11] VITALS: O2SAT 97
[2025-05-05 09:04] VITALS: BP 117/62; PULSE 91; RESP 20; TEMP 97.2; TEMP 97.3; O2SAT 96
--- NOTE | 2025-05-05 09:47 | DVHDS2 ---
Discharge Summary Date of Admission May 01, 2025 at 14:06 Date of Discharge: May 05, 2025 Labs/Diagnostic Data: Laboratory Results Test 05/05/25 05:23 05/04/25 05:38 05/03/25 13:15 05/03/25 05:32 White Blood Count 7.0 10^3/uL (4.4-10.8) Red Blood Count 3.31 10^6/uL (4.0-5.20) Hemoglobin 10.4 g/dL (12.2-16.2) Hematocrit 30.7 % (36.0-46.0) Mean Corpuscular Volume 92.7 fL (80.0-100.0) Mean Corpuscular Hemoglobin 31.3 pg (28.0-32.0) Mean Corpuscular Hemoglobin Concent 33.8 g/dL (32.0-36.0) Red Cell Distribution Width 13.9 % (11.8-14.3) Platelet Count 233 10^3/uL (140-450) Mean Platelet Volume 9.4 fL (6.9-10.8) Neutrophils (%) (Auto) 72.3 % (37.0-80.0) Lymphocytes (%) (Auto) 15.2 % (10.0-50.0) Monocytes (%) (Auto) 9.1 % (0.0-12.0) Eosinophils (%) (Auto) 3.0 % (0.0-7.0) Basophils (%) (Auto) 0.4 % (0.0-2.0) Neutrophils # (Auto) 5.1 10 ^3/uL (1.6-8.6) Lymphocytes # (Auto) 1.1 10 ^3/uL (0.4-5.4) Monocytes # (Auto) 0.6 10 ^3/uL (0-1.3) Eosinophils # (Auto) 0.2 10 ^3/uL (0-0.8) Basophils # (Auto) 0 10 ^3/uL (0-0.2) Nucleated Red Blood Cells 0.1 % Sodium Level 139 mmol/L (136-145) Potassium Level 3.8 mmol/L (3.5-5.1) Chloride Level 103 mmol/L (98-107) Carbon Dioxide Level 25 mmol/L (20-31) Anion Gap 11 (5-15) Blood Urea Nitrogen 7 mg/dL (9-23) Creatinine 0.81 mg/dL (0.550-1.02) Glomerular Filtration Rate Calc 89 mL/min (>90) BUN/Creatinine Ratio 8.6 (10.0-20.0) Serum Glucose 121 mg/dL (74-106) Calcium Level 8.8 mg/dL (8.7-10.4) Magnesium Level 1.9 mg/dL (1.6-2.6) Beta HCG, Quantitative 0.2 mIU/mL (1.5-4.2) Test 05/02/25 05:39 05/01/25 15:03 05/01/25 12:12 05/01/25 11:54 Total Bilirubin 0.9 mg/dL (0.2-1.0) Aspartate Amino Transferase (AST) 12 U/L (13-40) Alanine Aminotransferase (ALT) 13 U/L (7-40) Alkaline Phosphatase 72 U/L (46-116) Total Protein 6.7 g/dL (5.7-8.2) Albumin 3.7 g/dL (3.2-4.8) Lactic Acid Level 1.1 mmol/L (0.4-2.0) Prothrombin Time 11.0 sec (9.3-11.8) Prothrombin Time INR 1.04 (0.9-1.15) Activated Partial Thromboplast Time 28.6 SEC (24.5-34.5) Direct Bilirubin < 0.1 mg/dL (<0.3) Urine Color Light-yellow (Yellow) Urine Clarity Cloudy (Clear) Urine pH 6.5 (5.0-9.0) Urine Specific [place] 1.013 (1.001-1.035) Urine Protein 2+ (Negative) Urine Ketones Negative (Negative) Urine Blood 3+ /uL (Negative) Urine Nitrite Negative (Negative) Urine Bilirubin Negative (Negative) Urine Urobilinogen Normal mg/dL (Negative) Urine Leukocyte Esterase 3+ /uL (Negative) Urine RBC 110 /hpf (0 - 4) Urine WBC Clumps Present /hpf (None Seen) Urine Microscopic WBC 981 /HPF (0-5) Urine Squamous Epithelial Cells Few /hpf (<5) Urine Bacteria Few /hpf (None Seen) Urine Glucose Normal mg/dL (Normal) Urine Opiates Screen Neg (NEGATIVE) Urine Fentanyl Screen Neg (NEGATIVE) Urine Barbiturates Screen Neg (NEGATIVE) Urine Phencyclidine Screen Neg (NEGATIVE) Urine Amphetamines Screen Neg (NEGATIVE) Urine Benzodiazepines Screen Neg (NEGATIVE) Urine Cocaine Screen Neg (NEGATIVE) Urine Cannabinoids Screen Neg (NEGATIVE) Other Laboratory Tests 05/05/25 05:23 Brief Hx & Hospital Course: SEE DICTATED NOTE Condition at Discharge: Fair Final Diagnosis/Problems List RENAL STONE Discharge Disposition: Home Discharge Instruct/Medications Diet: Regular Activity: No Restrictions, As Tolerated Follow Up/Referral: FU WITH DR DANIELSON IN 1 WK Medications: RESUME HOME MEDS SCRIPT TO PHARMACY Scheduled Atorvastatin Calcium (Atorvastatin Calcium), 20 MG PO HS Azithromycin (Azithromycin), 250 MG PO DAILY Doxycycline Hyclate (Doxycycline Hyclate), 1 TAB PO BID Ergocalciferol (Vitamin D 97648 Unit), 50,000 UNIT PO QWEEKLY Ertapenem Sodium (Ertapenem), 1 GM IV DAILY Lioovpxs-Updjorevvx-Xqyksmqhr- (Neosporin + Pain Relief), 1 MAX EX DAILY Pantoprazole Sodium Sesquihydr (Pantoprazole Sodium), 20 MG PO DAILY Yeast (S. Boulardii)(S. Cerevi (Florastor), 250 MG PO DAILY Discharge Statement: "Patient was advised to return to the ER or call 911 if any headaches, dizziness, shortness of breath, chest pain, abdominal pain, bleeding, fevers, or worsening of medical condition. Patient was counseled about treatment plan, medications, possible side effects, patientverbalized understanding. All questions were answered to the best of my ability. This discharge took greater then 30 minutes in planning, reviewing documentation, counseling the patient, and discussing with other team members." ASSESSMENT ASSESSMENT Assessment RENAL STONE Date of Service: May 05, 2025 Billing Provider: TREV COATS MD Common Visit Codes: [id number]/OBS DISCH DAY >30min TRVE COATS MD May 05, 2025 09:47
[2025-05-05] MEDS ORDERED: LEVO500T91 PO (09:48)
[2025-05-05] MEDS ORDERED: HYDR1TAB97 PO (09:48)
--- NOTE | 2025-05-05 10:43 | DVHDS ---
DATE OF DISCHARGE: 05/05/2025 HISTORY OF PRESENT ILLNESS: The patient is a 50-year-old lady who is admitted with a history of left flank pain and has a history of nephrolithiasis, coronary artery disease, and GERD. HOSPITAL COURSE: The patient had a CT of the abdomen and pelvis that showed severe left hydronephrosis with staghorn calculus and a left ureteral stent. The patient also had a right ovarian cystic lesion. The patient was seen in urology consult by Dr. Vasquez. The patient initially underwent a left-sided nephrostomy and subsequently underwent nephroscopy with stone basket extraction on the left side. The patient's urine cultures grew E. coli, sensitive to Levaquin. The patient also had an ovarian cyst for which she will follow up with [employer]. The patient will now be discharged home with a left nephrostomy tube, to be on Levaquin 500 mg daily for 10 days and [facility] p.r.n. for pain. She will follow up with Dr. Vasquez and [employer]. FINAL DIAGNOSES: * Sepsis with UTI due to E. coli. * Left staghorn calculus with hydronephrosis status post left nephrostomy, status post extraction. * History of coronary artery disease. * Obesity. * Hyperlipidemia. I have also given a copy to the patient of the CT report. Time spent in discharge planning and review of plan with the patient and nursing was 38 minutes. MD TERESA Lindsey/THELMA TID: [id number] RECEIPT: [id number]
[2025-05-05 12:54] VITALS: BP 109/71; PULSE 82; RESP 23; TEMP 97.2; O2SAT 95
[2025-05-05 13:12] VITALS: TEMP 36.2
== END 2025-05-05 13:46 | disposition home or self-care (01) | DRG 710 ==
LOC: ER 11:09 → OVERFLOW 14:06 → EAST 17:11
PROVIDERS: ADMIT Internal Medicine; ATTEND Internal Medicine
PROC: 0T9130Z Drainage of Left Kidney with Drainage Device, Percutaneous Approach (ICD-10-PCS; 2025-05-02)
PROC: BT121ZZ Fluoroscopy of Left Kidney using Low Osmolar Contrast (ICD-10-PCS; 2025-05-02)
PROC: 0TC48ZZ Extirpation of Matter from Left Kidney Pelvis, Via Natural or Artificial Opening Endoscopic (ICD-10-PCS; principal; 2025-05-03 09:08)
DX: A41.51 Sepsis due to Escherichia coli [E. coli] (principal); N13.6 Pyonephrosis; K21.9 Gastro-esophageal reflux disease without esophagitis; N20.2 Calculus of kidney with calculus of ureter; I25.10 Atherosclerotic heart disease of native coronary artery without angina pectoris; E78.5 Hyperlipidemia, unspecified; F41.9 Anxiety disorder, unspecified; N83.201 Unspecified ovarian cyst, right side; E66.9 Obesity, unspecified; Z79.2 Long term (current) use of antibiotics; Z79.899 Other long term (current) drug therapy; Z90.49 Acquired absence of other specified parts of digestive tract; Z83.3 Family history of diabetes mellitus; Z68.26 Body mass index [BMI] 26.0-26.9, adult
CPT/HCPCS: 36415; 50430; 50432; 74018; 74176; 74425; 76000; 76942; 80048; 80053; 80076; 80307; 81001; 82360; 83605; 83735; 84702; 85025; 85610; 85730; 87040; 87086; 87088; 87186; 96361; 96374; 96375; 99152; G0378; J0330; J1885; J2250; J2405; J2470; J2543

== ENCOUNTER 2025-05-09 16:37 | Emergency (ER) | payer MEDICAID ==
[~2025-05-09] VITALS: Ht 154.9 cm; Wt 69.1 kg
[~2025-05-09 16:37] MED LIST changes: +HYDR1TAB97 PO; +LEVO500T91 PO
--- NOTE | 2025-05-09 19:13 | ED.PDOC ---
Musculoskeletal HPI Comments 50-year-old female who presents to the ED for chief complaint of lower extremity pain. Patient states that she had surgery for kidney stones and states she had a nephrostomy tube in the right placed a few days prior. Patient states for the past four days she has been having bilateral leg pain with noted right calf pain and left leg pain. Patient states she talked to surgeon earlier today at states she was referred to come to the ED for possible for rule out blood clots in bilateral lower extremities. Patient in the ED otherwise denies any associated redness or swelling to either extremity. Patient in the ED denies any associated shortness of breath diaphoresis or associated symptoms. Patient in the ED otherwise has noticed stable vitals Chief Complaint: Lower Extremity Time Seen by MD: 19:10 Primary Care Provider: NONE Reviewed Notes: Medications, Allergies Allergies: Uncoded Allergies: CONTRAST (Allergy, Unknown, 08/16/15) Home Meds Active Scripts Hydrocodone-Acetaminophen (Hydrocodone/Acetaminophen 5-325 mg) 1 Tab Tab, 1 TAB PO TIDP PRN for 8 Days, #24 TAB Prov:TREV COATS MD 05/05/25 Levofloxacin Hemihydrate (LEVAQUIN 500 MG) 500 Mg Tab, 500 MG PO DAILY for 10 Days, #10 TAB Prov:TREV COATS MD 05/05/25 Ertapenem Sodium (Ertapenem) 1 Gm Inj, 1 GM IV DAILY for 8 Days, #8 INJ Prov:ROSY NEIL RESIDENT 03/27/25 Pantoprazole Sodium Sesquihydr (Pantoprazole Sodium) 40 Mg Tab, 20 MG PO DAILY for 14 Days, #14 TAB Prov:ROSY NEIL 03/27/25 Ergocalciferol (VITAMIN D 95144 UNIT) 50,000 [place], [address] UNIT PO QWEEKLY, #10 CAP Prov:ROSY NEIL 03/27/25 Azithromycin (Azithromycin) 250 Mg Tab, 250 MG PO DAILY MDD 500 for 5 Days, #6 TAB 0 Refills 2 TABLETS ORALLY ON DAY ONE, THEN 1 TABLET ORALLY DAILY FOR 4 DAYS Prov:DUNCAN BARRON 05/09/24 Lijtlvhu-Fusvgojxnv-Cjiqzbrdj- (Neosporin + Pain Relief) Relf Max Oin, 1 MAX EX DAILY for 10 Days, #5 OIN Prov:PEGGY GORDON MD 09/28/21 Yeast (S. Boulardii)(S. Cerevi (Florastor) 250 Mg Cap, 250 MG PO DAILY, #10 CAP Prov:JADA JAIMES MD 12/12/16 Doxycycline Hyclate (DOXYCYCLINE HYCLATE) 100 Mg Tab, 1 TAB PO BID, #20 TAB Prov:JADA JAIMES MD 12/12/16 Atorvastatin Calcium (ATORVASTATIN CALCIUM) 20 Mg Tab, 20 MG PO HS, #30 TAB Prov:JADA JAIMES MD 12/12/16 Information Source: Patient Mode of Arrival: Ambulatory Brought in by: Self Location: Bilateral Extremity Location: Leg Past Medical History PAST MEDICAL HISTORY: Anxiety, GERD, High Lipids, Kidney Stones, [place] Surgical History: BTL, Cholecystectomy, [facility] NEWS CORRESPONDENT History: Ovarian Cysts Family History Family History: Family hx of heart pamela Social History Smoker: Non-Smoker Alcohol: Denies ETOH Use Drugs: Denies Drug Use Lives In: Home Constitutional: denies: chills, diaphoresis, fatigue, fever, malaise, sweats, weakness, others EENTM: denies: blurred vision, double vision, ear bleeding, ear discharge, ear drainage, ear pain, ear ringing, eye pain, eye redness, hearing loss, mouth pain, mouth swelling, nasal discharge, nose bleeding, nose congestion, nose pain, photophobia, tearing, throat pain, throat swelling, voice changes, others Respiratory: denies: cough, hemoptysis, orthopnea, SOB at rest, shortness of breath, SOB with excertion, stridor, wheezing, others Cardiovascular: denies: chest pain, dizzy spells, diaphoresis, Dyspnea on exertion, edema, irregular heart beat, left arm pain, lightheadedness, palpitations, PND, syncope, others Gastrointestinal: denies: abdomen distended, abdominal pain, blood streaked bowels, constipated, diarrhea, dysphagia, difficulty swallowing, hematemesis, melena, nausea, poor appetite, poor fluid intake, rectal bleeding, rectal pain, vomiting, others Genitourinary: denies: abnormal vagina bleeding, burning, dyspareunia, dysuria, flank pain, frequency, hematuria, incontinence, pain, , vagina discharge, urgency, others Neurological: denies: dizziness, fainting, headache, left sided numbness, left sided weakness, numbness, paresthesia, pre-existing deficit, right sided numbness, right sided weakness, seizure, speech problems, tingling, tremors, weakness, others Musculoskeletal: reports: joint pain (Bilateral lower extremities); denies: back pain, gout, joint swelling, muscle pain, muscle stiffness, neck pain, others Integumetry: denies: bruises, change in color, change in hair/nails, dryness, laceration, lesions, lumps, rash, wounds, others Allergic/Immunocompromised: denies: Difficulty Healing, Frequent Infections, Hives, Itching, others Hematologic/Lymphatic: denies: anemia, blood clots, easy bleeding, easy bruising, swollen glands, others Endocrine: denies: excessive hunger, excessive sweating, excessive thirst, excessive urination, flushing, intolerance to cold, intolerance to heat, unexplained weight gain, unexplained weight loss, others Psychiatric: denies: anxiety, bipolar disorder, depression, hopeless, panic disorder, schizophrenia, sleepless, suicidal, others All Other Systems: Reviewed and Negative Physical Exam General Appearance: No Apparent Distress, Normal HEENT: Normal ENT Inspection, Pharynx Normal, TMs Normal Neck: Full Range of Motion, Non-Tender, Normal, Normal Inspection Respiratory: Chest Non-Tender, Lungs Clear, No Accessory Muscle Use, No Respiratory Distress, Normal Breath Sounds Cardiovascular: No Edema, No JVD, No Murmur, No Gallop, Normal Peripheral Pulses, Regular Rate/Rhythm Breast Exam: Deferred Gastrointestinal: No Organomegaly, Non Tender, No Pulsatile Mass, Normal Bowel Sounds, Soft Genitalia: Deferred Pelvic: Deferred Rectal: Deferred Extremities: Swelling (Left lower extremity tender to palpation), Other (Right lower extremity has + Homans sign) Musculoskeletal : Apperance: Normal Neurologic: Alert, supervisor II-XII nml as Tested, No Motor Deficits, Normal Affect, Normal Mood, No Sensory Deficits Cerebellar Function: Normal Reflexes: Normal Skin: Dry, Normal Color, Warm Lymphatic: No Adenopathy Was a procedure done? Was a procedure done?: No Differential Diagnosis EXT Differential Diagnosis: Cellulitis, CHF, Deep Vein Thrombosis X-Ray, Labs, Meds, VS Vital Signs Date Time Temp Pulse Resp B/P (MAP) Pulse Ox O2 Delivery O2 Flow Rate FiO2 05/09/25 16:38 98.2 91 16 120/80 97 98.2 X-Ray, Labs, Meds, VS Comment Imaging was reviewed by this provider, there is no obvious pathological or acute disease process. Pending radiology review Labs were reviewed by this provider, no abnormalities Vital signs reviewed by this provider, clinically stable Time of 1ST Reevaluation: 19:40 Reevaluation 1ST: Unchanged Patient Education/Counseling: Diagnosis, Treatment, Need For Follow Up (Follow up with PCP next available appointment) Family Education/Counseling: No Family Present Departure 1 Departure Time of Disposition: 20:17 Impression: Primary Impression: Muscle cramp Additional Impression: Leg pain, bilateral Disposition: 01 HOME / SELF CARE / HOMELESS Condition: Fair Discharged With: Self Critical Care Note Critical Care Time?: No Stability Stability form required: No Heart Score Heart Score: Heart Score Response (Comments) Value History N/A 0 EKG N/A 0 Age N/A 0 Risk Factors N/A 0 Troponin N/A 0 Total 0 I personally scribed for GAURAV CAMPOS ([email or web address]) on 05/09/25 at 19:13. Electronically submitted by Franc ARREDONDO). GAURAV CAMPOS May 09, 2025 19:13
--- NOTE | 2025-05-09 19:55 | DVH ---
Bilateral lower extremity venous duplex Clinical History: calf pain Comparison: None Technique: Duplex Doppler evaluation of the deep venous systems of both lower extremities from the common femora l veins to the popliteal veins including color Doppler and spectral/pulsed waveform analysis was perf ormed. Findings: RIGHT SIDE: The common femoral vein demonstrates appropriate compressibility and waveform variability. There is compressibility/patency of the great saphenous vein at the proximal thigh. The femoral vein demonstrates appropriate compressibility and waveform variability. The deep femoral vein demonstrates appropriate compressibility and waveform variability. The popliteal vein demonstrates appropriate compressibility and waveform variability. There is normal compressibility at the tibioperoneal trunk. LEFT SIDE: The common femoral vein demonstrates appropriate compressibility and waveform variability. There is compressibility/patency of the great saphenous vein at the proximal thigh. The femoral vein demonstrates appropriate compressibility and waveform variability. The deep femoral vein demonstrates appropriate compressibility and waveform variability. The popliteal vein demonstrates appropriate compressibility and waveform variability. There is normal compressibility at the tibioperoneal trunk. Impression: 1. No right or left femoropopliteal venous thrombosis.
[2025-05-09 20:15] VITALS: BP 107/71; PULSE 92; RESP 16; TEMP 97.8; O2SAT 95
== END 2025-05-09 20:30 | disposition home or self-care (01) ==
LOC: ER 16:37
DX: M79.605 Pain in left leg (principal); M79.604 Pain in right leg; R25.2 Cramp and spasm; E78.5 Hyperlipidemia, unspecified; F41.9 Anxiety disorder, unspecified; K21.9 Gastro-esophageal reflux disease without esophagitis; Z79.899 Other long term (current) drug therapy; Z98.51 Tubal ligation status; Z87.442 Personal history of urinary calculi; Z90.49 Acquired absence of other specified parts of digestive tract
CPT/HCPCS: 93970

== ENCOUNTER 2025-05-18 10:59 | Inpatient (IN) | payer MEDICAID ==
[~2025-05-18] VITALS: Ht 154.9 cm; Wt 68.0 kg
--- NOTE | 2025-05-18 11:56 | ED.PDOC ---
General HPI Comments This is a 50 year old female presenting to the ED with chief complaint of nephrostomy tube leaking. Patient reports that she had a nephrostomy tube placed in her left kidney on 05/03/25 and had an appointment yesterday with her electrical cad technician, having the bag replaced. Patient relays that she woke up this morning to her sheets all wet and her nephrostomy tube leaking. Patient states that when her daughter examined her nephrostomy tube site, she had seen what appeared to be purulent drainage to the site. Patient denies any flank pain, dysuria, hematuria, N/V/D, abdominal pain, or fever. Chief Complaint: Tube Replacement Time Seen by MD: 11:54 Primary Care Provider: NONE Reviewed notes: Nurses Notes, Medications, Allergies Allergies: Uncoded Allergies: CONTRAST (Allergy, Unknown, 08/16/15) Home Meds Active Scripts Pantoprazole Sodium Sesquihydr (Pantoprazole Sodium) 40 Mg Tab, 20 MG PO DAILY for 14 Days, #14 TAB Prov:ROSY NEIL 03/27/25 Ergocalciferol (VITAMIN D 55711 UNIT) 50,000 [place], [address] UNIT PO QWEEKLY, #10 CAP Prov:ROSY NEIL 03/27/25 Atorvastatin Calcium (ATORVASTATIN CALCIUM) 20 Mg Tab, 20 MG PO HS, #30 TAB Prov:JADA JAIMES MD 12/12/16 Information Source: Patient Mode of Arrival: Ambulatory Severity: Mild Timing: Hours Duration: Since onset Prehospital treatment: None Onset: Spontaneous History of: Other (Lt nephrostomy) Location: (L)Flank Past Medical History PAST MEDICAL HISTORY: Anxiety, GERD, High Lipids, Kidney Stones, [place] Surgical History: BTL, Cholecystectomy, [facility] Surgical History (Other): Left nephrostomy POT PUSHER History: Ovarian Cysts Family History Family History: Reviewed,noncontributory to illness, Family hx of heart pamela Social History Smoker: Non-Smoker Alcohol: Denies ETOH Use Drugs: Denies Drug Use Lives In: Home Constitutional: denies: chills, diaphoresis, fatigue, fever, malaise, sweats, weakness, others EENTM: denies: blurred vision, double vision, ear bleeding, ear discharge, ear drainage, ear pain, ear ringing, eye pain, eye redness, hearing loss, mouth pain, mouth swelling, nasal discharge, nose bleeding, nose congestion, nose pain, photophobia, tearing, throat pain, throat swelling, voice changes, others Respiratory: denies: cough, hemoptysis, orthopnea, SOB at rest, shortness of breath, SOB with excertion, stridor, wheezing, others Cardiovascular: denies: chest pain, dizzy spells, diaphoresis, Dyspnea on exertion, edema, irregular heart beat, left arm pain, lightheadedness, palpitations, PND, syncope, others Gastrointestinal: denies: abdomen distended, abdominal pain, blood streaked bowels, constipated, diarrhea, dysphagia, difficulty swallowing, hematemesis, melena, nausea, poor appetite, poor fluid intake, rectal bleeding, rectal pain, vomiting, others Genitourinary: reports: others (nephrostomy tube leaking); denies: abnormal vagina bleeding, burning, dyspareunia, dysuria, flank pain, frequency, hematuria, incontinence, pain, , vagina discharge, urgency Neurological: denies: dizziness, fainting, headache, left sided numbness, left sided weakness, numbness, paresthesia, pre-existing deficit, right sided numbness, right sided weakness, seizure, speech problems, tingling, tremors, weakness, others Musculoskeletal: denies: back pain, gout, joint pain, joint swelling, muscle pain, muscle stiffness, neck pain, others Integumetry: denies: bruises, change in color, change in hair/nails, dryness, laceration, lesions, lumps, rash, wounds, others Allergic/Immunocompromised: denies: Difficulty Healing, Frequent Infections, Hives, Itching, others Hematologic/Lymphatic: denies: anemia, blood clots, easy bleeding, easy bruising, swollen glands, others Endocrine: denies: excessive hunger, excessive sweating, excessive thirst, excessive urination, flushing, intolerance to cold, intolerance to heat, unexplained weight gain, unexplained weight loss, others Psychiatric: denies: anxiety, bipolar disorder, depression, hopeless, panic disorder, schizophrenia, sleepless, suicidal, others All Other Systems: Reviewed and Negative Physical Exam General Appearance: No Apparent Distress, Normal HEENT: Normal ENT Inspection, Pharynx Normal, TMs Normal Neck: Full Range of Motion, Non-Tender, Normal, Normal Inspection Respiratory: Chest Non-Tender, Lungs Clear, No Accessory Muscle Use, No Respiratory Distress, Normal Breath Sounds Cardiovascular: No Edema, No JVD, No Murmur, No Gallop, Normal Peripheral Pulses, Regular Rate/Rhythm Breast Exam: Deferred Gastrointestinal: No Organomegaly, Non Tender, No Pulsatile Mass, Normal Bowel Sounds, Soft, Other (Left nephrostomy tube in place) Genitalia: Deferred Pelvic: Deferred Rectal: Deferred Extremities: No calf tenderness, Normal capillary refill, Normal inspection, Normal range of motion, Non-tender, No pedal edema Musculoskeletal : Apperance: Normal Neurologic: Alert, parachute mender II-XII nml as Tested, No Motor Deficits, Normal Affect, Normal Mood, No Sensory Deficits Cerebellar Function: Normal Reflexes: Normal Skin: Dry, Normal Color, Warm Lymphatic: No Adenopathy Was a procedure done? Was a procedure done?: No Differential Diagnosis Kidney stone (Female): N/A Kidney stone (Male): N/A Penile/Scrotal: N/A Urinary Problem (Male): N/A Urinary Problem (Female): Post-op complication, Pyelonephritis, Urolithiasis, UTI X-Ray, Labs, Meds, VS Vital Signs Date Time Temp Pulse Resp B/P (MAP) Pulse Ox O2 Delivery O2 Flow Rate FiO2 05/18/25 11:01 99.0 79 20 138/78 97 99.0 Lab Test 05/18/25 12:22 Range/Units White Blood Count 8.6 4.4-10.8 10^3/uL Red Blood Count 4.39 4.0-5.20 10^6/uL Hemoglobin 13.3 12.2-16.2 g/dL Hematocrit 40.3 36.0-46.0 % Mean Corpuscular Volume 91.9 80.0-100.0 fL Mean Corpuscular Hemoglobin 30.4 28.0-32.0 pg Mean Corpuscular Hemoglobin Concent 33.1 32.0-36.0 g/dL Red Cell Distribution Width 14.7 H 11.8-14.3 % Platelet Count 407 140-450 10^3/uL Mean Platelet Volume 9.4 6.9-10.8 fL Neutrophils (%) (Auto) 71.5 37.0-80.0 % Lymphocytes (%) (Auto) 21.6 10.0-50.0 % Monocytes (%) (Auto) 4.8 0.0-12.0 % Eosinophils (%) (Auto) 1.5 0.0-7.0 % Basophils (%) (Auto) 0.6 0.0-2.0 % Neutrophils # (Auto) 6.1 1.6-8.6 10 ^3/uL Lymphocytes # (Auto) 1.9 0.4-5.4 10 ^3/uL Monocytes # (Auto) 0.4 0-1.3 10 ^3/uL Eosinophils # (Auto) 0.1 0-0.8 10 ^3/uL Basophils # (Auto) 0.1 0-0.2 10 ^3/uL Nucleated Red Blood Cells 0.0 % Sodium Level 138 136-145 mmol/L Potassium Level 4.0 3.5-5.1 mmol/L Chloride Level 104 98-107 mmol/L Carbon Dioxide Level 22 20-31 mmol/L Anion Gap 12 5-15 Blood Urea Nitrogen 12 9-23 mg/dL Creatinine 0.92 0.550-1.02 mg/dL Glomerular Filtration Rate Calc 76 >90 mL/min BUN/Creatinine Ratio 13.0 10.0-20.0 Serum Glucose 88 74-106 mg/dL Calcium Level 9.6 8.7-10.4 mg/dL [place] [id number] Ph: [phone] DIAGNOSTIC IMAGING Diagnostic Imaging Report : [id number] Signed PATIENT: MAICOL AMAROAACCT: [id number] UNIT: [id number] : 1975 LOC: ER ROOM / BED: / AGE / SEX: 50 / F ADM STATUS: REG ER SERVICE 1203 ORDERING PHYSICIAN: TARI PAL MD PROCEDURE(s): ABPL - CT AB PEL WO CON-NO ORAL OR IV REASON: nephrostomy tube leakage ORDER NUMBER(s): [id number], ACCESSION NUMBER(s): [id number] EXAM: CT CT AB PEL WO CON-NO ORAL OR IV INDICATION: nephrostomy tube leakage TECHNIQUE: Volumetric multidetector CT images of the abdomen and pelvis were obtained without contrast. All CT scans at this facility use dose modulation, iterative reconstruction, and/or weight based dosing when appropriate to reduce radiation dose to as low as reasonably achievable. COMPARISON: XY KUB ABDOMEN SINGLE VIEW on DOS: 05/17/25 FINDINGS: [LOWER CHEST]: The partially visualized lung bases are clear without a pleural effusion. The cardiac size is normal without pericardial effusion. [LIVER]: Normal hepatic size without suspicious focal lesion. [GALLBLADDER AND BILIARY TREE]: Surgically absent. [SPLEEN]: Unremarkable. [PANCREAS]: Unremarkable. [ADRENAL GLANDS]: Unremarkable [KIDNEYS]: Bilateral cortical stones. Left renal caliceal prominent stones and superimposed cysts. Left percutaneous nephrostomy tube and double-J ureteral stent. Possible wire retention in the double-J pigtail drainage catheter. Mild left hydroureter proximally [BLADDER]: Unremarkable for the degree distention. [REPRODUCTIVE ORGANS]: Prominence of the uterus and underlying uterine fibroid of the uterine fundus not excluded. Dominant right ovarian cysts measuring 5.5 cm without suspicious features [BOWEL/MESENTERY]: Stomach is normal. Mild stool burden. Normal appendix. [ASCITES]: Absent [LYMPHADENOPATHY]: No pathologically enlarged lymph nodes by CT size criteria [VASCULATURE]: No aneurysmal dilatation. [ABDOMINAL WALL]: Unremarkable. [MUSCULOSKELETAL]: No acute fracture or aggressive focal osseous lesion. Multifocal degenerative change of the visualized spine. grade 2 anterolisthesis L5-S1. Chronic bilateral pars defects. IMPRESSION: 1. Left percutaneous nephrostomy tube and double-J ureteral stent. 2. Mild left hydroureter proximally. 3. Bilateral nonobstructive nephrolithiasis. 4. Prominence of the uterus and underlying uterine fibroid of the uterine fundus not excluded. 5. Dominant right ovarian cysts measuring 5.5 cm without suspicious features. ATED BY: LAZ BANKS MD DICTATED DATE/TIME: 05/18/25 125 SIGNED BY: LAZ BANKS MD SIGNED DATE/TIME: 05/18/25 125 CC: Images Reviewed?: Images reviewed and evaluated by me Time of 1ST Reevaluation: 12:50 Reevaluation 1ST: Unchanged Patient Education/Counseling: Diagnosis, Treatment Family Education/Counseling: No Family Present SEPSIS Sepsis Screen Date sepsis recognized/suspect: May 18, 2025 Time Sepsis recognized/suspect: 1102 Recent Procedure: No On Antibiotic Therapy: No Respiratory Rate >20: No Heart Rate >90: No Temp<36 C (96.8 F) or >38.3 C: No SBP <90 or MAP <65 mmHG: No New Acute Mental Status Change: No Is the patient on CPAP, BIPAP,: No Physician Orders Ct Ab Pel Wo Con-No Oral Or Iv (05/18/25 12:03) Vital Signs Date Time Temp Pulse Resp B/P (MAP) Pulse Ox O2 Delivery O2 Flow Rate FiO2 05/18/25 11:01 99.0 79 20 138/78 97 99.0 Laboratory Tests Test 05/18/25 12:22 White Blood Count 8.6 10^3/uL (4.4-10.8) Departure 1 Departure Time of Disposition: 08:10 (Patient with nephrostomy tube dislodgement and suspected complicated UTI. We will empirically cover patient with fluids antibi otics admit patient for further workup) Impression: Primary Impression: Pyelonephritis Additional Impression: Nephrostomy tube displaced Disposition: ADMITTED INPATIENT Admit to: Med Surg Condition: Guarded Critical Care Note Critical Care Time?: Yes Critical care comment: Suspected pyelonephritis Authorized and Performed by: Tari Pal MD Total critical care time: Approximately 36 minutes Due to a high probability of clinically significant, life threatening deterioration, the patient required my highest level of preparedness to intervene emergently and I personally spent this critical care time directly and personally managing the patient. This critical care time included obtaining a history; examining the patient; pulse oximetry; ordering and review of studies; arranging urgent treatment with development of a management plan; evaluation of patient's response to treatment; frequent reassessment; and, discussions with other providers. This critical care time was performed to assess and manage the high probability of imminent, life-threatening deterioration that could result in multi-organ failure. It was exclusive of separately billable procedures and treating other patients and teaching time. Please see my other sections and the rest of the note for further information on patient assessment and treatment. Stability Stability form required: No Heart Score Heart Score: Heart Score Response (Comments) Value History N/A 0 EKG N/A 0 Age N/A 0 Risk Factors N/A 0 Troponin N/A 0 Total 0 I personally scribed for TARI PAL MD ([email or web address]) on 10/22/25 at 11:56. Electronically submitted by Landon Jackson ([email or web address]). I personally scribed for TARI PAL MD ([email or web address]) on 05/18/25 at 13:46. Electronically submitted by Landon Jackson ([email or web address]). TARI PAL MD May 18, 2025 11:56
[2025-05-18 12:46] LABS: Hematocrit 40.3 % (36.0-46.0); Hemoglobin 13.3 g/dL (12.2-16.2); Mean Corpuscular Hemoglobin 30.4 pg (28.0-32.0); Mean Corpuscular Volume 91.9 fL (80.0-100.0); Nucleated Red Blood Cells % 0.0 %
[2025-05-18 12:54] LABS: Chloride 104 mmol/L (98-107); Potassium 4.0 mmol/L (3.5-5.1); Sodium 138 mmol/L (136-145)
[2025-05-18 12:55] LABS: Anion Gap 12 (5-15); Carbon Dioxide 22 mmol/L (20-31)
[2025-05-18 12:56] LABS: Calcium 9.6 mg/dL (8.7-10.4)
[2025-05-18 13:00] LABS: BUN/Creatinine Ratio 13.0 (10.0-20.0); Blood Urea Nitrogen 12 mg/dL (9-23); Glucose 88 mg/dL (74-106)
--- NOTE | 2025-05-18 13:01 | DVH ---
EXAM: CT CT AB PEL WO CON-NO ORAL OR IV INDICATION: nephrostomy tube leakage TECHNIQUE: Volumetric multidetector CT images of the abdomen and pelvis were obtained without contras t. All CT scans at this facility use dose modulation, iterative reconstruction, and/or weight based d osing when appropriate to reduce radiation dose to as low as reasonably achievable. COMPARISON: XY KUB ABDOMEN SINGLE VIEW on DOS: 05/17/25 FINDINGS: [LOWER CHEST]: The partially visualized lung bases are clear without a pleural effusion. The cardiac size is normal without pericardial effusion. [LIVER]: Normal hepatic size without suspicious focal lesion. [GALLBLADDER AND BILIARY TREE]: Surgically absent. [SPLEEN]: Unremarkable. [PANCREAS]: Unremarkable. [ADRENAL GLANDS]: Unremarkable [KIDNEYS]: Bilateral cortical stones. Left renal caliceal prominent stones and superimposed cysts. Left percutaneous nephrostomy tube and double-J ureteral stent. Possible wire retention in the doubl e-J pigtail drainage catheter. Mild left hydroureter proximally [BLADDER]: Unremarkable for the degree distention. [REPRODUCTIVE ORGANS]: Prominence of the uterus and underlying uterine fibroid of the uterine fundus not excluded. Dominant right ovarian cysts measuring 5.5 cm without suspicious features [BOWEL/MESENTERY]: Stomach is normal. Mild stool burden. Normal appendix. [ASCITES]: Absent [LYMPHADENOPATHY]: No pathologically enlarged lymph nodes by CT size criteria [VASCULATURE]: No aneurysmal dilatation. [ABDOMINAL WALL]: Unremarkable. [MUSCULOSKELETAL]: No acute fracture or aggressive focal osseous lesion. Multifocal degenerative abreu ge of the visualized spine. grade 2 anterolisthesis L5-S1. Chronic bilateral pars defects. IMPRESSION: 1. Left percutaneous nephrostomy tube and double-J ureteral stent. 2. Mild left hydroureter proximally. 3. Bilateral nonobstructive nephrolithiasis. 4. Prominence of the uterus and underlying uterine fibroid of the uterine fundus not excluded. 5. Dominant right ovarian cysts measuring 5.5 cm without suspicious features.
[2025-05-18] MEDS ORDERED: ONDANSETRON HCL 4 MG/2 ML VIAL IV PRN (17:30)
--- NOTE | 2025-05-18 17:43 | DVHHPRES ---
History of Present Illness Resident Creating Document: AUGUSTINE DEAN RESIDENT History of Present Illness Patient is a 50-year-old female with past medical history of renal calculus,? Myocardial infarction in 2007 without PCI, recent hospitalization for renal calculus s/p nephrostomy tube placement, who comes in due to leakage around nephrostomy tube site. According to the patient, yesterday on 05/17/2025 she had an appointment with the urologist Dr. Vasquez during which the nephrostomy site was cleaned, nephrostomy tube was capped and patient was scheduled for ESWL for Friday. Patient notes this morning on 05/18/2025 she woke up with saturated nephrostomy dressing and leakage of fluid onto the bed which is what prompted this visit to the hospital. Patient also notes she noted purulent discharge around the tube as well as inside the tube. On review of systems patient is complaining of dysuria and urinary frequency. Past Medical History renal calculus,? Myocardial infarction in 2007 without PCI, recent hospitalization for renal calculus s/p nephrostomy tube placement, Past Surgical History Ovarian cystectomy, breast cystectomy, cholecystectomy, hysterectomy Past Social History Smoking: Denies Alcohol: Denies Drugs: Denies Lives with family. Review of Systems Constitutional: No: Fever, Chills, Sweats, Weakness, Malaise, Other Eyes: No: Pain, Vision change, Conjunctivae inflammation, Eyelid inflammation, Other, Redness ENT: No: Ear pain, Ear discharge, Nose pain, Nose discharge, Nose congestion, Mouth pain, Mouth swelling, Throat pain, Throat swelling, Other Respiratory: No: Cough, Dry, Shortness of breath, SOB with excertion, Wheezing, Hemoptysis, Pleuritic Pain, Sputum, Wheezing, Other Cardiovascular: No: Chest Pain, Palpitations, Orthopnea, Paroxysmal Noc. Dyspne a, Edema, Lt Headedness, Other Gastrointestinal: No: Nausea, Vomiting, Abdominal Pain, Diarrhea, Constipation, Melena, Hematochezia, Other Genitourinary: Dysuria, Frequency; No Incontinence, No Hematuria, No Retention, No Other Musculoskeletal: No: other, neck pain, shoulder pain, arm pain, back pain, hand pain, leg pain, foot pain Skin: No: Rash, Lesions, Jaundice, Bruising, Other Neurological: No: Weakness, Numbness, Incoordination, Change in speech, Confusion, Seizures, Other Allergies: Uncoded Allergies: CONTRAST (Allergy, Unknown, 08/16/15) Exam Vital Signs Vital Signs Date Time Temp Pulse Resp B/P (MAP) Pulse Ox O2 Delivery O2 Flow Rate FiO2 05/18/25 11:01 99.0 79 20 138/78 97 99.0 General Appearance: Alert, Oriented X3, Cooperative, No acute distress HEENT: Atraumatic, PERRLA, EOMI, Mucous membr. moist/pink Respiratory: Clear to auscultation, Normal air movement Cardiovascular: Regular rate Abdominal: Normal bowel sounds, Soft, No tenderness Extremities: No edema Skin: No significant lesion Neuro: Normal gait, Normal speech Psych/Mental Status: Mental status NL, Mood NL Labs/Xrays Labs Test 05/18/25 12:22 Range/Units White Blood Count 8.6 4.4-10.8 10^3/uL Red Blood Count 4.39 4.0-5.20 10^6/uL Hemoglobin 13.3 12.2-16.2 g/dL Hematocrit 40.3 36.0-46.0 % Mean Corpuscular Volume 91.9 80.0-100.0 fL Mean Corpuscular Hemoglobin 30.4 28.0-32.0 pg Mean Corpuscular Hemoglobin Concent 33.1 32.0-36.0 g/dL Red Cell Distribution Width 14.7 H 11.8-14.3 % Platelet Count 407 140-450 10^3/uL Mean Platelet Volume 9.4 6.9-10.8 fL Neutrophils (%) (Auto) 71.5 37.0-80.0 % Lymphocytes (%) (Auto) 21.6 10.0-50.0 % Monocytes (%) (Auto) 4.8 0.0-12.0 % Eosinophils (%) (Auto) 1.5 0.0-7.0 % Basophils (%) (Auto) 0.6 0.0-2.0 % Neutrophils # (Auto) 6.1 1.6-8.6 10 ^3/uL Lymphocytes # (Auto) 1.9 0.4-5.4 10 ^3/uL Monocytes # (Auto) 0.4 0-1.3 10 ^3/uL Eosinophils # (Auto) 0.1 0-0.8 10 ^3/uL Basophils # (Auto) 0.1 0-0.2 10 ^3/uL Nucleated Red Blood Cells 0.0 % Sodium Level 138 136-145 mmol/L Potassium Level 4.0 3.5-5.1 mmol/L Chloride Level 104 98-107 mmol/L Carbon Dioxide Level 22 20-31 mmol/L Anion Gap 12 5-15 Blood Urea Nitrogen 12 9-23 mg/dL Creatinine 0.92 0.550-1.02 mg/dL Glomerular Filtration Rate Calc 76 >90 mL/min BUN/Creatinine Ratio 13.0 10.0-20.0 Serum Glucose 88 74-106 mg/dL Calcium Level 9.6 8.7-10.4 mg/dL SEPSIS Sepsis Screen Date sepsis recognized/suspect: May 18, 2025 Time Sepsis recognized/suspect: 1102 Recent Procedure: No On Antibiotic Therapy: No Respiratory Rate >20: No Heart Rate >90: No Temp<36 C (96.8 F) or >38.3 C: No SBP <90 or MAP <65 mmHG: No New Acute Mental Status Change: No Is the patient on CPAP, BIPAP,: No Physician Orders Ct Ab Pel Wo Con-No Oral Or Iv (05/18/25 12:03) Vital Signs Date Time Temp Pulse Resp B/P (MAP) Pulse Ox O2 Delivery O2 Flow Rate FiO2 05/18/25 11:01 99.0 79 20 138/78 97 99.0 Laboratory Tests Test 05/18/25 12:22 White Blood Count 8.6 10^3/uL (4.4-10.8) Assessment/Plan Assessment/Plan Acute complicated UTI with possible pyonephrosis and pyuria Dislodged nephrostomy tube Left-sided hydroureter Bilateral nephrolithiasis, nonobstructive - CT abdomen pelvis: Left percutaneous nephrostomy tube and double-J ureteral stent. Mild left hydroureter proximally.Bilateral nonobstructive nephrolithiasis. Prominence of the uterus and underlying uterine fibroid of the uterine fundus not excluded. Dominant right ovarian cysts measuring 5.5 cm without suspicious features. - IV NS at 60 cc/hour - IV ceftriaxone - IV Zofran - urology consult Uterine fibroids Right ovarian cyst 5.5 cm - monitor GERD - resumed home medication Protonix PUD prophylaxis: protonix 40mg DVT prophylaxis: SCDs Goals of care: Full code, discussed for >16 minutes on 05/18/2025 Plan discussed with patient Plan discussed with Dr. Arias Plan discussed with: Patient, Other (RN) Date of Service: May 18, 2025 Billing Provider: GRISEL ARIAS MD Common Visit Codes: [id number] INP/OBS CARE (HIGH) AUGUSTINE DEAN RESIDENT May 18, 2025 17:43
[2025-05-18 22:51] LABS: Urine Protein, UAD 1+ (Negative)
[2025-05-18 22:52] LABS: Urine Budding Yeast OCCASIONAL /hpf (None Seen)
[2025-05-18 22:59] LABS: Opiate Scree,Urine Neg (NEGATIVE)
[2025-05-18 23:16] LABS: Amphetamine Screen, Urine Neg (NEGATIVE); Barbiturate Scree,Urine Neg (NEGATIVE); Benzodiazephine Screen, Urine Neg (NEGATIVE); Cannabinoid Screen, Urine Neg (NEGATIVE); Cocaine Screen, Urine Neg (NEGATIVE); Phencyclidine Screen, Urine Neg (NEGATIVE)
[2025-05-19 02:10] VITALS: BP 102/56; PULSE 79; RESP 16; TEMP 97.7; O2SAT 96
[2025-05-19 04:32] LABS: Hematocrit 35.2 % (36.0-46.0); Hemoglobin 11.7 g/dL (12.2-16.2); Mean Corpuscular Hemoglobin 31.0 pg (28.0-32.0); Mean Corpuscular Volume 93.0 fL (80.0-100.0); Nucleated Red Blood Cells % 0.1 %
[2025-05-19 04:57] LABS: Alanine Aminotransferase 16 U/L (7-40); Albumin 3.9 g/dL (3.2-4.8); Alkaline Phosphatase 82 U/L (46-116); Anion Gap 13 (5-15); BUN/Creatinine Ratio 18.8 (10.0-20.0); Blood Urea Nitrogen 15 mg/dL (9-23); Calcium 9.7 mg/dL (8.7-10.4); Carbon Dioxide 19 mmol/L (20-31); Chloride 106 mmol/L (98-107); Glucose 98 mg/dL (74-106); Potassium 4.1 mmol/L (3.5-5.1); Sodium 138 mmol/L (136-145); Total Protein 7.4 g/dL (5.7-8.2)
[2025-05-19 04:58] LABS: Bilirubin, Total 0.2 mg/dL (0.2-1.0)
[2025-05-19 05:00] VITALS: BP 101/63; PULSE 82; RESP 16; TEMP 98; O2SAT 97
[2025-05-19] MEDS: SODIUM CHLORIDE 0.9% 1,000 ML IV SCH (06:01)
[2025-05-19] MEDS: PANTOPRAZOLE 40 MG TAB PO SCH (07:01)
[2025-05-19 08:59] VITALS: BP 96/62; PULSE 75; RESP 20; TEMP 98.2; O2SAT 97
--- NOTE | 2025-05-19 09:52 | DVHINCON2 ---
Date of service: May 19, 2025 Referring Physician hospitalist Reason for Consultation leaking PCN History of Present Illness History Source: Patient, RN Notes, MD Notes, Old Records Exam Limitations: No limitations HPI 50 yo female with hx of left staghorn s/p left PCNL and URSLL with stent placement. Pt c/o of leaking PCN and was evaluated in the ER. Pt is pending left PCNL and left URSLL 05/18/25 on outpt basis. Labs are unremarkable. Pt has no c/o pain or fevers. Home Meds Active Scripts Hydrocodone-Acetaminophen (Hydrocodone/Acetaminophen 5-325 mg) 1 Tab Tab, 1 TAB PO TIDP PRN for 8 Days, #24 TAB Prov:TREV COATS MD 05/05/25 Levofloxacin Hemihydrate (LEVAQUIN 500 MG) 500 Mg Tab, 500 MG PO DAILY for 10 Days, #10 TAB Prov:TREV COATS MD 05/05/25 Ertapenem Sodium (Ertapenem) 1 Gm Inj, 1 GM IV DAILY for 8 Days, #8 INJ Prov:ROSY NEIL RESIDENT 03/27/25 Pantoprazole Sodium Sesquihydr (Pantoprazole Sodium) 40 Mg Tab, 20 MG PO DAILY for 14 Days, #14 TAB [facility] 03/27/25 Ergocalciferol (VITAMIN D 11079 UNIT) 50,[address] [place], [address] UNIT PO QWEEKLY, #10 CAP Prov[facility] 03/27/25 Azithromycin (Azithromycin) 250 Mg Tab, 250 MG PO DAILY MDD 500 for 5 Days, #6 TAB 0 Refills 2 TABLETS ORALLY ON DAY ONE, THEN 1 TABLET ORALLY DAILY FOR 4 DAYS Prov:DUNCAN BARRON 05/09/24 Strztowa-Ctaowjwrua-Mublronuf- (Neosporin + Pain Relief) Relf Max Oin, 1 MAX EX DAILY for 10 Days, #5 OIN Prov:PEGGY GORDON MD 09/28/21 Yeast (S. Boulardii)(S. Cerevi (Florastor) 250 Mg Cap, 250 MG PO DAILY, #10 CAP Prov:JADA JAIMES MD 12/12/16 Doxycycline Hyclate (DOXYCYCLINE HYCLATE) 100 Mg Tab, 1 TAB PO BID, #20 TAB Prov:JADA JAIMES MD 12/12/16 Atorvastatin Calcium (ATORVASTATIN CALCIUM) 20 Mg Tab, 20 MG PO HS, #30 TAB Prov:JADA JAIMES MD 12/12/16 Past Medical History Patient Family History: FH: diabetes mellitus GRANDMOTHER, Smoker: No Hx (Negative) Alocohol: None Drugs: None Domestic Violence: Neg H&P Exam Vital Signs Vital Signs Date Time Temp Pulse Resp B/P (MAP) Pulse Ox O2 Delivery O2 Flow Rate FiO2 05/19/25 08:59 98.2 75 20 96/62 (73) 97 98.2 General Appeara: Well developed, Well nourished, Normal Appearance Pulmonary/Respiratory: Normal inspection, Normal breath sounds, Chest non- tender, Lungs clear Cardiovascular/Chest: Normal inspection, Regular rate, Normal Rhythm Neuro/Mental St: Alert, Oriented Appearance: Appropriate appearance, Appropriate insight Eye contact/ Speech: Cooperative, Good eye contact, Normal speech Skin Exam: Normal inspection, Normal color, Warm/dry Labs/Xrays [place] [id number] Ph: [phone] DIAGNOSTIC IMAGING Diagnostic Imaging Report : [id number] Signed PATIENT: MAICOL AMAROAACCT: [id number] UNIT: [id number] : 1975 LOC: ER ROOM / BED: / AGE / SEX: 50 / F ADM STATUS: REG ER SERVICE 1203 ORDERING PHYSICIAN: TARI PAL MD PROCEDURE(s): ABPL - CT AB PEL WO CON-NO ORAL OR IV REASON: nephrostomy tube leakage ORDER NUMBER(s): [id number], ACCESSION NUMBER(s): [id number] EXAM: CT CT AB PEL WO CON-NO ORAL OR IV INDICATION: nephrostomy tube leakage TECHNIQUE: Volumetric multidetector CT images of the abdomen and pelvis were obtained without contrast. All CT scans at this facility use dose modulation, iterative reconstruction, and/or weight based dosing when appropriate to reduce radiation dose to as low as reasonably achievable. COMPARISON: XY KUB ABDOMEN SINGLE VIEW on DOS: 05/17/25 FINDINGS: [LOWER CHEST]: The partially visualized lung bases are clear without a pleural effusion. The cardiac size is normal without pericardial effusion. [LIVER]: Normal hepatic size without suspicious focal lesion. [GALLBLADDER AND BILIARY TREE]: Surgically absent. [SPLEEN]: Unremarkable. [PANCREAS]: Unremarkable. [ADRENAL GLANDS]: Unremarkable [KIDNEYS]: Bilateral cortical stones. Left renal caliceal prominent stones and superimposed cysts. Left percutaneous nephrostomy tube and double-J ureteral stent. Possible wire retention in the double-J pigtail drainage catheter. Mild left hydroureter proximally [BLADDER]: Unremarkable for the degree distention. [REPRODUCTIVE ORGANS]: Prominence of the uterus and underlying uterine fibroid of the uterine fundus not excluded. Dominant right ovarian cysts measuring 5.5 cm without suspicious features [BOWEL/MESENTERY]: Stomach is normal. Mild stool burden. Normal appendix. [ASCITES]: Absent [LYMPHADENOPATHY]: No pathologically enlarged lymph nodes by CT size criteria [VASCULATURE]: No aneurysmal dilatation. [ABDOMINAL WALL]: Unremarkable. [MUSCULOSKELETAL]: No acute fracture or aggressive focal osseous lesion. Multifocal degenerative change of the visualized spine. grade 2 anterolisthesis L5-S1. Chronic bilateral pars defects. IMPRESSION: 1. Left percutaneous nephrostomy tube and double-J ureteral stent. 2. Mild left hydroureter proximally. 3. Bilateral nonobstructive nephrolithiasis. 4. Prominence of the uterus and underlying uterine fibroid of the uterine fundus not excluded. 5. Dominant right ovarian cysts measuring 5.5 cm without suspicious features. ATED BY: MEGAN BANKS MD DICTATED DATE/TIME: 05/18/25 1259 SIGNED BY: MEGAN BANKS MD SIGNED DATE/TIME: 05/18/25 1259 CC: Labs Test 05/19/25 03:46 05/18/25 22:15 05/18/25 18:20 Range/Units White Blood Count 9.5 4.4-10.8 10^3/uL Red Blood Count 3.79 L 4.0-5.20 10^6/uL Hemoglobin 11.7 L 12.2-16.2 g/dL Hematocrit 35.2 #L 36.0-46.0 % Mean Corpuscular Volume 93.0 80.0-100.0 fL Mean Corpuscular Hemoglobin 31.0 28.0-32.0 pg Mean Corpuscular Hemoglobin Concent 33.3 32.0-36.0 g/dL Red Cell Distribution Width 15.0 H 11.8-14.3 % Platelet Count 334 140-450 10^3/uL Mean Platelet Volume 10.0 6.9-10.8 fL Neutrophils (%) (Auto) 64.8 37.0-80.0 % Lymphocytes (%) (Auto) 25.2 10.0-50.0 % Monocytes (%) (Auto) 6.1 0.0-12.0 % Eosinophils (%) (Auto) 2.8 0.0-7.0 % Basophils (%) (Auto) 1.1 0.0-2.0 % Neutrophils # (Auto) 6.2 1.6-8.6 10 ^3/uL Lymphocytes # (Auto) 2.4 0.4-5.4 10 ^3/uL Monocytes # (Auto) 0.6 0-1.3 10 ^3/uL Eosinophils # (Auto) 0.3 0-0.8 10 ^3/uL Basophils # (Auto) 0.1 0-0.2 10 ^3/uL Nucleated Red Blood Cells 0.1 % Sodium Level 138 136-145 mmol/L Potassium Level 4.1 3.5-5.1 mmol/L Chloride Level 106 98-107 mmol/L Carbon Dioxide Level 19 L 20-31 mmol/L Anion Gap 13 5-15 Blood Urea Nitrogen 15 9-23 mg/dL Creatinine 0.80 0.550-1.02 mg/dL Glomerular Filtration Rate Calc 90 >90 mL/min BUN/Creatinine Ratio 18.8 10.0-20.0 Serum Glucose 98 74-106 mg/dL Calcium Level 9.7 8.7-10.4 mg/dL Total Bilirubin 0.2 0.2-1.0 mg/dL Aspartate Amino Transferase (AST) 21 13-40 U/L Alanine Aminotransferase (ALT) 16 7-40 U/L Alkaline Phosphatase 82 46-116 U/L Total Protein 7.4 5.7-8.2 g/dL Albumin 3.9 3.2-4.8 g/dL Urine Color Light-yellow Yellow Urine Clarity Turbid H Clear Urine pH 6.0 5.0-9.0 Urine Specific [place] 1.018 1.001-1.035 Urine Protein 1+ H Negative Urine Ketones Negative Negative Urine Blood 2+ H Negative /uL Urine Nitrite Negative Negative Urine Bilirubin Negative Negative Urine Urobilinogen Normal Negative mg/dL Urine Leukocyte Esterase 3+ Negative /uL Urine RBC 42 0 - 4 /hpf Urine Microscopic WBC 216 H 0-5 /HPF Urine Squamous Epithelial Cells Mod <5 /hpf Urine Bacteria Few H None Seen /hpf Urine Mucus Few None Seen Urine Yeast (Budding) Occasional None Seen /hpf Urine Glucose Normal Normal mg/dL Urine Opiates Screen Neg NEGATIVE Urine Fentanyl Screen Neg NEGATIVE Urine Barbiturates Screen Neg NEGATIVE Urine Phencyclidine Screen Neg NEGATIVE Urine Amphetamines Screen Neg NEGATIVE Urine Benzodiazepines Screen Neg NEGATIVE Urine Cocaine Screen Neg NEGATIVE Urine Cannabinoids Screen Neg NEGATIVE Lactic Acid Level 1.3 0.4-2.0 mmol/L Assessment/Plan Problem List: (1) Ureterolithiasis (2) Foreign body in genitourinary tract, part unspecified, initial encounter Plan attach PCN bag for drainage. cleared from urology standpoint nedrapt RUBY 05/18/25 Plan discussed with: Patient, Other ORLANDO FULLER NP May 19, 2025 09:52
[2025-05-19] MEDS ORDERED: CEPH500C PO (10:32)
--- NOTE | 2025-05-19 10:53 | DVHDSRES ---
Discharge Summary Date of Admission Resident Creating Document: PATRICK BRAVO RESIDENT May 18, 2025 at 17:22 Date of Discharge: May 19, 2025 Labs/Diagnostic Data: Laboratory Results Test 05/19/25 03:46 05/18/25 22:15 05/18/25 18:20 White Blood Count 9.5 10^3/uL (4.4-10.8) Red Blood Count 3.79 10^6/uL (4.0-5.20) Hemoglobin 11.7 g/dL (12.2-16.2) Hematocrit 35.2 % (36.0-46.0) Mean Corpuscular Volume 93.0 fL (80.0-100.0) Mean Corpuscular Hemoglobin 31.0 pg (28.0-32.0) Mean Corpuscular Hemoglobin Concent 33.3 g/dL (32.0-36.0) Red Cell Distribution Width 15.0 % (11.8-14.3) Platelet Count 334 10^3/uL (140-450) Mean Platelet Volume 10.0 fL (6.9-10.8) Neutrophils (%) (Auto) 64.8 % (37.0-80.0) Lymphocytes (%) (Auto) 25.2 % (10.0-50.0) Monocytes (%) (Auto) 6.1 % (0.0-12.0) Eosinophils (%) (Auto) 2.8 % (0.0-7.0) Basophils (%) (Auto) 1.1 % (0.0-2.0) Neutrophils # (Auto) 6.2 10 ^3/uL (1.6-8.6) Lymphocytes # (Auto) 2.4 10 ^3/uL (0.4-5.4) Monocytes # (Auto) 0.6 10 ^3/uL (0-1.3) Eosinophils # (Auto) 0.3 10 ^3/uL (0-0.8) Basophils # (Auto) 0.1 10 ^3/uL (0-0.2) Nucleated Red Blood Cells 0.1 % Sodium Level 138 mmol/L (136-145) Potassium Level 4.1 mmol/L (3.5-5.1) Chloride Level 106 mmol/L (98-107) Carbon Dioxide Level 19 mmol/L (20-31) Anion Gap 13 (5-15) Blood Urea Nitrogen 15 mg/dL (9-23) Creatinine 0.80 mg/dL (0.550-1.02) Glomerular Filtration Rate Calc 90 mL/min (>90) BUN/Creatinine Ratio 18.8 (10.0-20.0) Serum Glucose 98 mg/dL (74-106) Calcium Level 9.7 mg/dL (8.7-10.4) Total Bilirubin 0.2 mg/dL (0.2-1.0) Aspartate Amino Transferase (AST) 21 U/L (13-40) Alanine Aminotransferase (ALT) 16 U/L (7-40) Alkaline Phosphatase 82 U/L (46-116) Total Protein 7.4 g/dL (5.7-8.2) Albumin 3.9 g/dL (3.2-4.8) Urine Color Light-yellow (Yellow) Urine Clarity Turbid (Clear) Urine pH 6.0 (5.0-9.0) Urine Specific [place] 1.018 (1.001-1.035) Urine Protein 1+ (Negative) Urine Ketones Negative (Negative) Urine Blood 2+ /uL (Negative) Urine Nitrite Negative (Negative) Urine Bilirubin Negative (Negative) Urine Urobilinogen Normal mg/dL (Negative) Urine Leukocyte Esterase 3+ /uL (Negative) Urine RBC 42 /hpf (0 - 4) Urine Microscopic WBC 216 /HPF (0-5) Urine Squamous Epithelial Cells Mod /hpf (<5) Urine Bacteria Few /hpf (None Seen) Urine Mucus Few (None Seen) Urine Yeast (Budding) Occasional /hpf (None Urine Glucose Normal mg/dL (Normal) Urine Opiates Screen Neg (NEGATIVE) Urine Fentanyl Screen Neg (NEGATIVE) Urine Barbiturates Screen Neg (NEGATIVE) Urine Phencyclidine Screen Neg (NEGATIVE) Urine Amphetamines Screen Neg (NEGATIVE) Urine Benzodiazepines Screen Neg (NEGATIVE) Urine Cocaine Screen Neg (NEGATIVE) Urine Cannabinoids Screen Neg (NEGATIVE) Lactic Acid Level 1.3 mmol/L (0.4-2.0) Other Laboratory Tests 05/19/25 03:46 Brief Hx & Hospital Course: Patient is a 50-year-old female with past medical history of renal calculus, myocardial infarction in 2007 without PCI, recent hospitalization for renal calculus s/p nephrostomy tube placement, who comes in due to leakage around nephrostomy tube site. She also complained of associated dysuria and urinary frequency. According to the patient, yesterday on 05/17/2025 she had an appointment with the urologist Dr. Vasquez during which the nephrostomy site was cleaned, nephrostomy tube was capped and patient was scheduled for ESWL for Friday. Patient notes this morning on 05/18/2025 she woke up with saturated nephrostomy dressing and leakage of fluid onto the bed. Patient also noted she noted purulent discharge around the tube as well as inside the tube. Urinalysis came back positive for infection. Urology was consulted, advised change of dressing. Patient was put on oral Keflex and discharged home. She is scheduled for ESWL on Friday. Condition at Discharge: Fair Final Diagnosis/Problems List Dislodged Nephrostomy tube Left-sided hydroureter Bilateral nephrolithiasis History of coronary artery disease Acute complicated UTI Uterine fibroids GERD Discharge Disposition: Home Discharge Instruct/Medications Diet: Regular Activity: No Restrictions, As Tolerated Follow Up/Referral: Follow-up with urology clinic for ESWL. Procedure scheduled for Friday as per patient Follow-up with PCP in 7 days Medications: Tab Keflex orally twice daily for 7 days Scheduled Atorvastatin Calcium (Atorvastatin Calcium), 20 MG PO HS Azithromycin (Azithromycin), 250 MG PO DAILY Cephalexin Monohydrate (Cephalexin), 1 CAP PO BID Doxycycline Hyclate (Doxycycline Hyclate), 1 TAB PO BID Ergocalciferol (Vitamin D 67271 Unit), 50,000 UNIT PO QWEEKLY Ertapenem Sodium (Ertapenem), 1 GM IV DAILY Levofloxacin Hemihydrate (Levaquin 500 Mg), 500 MG PO DAILY Gwxpxrip-Hqswweesgl-Sneapzyvt- (Neosporin + Pain Relief), 1 MAX EX DAILY Pantoprazole Sodium Sesquihydr (Pantoprazole Sodium), 20 MG PO DAILY Yeast (S. Boulardii)(S. Cerevi (Florastor), 250 MG PO DAILY Scheduled PRN Hydrocodone-Acetaminophen (Hydrocodone/Acetaminophen 5-325 mg), 1 TAB PO TIDP PRN Discharge Statement: "Patient was advised to return to the ER or call 911 if any headaches, dizziness, shortness of breath, chest pain, abdominal pain, bleeding, fevers, or worsening of medical condition. Patient was counseled about treatment plan, medications, possible side effects, patientverbalized understanding. All questions were answered to the best of my ability. This discharge took greater then 30 minutes in planning, reviewing documentation, counseling the patient, and discussing with other team members." ASSESSMENT ASSESSMENT Assessment UTI Dislodged Nephrostomy tube Left-sided hydroureter Bilateral nephrolithiasis Date of Service: May 19, 2025 Billing Provider: GRISEL ANTHONY MD Common Visit Codes: [id number] SAME DATE (HIGH) PATRICK BRAVO RESIDENT May 19, 2025 10:53
[2025-05-19 12:11] VITALS: TEMP 36.8
== END 2025-05-19 12:42 | disposition home or self-care (01) | DRG 466 ==
LOC: ER 10:59 → OVERFLOW 17:22
PROVIDERS: ADMIT Internal Medicine Geriatric Medicine; ATTEND Internal Medicine Geriatric Medicine
DX: T83.022A Displacement of nephrostomy catheter, initial encounter (principal); N13.6 Pyonephrosis; D25.9 Leiomyoma of uterus, unspecified; K21.9 Gastro-esophageal reflux disease without esophagitis; T83.032A Leakage of nephrostomy catheter, initial encounter; F41.9 Anxiety disorder, unspecified; I25.10 Atherosclerotic heart disease of native coronary artery without angina pectoris; Z79.2 Long term (current) use of antibiotics; Z79.899 Other long term (current) drug therapy; Z90.49 Acquired absence of other specified parts of digestive tract; Z83.3 Family history of diabetes mellitus; Z87.442 Personal history of urinary calculi; Y84.8 Other medical procedures as the cause of abnormal reaction of the patient, or of later complication, without mention of misadventure at the time of the procedure; Y92.89 Other specified places as the place of occurrence of the external cause
CPT/HCPCS: 36415; 74176; 80048; 80053; 80307; 81001; 83605; 85025; 87086; G0378

== ENCOUNTER 2025-05-24 07:17 | Day surgery (SDC) | payer MEDICAID ==
[2025-05-23 12:25] LABS: Hematocrit 43.3 % (36.0-46.0); Hemoglobin 12.9 g/dL (12.2-16.2); Mean Corpuscular Hemoglobin 29.8 pg (28.0-32.0); Mean Corpuscular Volume 100.1 fL (80.0-100.0); Nucleated Red Blood Cells % 0.0 %
[2025-05-23 12:41] LABS: INR 1.06 (0.9-1.15); Partial Thromboplastin Time 27.8 SEC (24.5-34.5); Prothrombin Time 11.2 sec (9.3-11.8)
[2025-05-23 12:54] LABS: Alanine Aminotransferase 14 U/L (7-40); Albumin 4.2 g/dL (3.2-4.8); Alkaline Phosphatase 80 U/L (46-116); Anion Gap 9 (5-15); BUN/Creatinine Ratio 15.3 (10.0-20.0); Blood Urea Nitrogen 19 mg/dL (9-23); Calcium 9.2 mg/dL (8.7-10.4); Carbon Dioxide 26 mmol/L (20-31); Chloride 106 mmol/L (98-107); Glucose 100 mg/dL (74-106); Potassium 4.0 mmol/L (3.5-5.1); Sodium 141 mmol/L (136-145); Total Protein 7.9 g/dL (5.7-8.2)
[2025-05-23 13:01] LABS: Bilirubin, Total 0.3 mg/dL (0.2-1.0)
[2025-05-23 13:20] LABS: Urine Protein, UAD 1+ (Negative)
[~2025-05-24] VITALS: Ht 154.9 cm; Wt 67.6 kg
[~2025-05-24 07:17] MED LIST changes: -AZIT-43 PO; -DOXY-286 PO; -ERTA1INJ3 IV; -HYDR1TAB97 PO; -LEVO500T91 PO; -NEOMOIN6 EX; -SACC250C PO
[2025-05-24] MEDS ORDERED: KETAMINE 50mg/ML 1ml syringe ONE (08:32)
[2025-05-24] MEDS ORDERED: fentaNYL CITRATE 100 MCG/2 ML VL ONE (08:32)
[2025-05-24] MEDS ORDERED: HYDROmorphone HCL 2 MG/ML VL/or syr ONE (08:32)
[2025-05-24] MEDS ORDERED: MIDAZOLAM HCL 2MG/2ML 2ml VIAL (1mg/ml) ONE (08:32)
[2025-05-24] MEDS ORDERED: GLYCOPYRROLATE 0.2 MG/ML 1ML VIAL ONE (08:33)
[2025-05-24] MEDS ORDERED: PROPOFOL 10 MG/ML 20 ML IV ONE (08:33)
[2025-05-24] MEDS ORDERED: LIDOCAINE 2% (LOCAL ANESTH.) PF 5ml SDV ONE (08:33)
[2025-05-24] MEDS ORDERED: KETOROLAC TROMETH 30 MG/ML 1ML VIAL ONE (08:33)
[2025-05-24] MEDS ORDERED: CIPROFLOXACIN 400MG/200ML 200 ML IV ONE (09:54)
[2025-05-24] MEDS: IOHEXOL 300 MG/ML 100ML BOTTLE IJ ONE (10:07)
[2025-05-24] MEDS ORDERED: SUGAMMADEX 200mg/2ml Vial (100MG/ML) IV ONE (10:14)
[2025-05-24 11:33] VITALS: TEMP 97
--- NOTE | 2025-05-24 11:44 | DVHNC2 ---
Procedure - OPERATIVE REPORT Pre-op. Diagnosis: Renal Calculi, LEFT Left ureteral stent Left mid ureteral stone Post-op. Diagnosis: Same as pre-op diagnosis Operation: Percutaneous Nephrolithotripsy, LEFT Nephrostomy tube placement, LEFT Nephroscopic extraction of left ureteral stent Nephroscopy with stone basket extraction, LEFT Left antegrade ureteroscopic stone extraction Anesthesia: General Indications: Patient presented with large symptomatic residual left renal calculi and left mid ureteral stone. She is here for left percutaneous nephrolithotomy with antegrade ureteroscopic stone extraction. The indications, risks, complications, alternatives and benefits of percutaneous nephrolithotomies (PCNL)were discussed with patient. All questions were encouraged and answered. Patient was aware of specific risks/complications, including but not limited to infections, bleeding, pain, renal injury, persistent stone disease requiring additional, possible other procedures such as laser or extracorporeal shockwave lithotripsies. Patient was also aware of alternatives of this surgery including open nephrolithotomy, ESWL, endoscopic retrograde laser lithotripsy and stent placement with chronic antibiotic management. Patient was competent and understood these risks and benefits and elected to proceed. Details of Procedure: Patient was taken to the operating room and underwent general endotracheal intubation. 16Fr Owens catheter was placed while in supine position. Next, appropriate prone positioning was accomplished as well as the area of flank where the temporary nephrostomy tube, placed by Interventional Radiology, was included in the wide prepping and draping. Under fluoroscopy, the sensor guidewire was placed through the nephrostomy tube and positioned into the bladder. Dual lumen catheter was placed over the Sensor tip guidewire and second superstiff Amplatz guidewire was placed into the bladder as the safety guidewire. Next nephrostomy tract was dilated with UroMax balloon dilation system, followed by 26 F sheath placement. Rigid nephroscope was used to access the cavity where the large renal stones were identified in the upper and lower pole calyces. Ultrasonic lithoclast device was used to fragment and suction the stones. Once the stones were small enough, a three prong grasper was used to take them out. Left ureteral stent was identified and removed with the grasper. At this point, a flexible ureteroscope was used to evaluate the proximal/mid ureter and 7 mm stone was identified and removed with stone basket. Some residual stone in the upper and lower calices were not accessible with Flexible cystoscope and ureteroscope. Under fluoroscopy, the Amplatz guidewire was removed keeping the Senor guidewire in place through which a 16 Fr [place] Weir catheter was placed and positioned over the guidewire into the renal pelvis in an antegrade fashion. Proper placement was verified. The subcutaneous tissue and the skin were closed with 3-0 chromic suture. Patient was placed in supine, extubated and taken to RR in stable condition. Owens catheter remained in place. All counts were correct. Specimens: Stone fragments Complications: None Findings: Few residual stones are identified and were inaccessible after multiple attempts with flexible cystoscope/ureteroscope. EBL: 150 ml Notes: Nephrostomy tube removal on POD#1. Outpatient ESWL LINDSEY ISABEL MD May 24, 2025 11:44
--- NOTE | 2025-05-24 11:45 | DVHDS2 ---
New Physician D'charge PN Admitting Diagnosis Admitting Diagnosis Left nephrostomy tube Left renal lithiasis Left ureteral stent Left ureteral stone Discharge Diagnosis Same Operations or Procedures Left percutaneous ultrasound a limp for lithotripsy with left ureteral stent removal and left ureteral stone extraction Reason(s) For Hospitalization Surgery Treatment Plan Discharge Condition of Discharge Good Disposition Home Discharge Instructions Diet: Regular Activity: Light activity Activity comment: As tolerated Medications: Given Follow Up Care Follow Up/Referral: Follow up postop day 1. For nephrostomy tube removal Discharge Statement: "Patient was advised to return to the ER or call 911 if any headaches, dizziness, shortness of breath, chest pain, abdominal pain, bleeding, fevers, or worsening of medical condition. Patient was counseled about treatment plan, medications, possible side effects, patientverbalized understanding. All questions were answered to the best of my ability. This discharge took greater then 30 minutes in planning, reviewing documentation, counseling the patient, and discussing with other team members." LINDSEY DANIELSON MD May 24, 2025 11:45
[2025-05-24] MEDS ORDERED: HYDROmorphone HCL 2 MG/ML VL/or syr IV PRN (12:00)
[2025-05-24] MEDS: ACETAMINOPHEN IV 1000 MG/100ML (10MG/ML) IV ONE (13:51)
[2025-05-24 14:15] VITALS: BP 108/64; PULSE 78; RESP 16; O2SAT 95
[2025-05-24] MEDS: ONDANSETRON HCL 4 MG/2 ML VIAL IV PRN (14:24)
--- NOTE | 2025-05-24 18:27 | DVH ---
C-ARM FLUOROSCOPY: PROCEDURE: Left nephrolithotomy FLUOROSCOPY TIME: 214.6 Air Kerma: 57 mgy FINDINGS: Spot intraoperative C arm radiographs demonstrating left nephro lithotomy. IMPRESSION: Please refer to surgical report for detailed findings.
== END 2025-05-24 14:45 | disposition home or self-care (01) ==
LOC: SUR 07:17
PROVIDERS: ATTEND Urology
DX: N20.2 Calculus of kidney with calculus of ureter (principal); I25.10 Atherosclerotic heart disease of native coronary artery without angina pectoris; K21.9 Gastro-esophageal reflux disease without esophagitis; F41.9 Anxiety disorder, unspecified; F32.A Depression, unspecified; Z98.890 Other specified postprocedural states; Z91.041 Radiographic dye allergy status; Z79.899 Other long term (current) drug therapy; Z95.5 Presence of coronary angioplasty implant and graft; Z83.3 Family history of diabetes mellitus; Z90.710 Acquired absence of both cervix and uterus
CPT/HCPCS: 36415; 50081; 74018; 80053; 81001; 81025; 82360; 85025; 85610; 85730; 87086; 87088; A4344; J0744; J1100; J1171; J1885; J2003; J2250; J2405; J2704; J3010; Q9967; 76000; J0131

== ENCOUNTER 2025-05-24 22:24 | Inpatient (IN) | payer MEDICAID ==
[~2025-05-24] VITALS: Ht 154.9 cm; Wt 76.4 kg
[2025-05-24 23:26] LABS: Chloride 103 mmol/L (98-107); Potassium 4.3 mmol/L (3.5-5.1); Sodium 137 mmol/L (136-145)
[2025-05-24 23:27] LABS: Anion Gap 11 (5-15); Calcium 9.7 mg/dL (8.7-10.4); Carbon Dioxide 23 mmol/L (20-31)
[2025-05-24 23:28] LABS: Hematocrit 35.9 % (36.0-46.0); Hemoglobin 12.0 g/dL (12.2-16.2); Mean Corpuscular Hemoglobin 30.9 pg (28.0-32.0); Mean Corpuscular Volume 92.6 fL (80.0-100.0); Nucleated Red Blood Cells % 0.0 %
[2025-05-24 23:32] LABS: BUN/Creatinine Ratio 15.5 (10.0-20.0); Blood Urea Nitrogen 17 mg/dL (9-23)
--- NOTE | 2025-05-24 23:34 | DVH ---
Exam: CT CT AB PEL WO CON-NO ORAL OR IV History: L flank pain, leaking nephrostomy tube Comparison Study: CT CT AB PEL WO CON-NO ORAL OR IV on DOS: 05/18/25, CT CT AB PEL WO CON-NO ORAL OR IV on DOS: 05/01/25, CT CT AB PEL WO CON-NO ORAL OR IV on DOS: 03/17/25, CT CT AB PEL WO CON-NO ORAL OR IV on DOS: 02/01/25 Technique: Multidetector spiral CT of the abdomen was performed from lung bases to pubic symphysis. I maging was performed without IV contrast. Axial, coronal and sagittal multiplanar reformats were obta ined from the axial data set by the technologist. Radiation Dose : 1. Abdomen/Pelvis: CTDIvol 7.28 mGy, DLP 413.2 mGy*cm. Findings: Evaluation of solid organs is limited due to lack of intravenous contrast use. Lower Chest: No acute findings. Dependent atelectasis. Liver: Unremarkable. Gallbladder and Biliary Tree: Cholecystectomy change. Pancreas: Unremarkable. Spleen: Mild atrophy. Adrenal Glands: Unremarkable. Left kidney/ureter: Unchanged percutaneous nephrostomy positioning with numerous renal calcifications , chronic cortical atrophy and hydronephrosis, mild hydroureter with periureteral and perinephric str anding. The previous percutaneous stent has been removed. Right kidney/ureter: No acute obstruction. Redemonstrated stones in the right collecting system/paren chyma with mid to inferior cortical atrophy. Mild right hydroureter. Bladder: No wall thickening or filling defect. Trace intraluminal gas likely related to recent proce dure. Pelvic Organs: Unchanged right 5.5 cm ovarian cyst. Enlarged, fibroid uterus. Bowel: Normal caliber without wall thickening. Normal appendix. Vasculature: Unremarkable. Lymphadenopathy: No obvious adenopathy. Peritoneum: No ascites, free air, or fluid collection. Abdominal Wall: No significant hernia. Musculoskeletal: No acute findings. L5 spondylolysis with L5-S1 spondylosis and spondylolisthesis. IMPRESSION: 1. No significant change in appearance of the upper urinary tracts post removal of the left ureteral stent. Similar bilateral hydroureter, with superimposed left upper tract infection suspected. Kirk us bilateral renal/collecting system calcifications. 2. Other findings not significantly changed from the prior exam as above. Radiation optimization: All CT scans at this facility use at least one of these dose optimization tamar hniques: automated exposure control mA and/or kV adjustment per patient size (includes targeted exam s where dose is matched to clinical indication) or iterative reconstruction.
[2025-05-24 23:37] LABS: Glucose 149 mg/dL (74-106)
--- NOTE | 2025-05-24 23:51 | ED.PDOC ---
History of Present Illness HPI Comments 50 year old female s/o L percutaneous lithotripsy with nephrostomy tube in place. Presents with her daughter with severe pain and leakage from tube. Dressing soaked with serosanguineous fluid. Associated nausea. REVIEW OF SYSTEMS: General: No fever, no chills, or fatigue HEENT: No sore throat, no earache, no congestion, no neck pain. Cardiac: No chest pain. No palpitations. Lungs: No shortness of breath, no cough. GI: + nausea, + vomiting, no diarrhea, no constipation, + flank pain : No dysuria, frequency, or urgency. No hematuria. Musculoskeletal: No joint pain , no joint swelling, no extremity edema. Skin: No rash, no itching. Neuro: No headache, no dizziness, no weakness (And as sated in HPI) PHYSICAL EXAM: General: Awake, alert and oriented. No acute distress. Skin: Skin in warm, dry and intact without rashes or lesions. HEENT: The head is normocephalic and atraumatic. Conjunctivae are clear without exudates or hemorrhage. Sclera is non-icteric. Neck: Normal range of motion. No JVD. Cardiac: Regular rate Respiratory: No signs of respiratory distress. No Stridor. Extremities: Upper and lower extremities are atraumatic in appearance without deformity. Abdomen: Left flank tenderness. Dressing soaked with serosanguineous fluid Neurological: The patient is awake, alert and oriented to person, place, and time with normal speech. Speech is clear. There is no facial asymmetry. Chief Complaint: Flank Pain Time Seen by MD: 22:44 Primary Care Provider: NONE Allergies: Uncoded Allergies: CONTRAST (Allergy, Unknown, 08/16/15) Home Meds Active Scripts Pantoprazole Sodium Sesquihydr (Pantoprazole Sodium) 40 Mg Tab, 20 MG PO DAILY for 14 Days, #14 TAB Prov:ROSY NEIL RESIDENT 03/27/25 Ergocalciferol (VITAMIN D 10119 UNIT) 50,[address] [place], [address] UNIT PO QWEEKLY, #10 CAP Prov:ROSY NEIL RESIDENT 03/27/25 Atorvastatin Calcium (ATORVASTATIN CALCIUM) 20 Mg Tab, 20 MG PO HS, #30 TAB Prov:JADA JAIMES MD 12/12/16 Mode of Arrival: Ambulatory Past Medical History PAST MEDICAL HISTORY: Anxiety, GERD, High Lipids, Kidney Stones, [place] Surgical History: BTL, Cholecystectomy, [employer] History: Ovarian Cysts Family History Family History: Reviewed,noncontributory to illness, Family hx of heart pamela Social History Smoker: Non-Smoker Alcohol: Denies ETOH Use Drugs: Denies Drug Use Lives In: Home Was a procedure done? Was a procedure done?: No Differential Dx Considerations may include: Differential diagnoses considered include but are not limited to abscess, tube displacement, pyelonephritis, UTI, nephrolithiasis, PUD, musculoskeletal pain, AAA, other X-Ray, Labs, Meds, VS Vital Signs Date Time Temp Pulse Resp B/P (MAP) Pulse Ox O2 Delivery O2 Flow Rate FiO2 05/25/25 03:51 84 16 113/61 05/25/25 03:28 98 Room Air* 0 21 05/25/25 03:28 98.1 90 18 113/61 (78) 97 98.1 05/25/25 03:18 78 18 113/61 05/24/25 22:30 98.3 84 16 97/58 96 98.3 Lab Test 05/25/25 02:00 05/24/25 23:09 Range/Units Urine Color Colorless Yellow Urine Clarity Turbid H Clear Urine pH 6.0 5.0-9.0 Urine Specific Chrisman 1.007 1.001-1.035 Urine Protein Negative Negative Urine Ketones Negative Negative Urine Blood 3+ H Negative /uL Urine Nitrite Negative Negative Urine Bilirubin Negative Negative Urine Urobilinogen Normal Negative mg/dL Urine Leukocyte Esterase 2+ Negative /uL Urine RBC 3 0 - 4 /hpf Urine Microscopic WBC 6 H 0-5 /HPF Urine Squamous Epithelial Cells Few <5 /hpf Urine Bacteria Many H None Seen /hpf Urine Glucose Normal Normal mg/dL White Blood Count 13.8 #H 4.4-10.8 10^3/uL Red Blood Count 3.87 L 4.0-5.20 10^6/uL Hemoglobin 12.0 L 12.2-16.2 g/dL Hematocrit 35.9 #L 36.0-46.0 % Mean Corpuscular Volume 92.6 # 80.0-100.0 fL Mean Corpuscular Hemoglobin 30.9 28.0-32.0 pg Mean Corpuscular Hemoglobin Concent 33.4 32.0-36.0 g/dL Red Cell Distribution Width 14.7 H 11.8-14.3 % Platelet Count 282 140-450 10^3/uL Mean Platelet Volume 10.2 6.9-10.8 fL Neutrophils (%) (Auto) 95.4 H 37.0-80.0 % Lymphocytes (%) (Auto) 1.6 L 10.0-50.0 % Monocytes (%) (Auto) 2.5 0.0-12.0 % Eosinophils (%) (Auto) 0.1 0.0-7.0 % Basophils (%) (Auto) 0.4 0.0-2.0 % Neutrophils # (Auto) 13.2 H 1.6-8.6 10 ^3/uL Lymphocytes # (Auto) 0.2 L 0.4-5.4 10 ^3/uL Monocytes # (Auto) 0.3 0-1.3 10 ^3/uL Eosinophils # (Auto) 0 0-0.8 10 ^3/uL Basophils # (Auto) 0.1 0-0.2 10 ^3/uL Nucleated Red Blood Cells 0.0 % Sodium Level 137 136-145 mmol/L Potassium Level 4.3 3.5-5.1 mmol/L Chloride Level 103 98-107 mmol/L Carbon Dioxide Level 23 20-31 mmol/L Anion Gap 11 5-15 Blood Urea Nitrogen 17 9-23 mg/dL Creatinine 1.10 H 0.550-1.02 mg/dL Glomerular Filtration Rate Calc 62 >90 mL/min BUN/Creatinine Ratio 15.5 10.0-20.0 Serum Glucose 149 H 74-106 mg/dL Calcium Level 9.7 8.7-10.4 mg/dL Current Medications Medications (Trade) Dose Ordered Sig/Natali Route Start Time Stop Time Status Last Admin Sodium Chloride 1,000 ml @ 1,000 mls/hr Q1H ONCE IV 05/25/25 02:00 05/25/25 02:59 DC 05/25/25 03:26 Hydromorphone HCl (Dilaudid Injection) 0.5 mg ONCE ONCE IV 05/25/25 02:00 05/25/25 02:05 DC 05/25/25 03:18 Ondansetron HCl (Zofran) 4 mg ONCE ONCE IV 05/25/25 02:00 05/25/25 02:05 DC 05/25/25 03:18 Ceftriaxone Sodium 50 ml @ 100 mls/hr ONCE ONCE IV 05/25/25 02:00 05/25/25 02:29 DC 05/25/25 03:26 Time of 1ST Reevaluation: 23:43 Reevaluation 1ST: Unchanged Patient Education/Counseling: Other (Need for admission) Family Education/Counseling: Other (Need for admission) SEPSIS Sepsis Screen Date sepsis recognized/suspect: May 24, 2025 Time Sepsis recognized/suspect: 2231 Recent Procedure: No On Antibiotic Therapy: No Respiratory Rate >20: No Heart Rate >90: No Temp<36 C (96.8 F) or >38.3 C: No SBP <90 or MAP <65 mmHG: No New Acute Mental Status Change: No Is the patient on CPAP, BIPAP,: No Physician Orders Ct Ab Pel Wo Con-No Oral Or Iv (05/24/25 23:03) Change Dressing (05/25/25 02:00) Admit (05/25/25 03:34) Code Status (05/25/25 03:34) Hydrocodone-Acet 5/325mg Tab ([place] 5/32 (05/25/25 03:45) Ondansetron Hcl (Zofran) (05/25/25 03:45) Complete Blood Count (05/25/25 04:00) Comprehensive Metabolic Panel (05/25/25 04:00) Condition: Unstable (05/25/25 03:34) Acetaminophen Tablet (Tylenol Tablet) (05/25/25 03:45) Notify Md Of Changes From Base (05/25/25 03:34) Drug Screen (05/25/25 03:34) Urine Bacterial Culture (05/25/25 03:34) Ceftriaxone 1gm/50ml (Rocephin) (05/25/25 09:00) Hydromorphone Injection (Dilaudid Inject (05/25/25 03:45) Sodium Chloride 0.9% (05/25/25 03:45) Hepatic Panel (05/25/25 03:34) Magnesium (05/25/25 03:34) * Urology Consult (05/25/25 03:34) Atorvastatin (Lipitor) (05/25/25 22:00) Regular Diet (05/25/25 Breakfast) Pantoprazole Tablet (Protonix Tablet) (05/25/25 06:00) Vital Signs Date Time Temp Pulse Resp B/P (MAP) Pulse Ox O2 Delivery O2 Flow Rate FiO2 05/25/25 03:51 84 16 113/61 05/25/25 03:28 98 Room Air* 0 21 05/25/25 03:28 98.1 90 18 113/61 (78) 97 98.1 05/25/25 03:18 78 18 113/61 05/24/25 22:30 98.3 84 16 97/58 96 98.3 Laboratory Tests Test 05/24/25 23:09 White Blood Count 13.8 10^3/uL (4.4-10.8) #H Medications Medications Dose Ordered Sig/Natali Route Start Time Stop Time Status Last Admin Dose Admin Ceftriaxone Sodium 50 ml @ 100 mls/hr ONCE ONCE IV 05/25/25 02:00 05/25/25 02:29 DC 05/25/25 03:26 Hydromorphone HCl 0.5 mg ONCE ONCE IV 05/25/25 02:00 05/25/25 02:05 DC 05/25/25 03:18 Ondansetron HCl 4 mg ONCE ONCE IV 05/25/25 02:00 05/25/25 02:05 DC 05/25/25 03:18 Sodium Chloride 1,000 ml @ 1,000 mls/hr Q1H ONCE IV 05/25/25 02:00 05/25/25 02:59 DC 05/25/25 03:26 Departure 1 Departure Time of Disposition: 23:51 Impression: Primary Impression: Malfunction of nephrostomy tube Disposition: ADMITTED INPATIENT Condition: Stable Comments Patient admitted to hospitalist service for further treatment, evaluation and monitoring. Critical Care Note Critical Care Time?: No Stability Stability form required: No Heart Score Heart Score: Heart Score Response (Comments) Value History N/A 0 EKG N/A 0 Age N/A 0 Risk Factors N/A 0 Troponin N/A 0 Total 0 CHINO VILLEGAS MD May 24, 2025 23:51
[2025-05-25 02:46] LABS: Urine Protein, UAD Negative (Negative)
[2025-05-25] MEDS: ONDANSETRON HCL 4 MG/2 ML VIAL IV ONE (03:18)
[2025-05-25] MEDS: HYDROmorphone HCL 2 MG/ML VL/or syr IV ONE (03:18)
[2025-05-25] MEDS: SODIUM CHLORIDE 0.9% 1,000 ML IV ONE ×2 (03:26→04:05)
[2025-05-25 03:28] VITALS: O2SAT 98
[2025-05-25] MEDS ORDERED: HYDROmorphone HCL 2 MG/ML VL/or syr IV PRN (03:45)
[2025-05-25] MEDS ORDERED: ONDANSETRON HCL 4 MG/2 ML VIAL IV PRN (03:45)
--- NOTE | 2025-05-25 04:31 | DVHHPRES ---
History of Present Illness Resident Creating Document: ALISA HANNA RESIDENT History of Present Illness This is a 50-year-old female with history of anxiety, GERD, hyperlipidemia, recurrent nephrolithiasis, CAD no stents, and staghorn calculi who presents 1 day post discharge following left percutaneous lithotripsy with ureteral stent removal and stone extraction. She returned due to significant leakage from left nephrostomy tube site with around 150 mL of blood-tinged fluid output and saturation of dressings. Pain is 3/10, burning and itching, worsened with movement around the nephrostomy tube. She was advised to return if drainage occur due to concern for infection. She denies any fever, chills, nausea, vomiting, abdominal pain, chest pain, shortness of breaths, burning micturition, dysuria, increased frequency. On presentation vitals were stable, WBC 13.8, creatinine 1.10. CT abdomen and pelvis shows bilateral hydroureter with suspected left upper urinary tract infection and multiple bilateral renal calcifications. She is admitted for further evaluation and management Past medical history: As stated above Surgery history: right ovarian cyst, tubal ligation, left breast cyst removal , cholecystectomy Family history: Reviewed and noncontributory to the management of this case Personal history: Lives at home. Denies smoking, alcohol and other drug abuse Allergies: No known allergies except contrast PCP: Dr. Foote Code status: full code Review of Systems Constitutional: No: Fever, Chills, Sweats, Weakness, Malaise, Other Eyes: No: Pain, Vision change, Conjunctivae inflammation, Eyelid inflammation, Other, Redness ENT: No: Ear pain, Ear discharge, Nose pain, Nose discharge, Nose congestion, Mouth pain, Mouth swelling, Throat pain, Throat swelling, Other Respiratory: No: Cough, Dry, Shortness of breath, SOB with excertion, Wheezing, Hemoptysis, Pleuritic Pain, Sputum, Wheezing, Other Cardiovascular: No: Chest Pain, Palpitations, Orthopnea, Paroxysmal Noc. Dyspnea, Edema, Lt Headedness, Other Gastrointestinal: No: Nausea, Vomiting, Abdominal Pain, Diarrhea, Constipation, Melena, Hematochezia, Other Genitourinary: No Dysuria, No Frequency, No Incontinence, No Hematuria, No Retention; Other (Seepage of nephrostomy tube site) Musculoskeletal: No: other, neck pain, shoulder pain, arm pain, back pain, hand pain, leg pain, foot pain Skin: No: Rash, Lesions, Jaundice, Bruising, Other Neurological: No: Weakness, Numbness, Incoordination, Change in speech, Co nfusion, Seizures, Other Allergies: Uncoded Allergies: CONTRAST (Allergy, Unknown, 08/16/15) Medications Current Medications Medications Dose Ordered Sig/Natali Route Start Time Stop Time Status Last Admin Dose Admin Acetaminophen/ Hydrocodone Bitart 1 tab Q4HP PRN PO 05/25/25 03:45 Ondansetron HCl 4 mg Q4HP PRN IV 05/25/25 03:45 Acetaminophen 650 mg Q6HP PRN PO 05/25/25 03:45 Ceftriaxone Sodium 50 ml @ 100 mls/hr DAILY@09 IV 05/26/25 09:00 Hydromorphone HCl 0.25 mg Q4HPRN PRN IV 05/25/25 03:45 Atorvastatin Calcium 20 mg HS PO 05/25/25 22:00 Pantoprazole Sodium 40 mg DAILY@0600 PO 05/25/25 06:00 Exam Vital Signs Vital Signs Date Time Temp Pulse Resp B/P (MAP) Pulse Ox O2 Delivery O2 Flow Rate FiO2 05/25/25 04:01 90 17 104/62 (76) 97 05/25/25 03:28 Room Air* 0 21 05/25/25 03:28 98.1 98.1 Exam General Appearance: Alert, Oriented X3, Cooperative, mild distress HEENT: Atraumatic, Mucous membranes moist/pink Respiratory: Clear to auscultation, Normal air movement, No added sounds Cardiovascular: Regular rate, Normal S1, Normal S2, No murmurs Abdominal: Active bowel sounds, Soft, no distention, tenderness around nephrostomy tube on the left back, blood soaked gauze Extremities: No edema, Normal pulses, No tenderness/swelling Skin: No Significant rash, except past surgical scars, nephrostomy tube on the left draining 150 mL of blood-tinged fluid Neuro: Normal speech, sensorimotor deficits none Psych/Mental Status: Mental status NL, Mood NL Nurse was there as lathe spotter during examination Labs/Xrays Labs Test 05/25/25 02:00 05/24/25 23:09 Range/Units Urine Color Colorless Yellow Urine Clarity Turbid H Clear Urine pH 6.0 5.0-9.0 Urine Specific [place] 1.007 1.001-1.035 Urine Protein Negative Negative Urine Ketones Negative Negative Urine Blood 3+ H Negative /uL Urine Nitrite Negative Negative Urine Bilirubin Negative Negative Urine Urobilinogen Normal Negative mg/dL Urine Leukocyte Esterase 2+ Negative /uL Urine RBC 3 0 - 4 /hpf Urine Microscopic WBC 6 H 0-5 /HPF Urine Squamous Epithelial Cells Few <5 /hpf Urine Bacteria Many H None Seen /hpf Urine Glucose Normal Normal mg/dL White Blood Count 13.8 #H 4.4-10.8 10^3/uL Red Blood Count 3.87 L 4.0-5.20 10^6/uL Hemoglobin 12.0 L 12.2-16.2 g/dL Hematocrit 35.9 #L 36.0-46.0 % Mean Corpuscular Volume 92.6 # 80.0-100.0 fL Mean Corpuscular Hemoglobin 30.9 28.0-32.0 pg Mean Corpuscular Hemoglobin Concent 33.4 32.0-36.0 g/dL Red Cell Distribution Width 14.7 H 11.8-14.3 % Platelet Count 282 140-450 10^3/uL Mean Platelet Volume 10.2 6.9-10.8 fL Neutrophils (%) (Auto) 95.4 H 37.0-80.0 % Lymphocytes (%) (Auto) 1.6 L 10.0-50.0 % Monocytes (%) (Auto) 2.5 0.0-12.0 % Eosinophils (%) (Auto) 0.1 0.0-7.0 % Basophils (%) (Auto) 0.4 0.0-2.0 % Neutrophils # (Auto) 13.2 H 1.6-8.6 10 ^3/uL Lymphocytes # (Auto) 0.2 L 0.4-5.4 10 ^3/uL Monocytes # (Auto) 0.3 0-1.3 10 ^3/uL Eosinophils # (Auto) 0 0-0.8 10 ^3/uL Basophils # (Auto) 0.1 0-0.2 10 ^3/uL Nucleated Red Blood Cells 0.0 % Sodium Level 137 136-145 mmol/L Potassium Level 4.3 3.5-5.1 mmol/L Chloride Level 103 98-107 mmol/L Carbon Dioxide Level 23 20-31 mmol/L Anion Gap 11 5-15 Blood Urea Nitrogen 17 9-23 mg/dL Creatinine 1.10 H 0.550-1.02 mg/dL Glomerular Filtration Rate Calc 62 >90 mL/min BUN/Creatinine Ratio 15.5 10.0-20.0 Serum Glucose 149 H 74-106 mg/dL Calcium Level 9.7 8.7-10.4 mg/dL SEPSIS Sepsis Screen Date sepsis recognized/suspect: May 24, 2025 Time Sepsis recognized/suspect: 2231 Recent Procedure: No On Antibiotic Therapy: No Respiratory Rate >20: No Heart Rate >90: No Temp<36 C (96.8 F) or >38.3 C: No SBP <90 or MAP <65 mmHG: No New Acute Mental Status Change: No Is the patient on CPAP, BIPAP,: No Physician Orders Ct Ab Pel Wo Con-No Oral Or Iv (05/24/25 23:03) Change Dressing (05/25/25 02:00) Admit (05/25/25 03:34) Code Status (05/25/25 03:34) Hydrocodone-Acet 5/325mg Tab ([place] 5/32 (05/25/25 03:45) Ondansetron Hcl (Zofran) (05/25/25 03:45) Complete Blood Count (05/25/25 04:00) Comprehensive Metabolic Panel (05/25/25 04:00) Condition: Unstable (05/25/25 03:34) Acetaminophen Tablet (Tylenol Tablet) (05/25/25 03:45) Notify Md Of Changes From Base (05/25/25 03:34) Drug Screen (05/25/25 03:34) Urine Bacterial Culture (05/25/25 03:34) Hydromorphone Injection (Dilaudid Inject (05/25/25 03:45) Sodium Chloride 0.9% (05/25/25 03:45) Hepatic Panel (05/25/25 03:34) Magnesium (05/25/25 03:34) * Urology Consult (05/25/25 03:34) Atorvastatin (Lipitor) (05/25/25 22:00) Regular Diet (05/25/25 Breakfast) Pantoprazole Tablet (Protonix Tablet) (05/25/25 06:00) Ceftriaxone 1gm/50ml (Rocephin) (05/26/25 09:00) Vital Signs Date Time Temp Pulse Resp B/P (MAP) Pulse Ox O2 Delivery O2 Flow Rate FiO2 05/25/25 04:01 90 17 104/62 (76) 97 05/25/25 03:51 84 16 113/61 05/25/25 03:28 98 Room Air* 0 21 05/25/25 03:28 98.1 90 18 113/61 (78) 97 98.1 05/25/25 03:18 78 18 113/61 05/24/25 22:30 98.3 84 16 97/58 96 98.3 Laboratory Tests Test 05/24/25 23:09 White Blood Count 13.8 10^3/uL (4.4-10.8) #H Medications Medications Dose Ordered Sig/Natali Route Start Time Stop Time Status Last Admin Dose Admin Ceftriaxone Sodium 50 ml @ 100 mls/hr ONCE ONCE IV 05/25/25 02:00 05/25/25 02:29 DC 05/25/25 03:26 100 MLS/HR Hydromorphone HCl 0.5 mg ONCE ONCE IV 05/25/25 02:00 05/25/25 02:05 DC 05/25/25 03:18 0.5 MG Ondansetron HCl 4 mg ONCE ONCE IV 05/25/25 02:00 05/25/25 02:05 DC 05/25/25 03:18 4 MG Sodium Chloride 1,000 ml @ 100 mls/hr Q10H ONCE IV 05/25/25 03:45 05/25/25 13:44 05/25/25 04:05 100 MLS/HR Sodium Chloride 1,000 ml @ 1,000 mls/hr Q1H ONCE IV 05/25/25 02:00 05/25/25 02:59 DC 05/25/25 03:26 1,000 MLS/HR Assessment/Plan Assessment/Plan #Acute complicated UTI #Bilateral hydroureter #Left staghorn calculi s/p lithotripsy with left ureteral stent removal and left ureteral stone extraction #S/p nephrostomy tube, leaking #Numerous bilateral renal calcifications #TAMIA due to VMN - Urine analysis shows turbid urine, leukocyte esterase 2+, RBC 3, WBC 6 +, squamous epithelial cells few, bacteria many - CT abdomen and pelvis shows: no significant change in appearance of the upper urinary tracts post removal of the left ureteral stent. Bilateral hydroureter with superimposed left upper urinary tract infection suspected. Numerous bilateral renal/ collecting system calcifications. - urinary culture - IV ceftriaxone 1 g daily - IV Na Cl 0.9% - UDS - pain management with: acetaminophen 650 mg p.o. q.6 PRN [place] 5/35 mg 1 tablet p.o. q.4 PRN Dilaudid 0.5 mg IV q.4 PRN - change dressing - Zofran 4 mg IV q.4 PRN - urology consult placed GI prophylaxis: pantoprazole 40 mg p.o. daily Diet: regular diet Goals of care discussed with the patient for more than 27 minutes: Full code status Case discussed with Dr. Foote, patient Plan discussed with: Patient, Daughter, Son My Orders Orders - ALISA HANNA RESIDENT Procedure Category Date Status Time Admit ADMIT 05/25/25 Transmitted 03:34 Code Status CODE 05/25/25 Transmitted 03:34 Hydrocodone-Acet PHA 05/25/25 In Process 5/325mg Tab ([place] 03:45 Ondansetron Hcl PHA 05/25/25 In Process (Zofran) 03:45 Complete Blood Count LAB 05/25/25 Logged 04:00 Comprehensive LAB 05/25/25 Logged Metabolic Panel 04:00 Condition: Unstable ROGELIO 05/25/25 In Process 03:34 Acetaminophen Tablet PHA 05/25/25 In Process (Tylenol Tablet) 03:45 Notify Md Of Changes ROGELIO 05/25/25 In Process From Base 03:34 Drug Screen LAB 05/25/25 Logged 03:34 Urine Bacterial CRISTIAN 05/25/25 Logged Culture 03:34 Hydromorphone PHA 05/25/25 In Process Injection (Dilaudid 03:45 Sodium Chloride 0.9% PHA 05/25/25 In Process 03:45 Hepatic Panel LAB 05/25/25 Logged 03:34 Magnesium LAB 05/25/25 Logged 03:34 * Urology Consult CONS 05/25/25 Transmitted 03:34 Atorvastatin (Lipitor) PHA 05/25/25 In Process 22:00 Regular Diet DIET 05/25/25 Transmitted Breakfast Pantoprazole Tablet PHA 05/25/25 In Process (Protonix Tablet) 06:00 Ceftriaxone 1gm/50ml PHA 05/26/25 In Process (Rocephin) 09:00 Date of Service: May 25, 2025 Billing Provider: MALACHI FOOTE MD Common Visit Codes: 10282-[id number] INP/OBS CARE (HIGH) Secondary Visit Codes: 58799-[id number] CARE PLAN 30 MINUTES ALISA HANNA RESIDENT May 25, 2025 04:31
[2025-05-25] MEDS: HYDROcodone-ACET 5/325MG TAB PO PRN (04:41)
[2025-05-25 05:06] LABS: Benzodiazephine Screen, Urine Pos (NEGATIVE); Opiate Scree,Urine Neg (NEGATIVE)
[2025-05-25 05:08] LABS: Amphetamine Screen, Urine Neg (NEGATIVE); Barbiturate Scree,Urine Neg (NEGATIVE); Cannabinoid Screen, Urine Neg (NEGATIVE); Cocaine Screen, Urine Neg (NEGATIVE); Phencyclidine Screen, Urine Neg (NEGATIVE)
[2025-05-25 05:22] VITALS: PULSE 82; RESP 19; O2SAT 96
[2025-05-25] MEDS: PANTOPRAZOLE 40 MG TAB PO SCH (05:41)
[2025-05-25 06:44] LABS: Hematocrit 33.0 % (36.0-46.0); Hemoglobin 11.1 g/dL (12.2-16.2); Mean Corpuscular Hemoglobin 31.3 pg (28.0-32.0); Mean Corpuscular Volume 92.6 fL (80.0-100.0); Nucleated Red Blood Cells % 0.0 %
[2025-05-25 06:52] LABS: Alanine Aminotransferase 14 U/L (7-40); Alkaline Phosphatase 73 U/L (46-116); Anion Gap 12 (5-15); BUN/Creatinine Ratio 16.2 (10.0-20.0); Blood Urea Nitrogen 16 mg/dL (9-23); Calcium 9.0 mg/dL (8.7-10.4); Carbon Dioxide 21 mmol/L (20-31); Chloride 106 mmol/L (98-107); Potassium 4.1 mmol/L (3.5-5.1); Sodium 139 mmol/L (136-145); Total Protein 7.2 g/dL (5.7-8.2)
[2025-05-25 06:53] LABS: Albumin 3.8 g/dL (3.2-4.8); Bilirubin, Total 0.4 mg/dL (0.2-1.0); Glucose 112 mg/dL (74-106)
[2025-05-25 06:57] LABS: Alanine Aminotransferase 16.0 U/L (7-40); Albumin 3.9 g/dL (3.2-4.8); Alkaline Phosphatase 73.0 U/L (46-116); Bilirubin, Direct 0.1 mg/dL (<0.3); Magnesium 1.8 mg/dL (1.6-2.6); Total Protein 7.3 g/dL (5.7-8.2)
[2025-05-25 06:58] LABS: Bilirubin, Total 0.5 mg/dL (0.2-1.0)
[2025-05-25 13:00] VITALS: BP 113/67; PULSE 108; RESP 20; TEMP 99.9; O2SAT 95
[2025-05-25 14:03] VITALS: TEMP 99.1
[2025-05-25 17:00] VITALS: BP 109/78; PULSE 77; RESP 18; TEMP 98.9; O2SAT 98
--- NOTE | 2025-05-25 18:01 | DVHPNRES ---
Progress Note Date Seen: May 25, 2025 Resident Creating Document: RENE FINNEY RESIDENT Medical Necessity Reason Pt with a Central, PICC or Fol: No Subjective Review of Systems Brief history on arrival: This is a 50-year-old female with history of anxiety, GERD, hyperlipidemia, recurrent nephrolithiasis, CAD no stents, and staghorn calculi who presents 1 day post discharge following left percutaneous lithotripsy with ureteral stent removal and stone extraction. She returned due to significant leakage from left nephrostomy tube site with around 150 mL of blood-tinged fluid output and saturation of dressings. She complains of Left flank Pain which is described as 3/10, burning and itching, worsened with movement around the nephrostomy tube. She was advised to return if drainage occur due to concern for infection. She denies any fever, chills, nausea, vomiting, abdominal pain, chest pain, shortness of breaths, burning micturition, dysuria, increased frequency. On presentation vitals were stable, WBC 13.8, creatinine 1.10. CT abdomen and pelvis shows bilateral hydroureter with suspected left upper urinary tract infection and multiple bilateral renal calcifications. She is admitted for further evaluation and management Past medical history: As stated above Surgery history: right ovarian cyst, tubal ligation, left breast cyst removal , cholecystectomy Family history: Reviewed and noncontributory to the management of this case Personal history: Lives at home. Denies smoking, alcohol and other drug abuse Allergies: No known allergies except contrast PCP: Dr. Foote Code status: full code ROS: Constitutional: Denies weight loss, fever and chills. HEENT: Denies changes in vision and hearing. Respiratory: Denies shortness of breath and cough Cardiovascular: Denies chest discomfort or palpitations GI: Flank pain, nausea, discharge from nephrostomy tube : Denies dysuria and urinary frequency. Musculoskeletal: Denies myalgias and joint pain Skin: Denies rash and pruritus. Neurological: Denies dizziness, headache, vision or hearing problems 05/25/2025: Patient was examined at bedside today. Continues to complain of flank pain and discharge. Urology consulted. Objective vital signs Vital Sign Date Time Temp Pulse Resp B/P (MAP) Pulse Ox O2 Delivery O2 Flow Rate FiO2 05/25/25 17:00 98.9 77 18 109/78 (88) 98 98.9 05/25/25 08:30 Room Air* 0 21 Total Intake and Output 05/24/25 05/24/25 05/25/25 15:00 23:00 07:00 Intake Total 1150 ml Balance 1150 ml medications Current Medications Medications Dose Ordered Sig/Natali Route Start Time Stop Time Status Last Admin Dose Admin Acetaminophen/ Hydrocodone Bitart 1 tab Q4HP PRN PO 05/25/25 03:45 05/25/25 11:47 1 TAB Ondansetron HCl 4 mg Q4HP PRN IV 05/25/25 03:45 Acetaminophen 650 mg Q6HP PRN PO 05/25/25 03:45 Hydromorphone HCl 0.25 mg Q4HPRN PRN IV 05/25/25 03:45 Atorvastatin Calcium 20 mg HS PO 05/25/25 22:00 Pantoprazole Sodium 40 mg DAILY@0600 PO 05/25/25 06:00 05/25/25 05:41 40 MG Ceftriaxone Sodium/Dextrose 50 ml @ 50 mls/hr DAILY IV 05/26/25 10:00 Examination General: Patient alert and oriented in person, place and time. Patient following commands. HEENT: Normocephalic, atraumatic, moist mucous membranes Respiratory/pulmonary: Clear lungs bilaterally, vesicular murmurs present in almost all lung simpson, no associated crackles or wheezes. Cardiovascular: Normal heart sounds S1 and S2 with no associated murmurs Abdomen: Tenderness around nephrostomy tube in left flank, nephrostomy tube draining bloody discharge. Nephrostomy tube incision site draining clear discharge. Extremities: There is no peripheral edema present at the lower extremities. Peripheral Pulses: 3+ Radial (R). 3+ Radial (L). 3+ Dorsalis pedis (R). 3+ Dorsalis pedis(L) Skin: No rashes or pruritus, there is no sacral edema present at this time. Neurological: Intact cranial nerves with no focal neurologic deficits laboratory and microbiology Laboratory Tests 05/25/25 05:39 Test 05/25/25 05:39 Range/Units Serum Glucose 112 H 74-106 mg/dL Problem List/Assessment/Plan Problem List/Assessment/Plan Acute complicated UTI History of recurrent UTI Bilateral hydroureter Left staghorn calculi s/p lithotripsy with left ureteral stent removal and left ureteral stone extraction #S/p nephrostomy tube, leaking Numerous bilateral renal calcifications TAMIA due to hemodynamically mediated (VMN), resolving Initial labs show leukocytosis. Urine analysis positive for UTI. CT abdomen and pelvis shows: no significant change in appearance of the upper urinary tracts post removal of the left ureteral stent. Bilateral hydroureter with superimposed left upper urinary tract infection suspected. Numerous bilateral renal/ collecting system calcifications. Urinary culture, UDS Continue IV ceftriaxone 2 g daily Supportive management with IV fluids, Zofran, pain management Urology consult placed DIET: Diet DVT PROPHYLAXIS: Ambulatory, SCDs ordered GI PROPHYLAXIS: Protonix CODE STATUS: Goals of care discussed with patient at bedside for more than 16 minutes. Full code DISPOSITION: Med/surge This medical document was created using an electronic medical record system with [id number] direct computerized dictation system. Although this document has been carefully reviewed, there may still be some phonetic and typographical errors. These areas are purely typographical due to imperfections of the software programs, and do not reflect any compromise in the patient's medical care. Patient's status and plan discussed with the patient. Case discussed with Dr. Arias Plan discussed with: Patient, Other (Family, nurses) Date of Service: May 25, 2025 Billing Provider: RENE FINNEY Common Visit Codes: [id number] INP/OBS CARE(HIGH) RENE FINNEY May 25, 2025 18:00 GRISEL ARIAS MD May 30, 2025 20:35
[2025-05-25] MEDS: ACETAMINOPHEN 325 MG TAB PO PRN (18:17)
[2025-05-25 21:00] VITALS: BP 107/66; PULSE 104; RESP 17; TEMP 97.6; O2SAT 93
[2025-05-25] MEDS: ATORVASTATIN 20 MG TAB PO SCH (22:05)
[2025-05-26] VITALS (7 sets, daily range): BP systolic 104–123; BP diastolic 66–74; PULSE 81–92; RESP 16–18; TEMP 97.3–99.2; O2SAT 91–95
[2025-05-26 06:27] LABS: Hematocrit 33.4 % (36.0-46.0); Hemoglobin 11.3 g/dL (12.2-16.2); Mean Corpuscular Hemoglobin 31.6 pg (28.0-32.0); Mean Corpuscular Volume 93.1 fL (80.0-100.0); Nucleated Red Blood Cells % 0.0 %
[2025-05-26 06:36] LABS: Chloride 106 mmol/L (98-107); Potassium 3.8 mmol/L (3.5-5.1); Sodium 141 mmol/L (136-145)
[2025-05-26 06:37] LABS: Anion Gap 10 (5-15); Carbon Dioxide 25 mmol/L (20-31)
[2025-05-26 06:42] LABS: BUN/Creatinine Ratio 11.7 (10.0-20.0); Blood Urea Nitrogen 11 mg/dL (9-23); Glucose 95 mg/dL (74-106)
[2025-05-26 06:46] LABS: Calcium 8.7 mg/dL (8.7-10.4)
[2025-05-26] MEDS: PIPERACILLIN-TAZOB 3.375GM 100 ML IV SCH (12:20)
[2025-05-26] MEDS: FLUCONAZOLE 100 MG TAB PO ONE (12:20)
[2025-05-27] VITALS (7 sets, daily range): BP systolic 101–115; BP diastolic 59–75; PULSE 69–104; RESP 16–19; TEMP 97.6–98.8; O2SAT 90–94
[2025-05-27 07:07] LABS: Hematocrit 34.0 % (36.0-46.0); Hemoglobin 11.8 g/dL (12.2-16.2); Mean Corpuscular Hemoglobin 31.8 pg (28.0-32.0); Mean Corpuscular Volume 91.8 fL (80.0-100.0); Nucleated Red Blood Cells % 0.1 %
[2025-05-27 07:19] LABS: Chloride 104 mmol/L (98-107); Potassium 3.8 mmol/L (3.5-5.1); Sodium 140 mmol/L (136-145)
[2025-05-27 07:20] LABS: Anion Gap 9 (5-15); Calcium 9.3 mg/dL (8.7-10.4); Carbon Dioxide 27 mmol/L (20-31)
[2025-05-27 07:25] LABS: BUN/Creatinine Ratio 11.5 (10.0-20.0); Blood Urea Nitrogen 10 mg/dL (9-23); Glucose 88 mg/dL (74-106)
[2025-05-27] MEDS ORDERED: FLUCONAZOLE 100 MG TAB PO SCH (10:00)
[2025-05-27] MEDS: MICAFUNGIN SODIUM 100 MG in SODIUM CHL 0.9% 100 ML IV SCH (10:13)
--- NOTE | 2025-05-27 11:08 | DVHINCON2 ---
Date of service: May 26, 2025 Referring Physician Hospitalist Reason for Consultation LEFT FLANK PAIN History of Present Illness 50-year-old female with history of anxiety, GERD, hyperlipidemia, recurrent nephrolithiasis, CAD no stents, and staghorn calculi who presents 1 day post discharge following left percutaneous lithotripsy with ureteral stent removal and stone extraction. She returned due to significant leakage from left nephrostomy tube site with around 150 mL of blood-tinged fluid output and saturation of dressings. Pain is 3/10, burning and itching, worsened with movement around the nephrostomy tube. She was advised to return if drainage occur due to concern for infection. She denies any fever, chills, nausea, vomiting, abdominal pain, chest pain, shortness of breaths, burning micturition, dysuria, increased frequency. On presentation vitals were stable, WBC 13.8, creatinine 1.10. CT abdomen and pelvis shows bilateral hydroureter with suspected left upper urinary tract infection and multiple bilateral renal calcifications. She is admitted for further evaluation and management Past Surgical History Left PCNL 05/24/25 Family History: FH: diabetes mellitus GRANDMOTHER, Allergies: Uncoded Allergies: CONTRAST (Allergy, Unknown, 08/16/15) Home Meds Active Scripts Pantoprazole Sodium Sesquihydr (Pantoprazole Sodium) 40 Mg Tab, 20 MG PO DAILY for 14 Days, #14 TAB Prov:ROSY NEIL RESIDENT 03/27/25 Ergocalciferol (VITAMIN D 73475 UNIT) 50,000 [place], [address] UNIT PO QWEEKLY, #10 CAP Prov:ROSY NEIL RESIDENT 03/27/25 Atorvastatin Calcium (ATORVASTATIN CALCIUM) 20 Mg Tab, 20 MG PO HS, #30 TAB Prov:JADA JAIMES MD 12/12/16 Current Medications Current Medications Medications (Trade) Dose Ordered Sig/Natali Route PRN Reason Start Time Stop Time Status Last Admin Ceftriaxone Sodium 50 ml @ 100 mls/hr DAILY@09 IV 05/26/25 09:00 05/25/25 13:24 DC Atorvastatin Calcium (Lipitor) 20 mg HS PO 05/25/25 22:00 05/25/25 22:05 Ceftriaxone Sodium/Dextrose 50 ml @ 50 mls/hr DAILY IV 05/26/25 10:00 05/26/25 11:02 DC 05/26/25 10:12 Piperacillin Sod/ Tazobactam Sod 100 ml @ 25 mls/hr Q8HR IV 05/26/25 11:00 Fluconazole (Diflucan Tablet) 200 mg DAILY PO 05/27/25 10:00 UNV Review of Systems Constitutional: No: Fever, Chills, Sweats, Weakness, Malaise, Other Eyes: No: Pain, Vision change, Conjunctivae inflammation, Eyelid inflammation, Other, Redness ENT: No: Ear pain, Ear discharge, Nose pain, Nose discharge, Nose congestion, Mouth pain, Mouth swelling, Throat pain, Throat swelling, Other Respiratory: No: Cough, Dry, Shortness of breath, SOB with excertion, Wheezing, Hemoptysis, Pleuritic Pain, Sputum, Wheezing, Other Cardiovascular: No: Chest Pain, Palpitations, Orthopnea, Paroxysmal Noc. Dyspnea, Edema, Lt Headedness, Other Gastrointestinal: No: Nausea, Vomiting, Abdominal Pain, Diarrhea, Constipation, Melena, Hematochezia, Other Genitourinary: No Dysuria, No Frequency, No Incontinence, No Hematuria, No Retention; Other (Seepage of nephrostomy tube site) Musculoskeletal: No: other, neck pain, shoulder pain, arm pain, back pain, hand pain, leg pain, foot pain Skin: No: Rash, Lesions, Jaundice, Bruising, Other Neurological: No: Weakness, Numbness, Incoordination, Change in speech, Confusion, Seizures, Other Vital Signs Vital Signs Date Time Temp Pulse Resp B/P (MAP) Pulse Ox O2 Delivery O2 Flow Rate FiO2 05/26/25 09:00 98.5 92 17 104/66 (79) 93 98.5 05/25/25 20:00 Room Air* 0 21 Physical Exam Left Nephrostomy tube draining. Hematuria Labs/Diagnostic Data Labs Test 05/26/25 04:57 05/25/25 05:39 05/25/25 02:00 Range/Units White Blood Count 6.2 # 4.4-10.8 10^3/uL Red Blood Count 3.59 L 4.0-5.20 10^6/uL Hemoglobin 11.3 L 12.2-16.2 g/dL Hematocrit 33.4 L 36.0-46.0 % Mean Corpuscular Volume 93.1 80.0-100.0 fL Mean Corpuscular Hemoglobin 31.6 28.0-32.0 pg Mean Corpuscular Hemoglobin Concent 33.9 32.0-36.0 g/dL Red Cell Distribution Width 15.0 H 11.8-14.3 % Platelet Count 207 140-450 10^3/uL Mean Platelet Volume 10.4 6.9-10.8 fL Neutrophils (%) (Auto) 77.7 37.0-80.0 % Lymphocytes (%) (Auto) 12.4 10.0-50.0 % Monocytes (%) (Auto) 7.6 0.0-12.0 % Eosinophils (%) (Auto) 1.7 0.0-7.0 % Basophils (%) (Auto) 0.6 0.0-2.0 % Neutrophils # (Auto) 4.8 1.6-8.6 10 ^3/uL Lymphocytes # (Auto) 0.8 0.4-5.4 10 ^3/uL Monocytes # (Auto) 0.5 0-1.3 10 ^3/uL Eosinophils # (Auto) 0.1 0-0.8 10 ^3/uL Basophils # (Auto) 0 0-0.2 10 ^3/uL Nucleated Red Blood Cells 0.0 % Sodium Level 141 136-145 mmol/L Potassium Level 3.8 3.5-5.1 mmol/L Chloride Level 106 98-107 mmol/L Carbon Dioxide Level 25 20-31 mmol/L Anion Gap 10 5-15 Blood Urea Nitrogen 11 9-23 mg/dL Creatinine 0.94 0.550-1.02 mg/dL Glomerular Filtration Rate Calc 74 >90 mL/min BUN/Creatinine Ratio 11.7 10.0-20.0 Serum Glucose 95 74-106 mg/dL Calcium Level 8.7 8.7-10.4 mg/dL Magnesium Level 1.8 1.6-2.6 mg/dL Total Bilirubin 0.4 0.2-1.0 mg/dL Direct Bilirubin 0.1 <0.3 mg/dL Aspartate Amino Transferase (AST) 17 13-40 U/L Alanine Aminotransferase (ALT) 14 7-40 U/L Alkaline Phosphatase 73 46-116 U/L Total Protein 7.2 5.7-8.2 g/dL Albumin 3.8 3.2-4.8 g/dL Urine Color Colorless Yellow Urine Clarity Turbid H Clear Urine pH 6.0 5.0-9.0 Urine Specific [place] 1.007 1.001-1.035 Urine Protein Negative Negative Urine Ketones Negative Negative Urine Blood 3+ H Negative /uL Urine Nitrite Negative Negative Urine Bilirubin Negative Negative Urine Urobilinogen Normal Negative mg/dL Urine Leukocyte Esterase 2+ Negative /uL Urine RBC 3 0 - 4 /hpf Urine Microscopic WBC 6 H 0-5 /HPF Urine Squamous Epithelial Cells Few <5 /hpf Urine Bacteria Many H None Seen /hpf Urine Glucose Normal Normal mg/dL Urine Opiates Screen Neg NEGATIVE Urine Fentanyl Screen Pos NEGATIVE Urine Barbiturates Screen Neg NEGATIVE Urine Phencyclidine Screen Neg NEGATIVE Urine Amphetamines Screen Neg NEGATIVE Urine Benzodiazepines Screen Pos NEGATIVE Urine Cocaine Screen Neg NEGATIVE Urine Cannabinoids Screen Neg NEGATIVE Assessment Left renal stones s/p left PCNL Plan/Recommendation Plan to remove nephrostomy tube when clear Plan discussed with: Patient, Other LINDSEY DANIELSON MD May 26, 2025 11:12
--- NOTE | 2025-05-27 11:10 | DVHPNRES ---
Progress Note Date Seen: May 26, 2025 Resident Creating Document: RENE FINNEY RESIDENT Medical Necessity Reason Pt with a Central, PICC or Fol: No Subjective Review of Systems Brief history on arrival: This is a 50-year-old female with history of anxiety, GERD, hyperlipidemia, recurrent nephrolithiasis, CAD no stents, and staghorn calculi who presents 1 day post discharge following left percutaneous lithotripsy with ureteral stent removal and stone extraction. She returned due to significant leakage from left nephrostomy tube site with around 150 mL of blood-tinged fluid output and saturation of dressings. She complains of Left flank Pain which is described as 3/10, burning and itching, worsened with movement around the nephrostomy tube. She was advised to return if drainage occur due to concern for infection. She denies any fever, chills, nausea, vomiting, abdominal pain, chest pain, shortness of breaths, burning micturition, dysuria, increased frequency. On presentation vitals were stable, WBC 13.8, creatinine 1.10. CT abdomen and pelvis shows bilateral hydroureter with suspected left upper urinary tract infection and multiple bilateral renal calcifications. She is admitted for further evaluation and management Past medical history: As stated above Surgery history: right ovarian cyst, tubal ligation, left breast cyst removal , cholecystectomy Family history: Reviewed and noncontributory to the management of this case Personal history: Lives at home. Denies smoking, alcohol and other drug abuse Allergies: No known allergies except contrast PCP: Dr. Foote Code status: full code ROS: Constitutional: Denies weight loss, fever and chills. HEENT: Denies changes in vision and hearing. Respiratory: Denies shortness of breath and cough Cardiovascular: Denies chest discomfort or palpitations GI: Flank pain, nausea, discharge from nephrostomy tube : Denies dysuria and urinary frequency. Musculoskeletal: Denies myalgias and joint pain Skin: Denies rash and pruritus. Neurological: Denies dizziness, headache, vision or hearing problems 05/25/2025: Continues to complain of flank pain and discharge. Urology consulted. 05/26/2025: Patient was examined at bedside today. She continues to complain of pain and discharge. Urology on board, recommended nephrostomy tube removal pending clear drainage Objective vital signs Vital Sign Date Time Temp Pulse Resp B/P (MAP) Pulse Ox O2 Delivery O2 Flow Rate FiO2 05/26/25 09:00 98.5 92 17 104/66 (79) 93 98.5 05/25/25 20:00 Room Air* 0 21 Total Intake and Output 05/25/25 05/25/25 05/26/25 15:00 23:00 07:00 Intake Total 50 ml 1100 ml 1000 ml Balance 50 ml 1100 ml 1000 ml medications Current Medications Medications Dose Ordered Sig/Natali Route Start Time Stop Time Status Last Admin Dose Admin Acetaminophen/ Hydrocodone Bitart 1 tab Q4HP PRN PO 05/25/25 03:45 05/26/25 10:13 1 TAB Ondansetron HCl 4 mg Q4HP PRN IV 05/25/25 03:45 Acetaminophen 650 mg Q6HP PRN PO 05/25/25 03:45 05/25/25 18:17 650 MG Hydromorphone HCl 0.25 mg Q4HPRN PRN IV 05/25/25 03:45 Atorvastatin Calcium 20 mg HS PO 05/25/25 22:00 05/25/25 22:05 20 MG Pantoprazole Sodium 40 mg DAILY@0600 PO 05/25/25 06:00 05/25/25 05:41 40 MG Piperacillin Sod/ Tazobactam Sod 100 ml @ 25 mls/hr Q8HR IV 05/26/25 11:00 Fluconazole 200 mg DAILY PO 05/27/25 10:00 Examination General: Patient alert and oriented in person, place and time. Patient following commands. HEENT: Normocephalic, atraumatic, moist mucous membranes Respiratory/pulmonary: Clear lungs bilaterally, vesicular murmurs present in almost all lung simpson, no associated crackles or wheezes. Cardiovascular: Normal heart sounds S1 and S2 with no associated murmurs Abdomen: Tenderness around nephrostomy tube in left flank, nephrostomy tube draining hematuria. Extremities: There is no peripheral edema present at the lower extremities. Peripheral Pulses: 3+ Radial (R). 3+ Radial (L). 3+ Dorsalis pedis (R). 3+ Dorsalis pedis(L) Skin: No rashes or pruritus, there is no sacral edema present at this time. Neurological: Intact cranial nerves with no focal neurologic deficits laboratory and microbiology Laboratory Tests 05/26/25 04:57 Test 05/26/25 04:57 Range/Units Serum Glucose 95 74-106 mg/dL Microbiology Date/Time Source Procedure Growth Status 05/25/25 02:00 Voided Urine Urine Culture - Preliminary Resulted Problem List/Assessment/Plan Problem List/Assessment/Plan Acute complicated UTI History of recurrent UTI Bilateral hydroureter Left staghorn calculi s/p lithotripsy with left ureteral stent removal and left ureteral stone extraction #S/p nephrostomy tube, leaking Numerous bilateral renal calcifications TAMIA due to hemodynamically mediated (VMN), resolving Initial labs show leukocytosis. Urine analysis positive for UTI. CT abdomen and pelvis shows: no significant change in appearance of the upper urinary tracts post removal of the left ureteral stent. Bilateral hydroureter with superimposed left upper urinary tract infection suspected. Numerous bilateral renal/ collecting system calcifications. Urinary culture, UDS Continue IV ceftriaxone 2 g daily Supportive management with IV fluids, Zofran, pain management Urology on board, recommended nephrostomy tube removal, pending clear discharge DIET: Diet DVT PROPHYLAXIS: Ambulatory, SCDs ordered GI PROPHYLAXIS: Protonix CODE STATUS: Goals of care discussed with patient at bedside for more than 16 minutes. Full code DISPOSITION: Med/surge This medical document was created using an electronic medical record system with [employer] direct computerized dictation system. Although this document has been carefully reviewed, there may still be some phonetic and typographical errors. These areas are purely typographical due to imperfections of the software programs, and do not reflect any compromise in the patient's medical care. Patient's status and plan discussed with the patient. Case discussed with Dr. Arias Plan discussed with: Patient, Other (Nurses) My Orders My Orders Orders - RENE FINNEY RESIDENT Procedure Category Date Status Time Sequential ROGELIO 05/25/25 In Process Compression Device 17:59 Piperacillin-Tazob PHA 05/26/25 In Process 3.375gm (Zosyn 3.375g 11:00 Fluconazole Tablet PHA 05/27/25 In Process (Diflucan Tablet) 10:00 Complete Blood Count LAB 05/27/25 Verified 04:00 Basic Metabolic Panel LAB 05/27/25 Verified 04:00 Date of Service: May 26, 2025 Billing Provider: GRISEL ARIAS MD Common Visit Codes: [id number] INP/OBS CARE(HIGH) RENE FINNEY May 26, 2025 12:23 GRISEL ARIAS MD May 30, 2025 20:36
--- NOTE | 2025-05-27 11:15 | DVHINCON2 ---
Date of service: May 26, 2025 Referring Physician N/A Reason for Consultation s/p Left PCNL with leakage of nephrostomy tube. History of Present Illness Patient s/p left PCNL 2 days ago who came in for leakage of left PCN. Patient denies pain. CT A/P done shows PCN in place, persistent kidney stones. Past Medical History Kidney stones. Past Surgical History Left PCNL. Family History: FH: diabetes mellitus GRANDMOTHER, Social History Denies tobacco, IVD, ETOH. Allergies: Uncoded Allergies: CONTRAST (Allergy, Unknown, 08/16/15) Home Meds Active Scripts Pantoprazole Sodium Sesquihydr (Pantoprazole Sodium) 40 Mg Tab, 20 MG PO DAILY for 14 Days, #14 TAB Prov:ROSY NEIL RESIDENT 03/27/25 Ergocalciferol (VITAMIN D 82190 UNIT) 50,000 [place], [address] UNIT PO QWEEKLY, #10 CAP Prov:ROSY NEIL RESIDENT 03/27/25 Atorvastatin Calcium (ATORVASTATIN CALCIUM) 20 Mg Tab, 20 MG PO HS, #30 TAB Prov:JADA JAIMES MD 12/12/16 Current Medications Current Medications Medications (Trade) Dose Ordered Sig/Natali Route PRN Reason Start Time Stop Time Status Last Admin Ceftriaxone Sodium 50 ml @ 100 mls/hr DAILY@09 IV 05/26/25 09:00 05/25/25 13:24 DC Atorvastatin Calcium (Lipitor) 20 mg HS PO 05/25/25 22:00 05/25/25 22:05 Ceftriaxone Sodium/Dextrose 50 ml @ 50 mls/hr DAILY IV 05/26/25 10:00 05/26/25 11:02 DC 05/26/25 10:12 Piperacillin Sod/ Tazobactam Sod 100 ml @ 25 mls/hr Q8HR IV 05/26/25 11:00 05/26/25 12:20 Fluconazole (Diflucan Tablet) 200 mg DAILY PO 05/27/25 10:00 Review of Systems All 12 points reviewed and negative. Vital Signs Vital Signs Date Time Temp Pulse Resp B/P (MAP) Pulse Ox O2 Delivery O2 Flow Rate FiO2 05/26/25 12:40 97.3 81 16 108/69 (82) 94 97.3 05/26/25 08:00 Room Air* 0 21 Physical Exam Gen: NAD, AAOX3 Neuro: no focal deficit. CV: RRR, S1-S2 present. Resp; CTA, BL. Abd: soft, NT, ND. Labs/Diagnostic Data Labs Test 05/26/25 04:57 05/25/25 05:39 05/25/25 02:00 Range/Units White Blood Count 6.2 # 4.4-10.8 10^3/uL Red Blood Count 3.59 L 4.0-5.20 10^6/uL Hemoglobin 11.3 L 12.2-16.2 g/dL Hematocrit 33.4 L 36.0-46.0 % Mean Corpuscular Volume 93.1 80.0-100.0 fL Mean Corpuscular Hemoglobin 31.6 28.0-32.0 pg Mean Corpuscular Hemoglobin Concent 33.9 32.0-36.0 g/dL Red Cell Distribution Width 15.0 H 11.8-14.3 % Platelet Count 207 140-450 10^3/uL Mean Platelet Volume 10.4 6.9-10.8 fL Neutrophils (%) (Auto) 77.7 37.0-80.0 % Lymphocytes (%) (Auto) 12.4 10.0-50.0 % Monocytes (%) (Auto) 7.6 0.0-12.0 % Eosinophils (%) (Auto) 1.7 0.0-7.0 % Basophils (%) (Auto) 0.6 0.0-2.0 % Neutrophils # (Auto) 4.8 1.6-8.6 10 ^3/uL Lymphocytes # (Auto) 0.8 0.4-5.4 10 ^3/uL Monocytes # (Auto) 0.5 0-1.3 10 ^3/uL Eosinophils # (Auto) 0.1 0-0.8 10 ^3/uL Basophils # (Auto) 0 0-0.2 10 ^3/uL Nucleated Red Blood Cells 0.0 % Sodium Level 141 136-145 mmol/L Potassium Level 3.8 3.5-5.1 mmol/L Chloride Level 106 98-107 mmol/L Carbon Dioxide Level 25 20-31 mmol/L Anion Gap 10 5-15 Blood Urea Nitrogen 11 9-23 mg/dL Creatinine 0.94 0.550-1.02 mg/dL Glomerular Filtration Rate Calc 74 >90 mL/min BUN/Creatinine Ratio 11.7 10.0-20.0 Serum Glucose 95 74-106 mg/dL Calcium Level 8.7 8.7-10.4 mg/dL Magnesium Level 1.8 1.6-2.6 mg/dL Total Bilirubin 0.4 0.2-1.0 mg/dL Direct Bilirubin 0.1 <0.3 mg/dL Aspartate Amino Transferase (AST) 17 13-40 U/L Alanine Aminotransferase (ALT) 14 7-40 U/L Alkaline Phosphatase 73 46-116 U/L Total Protein 7.2 5.7-8.2 g/dL Albumin 3.8 3.2-4.8 g/dL Urine Color Colorless Yellow Urine Clarity Turbid H Clear Urine pH 6.0 5.0-9.0 Urine Specific [place] 1.007 1.001-1.035 Urine Protein Negative Negative Urine Ketones Negative Negative Urine Blood 3+ H Negative /uL Urine Nitrite Negative Negative Urine Bilirubin Negative Negative Urine Urobilinogen Normal Negative mg/dL Urine Leukocyte Esterase 2+ Negative /uL Urine RBC 3 0 - 4 /hpf Urine Microscopic WBC 6 H 0-5 /HPF Urine Squamous Epithelial Cells Few <5 /hpf Urine Bacteria Many H None Seen /hpf Urine Glucose Normal Normal mg/dL Urine Opiates Screen Neg NEGATIVE Urine Fentanyl Screen Pos NEGATIVE Urine Barbiturates Screen Neg NEGATIVE Urine Phencyclidine Screen Neg NEGATIVE Urine Amphetamines Screen Neg NEGATIVE Urine Benzodiazepines Screen Pos NEGATIVE Urine Cocaine Screen Neg NEGATIVE Urine Cannabinoids Screen Neg NEGATIVE Microbiology Date/Time Source Procedure Growth Status 05/25/25 12:07 Blood Blood Culture - Preliminary NO GROWTH AFTER 24 HOURS OF INCUBATION. Resulted 05/25/25 02:00 Voided Urine Urine Culture - Preliminary Resulted Assessment Patient with left kidney stones, s/p left PCNL with leakage around PCN. - At this point no intervention needed. PCN is in adequate position. Dressing is currently dry. Patient will need further intervention to clear her left kidney stones as an outpatient. She can be discharged from perspective. Plan discussed with: Patient TITA HE MD May 26, 2025 14:40
--- NOTE | 2025-05-27 16:28 | DVHPNRES ---
Progress Note Date Seen: May 27, 2025 Resident Creating Document: RENE FINNEY RESIDENT Medical Necessity Reason Pt with a Central, PICC or Fol: No Subjective Review of Systems Brief history on arrival: This is a 50-year-old female with history of anxiety, GERD, hyperlipidemia, recurrent nephrolithiasis, CAD no stents, and staghorn calculi who presents 1 day post discharge following left percutaneous lithotripsy with ureteral stent removal and stone extraction. She returned due to significant leakage from left nephrostomy tube site with around 150 mL of blood-tinged fluid output and saturation of dressings. She complains of Left flank Pain which is described as 3/10, burning and itching, worsened with movement around the nephrostomy tube. She was advised to return if drainage occur due to concern for infection. She denies any fever, chills, nausea, vomiting, abdominal pain, chest pain, shortness of breaths, burning micturition, dysuria, increased frequency. On presentation vitals were stable, WBC 13.8, creatinine 1.10. CT abdomen and pelvis shows bilateral hydroureter with suspected left upper urinary tract infection and multiple bilateral renal calcifications. She is admitted for further evaluation and management Past medical history: As stated above Surgery history: right ovarian cyst, tubal ligation, left breast cyst removal , cholecystectomy Family history: Reviewed and noncontributory to the management of this case Personal history: Lives at home. Denies smoking, alcohol and other drug abuse Allergies: No known allergies except contrast PCP: Dr. Foote Code status: full code ROS: Constitutional: Denies weight loss, fever and chills. HEENT: Denies changes in vision and hearing. Respiratory: Denies shortness of breath and cough Cardiovascular: Denies chest discomfort or palpitations GI: Flank pain, nausea, discharge from nephrostomy tube : Denies dysuria and urinary frequency. Musculoskeletal: Denies myalgias and joint pain Skin: Denies rash and pruritus. Neurological: Denies dizziness, headache, vision or hearing problems 05/25/2025: Continues to complain of flank pain and discharge. Urology consulted. 05/26/2025: She continues to complain of pain and discharge. Urology on board, recommended nephrostomy tube removal pending clear drainage 05/27/2025: Patient was seen at bedside today. No new complaints. Urology on board, recommended outpatient nephrostomy tube removal. Patient's blood culture is growing yeast, started on micafungin. Objective vital signs Vital Sign Date Time Temp Pulse Resp B/P (MAP) Pulse Ox O2 Delivery O2 Flow Rate FiO2 05/27/25 12:32 98.5 104 18 115/59 (77) 94 98.5 05/27/25 08:00 Room Air* 0 21 Total Intake and Output 05/26/25 05/26/25 05/27/25 15:00 23:00 07:00 Intake Total 1300 ml 750 ml Balance 1300 ml 750 ml medications Current Medications Medications Dose Ordered Sig/Natali Route Start Time Stop Time Status Last Admin Dose Admin Acetaminophen/ Hydrocodone Bitart 1 tab Q4HP PRN PO 05/25/25 03:45 05/27/25 11:26 1 TAB Ondansetron HCl 4 mg Q4HP PRN IV 05/25/25 03:45 Acetaminophen 650 mg Q6HP PRN PO 05/25/25 03:45 05/25/25 18:17 650 MG Hydromorphone HCl 0.25 mg Q4HPRN PRN IV 05/25/25 03:45 Atorvastatin Calcium 20 mg HS PO 05/25/25 22:00 05/25/25 22:05 20 MG Pantoprazole Sodium 40 mg DAILY@0600 PO 05/25/25 06:00 05/27/25 05:50 40 MG Piperacillin Sod/ Tazobactam Sod 100 ml @ 25 mls/hr Q8HR IV 05/26/25 11:00 05/27/25 15:28 25 MLS/HR Micafungin Sodium 100 mg/Sodium Chloride 100 ml @ 100 mls/hr DAILY IV 05/27/25 10:00 05/27/25 10:13 100 MLS/HR Examination General: Patient alert and oriented in person, place and time. Patient following commands. HEENT: Normocephalic, atraumatic, moist mucous membranes Respiratory/pulmonary: Clear lungs bilaterally, vesicular murmurs present in almost all lung simpson, no associated crackles or wheezes. Cardiovascular: Normal heart sounds S1 and S2 with no associated murmurs Abdomen: Tenderness around incision site of nephrostomy tube in left flank, nephrostomy tube draining straw-colored urine. Extremities: There is no peripheral edema present at the lower extremities. Peripheral Pulses: 3+ Radial (R). 3+ Radial (L). 3+ Dorsalis pedis (R). 3+ Dorsalis pedis(L) Skin: No rashes or pruritus, there is no sacral edema present at this time. Neurological: Intact cranial nerves with no focal neurologic deficits laboratory and microbiology Laboratory Tests 05/27/25 05:57 Test 05/27/25 05:57 Range/Units Serum Glucose 88 74-106 mg/dL Microbiology Date/Time Source Procedure Growth Status 05/25/25 12:07 Blood Blood Culture - Preliminary Resulted 05/25/25 02:00 Voided Urine Urine Culture - Final Complete Problem List/Assessment/Plan Problem List/Assessment/Plan Acute complicated UTI Fungemia History of recurrent UTI Bilateral hydroureter Left staghorn calculi s/p lithotripsy with left ureteral stent removal and left ureteral stone extraction #S/p nephrostomy tube, leaking Numerous bilateral renal calcifications TAMIA due to hemodynamically mediated (VMN), resolving Initial labs show leukocytosis. Urine analysis positive for UTI. CT abdomen and pelvis shows: no significant change in appearance of the upper urinary tracts post removal of the left ureteral stent. Bilateral hydroureter with superimposed left upper urinary tract infection suspected. Numerous bilateral renal/ collecting system calcifications. Urinary culture [place] more [place] 14508 colony-forming units of gm positive [place] IV ceftriaxone switched to Zosyn Supportive management with IV fluids, Zofran, pain management Urology on board, recommended nephrostomy tube removal in outpatient clinic Blood culture is growing yeast, started on micafungin. Another set of blood cultures ordered DIET: Diet DVT PROPHYLAXIS: Ambulatory, SCDs ordered GI PROPHYLAXIS: Protonix CODE STATUS: Goals of care discussed with patient at bedside for more than 16 minutes. Full code DISPOSITION: Med/surge This medical document was created using an electronic medical record system with [employer] direct computerized dictation system. Although this document has been carefully reviewed, there may still be some phonetic and typographical errors. These areas are purely typographical due to imperfections of the software programs, and do not reflect any compromise in the patient's medical care. Patient's status and plan discussed with the patient. Case discussed with Dr. Arias Plan discussed with: Patient, Other (Nurses) My Orders My Orders Orders - RENE FINNEY RESIDENT Procedure Category Date Status Time Micafungin Sodium PHA 05/27/25 In Process (Mycamine) 10:00 Wound Culture W/ Gs CRISTIAN 05/27/25 In Process 07:04 Blood Culture CRISTIAN 05/27/25 In Process 10:15 Date of Service: May 27, 2025 Billing Provider: RENE FINNEY Common Visit Codes: [id number] INP/OBS CARE(HIGH) RENE FINNEY May 27, 2025 16:28 GRISEL ARIAS MD May 30, 2025 20:36
[2025-05-28] VITALS (8 sets, daily range): BP systolic 103–119; BP diastolic 64–77; PULSE 63–84; RESP 16–19; TEMP 97.4–98.4; O2SAT 93–96
[2025-05-28 06:54] LABS: Hematocrit 34.4 % (36.0-46.0); Hemoglobin 11.7 g/dL (12.2-16.2); Mean Corpuscular Hemoglobin 31.4 pg (28.0-32.0); Mean Corpuscular Volume 92.4 fL (80.0-100.0); Nucleated Red Blood Cells % 0.1 %
[2025-05-28 07:13] LABS: Alanine Aminotransferase 27 U/L (7-40); Albumin 3.7 g/dL (3.2-4.8); Alkaline Phosphatase 106 U/L (46-116); Anion Gap 12 (5-15); BUN/Creatinine Ratio 9.3 (10.0-20.0); Bilirubin, Total 0.3 mg/dL (0.2-1.0); Blood Urea Nitrogen 10 mg/dL (9-23); Calcium 9.0 mg/dL (8.7-10.4); Carbon Dioxide 23 mmol/L (20-31); Chloride 106 mmol/L (98-107); Glucose 103 mg/dL (74-106); Potassium 3.8 mmol/L (3.5-5.1); Sodium 141 mmol/L (136-145); Total Protein 6.9 g/dL (5.7-8.2)
--- NOTE | 2025-05-28 15:31 | DVHPNRES ---
Progress Note Date Seen: May 28, 2025 Resident Creating Document: RENE FINNEY RESIDENT Medical Necessity Reason Pt with a Central, PICC or Fol: No Subjective Review of Systems Brief history on arrival: This is a 50-year-old female with history of anxiety, GERD, hyperlipidemia, recurrent nephrolithiasis, CAD no stents, and staghorn calculi who presents 1 day post discharge following left percutaneous lithotripsy with ureteral stent removal and stone extraction. She returned due to significant leakage from left nephrostomy tube site with around 150 mL of blood-tinged fluid output and saturation of dressings. She complains of Left flank Pain which is described as 3/10, burning and itching, worsened with movement around the nephrostomy tube. She was advised to return if drainage occur due to concern for infection. She denies any fever, chills, nausea, vomiting, abdominal pain, chest pain, shortness of breaths, burning micturition, dysuria, increased frequency. On presentation vitals were stable, WBC 13.8, creatinine 1.10. CT abdomen and pelvis shows bilateral hydroureter with suspected left upper urinary tract infection and multiple bilateral renal calcifications. She is admitted for further evaluation and management Past medical history: As stated above Surgery history: right ovarian cyst, tubal ligation, left breast cyst removal , cholecystectomy Family history: Reviewed and noncontributory to the management of this case Personal history: Lives at home. Denies smoking, alcohol and other drug abuse Allergies: No known allergies except contrast PCP: Dr. Foote Code status: full code ROS: Constitutional: Denies weight loss, fever and chills. HEENT: Denies changes in vision and hearing. Respiratory: Denies shortness of breath and cough Cardiovascular: Denies chest discomfort or palpitations GI: Flank pain, nausea, discharge from nephrostomy tube : Denies dysuria and urinary frequency. Musculoskeletal: Denies myalgias and joint pain Skin: Denies rash and pruritus. Neurological: Denies dizziness, headache, vision or hearing problems 05/25/2025: Continues to complain of flank pain and discharge. Urology consulted. 05/26/2025: She continues to complain of pain and discharge. Urology on board, recommended nephrostomy tube removal pending clear drainage 05/27/2025: No new complaints. Urology on board, recommended outpatient nephrostomy tube removal. Patient's blood culture is growing yeast, started on micafungin. 08/07/2024: Patient was seen at bedside today no new complaints. Patient on antifungal; another set of Blood culture pending Objective vital signs Vital Sign Date Time Temp Pulse Resp B/P (MAP) Pulse Ox O2 Delivery O2 Flow Rate FiO2 05/28/25 13:00 97.7 80 16 117/75 (89) 96 97.7 05/28/25 08:30 Room Air* 0 21 Total Intake and Output 05/27/25 05/27/25 05/28/25 15:00 23:00 07:00 Intake Total 450 ml 600 ml Balance 450 ml 600 ml medications Current Medications Medications Dose Ordered Sig/Natali Route Start Time Stop Time Status Last Admin Dose Admin Acetaminophen/ Hydrocodone Bitart 1 tab Q4HP PRN PO 05/25/25 03:45 05/27/25 21:21 1 TAB Ondansetron HCl 4 mg Q4HP PRN IV 05/25/25 03:45 Acetaminophen 650 mg Q6HP PRN PO 05/25/25 03:45 05/25/25 18:17 650 MG Hydromorphone HCl 0.25 mg Q4HPRN PRN IV 05/25/25 03:45 Atorvastatin Calcium 20 mg HS PO 05/25/25 22:00 05/25/25 22:05 20 MG Pantoprazole Sodium 40 mg DAILY@0600 PO 05/25/25 06:00 05/28/25 05:59 40 MG Piperacillin Sod/ Tazobactam Sod 100 ml @ 25 mls/hr Q8HR IV 05/26/25 11:00 05/28/25 05:59 25 MLS/HR Micafungin Sodium 100 mg/Sodium Chloride 100 ml @ 100 mls/hr DAILY IV 05/27/25 10:00 05/28/25 09:26 100 MLS/HR Examination General: Patient alert and oriented in person, place and time. Patient following commands. HEENT: Normocephalic, atraumatic, moist mucous membranes Respiratory/pulmonary: Clear lungs bilaterally, vesicular murmurs present in almost all lung simpson, no associated crackles or wheezes. Cardiovascular: Normal heart sounds S1 and S2 with no associated murmurs Abdomen: Tenderness around incision site of nephrostomy tube in left flank, nephrostomy tube draining minimal straw-colored urine. Extremities: There is no peripheral edema present at the lower extremities. Peripheral Pulses: 3+ Radial (R). 3+ Radial (L). 3+ Dorsalis pedis (R). 3+ Dorsalis pedis(L) Skin: No rashes or pruritus, there is no sacral edema present at this time. Neurological: Intact cranial nerves with no focal neurologic deficits laboratory and microbiology Laboratory Tests 05/28/25 05:55 Test 05/28/25 05:55 Range/Units Serum Glucose 103 74-106 mg/dL Microbiology Date/Time Source Procedure Growth Status 05/27/25 10:36 Blood Blood Culture - Preliminary NO GROWTH AFTER 24 HOURS OF INCUBATION. Resulted 05/27/25 08:45 Abdomen Gram Stain Pending Resulted 05/27/25 08:45 Abdomen Wound Culture - Preliminary Resulted 05/25/25 02:00 Voided Urine Urine Culture - Final Complete Problem List/Assessment/Plan Problem List/Assessment/Plan Acute complicated UTI Fungemia History of recurrent UTI Bilateral hydroureter Left staghorn calculi s/p lithotripsy with left ureteral stent removal and left ureteral stone extraction #S/p nephrostomy tube, leaking Numerous bilateral renal calcifications TAMIA due to hemodynamically mediated (VMN), resolving Initial labs show leukocytosis. Urine analysis positive for UTI. CT abdomen and pelvis shows: no significant change in appearance of the upper urinary tracts post removal of the left ureteral stent. Bilateral hydroureter with superimposed left upper urinary tract infection suspected. Numerous bilateral renal/ collecting system calcifications. [place] [id number] colony-forming units of gm positive Amliha IV ceftriaxone switched to Zosyn Supportive management with IV fluids, Zofran, pain management Urology on board, recommended nephrostomy tube removal in outpatient clinic Continue IV micafungin Pending blood cultures DIET: Diet DVT PROPHYLAXIS: Ambulatory, SCDs ordered GI PROPHYLAXIS: Protonix CODE STATUS: Goals of care discussed with patient at bedside for more than 16 minutes. Full code DISPOSITION: Med/surge This medical document was created using an electronic medical record system with [employer] direct computerized dictation system. Although this document has been carefully reviewed, there may still be some phonetic and typographical errors. These areas are purely typographical due to imperfections of the software programs, and do not reflect any compromise in the patient's medical care. Patient's status and plan discussed with the patient. Case discussed with Dr. Arias Plan discussed with: Patient, Other (Nurses) Date of Service: May 28, 2025 Billing Provider: GRISEL ARIAS MD Common Visit Codes: [id number] INP/OBS CARE(HIGH) RENE FINNEY RESIDENT May 28, 2025 15:31 GRISEL ARIAS MD May 30, 2025 20:36
--- NOTE | 2025-05-28 22:25 | DVHSR ---
APPROVED REPORT EXAM: LIMITED Two-dimensional and M-mode echocardiogram with color Doppler. Blood Pressure: 117/75 mmHg INDICATION Rule out endocarditis RISK FACTORS Height: 5'1", Weight: 164 Mitral Valve MitralMitral Stenosis E/A ratio0.02D MVAcm2 Other Information Quality : Technically LimitedRhythm : Technically limited study due to Limited repeat to eval for endocarditis. Conclusion NO VEGETATION NORMAL VALVES MVP NORMAL LV EF AND IS 65% NORMAL RV SIZE LIMITED STUDY NO EFFUSION
[2025-05-29 01:00] VITALS: BP 105/70; PULSE 67; RESP 20; TEMP 97.2; O2SAT 94
[2025-05-29 05:03] VITALS: BP 105/73; PULSE 70; RESP 20; TEMP 97.2; O2SAT 96
[2025-05-29 07:12] LABS: Hematocrit 34.1 % (36.0-46.0); Hemoglobin 11.6 g/dL (12.2-16.2); Mean Corpuscular Hemoglobin 31.4 pg (28.0-32.0); Mean Corpuscular Volume 92.3 fL (80.0-100.0); Nucleated Red Blood Cells % 0.1 %
[2025-05-29 07:31] LABS: Alanine Aminotransferase 24 U/L (7-40); Alkaline Phosphatase 100 U/L (46-116); Anion Gap 11 (5-15); BUN/Creatinine Ratio 9.9 (10.0-20.0); Blood Urea Nitrogen 10 mg/dL (9-23); Calcium 9.2 mg/dL (8.7-10.4); Carbon Dioxide 23 mmol/L (20-31); Chloride 105 mmol/L (98-107); Glucose 102 mg/dL (74-106); Potassium 3.9 mmol/L (3.5-5.1); Sodium 139 mmol/L (136-145); Total Protein 7.1 g/dL (5.7-8.2)
[2025-05-29 07:32] LABS: Albumin 3.7 g/dL (3.2-4.8); Bilirubin, Total 0.3 mg/dL (0.2-1.0)
[2025-05-29 08:49] VITALS: BP 108/70; PULSE 72; RESP 14; TEMP 97.6; O2SAT 95
[2025-05-29] MEDS ORDERED: FLUC200T PO (11:54)
--- NOTE | 2025-05-29 11:54 | DVHDSRES ---
Discharge Summary Date of Admission Resident Creating Document: RENE FINNEY RESIDENT May 25, 2025 at 03:34 Labs/Diagnostic Data: Laboratory Results Test 05/29/25 05:57 05/28/25 05:55 05/25/25 12:00 05/25/25 05:39 White Blood Count 5.5 10^3/uL (4.4-10.8) Red Blood Count 3.69 10^6/uL (4.0-5.20) Hemoglobin 11.6 g/dL (12.2-16.2) Hematocrit 34.1 % (36.0-46.0) Mean Corpuscular Volume 92.3 fL (80.0-100.0) Mean Corpuscular Hemoglobin 31.4 pg (28.0-32.0) Mean Corpuscular Hemoglobin Concent 34.0 g/dL (32.0-36.0) Red Cell Distribution Width 14.5 % (11.8-14.3) Platelet Count 244 10^3/uL (140-450) Mean Platelet Volume 9.6 fL (6.9-10.8) Neutrophils (%) (Auto) 54.0 % (37.0-80.0) Lymphocytes (%) (Auto) 33.4 % (10.0-50.0) Monocytes (%) (Auto) 7.4 % (0.0-12.0) Eosinophils (%) (Auto) 4.5 % (0.0-7.0) Basophils (%) (Auto) 0.7 % (0.0-2.0) Neutrophils # (Auto) 3.0 10 ^3/uL (1.6-8.6) Lymphocytes # (Auto) 1.8 10 ^3/uL (0.4-5.4) Monocytes # (Auto) 0.4 10 ^3/uL (0-1.3) Eosinophils # (Auto) 0.2 10 ^3/uL (0-0.8) Basophils # (Auto) 0 10 ^3/uL (0-0.2) Nucleated Red Blood Cells 0.1 % Sodium Level 139 mmol/L (136-145) Potassium Level 3.9 mmol/L (3.5-5.1) Chloride Level 105 mmol/L (98-107) Carbon Dioxide Level 23 mmol/L (20-31) Anion Gap 11 (5-15) Blood Urea Nitrogen 10 mg/dL (9-23) Creatinine 1.01 mg/dL (0.550-1.02) Glomerular Filtration Rate Calc 68 mL/min (>90) BUN/Creatinine Ratio 9.9 (10.0-20.0) Serum Glucose 102 mg/dL (74-106) Calcium Level 9.2 mg/dL (8.7-10.4) Total Bilirubin 0.3 mg/dL (0.2-1.0) Aspartate Amino Transferase (AST) 23 U/L (13-40) Alanine Aminotransferase (ALT) 24 U/L (7-40) Alkaline Phosphatase 100 U/L (46-116) Total Protein 7.1 g/dL (5.7-8.2) Albumin 3.7 g/dL (3.2-4.8) HIV (1&2) Antibody Negative (Negative) Miscellaneous Referred Test (Rm Tmp Sent to [facility] Magnesium Level 1.8 mg/dL (1.6-2.6) Direct Bilirubin 0.1 mg/dL (<0.3) Test 05/25/25 02:00 Urine Color Colorless (Yellow) Urine Clarity Turbid (Clear) Urine pH 6.0 (5.0-9.0) Urine Specific [place] 1.007 (1.001-1.035) Urine Protein Negative (Negative) Urine Ketones Negative (Negative) Urine Blood 3+ /uL (Negative) Urine Nitrite Negative (Negative) Urine Bilirubin Negative (Negative) Urine Urobilinogen Normal mg/dL (Negative) Urine Leukocyte Esterase 2+ /uL (Negative) Urine RBC 3 /hpf (0 - 4) Urine Microscopic WBC 6 /HPF (0-5) Urine Squamous Epithelial Cells Few /hpf (<5) Urine Bacteria Many /hpf (None Seen) Urine Glucose Normal mg/dL (Normal) Urine Opiates Screen Neg (NEGATIVE) Urine Fentanyl Screen Pos (NEGATIVE) Urine Barbiturates Screen Neg (NEGATIVE) Urine Phencyclidine Screen Neg (NEGATIVE) Urine Amphetamines Screen Neg (NEGATIVE) Urine Benzodiazepines Screen Pos (NEGATIVE) Urine Cocaine Screen Neg (NEGATIVE) Urine Cannabinoids Screen Neg (NEGATIVE) Other Laboratory Tests 05/29/25 05:57 Discharge Instruct/Medications Scheduled Atorvastatin Calcium (Atorvastatin Calcium), 20 MG PO HS Ergocalciferol (Vitamin D 33648 Unit), 50,000 UNIT PO QWEEKLY Fluconazole (Diflucan), 1 TAB PO DAILY Pantoprazole Sodium Sesquihydr (Pantoprazole Sodium), 20 MG PO DAILY Discharge Statement: "Patient was advised to return to the ER or call 911 if any headaches, dizziness, shortness of breath, chest pain, abdominal pain, bleeding, fevers, or worsening of medical condition. Patient was counseled about treatment plan, medications, possible side effects, patientverbalized understanding. All questions were answered to the best of my ability. This discharge took greater then 30 minutes in planning, reviewing documentation, counseling the patient, and discussing with other team members." ASSESSMENT ASSESSMENT Assessment AUGUSTINE DEAN RESIDENT May 29, 2025 11:54
--- NOTE | 2025-05-29 11:56 | DVHDSRES ---
Discharge Summary Date of Admission Resident Creating Document: AUGUSTINE DEAN RESIDENT May 25, 2025 at 03:34 Date of Discharge: May 29, 2025 Admitting Diagnosis Nephrostomy tube leakage, s/p ESWL with ureteral stent removal and stone extraction Labs/Diagnostic Data: Laboratory Results Test 05/29/25 05:57 05/28/25 05:55 05/25/25 12:00 05/25/25 05:39 White Blood Count 5.5 10^3/uL (4.4-10.8) Red Blood Count 3.69 10^6/uL (4.0-5.20) Hemoglobin 11.6 g/dL (12.2-16.2) Hematocrit 34.1 % (36.0-46.0) Mean Corpuscular Volume 92.3 fL (80.0-100.0) Mean Corpuscular Hemoglobin 31.4 pg (28.0-32.0) Mean Corpuscular Hemoglobin Concent 34.0 g/dL (32.0-36.0) Red Cell Distribution Width 14.5 % (11.8-14.3) Platelet Count 244 10^3/uL (140-450) Mean Platelet Volume 9.6 fL (6.9-10.8) Neutrophils (%) (Auto) 54.0 % (37.0-80.0) Lymphocytes (%) (Auto) 33.4 % (10.0-50.0) Monocytes (%) (Auto) 7.4 % (0.0-12.0) Eosinophils (%) (Auto) 4.5 % (0.0-7.0) Basophils (%) (Auto) 0.7 % (0.0-2.0) Neutrophils # (Auto) 3.0 10 ^3/uL (1.6-8.6) Lymphocytes # (Auto) 1.8 10 ^3/uL (0.4-5.4) Monocytes # (Auto) 0.4 10 ^3/uL (0-1.3) Eosinophils # (Auto) 0.2 10 ^3/uL (0-0.8) Basophils # (Auto) 0 10 ^3/uL (0-0.2) Nucleated Red Blood Cells 0.1 % Sodium Level 139 mmol/L (136-145) Potassium Level 3.9 mmol/L (3.5-5.1) Chloride Level 105 mmol/L (98-107) Carbon Dioxide Level 23 mmol/L (20-31) Anion Gap 11 (5-15) Blood Urea Nitrogen 10 mg/dL (9-23) Creatinine 1.01 mg/dL (0.550-1.02) Glomerular Filtration Rate Calc 68 mL/min (>90) BUN/Creatinine Ratio 9.9 (10.0-20.0) Serum Glucose 102 mg/dL (74-106) Calcium Level 9.2 mg/dL (8.7-10.4) Total Bilirubin 0.3 mg/dL (0.2-1.0) Aspartate Amino Transferase (AST) 23 U/L (13-40) Alanine Aminotransferase (ALT) 24 U/L (7-40) Alkaline Phosphatase 100 U/L (46-116) Total Protein 7.1 g/dL (5.7-8.2) Albumin 3.7 g/dL (3.2-4.8) HIV (1&2) Antibody Negative (Negative) Miscellaneous Referred Test (Rm Tmp Sent to [facility] Magnesium Level 1.8 mg/dL (1.6-2.6) Direct Bilirubin 0.1 mg/dL (<0.3) Test 05/25/25 02:00 Urine Color Colorless (Yellow) Urine Clarity Turbid (Clear) Urine pH 6.0 (5.0-9.0) Urine Specific [place] 1.007 (1.001-1.035) Urine Protein Negative (Negative) Urine Ketones Negative (Negative) Urine Blood 3+ /uL (Negative) Urine Nitrite Negative (Negative) Urine Bilirubin Negative (Negative) Urine Urobilinogen Normal mg/dL (Negative) Urine Leukocyte Esterase 2+ /uL (Negative) Urine RBC 3 /hpf (0 - 4) Urine Microscopic WBC 6 /HPF (0-5) Urine Squamous Epithelial Cells Few /hpf (<5) Urine Bacteria Many /hpf (None Seen) Urine Glucose Normal mg/dL (Normal) Urine Opiates Screen Neg (NEGATIVE) Urine Fentanyl Screen Pos (NEGATIVE) Urine Barbiturates Screen Neg (NEGATIVE) Urine Phencyclidine Screen Neg (NEGATIVE) Urine Amphetamines Screen Neg (NEGATIVE) Urine Benzodiazepines Screen Pos (NEGATIVE) Urine Cocaine Screen Neg (NEGATIVE) Urine Cannabinoids Screen Neg (NEGATIVE) Other Laboratory Tests 05/29/25 05:57 Brief Hx & Hospital Course: This is a 50-year-old female with history of anxiety, GERD, hyperlipidemia, recurrent nephrolithiasis, CAD no stents, and staghorn calculi who presents 1 day post discharge following left percutaneous lithotripsy with ureteral stent removal and stone extraction. She returned due to significant leakage from left nephrostomy tube site with around 150 mL of blood-tinged fluid output and saturation of dressings. Pain is 3/10, burning and itching, worsened with movement around the nephrostomy tube. She was advised to return if drainage occur due to concern for infection. She denies any fever, chills, nausea, vomiting, abdominal pain, chest pain, shortness of breaths, burning micturition, dysuria, increased frequency. On presentation vitals were stable, WBC 13.8, creatinine 1.10. CT abdomen and pelvis shows bilateral hydroureter with suspected left upper urinary tract infection and multiple bilateral renal calcifications. She is admitted for further evaluation and management Hospital course: Urine culture, blood cultures were ordered and patient was started on IV ceftriaxone 2 g daily for acute complicated UTI which was later advanced to IV Zosyn, supportive management with IV fluids, IV Zofran and IV pain management was also done and Urology was consulted. Blood cultures grew yeast in both bottles, and subsequently IV micafungin 100 mg daily was added, repeat blood cultures came back negative. Patient was cleared for discharge by Urology and recommended to follow up in the outpatient for nephrostomy tube removal, which was communicated to the patient and she demonstrated understanding. On the day of discharge, patient noted significant improvement in pain around the nephrostomy tube site as well as improvement in the quantity of drainage from the nephrostomy tube, the drainage which was initially bloody now on the day of discharge had become clear. Wound cultures from nephrostomy site area came back negative. Patient was discharged home on Diflucan 200 mg p.o. daily for 10 days with the instructions to follow up with PCP and Urology in the outpatient at her earliest convenience. Her hospital course was uncomplicated. General: Patient alert and oriented in person, place and time. Patient following commands. HEENT: Normocephalic, atraumatic, moist mucous membranes Respiratory/pulmonary: Clear lungs bilaterally, vesicular murmurs present in almost all lung simpson, no associated crackles or wheezes. Cardiovascular: Normal heart sounds S1 and S2 with no associated murmurs Abdomen: Tenderness around incision site of nephrostomy tube in left flank, nephrostomy tube draining minimal straw-colored urine. Extremities: There is no peripheral edema present at the lower extremities. Peripheral Pulses: 3+ Radial (R). 3+ Radial (L). 3+ Dorsalis pedis (R). 3+ Dorsalis pedis(L) Skin: No rashes or pruritus, there is no sacral edema present at this time. Neurological: Intact cranial nerves with no focal neurologic deficits Consults/Reason for consult Urology: For nephrostomy tube leakage s/p ESWL, stone extraction and ureteral stent removal Operations or Procedures Exam: CT CT AB PEL WO CON-NO ORAL OR IV History: L flank pain, leaking nephrostomy tube Comparison Study: CT CT AB PEL WO CON-NO ORAL OR IV on DOS: 05/18/25, CT CT AB PEL WO CON-NO ORAL OR IV on DOS: 05/01/25, CT CT AB PEL WO CON-NO ORAL OR IV on DOS: 03/17/25, CT CT AB PEL WO CON-NO ORAL OR IV on DOS: 02/01/25 Technique: Multidetector spiral CT of the abdomen was performed from lung bases to pubic symphysis. Imaging was performed without IV contrast. Axial, coronal and sagittal multiplanar reformats were obtained from the axial data set by the technologist. Radiation Dose : 1. Abdomen/Pelvis: CTDIvol 7.28 mGy, DLP 413.2 mGy*cm. Findings: Evaluation of solid organs is limited due to lack of intravenous contrast use. Lower Chest: No acute findings. Dependent atelectasis. Liver: Unremarkable. Gallbladder and Biliary Tree: Cholecystectomy change. Pancreas: Unremarkable. Spleen: Mild atrophy. Adrenal Glands: Unremarkable. Left kidney/ureter: Unchanged percutaneous nephrostomy positioning with numerous renal calcifications, chronic cortical atrophy and hydronephrosis, mild hydroureter with periureteral and perinephric stranding. The previous percutaneous stent has been removed. Right kidney/ureter: No acute obstruction. Redemonstrated stones in the right collecting system/parenchyma with mid to inferior cortical atrophy. Mild right hydroureter. Bladder: No wall thickening or filling defect. Trace intraluminal gas likely related to recent procedure. Pelvic Organs: Unchanged right 5.5 cm ovarian cyst. Enlarged, fibroid uterus. Bowel: Normal caliber without wall thickening. Normal appendix. Vasculature: Unremarkable. Lymphadenopathy: No obvious adenopathy. Peritoneum: No ascites, free air, or fluid collection. Abdominal Wall: No significant hernia. Musculoskeletal: No acute findings. L5 spondylolysis with L5-S1 spondylosis and spondylolisthesis. IMPRESSION: 1. No significant change in appearance of the upper urinary tracts post removal of the left ureteral stent. Similar bilateral hydroureter, with superimposed left upper tract infection suspected. Numerous bilateral renal/collecting system calcifications. 2. Other findings not significantly changed from the prior exam as above. Radiation optimization: All CT scans at this facility use at least one of these dose optimization techniques: automated exposure control mA and/or kV adjustment per patient size (includes targeted exams where dose is matched to clinical indication) or iterative reconstruction. APPROVED REPORT EXAM: LIMITED Two-dimensional and M-mode echocardiogram with color Doppler. Blood Pressure: 117/75 mmHg INDICATION Rule out endocarditis RISK FACTORS Height: 5'1", Weight: 164 Mitral Valve Mitral Mitral Stenosis E/A ratio 0.0 2D MVA cm2 Other Information Quality : Technically Limited Rhythm : Technically limited study due to Limited repeat to eval for endocarditis. Conclusion NO VEGETATION NORMAL VALVES MVP NORMAL LV EF AND IS 65% NORMAL RV SIZE LIMITED STUDY NO EFFUSION SIGNED BY: DAISY LEE MD SIGNED DATE/TIME: 05/28/25 4024 Condition at Discharge: Fair Final Diagnosis/Problems List Acute complicated UTI Fungemia, POA Sepsis, POA History of recurrent UTI Bilateral hydroureter Left staghorn calculi s/p lithotripsy with left ureteral stent removal and left ureteral stone extraction #S/p nephrostomy tube, leaking Numerous bilateral renal calcifications TAMIA due to hemodynamically mediated (VMN), POA Mitral Valve prolapse Discharge Disposition: Home Discharge Instruct/Medications Diet: Consistent carbohydrate, Cardiac 2g Na,low cholest Diet comment: Encouraged adequate hydration Activity: No Restrictions, As Tolerated Follow Up/Referral: Please follow up with Urology in 1-2 weeks Please follow up with PCP in 1-2 weeks Medications: Diflucan 200 mg p.o. daily for 10 days Scheduled Atorvastatin Calcium (Atorvastatin Calcium), 20 MG PO HS Ergocalciferol (Vitamin D 62837 Unit), 50,000 UNIT PO QWEEKLY Fluconazole (Diflucan), 1 TAB PO DAILY Pantoprazole Sodium Sesquihydr (Pantoprazole Sodium), 20 MG PO DAILY Discharge Statement: "Patient was advised to return to the ER or call 911 if any headaches, dizziness, shortness of breath, chest pain, abdominal pain, bleeding, fevers, or worsening of medical condition. Patient was counseled about treatment plan, medications, possible side effects, patientverbalized understanding. All questions were answered to the best of my ability. This discharge took greater then 30 minutes in planning, reviewing documentation, counseling the patient, and discussing with other team members." ASSESSMENT ASSESSMENT Assessment Acute complicated UTI Fungemia History of recurrent UTI Bilateral hydroureter Left staghorn calculi s/p lithotripsy with left ureteral stent removal and left ureteral stone extraction #S/p nephrostomy tube, leaking Numerous bilateral renal calcifications TAMIA due to hemodynamically mediated (VMN), resolving Date of Service: May 29, 2025 Billing Provider: GRISEL ANTHONY MD Common Visit Codes: [id number] DISCH DAY >30min AUGUSTINE DEAN May 29, 2025 11:56 GRISEL ANTHONY MD May 30, 2025 20:36
[2025-05-29 12:41] VITALS: BP 108/71; PULSE 68; RESP 14; TEMP 98.3; O2SAT 96
[2025-05-29 16:07] VITALS: BP 108/71; PULSE 68; RESP 14; TEMP 98.3; O2SAT 96
[2025-05-29 16:36] VITALS: BP 106/64; PULSE 87; RESP 16; TEMP 98.8; O2SAT 96
== END 2025-05-29 18:50 | disposition home or self-care (01) | DRG 720 ==
LOC: ER 22:24 → OVERFLOW 05-25 03:34 → WEST WING 05-25 07:57
PROVIDERS: ADMIT Internal Medicine Geriatric Medicine; ATTEND Internal Medicine Geriatric Medicine
DX: A41.9 Sepsis, unspecified organism (principal); N17.0 Acute kidney failure with tubular necrosis; B49 Unspecified mycosis; K21.9 Gastro-esophageal reflux disease without esophagitis; F41.9 Anxiety disorder, unspecified; T83.032A Leakage of nephrostomy catheter, initial encounter; E78.5 Hyperlipidemia, unspecified; I25.10 Atherosclerotic heart disease of native coronary artery without angina pectoris; I34.1 Nonrheumatic mitral (valve) prolapse; N13.6 Pyonephrosis; Z83.3 Family history of diabetes mellitus; Z90.49 Acquired absence of other specified parts of digestive tract; Z79.899 Other long term (current) drug therapy; Y84.8 Other medical procedures as the cause of abnormal reaction of the patient, or of later complication, without mention of misadventure at the time of the procedure; Y92.89 Other specified places as the place of occurrence of the external cause
CPT/HCPCS: 36415; 74176; 80048; 80053; 80076; 80307; 81001; 83735; 85025; 86703; 87040; 87081; 87086; 87205; 93306; G0378; J2248; J2405; J2543

== ENCOUNTER 2025-07-12 06:11 | Day surgery (SDC) | payer MEDICAID ==
[2025-07-11 09:21] LABS: Hematocrit 42.4 % (36.0-46.0); Hemoglobin 14.3 g/dL (12.2-16.2); Mean Corpuscular Hemoglobin 30.9 pg (28.0-32.0); Mean Corpuscular Volume 91.5 fL (80.0-100.0); Nucleated Red Blood Cells % 0.1 %
[2025-07-11 09:30] LABS: Urine Budding Yeast FEW /hpf (None Seen); Urine Protein, UAD 1+ (Negative); Urine WBC Clumps PRESENT /hpf (None Seen)
[2025-07-11 09:51] LABS: INR 1.01 (0.9-1.15); Partial Thromboplastin Time 28.2 SEC (24.5-34.5); Prothrombin Time 10.7 sec (9.3-11.8)
[2025-07-11 10:00] LABS: Alanine Aminotransferase 33 U/L (7-40); Albumin 4.5 g/dL (3.2-4.8); Alkaline Phosphatase 87 U/L (46-116); Anion Gap 12 (5-15); BUN/Creatinine Ratio 15.2 (10.0-20.0); Blood Urea Nitrogen 15 mg/dL (9-23); Calcium 9.9 mg/dL (8.7-10.4); Carbon Dioxide 26 mmol/L (20-31); Chloride 104 mmol/L (98-107); Glucose 102 mg/dL (74-106); Potassium 4.5 mmol/L (3.5-5.1); Sodium 142 mmol/L (136-145); Total Protein 8.2 g/dL (5.7-8.2)
[2025-07-11 10:01] LABS: Bilirubin, Total 0.3 mg/dL (0.2-1.0)
[~2025-07-12] VITALS: Ht 154.9 cm; Wt 67.6 kg
[~2025-07-12 06:11] MED LIST changes: +FLUC200T PO
[2025-07-12] MEDS ORDERED: ceFAZolin 2 GM/D5W50ml 50 ML IV ONE (06:32)
[2025-07-12] MEDS ORDERED: fentaNYL CITRATE 100 MCG/2 ML VL ONE (07:20)
[2025-07-12] MEDS ORDERED: MIDAZOLAM HCL 2MG/2ML 2ml VIAL (1mg/ml) ONE (07:20)
[2025-07-12] MEDS ORDERED: IOHEXOL 300 MG/ML 100ML BOTTLE IJ ONE (07:45)
[2025-07-12] MEDS ORDERED: PROPOFOL 10 MG/ML 20 ML IV ONE (07:48)
[2025-07-12] MEDS ORDERED: ETOMIDATE (2MG/ML) 20ML VIAL IV ONE (08:03)
[2025-07-12] MEDS ORDERED: ONDANSETRON HCL 4 MG/2 ML VIAL ONE (08:12)
--- NOTE | 2025-07-12 08:21 | DVHNC2 ---
Procedure - OPERATIVE REPORT Pre-op. Diagnosis: Renal Stone Post-op. Diagnosis: Same as pre-op diagnosis Operation: Extracorporeal Shockwave Lithotripsy Anesthesia: General Indications: Patient was found to have symptomatic Urolithiasis. Patient is here to undergo ESWL therapy. Informed Consent: The procedure was explained to the patient. It's risks include but not limited to infection, bleeding, and damage to the kidney. Patient fully understood and signed the consent. Other options such as watchful waiting, Ureteroscopy, Percutaneous surgery and open surgery were also discussed. Details of Procedure: Under satisfactory anesthesia, the patient was positioned on the lithotripsy table. Using fluoroscopy the stone was localized. Starting at low energy levels, shockwave treatment was commenced. The energy level was gradually increased and stone was fragmented. Once the treatment was completed, patient was then taken off the lithotripsy table and sent to recovery room in stable condition. Specimens: None Complications: None Findings: Stone Laterality: right Stone Location: mid pole 6 mm and 4 mm stones Shocks Delivered: 2400 [employer] Power settin Fragmentation Quality: Well Notes: Obtain CT Scan Stone protocol in 6 weeks LINDSEY DANIELSON MD Jul 12, 2025 08:21
--- NOTE | 2025-07-12 08:22 | DVHDS2 ---
New Physician D'charge PN Admitting Diagnosis Admitting Diagnosis Renal stones Discharge Diagnosis Same Operations or Procedures Right ESWL Reason(s) For Hospitalization Surgery Treatment Plan Discharge Condition of Discharge Good Disposition Home Discharge Instructions Diet: Regular Activity: Light activity Activity comment: As tolerated Medications: Given Follow Up Care Follow Up/Referral: Follow up in six weeks with CT scan stone protocol Discharge Statement: "Patient was advised to return to the ER or call 911 if any headaches, diz ziness, shortness of breath, chest pain, abdominal pain, bleeding, fevers, or worsening of medical condition. Patient was counseled about treatment plan, medications, possible side effects, patientverbalized understanding. All questions were answered to the best of my ability. This discharge took greater then 30 minutes in planning, reviewing documentation, counseling the patient, and discussing with other team members." LINDSEY DANIELSON MD Jul 12, 2025 08:22
[2025-07-12 08:50] VITALS: PULSE 87; RESP 15; TEMP 97.9
[2025-07-12] MEDS ORDERED: hydrALAZINE HCL 20 MG/ML VL IV PRN (09:00)
[2025-07-12] MEDS ORDERED: MIDAZOLAM HCL 2MG/2ML 2ml VIAL (1mg/ml) IV PRN (09:00)
[2025-07-12] MEDS ORDERED: KETOROLAC TROMETH 30 MG/ML 1ML VIAL IV ONE (09:00)
[2025-07-12] MEDS ORDERED: MORPHINE SULFATE 4 MG/ML SYR/VIAL IV PRN (09:00)
[2025-07-12] MEDS ORDERED: HYDROmorphone HCL 2 MG/ML VL/or syr IV PRN (09:00)
[2025-07-12] MEDS ORDERED: ONDANSETRON HCL 4 MG/2 ML VIAL IV PRN (09:00)
[2025-07-12 09:20] VITALS: PULSE 71; RESP 16
[2025-07-12 09:30] VITALS: BP 132/76; PULSE 82; O2SAT 99
[2025-07-12 09:50] VITALS: RESP 16
[2025-07-12 10:04] VITALS: RESP 16
== END 2025-07-12 10:04 | disposition home or self-care (01) ==
LOC: SUR 06:11
PROVIDERS: ATTEND Urology
DX: N20.0 Calculus of kidney (principal); F41.8 Other specified anxiety disorders; Z90.710 Acquired absence of both cervix and uterus; Z95.5 Presence of coronary angioplasty implant and graft; Z98.890 Other specified postprocedural states; Z83.3 Family history of diabetes mellitus
CPT/HCPCS: 36415; 50590; 80053; 81001; 81025; 85025; 85610; 85730; 87086; 87088; 87186; J0690; J1100; J2250; J2405; J2704; J3010; Q9967

== ENCOUNTER 2025-07-21 15:08 | Inpatient (IN) | payer MEDICAID ==
[~2025-07-21] VITALS: Ht 154.9 cm; Wt 69.5 kg
--- NOTE | 2025-07-21 15:19 | ECG ---
[facility] Test Date: 2025-07-21 Test Time: 15:18:38 Pat Name: MAICOL AMARO Department: Room: 0250 Gender: F Marketing Communications Assistant: GP : [id number] Requested By: PEGGY GORDON Order Number: [id number] Reading MD: Devin Salazar Measurements Intervals Addis Rate: 149 P: 59 CA: 131 QRS: -75 QRSD: 68 T: 23 QT: 265 QTc: 417 Interpretive Statements Sinus tachycardia Paired ventricular premature complexes Aberrant complex Left anterior fascicular block Low voltage, precordial leads Consider anterior infarct Baseline wander in lead(s) I,III,aVL,V1,V2,V4,V6 Electronically Signed On 07-22-2025 10:33:28 PST by Devin Salazar Please click the below link to view image of tracing.
[2025-07-21 15:35] LABS: Hematocrit 39.6 % (36.0-46.0); Hemoglobin 13.7 g/dL (12.2-16.2); Mean Corpuscular Hemoglobin 31.1 pg (28.0-32.0); Mean Corpuscular Volume 90.0 fL (80.0-100.0); Nucleated Red Blood Cells % 0.0 %
[2025-07-21 15:42] LABS: Chloride 104 mmol/L (98-107); Potassium 3.8 mmol/L (3.5-5.1); Sodium 138 mmol/L (136-145)
[2025-07-21 15:43] LABS: Anion Gap 12 (5-15); Calcium 9.5 mg/dL (8.7-10.4); Carbon Dioxide 22 mmol/L (20-31)
[2025-07-21] MEDS: ACETAMINOPHEN 325 MG TAB PO ONE (15:45)
[2025-07-21 15:48] LABS: BUN/Creatinine Ratio 12.0 (10.0-20.0); Blood Urea Nitrogen 14 mg/dL (9-23); Glucose 105 mg/dL (74-106)
--- NOTE | 2025-07-21 15:50 | DVH ---
CLINICAL HISTORY: DIZZINESS TECHNIQUE: Helical scanning was performed of the head from the skull base to the vertex. Multiplanar reconstructions were performed. This exam was performed according to our departmental dose optimization program. Up-to-date CT equipment and radiation dose reduction techniques are utilized as appropriate. CTDI 53 DLP 940 COMPARISON: None FINDINGS: There is no evidence for acute intracranial hemorrhage, acute ischemic changes, mass, mass effect, or extra-axial fluid collection. There is no hydrocephalus or midline shift. There is no effacement of the cerebral sulci and basal subarachnoid cisterns. The aguayo-white matter differentiation is well maintained. The imaged paranasal sinuses are clear. IMPRESSION: NO ACUTE INTRACRANIAL ABNORMALITY SEEN.
--- NOTE | 2025-07-21 16:06 | ED.PDOC ---
HPI (NEURO) HPI Comments 50y F who presents to the ED via EMS for chief complaint of dizziness. Pt presents with family member who states pt has been having dizziness, headache, nausea, weakness, malaise and chills since earlier this AM and came to the ED due to exacerbation of her symptoms. Pt in the ED is alert and oriented x 4 and able to answer all questions. Pt in the ED, has noted vitals of temp of 102. F , heart rate 150. Pt otherwise denies sick contacts. Pt denies any other symptoms at this time. Chief Complaint: Dizziness Time Seen by MD: 16:03 Primary Care Provider: NONE Reviewed Notes: Medications, Allergies Information Source: Patient Mode of Arrival: Ambulatory Brought in by: self Past Medical History PAST MEDICAL HISTORY: Anxiety, GERD, High Lipids, Kidney Stones, [place] Surgical History: BTL, Cholecystectomy, PTCA [employer] History: Ovarian Cysts Family History Family History: Reviewed,noncontributory to illness, Family hx of heart pamela Social History Smoker: Non-Smoker Alcohol: Denies ETOH Use Drugs: Denies Drug Use Lives In: Home Constitutional: reports: malaise, weakness; denies: chills, diaphoresis, fatigue, fever, sweats, others EENTM: denies: blurred vision, double vision, ear bleeding, ear discharge, ear drainage, ear pain, ear ringing, eye pain, eye redness, hearing loss, mouth pain, mouth swelling, nasal discharge, nose bleeding, nose congestion, nose pain, photophobia, tearing, throat pain, throat swelling, voice changes, others Respiratory: denies: cough, hemoptysis, orthopnea, SOB at rest, shortness of breath, SOB with excertion, stridor, wheezing, others Cardiovascular: denies: chest pain, dizzy spells, diaphoresis, Dyspnea on exertion, edema, irregular heart beat, left arm pain, lightheadedness, palpitations, PND, syncope, others Gastrointestinal: reports: nausea; denies: abdomen distended, abdominal pain, blood streaked bowels, constipated, diarrhea, dysphagia, difficulty swallowing, hematemesis, melena, poor appetite, poor fluid intake, rectal bleeding, rectal pain, vomiting, others Genitourinary: denies: abnormal vagina bleeding, burning, dyspareunia, dysuria, flank pain, frequency, hematuria, incontinence, pain, , vagina discharge, urgency, others Neurological: reports: dizziness, headache; denies: fainting, left sided numbness, left sided weakness, numbness, paresthesia, pre-existing deficit, right sided numbness, right sided weakness, seizure, speech problems, tingling, tremors, weakness, others Musculoskeletal: denies: back pain, gout, joint pain, joint swelling, muscle pain, muscle stiffness, neck pain, others Integumetry: denies: bruises, change in color, change in hair/nails, dryness, laceration, lesions, lumps, rash, wounds, others Allergic/Immunocompromised: denies: Difficulty Healing, Frequent Infections, Hives, Itching, others Hematologic/Lymphatic: denies: anemia, blood clots, easy bleeding, easy bruising, swollen glands, others Endocrine: denies: excessive hunger, excessive sweating, excessive thirst, excessive urination, flushing, intolerance to cold, intolerance to heat, unexplained weight gain, unexplained weight loss, others Psychiatric: denies: anxiety, bipolar disorder, depression, hopeless, panic disorder, schizophrenia, sleepless, suicidal, others All Other Systems: Reviewed and Negative Physical Exam General Appearance: Moderate Distress HEENT: Normal ENT Inspection, Pharynx Normal, TMs Normal Neck: Full Range of Motion, Non-Tender, Normal, Normal Inspection Respiratory: Chest Non-Tender, Lungs Clear, No Accessory Muscle Use, No Respiratory Distress, Normal Breath Sounds Cardiovascular: No Edema, No JVD, No Murmur, No Gallop, Normal Peripheral Pulses, Tachycardia Breast Exam: Deferred Gastrointestinal: No Organomegaly, Non Tender, No Pulsatile Mass, Normal Bowel Sounds, Soft Genitalia: Deferred Pelvic: Deferred Rectal: Deferred Extremities: No calf tenderness, Normal capillary refill, Normal inspection, Normal range of motion, Non-tender, No pedal edema Musculoskeletal : Apperance: Normal Neurologic: Alert, sales representative [employer] II-XII nml as Tested, No Motor Deficits, Normal Affect, Normal Mood, No Sensory Deficits Cerebellar Function: NOT DONE Reflexes: NOT DONE Skin: Dry, Normal Color, Warm Peripheral Pulses: 3+ Radial (R), 3+ Radial (L) Lymphatic: No Adenopathy EKG EKG : Pulse Rate (adult): 149 Ensign: Normal Cardiac Rhythm: ST Block: None Hypertrophy: None ST: Normal Comments Paired ventricular premature complexes Aberrant complex Left anterior fascicular block Low voltage, precordial leads Was a procedure done? Was a procedure done?: No Differential Diagnosis (SZ) Seizure: Psychogenic Seizure, Closed Head Injury, CVA/TIA General Weakness: Anemia, Dehydration, Electrolyte imbalance, Encephalopathy, Hypoglycemia, Other (sepsis,) Headache: Migraine X-Ray, Labs, Meds, VS Vital Signs Date Time Temp Pulse Resp B/P (MAP) Pulse Ox O2 Delivery O2 Flow Rate FiO2 07/21/25 16:06 149 07/21/25 15:45 105.0 07/21/25 15:18 149 07/21/25 15:10 102.0 150 20 148/84 100 102.0 Lab Test 07/21/25 15:22 07/21/25 15:20 Range/Units White Blood Count 8.7 4.4-10.8 10^3/uL Red Blood Count 4.40 4.0-5.20 10^6/uL Hemoglobin 13.7 12.2-16.2 g/dL Hematocrit 39.6 36.0-46.0 % Mean Corpuscular Volume 90.0 80.0-100.0 fL Mean Corpuscular Hemoglobin 31.1 28.0-32.0 pg Mean Corpuscular Hemoglobin Concent 34.6 32.0-36.0 g/dL Red Cell Distribution Width 14.3 11.8-14.3 % Platelet Count 198 140-450 10^3/uL Mean Platelet Volume 10.4 6.9-10.8 fL Neutrophils (%) (Auto) 82.6 H 37.0-80.0 % Lymphocytes (%) (Auto) 11.6 10.0-50.0 % Monocytes (%) (Auto) 5.0 0.0-12.0 % Eosinophils (%) (Auto) 0.2 0.0-7.0 % Basophils (%) (Auto) 0.6 0.0-2.0 % Neutrophils # (Auto) 7.2 1.6-8.6 10 ^3/uL Lymphocytes # (Auto) 1.0 0.4-5.4 10 ^3/uL Monocytes # (Auto) 0.4 0-1.3 10 ^3/uL Eosinophils # (Auto) 0 0-0.8 10 ^3/uL Basophils # (Auto) 0.1 0-0.2 10 ^3/uL Nucleated Red Blood Cells 0.0 % Sodium Level 138 136-145 mmol/L Potassium Level 3.8 3.5-5.1 mmol/L Chloride Level 104 98-107 mmol/L Carbon Dioxide Level 22 20-31 mmol/L Anion Gap 12 5-15 Blood Urea Nitrogen 14 9-23 mg/dL Creatinine 1.17 H 0.550-1.02 mg/dL Glomerular Filtration Rate Calc 57 >90 mL/min BUN/Creatinine Ratio 12.0 10.0-20.0 Serum Glucose 105 74-106 mg/dL Calcium Level 9.5 8.7-10.4 mg/dL Troponin I High Sensitivity < 3 L </=34 ng/L POC Glucose 105 70-106 mg/dl Current Medications Medications (Trade) Dose Ordered Sig/Natali Route Start Time Stop Time Status Last Admin Acetaminophen (Tylenol Tablet) 650 mg ONCE ONCE PO 07/21/25 15:15 07/21/25 15:16 DC 07/21/25 15:45 PROCEDURE(s): HWOCT - HEAD WITHOUT CONTRAST IMPRESSION: NO ACUTE INTRACRANIAL ABNORMALITY SEEN. Patient alert. Generalized weakness. Has dizziness. Cardiac marker within normal limits. Blood sugar within normal limits. Has fever. Tachycardia. Establish intravenous access. Was given fluids. Possible sepsis. Was given Rocephin. Was given Flagyl. WBC within normal limits. Continue monitoring. Time of 1ST Reevaluation: 16:40 Reevaluation 1ST: Unchanged Patient Education/Counseling: Diagnosis, Treatment Family Education/Counseling: Diagnosis, Treatment Departure 1 Departure Time of Disposition: 16:15 Impression: Primary Impression: Sepsis, unspecified organism Qualified Codes: A41.9 - Sepsis, unspecified organism Additional Impression: Autonomic disorder Disposition: ADMITTED INPATIENT Admit to: Med Surg Condition: Guarded Critical Care Note Critical Care Time?: Yes (90 min-critical care time only) Stability Stability form required: No Heart Score Heart Score: Heart Score Response (Comments) Value History N/A 0 EKG N/A 0 Age N/A 0 Risk Factors N/A 0 Troponin N/A 0 Total 0 I personally scribed for PEGGY GORDON MD ([email or web address]) on 07/21/25 at 16:06. Electronically submitted by Franc Tyler ([facility] I personally scribed for PEGGY GORDON MD ([email or web address]) on 07/21/25 at 16:07. Electronically submitted by Franc [facility] ([facility] PEGGY GORDON MD Jul 21, 2025 16:06
[2025-07-21 16:51] LABS: Urine Budding Yeast FEW /hpf (None Seen); Urine Protein, UAD TRACE (Negative)
[2025-07-21] MEDS: SODIUM CHLORIDE 0.9% 1,000 ML IV ONE ×2 (19:15→20:01)
[2025-07-21] MEDS: ONDANSETRON HCL 4 MG/2 ML VIAL IV ONE (19:15)
[2025-07-21 19:57] VITALS: PULSE 98; RESP 18; O2SAT 97
[2025-07-21] MEDS: PIPERACILLIN-TAZOB 3.375GM 100 ML IV ONE (20:02)
[2025-07-21] MEDS: SODIUM CHLORIDE 0.9% 500 ML IV ONE (23:15)
--- NOTE | 2025-07-21 23:59 | DVHHPRES ---
History of Present Illness Resident Creating Document: PATRICK BRAVO RESIDENT History of Present Illness Brianna Fair is a 50 year old female With past medical history of coronary artery disease, recurrent renal stones, GERD who presented with complaints of fever, chills, burning sensation on urination since 1 day. She also complains of associated headache, nausea and dizziness since 1 day. Patient underwent laser surgery for right renal calculi last week. She also reports of a laser procedure in February for left-sided renal calculi. She is scheduled for cardiology appointment as outpatient on July 29. she denies any shortness of breath, chest pain or abdominal pain. PMHx:coronary artery disease, recurrent renal stones, GERD PSHx: laser for renal calculi Family history: diabetes mellitus in grandmother Social history: denies smoking, alcohol or illicit drug use. Lives [place] in [place] Home medication: Protonix Allergic history: none Review of Systems Review of Systems General: Complains of fever and dizziness HEENT: No visiual changes, hearing loss, tinnitus, nasal congestion and discharge, and sore throat. complaints of headache Cardiovascular: Denies chest pain, palpitations, dyspnea on exertion, orthopnea, or claudication. Respiratory: No cough, and wheezing. Gastrointestinal: Denies nausea, vomiting, dysphagia, odynophagia, heartburn, abdominal pain, flatulence, bloating, diarrhea, constipation, change in stool, or blood in stool. Genitourinary: complains of burning sensation on urination Endocrine: No heat or cold intolerance, polydipsia, polyuria, and polyphagia. Neurological: No dizziness, extremity weakness and numbness, tremors, gait disturbance, seizures, and memory impairment. Psychiatric: Denies depression, anxiety,or insomnia. Musculoskeletal: Denies neck pain, stiffness and swelling, back pain, muscle weakness, joint pain, stiffness, swelling, or limited range of motion. Skin: No rashes, itching, skin lesion, changes in hair, nail, skin texture and breast. Hematologic/Lymphatic: Denies easy bruising, bleeding tendencies, or lymph node enlargement. Allergies: Uncoded Allergies: CONTRAST (Allergy, Unknown, 08/16/15) Medications Current Medications Medications Dose Ordered Sig/Natali Route Start Time Stop Time Status Last Admin Dose Admin Acetaminophen 650 mg Q6HR PO 07/22/25 00:00 Acetaminophen/ Hydrocodone Bitart 1 tab Q6HPRN PRN PO 07/21/25 23:15 Pantoprazole Sodium 40 mg DAILY IV 07/22/25 10:00 Exam Vital Signs Vital Signs Date Time Temp Pulse Resp B/P (MAP) Pulse Ox O2 Delivery O2 Flow Rate FiO2 07/21/25 22:11 92 20 98 Room Air 07/21/25 22:11 98.0 129/76 (93) 98.0 07/21/25 19:57 0 21 Exam General Appearance: Alert, Oriented X3, Cooperative, No acute distress HEENT: Atraumatic, PERRLA, EOMI, Mucous membrane moist/pink Respiratory: Clear to auscultation, Normal air movement Cardiovascular: Regular rate, Normal S1, Normal S2, No murmurs, no chest wall tenderness Abdominal: Normal bowel sounds, Soft, No tenderness, No hepatospenomegaly, No masses Extremities: No clubbing, No cyanosis, No edema, Normal pulses, No tenderness/swelling Skin: No rashes, No breakdown, No significant lesion Neuro: Normal gait, Normal speech, Strength at 5/5 X4 ext, Normal tone, Sensation intact, Cranial nerves 3-12 NL, Reflexes 2+ Psych/Mental Status: Mental status NL, Mood NL Labs/Xrays Labs Test 07/21/25 16:13 07/21/25 15:27 07/21/25 15:22 07/21/25 15:20 Range/Units Lactic Acid Level 1.6 0.4-2.0 mmol/L Urine Color Light-yellow Yellow Urine Clarity Turbid H Clear Urine pH 6.5 5.0-9.0 Urine Specific Gruver 1.011 1.001-1.035 Urine Protein Trace H Negative Urine Ketones Negative Negative Urine Blood 1+ H Negative /uL Urine Nitrite Negative Negative Urine Bilirubin Negative Negative Urine Urobilinogen Normal Negative mg/dL Urine Leukocyte Esterase 3+ Negative /uL Urine RBC 13 0 - 4 /hpf Urine Microscopic WBC 87 H 0-5 /HPF Urine Squamous Epithelial Cells Few <5 /hpf Urine Bacteria Few H None Seen /hpf Urine Yeast (Budding) Few None Seen /hpf Urine Glucose Normal Normal mg/dL Urine Test Negative Negative White Blood Count 8.7 4.4-10.8 10^3/uL Red Blood Count 4.40 4.0-5.20 10^6/uL Hemoglobin 13.7 12.2-16.2 g/dL Hematocrit 39.6 36.0-46.0 % Mean Corpuscular Volume 90.0 80.0-100.0 fL Mean Corpuscular Hemoglobin 31.1 28.0-32.0 pg Mean Corpuscular Hemoglobin Concent 34.6 32.0-36.0 g/dL Red Cell Distribution Width 14.3 11.8-14.3 % Platelet Count 198 140-450 10^3/uL Mean Platelet Volume 10.4 6.9-10.8 fL Neutrophils (%) (Auto) 82.6 H 37.0-80.0 % Lymphocytes (%) (Auto) 11.6 10.0-50.0 % Monocytes (%) (Auto) 5.0 0.0-12.0 % Eosinophils (%) (Auto) 0.2 0.0-7.0 % Basophils (%) (Auto) 0.6 0.0-2.0 % Neutrophils # (Auto) 7.2 1.6-8.6 10 ^3/uL Lymphocytes # (Auto) 1.0 0.4-5.4 10 ^3/uL Monocytes # (Auto) 0.4 0-1.3 10 ^3/uL Eosinophils # (Auto) 0 0-0.8 10 ^3/uL Basophils # (Auto) 0.1 0-0.2 10 ^3/uL Nucleated Red Blood Cells 0.0 % Sodium Level 138 136-145 mmol/L Potassium Level 3.8 3.5-5.1 mmol/L Chloride Level 104 98-107 mmol/L Carbon Dioxide Level 22 20-31 mmol/L Anion Gap 12 5-15 Blood Urea Nitrogen 14 9-23 mg/dL Creatinine 1.17 H 0.550-1.02 mg/dL Glomerular Filtration Rate Calc 57 >90 mL/min BUN/Creatinine Ratio 12.0 10.0-20.0 Serum Glucose 105 74-106 mg/dL Calcium Level 9.5 8.7-10.4 mg/dL Troponin I High Sensitivity < 3 L </=34 ng/L POC Glucose 105 70-106 mg/dl SEPSIS Sepsis Screen Date sepsis recognized/suspect: Jul 21, 2025 Time Sepsis recognized/suspect: 2213 Recent Procedure: No On Antibiotic Therapy: No Respiratory Rate >20: No Heart Rate >90: Yes Temp<36 C (96.8 F) or >38.3 C: No SBP <90 or MAP <65 mmHG: No New Acute Mental Status Change: No Is the patient on CPAP, BIPAP,: No Physician Orders Blood Culture (07/21/25 16:02) Admit (07/21/25 23:06) Allergies (07/21/25 23:06) Code Status (07/21/25 23:06) Complete Blood Count (07/22/25 04:00) Comprehensive Metabolic Panel (07/22/25 04:00) Condition: Fair (07/21/25 23:06) Clear Liq Diet (07/22/25 Breakfast) Ct Ab Pel Wo Con-No Oral Or Iv (07/21/25 23:10) Urine Bacterial Culture (07/21/25 23:11) Acetaminophen Tablet (Tylenol Tablet) (07/22/25 00:00) Hydrocodone-Acet 5/325mg Tab (Center 5/32 (07/21/25 23:15) Sodium Chloride 0.9% (07/21/25 23:15) Pantoprazole (Protonix) (07/22/25 10:00) Vital Signs Date Time Temp Pulse Resp B/P (MAP) Pulse Ox O2 Delivery O2 Flow Rate FiO2 07/21/25 22:11 92 20 98 Room Air 07/21/25 22:11 98.0 92 20 129/76 (93) 98 98.0 07/21/25 19:57 98.9 98 18 99/62 (74) 97 98.9 07/21/25 19:57 98 18 97 Room Air* 0 21 07/21/25 19:30 98.9 07/21/25 16:06 149 Laboratory Tests Test 07/21/25 15:22 07/21/25 16:13 White Blood Count 8.7 10^3/uL (4.4-10.8) Lactic Acid Level 1.6 mmol/L (0.4-2.0) Medications Medications Dose Ordered Sig/Natali Route Start Time Stop Time Status Last Admin Dose Admin Acetaminophen 650 mg ONCE ONCE PO 07/21/25 15:15 07/21/25 15:16 DC 07/21/25 15:45 650 MG Metronidazole 100 ml @ 100 mls/hr ONCE ONCE IV 07/21/25 16:15 07/21/25 17:14 DC 07/21/25 19:15 100 MLS/HR Ondansetron HCl 4 mg ONCE ONCE IV 07/21/25 16:15 07/21/25 16:16 DC 07/21/25 19:15 4 MG Piperacillin Sod/ Tazobactam Sod 100 ml @ 100 mls/hr ONCE ONCE IV 07/21/25 16:15 07/21/25 17:14 DC 07/21/25 20:02 100 MLS/HR Sodium Chloride 1,000 ml @ 1,000 mls/hr Q1H ONCE IV 07/21/25 16:15 07/21/25 17:14 DC 07/21/25 19:15 1,000 MLS/HR Assessment/Plan Assessment/Plan Assessment and plan Acute complicated UTI Acute pyelonephritis Sepsis due to above History of recurrent renal calculi CT abdomen Urine culture, blood culture IV Rocephin IV fluids Scheduled Tylenol, norco p.r.n. TAMIA likely due to VMN IV fluids History of coronary artery disease EKG Troponin negative GERD IV Protonix PUD prophylaxis: protonix 40mg DVT prophylaxis: ambulatory Barriers to discharge: Medical diagnosis and management in progress. Patient lives with family. Independent for ADL. PCP: Dr. Foote Specialist Relevent To Admission: none Case discussed with Dr. Rosario. Code Status: Full Code. Complex patient care discussion needed. Spend total 35 minutes for bedside assessment, case discussion and management. Plan discussed with: Patient My Orders Orders - PATRICK BRAVO RESIDENT Procedure Category Date Status Time Admit ADMIT 07/21/25 Transmitted 23:06 Allergies ROGELIO 07/21/25 In Process 23:06 Code Status CODE 07/21/25 Transmitted 23:06 Complete Blood Count LAB 07/22/25 Verified 04:00 Comprehensive LAB 07/22/25 Verified Metabolic Panel 04:00 Condition: Fair ROGELIO 07/21/25 In Process 23:06 Clear Liq Diet DIET 07/22/[address] Ab Pel Wo Con-No CT 07/21/25 Taken Oral Or Iv 23:10 Urine Bacterial CRISITAN 07/21/25 In Process Culture 23:11 Acetaminophen Tablet PHA 07/22/25 In Process (Tylenol Tablet) 00:00 Hydrocodone-Acet PHA 07/21/25 In Process 5/325mg Tab (Center 23:15 Sodium Chloride 0.9% PHA 07/21/25 In Process 23:15 Pantoprazole PHA 07/22/25 In Process (Protonix) 10:00 Visit Coding STANDARD RES Billing Provider: UDAY ROSARIO MD Date of Service if different f: Jul 21, 2025 Common Visit Codes: 12227-QKIDWAM INP/OBS CARE (HIGH) Secondary Visit Codes: 50458-FBHEPACK CARE PLAN 30 MINUTES PATRICK BRAVO RESIDENT Jul 21, 2025 23:59
[2025-07-22] VITALS (9 sets, daily range): BP systolic 96–117; BP diastolic 58–73; PULSE 89–112; RESP 15–18; TEMP 98.3–100.7; O2SAT 90–98
[2025-07-22] MEDS: PANTOPRAZOLE 40 MG/10 ML VIAL INJ IV ONE (00:12)
--- NOTE | 2025-07-22 00:22 | DVH ---
EXAM: CT CT AB PEL WO CON-NO ORAL OR IV HISTORY: Renal/ureteric calculi, Pyelonephritis COMPARISON STUDY: XR ABDOMEN 1 VIEW (KUB) on DOS: 06/10/25, CT CT AB PEL WO CON- NO ORAL OR IV on DOS: 05/24/25, XY KUB ABDOMEN SINGLE VIEW on DOS: 05/24/25, CT CT AB PEL WO CON-NO ORAL OR IV on DOS: 05/18/25, XY KUB ABDOMEN SINGLE VIEW on DOS: 05/17/25 TECHNIQUE: Multidetector CT of the abdomen and pelvis was performed from lung bases to pubic symphysis. Imaging was performed without IV contrast. Axial, coronal, and sagittal multiplanar reformats were obtained from the axial data set by the technologist. RADIATION DOSE: CTDI vol 8.5 mGy. DLP 471.6 mGy.cm FINDINGS: Limited evaluation of the solid organs in the absence of IV contrast. Lungs: The lung bases are clear. Liver: Unremarkable. Spleen: Unremarkable. Pancreas: Unremarkable. Gallbladder: Prior cholecystectomy. Adrenals: Unremarkable Kidneys: Redemonstration of numerous bilateral renal calcifications, chronic cortical atrophy, and bilateral hydronephrosis and hydroureter. Mild bilateral perinephric stranding. Pelvic Viscera: Enlarged fibroid appearance of the uterus. 5.1 cm right adnexal cyst. Vasculature: Unremarkable. Retroperitoneum: Shotty retroperitoneal nodes. Bowel: No bowel obstruction. The appendix is normal. Musculoskeletal: Grade 1 anterolisthesis of L5 on S1 on the basis of bilateral pars defects. Soft tissues: Small fat containing umbilical hernia. IMPRESSION: 1. Nonspecific bilateral perinephric stranding, pyelonephritis cannot be excluded in the appropriate clinical setting. Redemonstration of mild bilateral hydroureter and numerous renal calculi. 2. Additional findings as detailed.
[2025-07-22] MEDS: ACETAMINOPHEN 325 MG TAB PO SCH (01:02)
[2025-07-22] MEDS: HYDROcodone-ACET 5/325MG TAB PO PRN (01:02)
[2025-07-22 06:46] LABS: Hematocrit 36.4 % (36.0-46.0); Hemoglobin 12.2 g/dL (12.2-16.2); Mean Corpuscular Hemoglobin 30.7 pg (28.0-32.0); Mean Corpuscular Volume 91.3 fL (80.0-100.0); Nucleated Red Blood Cells % 0.1 %
[2025-07-22 06:52] LABS: Alanine Aminotransferase 20 U/L (7-40); Albumin 3.7 g/dL (3.2-4.8); Alkaline Phosphatase 67 U/L (46-116); Anion Gap 8 (5-15); BUN/Creatinine Ratio 12.5 (10.0-20.0); Bilirubin, Total 0.6 mg/dL (0.2-1.0); Blood Urea Nitrogen 11 mg/dL (9-23); Carbon Dioxide 24 mmol/L (20-31); Potassium 3.8 mmol/L (3.5-5.1); Sodium 140 mmol/L (136-145); Total Protein 6.6 g/dL (5.7-8.2)
[2025-07-22 06:53] LABS: Calcium 8.5 mg/dL (8.7-10.4); Chloride 108 mmol/L (98-107); Glucose 116 mg/dL (74-106)
[2025-07-22] MEDS: SODIUM CHLORIDE 0.9% 1,000 ML IV ONE (07:00)
[2025-07-22] MEDS ORDERED: VANCOMYCIN PER PHARMACY 0 MG IV SCH ×2 (07:15→13:30)
[2025-07-22] MEDS: PANTOPRAZOLE 40 MG/10 ML VIAL INJ IV SCH (09:16)
[2025-07-22] MEDS: VANCOMYCIN 1GM/250ML KIT 250 ML IV ONE (09:16)
[2025-07-22] MEDS: diphenhydrAMINE HCL 50 MG/1 ML VL IV ONE (10:29)
[2025-07-22] MEDS: LACTATED RINGER'S 500 ML IV ONE (11:27)
[2025-07-22] MEDS: LACTATED RINGER'S 1,000 ML IV SCH (12:14)
[2025-07-22] MEDS ORDERED: PIPERACILLIN-TAZOB 3.375GM 100 ML IV SCH (14:00)
[2025-07-22] MEDS: MEROPENEM 1GM IVPB 50 ML IV SCH (14:30)
--- NOTE | 2025-07-22 14:59 | DVHPNRES ---
Progress Note Date Seen: Jul 22, 2025 Resident Creating Document: ALISA HANNA RESIDENT Medical Necessity Reason Pt with a Central, PICC or Fol: No Subjective Review of Systems 07/22/2025: Patient was seen in examined by me at the bedside. Patient reported of slight burning micturition and back pain today. She reports of chills. Objective vital signs Vital Sign Date Time Temp Pulse Resp B/P (MAP) Pulse Ox O2 Delivery O2 Flow Rate FiO2 07/22/25 12: 100.7 07/22/25 09:00 89 16 107/64 (78) 97 07/22/25 08:00 Room Air* 0 21 Total Intake and Output 07/21/25 07/21/25 07/22/25 15:00 23:00 07:00 Intake Total 1200 ml Balance 1200 ml medications Current Medications Medications Dose Ordered Sig/Natali Route Start Time Stop Time Status Last Admin Dose Admin Acetaminophen 650 mg Q6HR PO 07/22/25 00:00 07/22/25 11:26 650 MG Acetaminophen/ Hydrocodone Bitart 1 tab Q6HPRN PRN PO 07/21/25 23:15 07/22/25 01:02 1 TAB Pantoprazole Sodium 40 mg DAILY IV 07/22/25 10:00 07/22/25 09:16 40 MG Lactated Ringer's 1,000 ml @ 100 mls/hr Q10H IV 07/22/25 10:30 07/22/25 12:14 100 MLS/HR Meropenem 50 ml @ 17 mls/hr Q8HR IV 07/22/25 14:00 07/22/25 14:30 17 MLS/HR Examination General Appearance: Alert, Oriented X3, Cooperative, Not in acute distress HEENT: Atraumatic, Mucous membranes moist/pink Respiratory: Clear to auscultation, Normal air movement, No added sounds Cardiovascular: Regular rate, Normal S1, Normal S2, No murmurs Abdominal: Active bowel sounds, Soft, no distention, tenderness in suprapubic region and bilateral flanks Extremities: No edema, Normal pulses, No tenderness/swelling Skin: No Significant rash, except past surgical scars Neuro: Normal speech, sensorimotor deficits none Psych/Mental Status: Mental status NL, Mood NL Nurse was there as parachute taper during examination laboratory and microbiology Laboratory Tests 07/22/25 06:06 Test 07/22/25 06:06 Range/Units Serum Glucose 116 H 74-106 mg/dL Microbiology Date/Time Source Procedure Growth Status 07/21/25 16:13 Blood Blood Culture - Preliminary Resulted 07/21/25 15:27 Voided Urine Urine Culture - Preliminary No growth Resulted Labs and/or images reviewed: Labs reviewed by me, Image(s) reviewed by me Problem List/Assessment/Plan Problem List/Assessment/Plan Brianna Fair is a 50-year-old female with CAD, recurrent renal stones, and GERD, presenting with 1-day history of fever, chills, dysuria, headache, nausea, and dizziness following recent right renal laser surgery 1 week back. Assessment and plan #Acute complicated UTI #acute pyelonephritis: #Sepsis due to above #Gram-negative bacterium #b/l renal calculi #mild bilateral hydroureter and hydronephrosis #History of recurrent renal calculi - Seen on ct abd/pelvis - IV fluids RL 100ml/hr - pain management with [place] q.6 PRN and acetaminophen 650mg po prn - blood culture preliminary shows Gram-negative rods - urine cultures Preliminary no growth - IV meropenem and linezolid day 1 TAMIA likely due to VMN -monitor bmp -avoid nephrotoxic agents #GERD -IV protonix daily #Enlarged fibroid #Small fat containing umbilical hernia -seen on Ct abd/pelvis -outpt f/u Diet: Clear Liq GI prophylaxis: PPI DVT prophylaxis: pt ambulating Goals of care discussed with the patient team for more than29/: Full code: status Case discussed with Dr. Arias, and team. Plan discussed with: Patient, Other (rn) My Orders My Orders Orders - ALISA HANNA Procedure Category Date Status Time Meropenem 1gm Ivpb PHA 07/22/25 In Process (Merrem 1gm/50ml) 14:00 Visit Coding STANDARD RES Billing Provider: GRISEL ARIAS MD Date of Service if different f: Jul 22, 2025 Common Visit Codes: [id number] INP/OBS CARE(HIGH) ALISA HANNA Jul 22, 2025 14:59
[2025-07-22] MEDS: LINEZOLID 600MG/300ML 300 ML IV SCH (15:31)
--- NOTE | 2025-07-22 19:09 | DVHSR ---
APPROVED REPORT EXAM: LIMITED Two-dimensional and M-mode echocardiogram with Doppler and color Doppler. Blood Pressure: 107/64 mmHg INDICATION Rule out infective endocarditis RISK FACTORS Height: 61, Weight: 151 DIMENSIONS LVDd 3.9 (3.8-5.7cm) LA (2D) (1.9-4.0cm) Aortic Root (2.0-3.7cm) LVDs 2.5 (2.5-4.0cm) LA (MM) (1.9-4.0cm) Aortic Cusp Exc (1.5-2.0cm) EF (%) 68.0 (55-70%) Rt. Atrium (1.9-4.0cm) Asc. Aorta cm Mitral Valve Mitral Mitral Stenosis E/A ratio 0.0 2D MVA cm2 Other Information Technically limited study due to limited repeat for eval of endocarditis. Conclusion MODERATE DEGREE MVP NORMAL TV,PV AND AORTIC VALVE NORMAL LV EF AND IS 70% NORMAL RV FUNCTION
[2025-07-23] VITALS (8 sets, daily range): BP systolic 111–128; BP diastolic 70–83; PULSE 74–94; RESP 15–20; TEMP 97.9–99.5; O2SAT 95–96
[2025-07-23 06:46] LABS: Hematocrit 35.9 % (36.0-46.0); Hemoglobin 12.1 g/dL (12.2-16.2); Mean Corpuscular Hemoglobin 30.6 pg (28.0-32.0); Mean Corpuscular Volume 91.2 fL (80.0-100.0); Nucleated Red Blood Cells % 0.1 %
[2025-07-23 06:54] LABS: Anion Gap 10 (5-15); Carbon Dioxide 22 mmol/L (20-31); Chloride 107 mmol/L (98-107); Sodium 139 mmol/L (136-145)
[2025-07-23 06:55] LABS: Calcium 9.1 mg/dL (8.7-10.4)
[2025-07-23 07:00] LABS: BUN/Creatinine Ratio 6.0 (10.0-20.0); Blood Urea Nitrogen 5 mg/dL (9-23); Glucose 93 mg/dL (74-106); Potassium 3.4 mmol/L (3.5-5.1)
[2025-07-23] MEDS: POTASSIUM EFFERVESENT TAB 25 MEQ PO ONE (10:22)
--- NOTE | 2025-07-23 16:15 | DVHPNRES ---
Progress Note Date Seen: Jul 23, 2025 Resident Creating Document: JUNIOR GLEASON RESIDENT Medical Necessity Reason Pt with a Central, PICC or Fol: No Objective vital signs Vital Sign Date Time Temp Pulse Resp B/P (MAP) Pulse Ox O2 Delivery O2 Flow Rate FiO2 07/23/25 13:00 97.9 86 15 118/78 (91) 96 97.9 07/23/25 08:30 Room Air* 0 21 Total Intake and Output 07/22/25 07/22/25 07/23/25 15:00 23:00 07:00 Intake Total 1200 ml 600 ml Balance 1200 ml 600 ml medications Current Medications Medications Dose Ordered Sig/Natali Route Start Time Stop Time Status Last Admin Dose Admin Acetaminophen 650 mg Q6HR PO 07/22/25 00:00 07/23/25 05:17 650 MG Acetaminophen/ Hydrocodone Bitart 1 tab Q6HPRN PRN PO 07/21/25 23:15 07/22/25 01:02 1 TAB Pantoprazole Sodium 40 mg DAILY IV 07/22/25 10:00 07/23/25 10:21 40 MG Lactated Ringer's 1,000 ml @ 100 mls/hr Q10H IV 07/22/25 10:30 07/23/25 05:17 100 MLS/HR Meropenem 50 ml @ 17 mls/hr Q8HR IV 07/22/25 14:00 07/23/25 14:55 17 MLS/HR Potassium Bicarbonate 25 meq DAILY PO 07/24/25 10:00 Examination General Appearance: Alert, Oriented X3, Cooperative, Not in acute distress HEENT: Atraumatic, Mucous membranes moist/pink Respiratory: Clear to auscultation, Normal air movement, No added sounds Cardiovascular: Regular rate, Normal S1, Normal S2, No murmurs Abdominal: Active bowel sounds, Soft, no distention, tenderness in suprapubic region Extremities: No edema, Normal pulses, No tenderness/swelling Skin: No Significant rash, except past surgical scars Neuro: Normal speech, sensorimotor deficits none Psych/Mental Status: Mental status NL, Mood NL Nurse was there as utilization supervisor during examination laboratory and microbiology Laboratory Tests 07/23/25 06:02 Test 07/23/25 06:02 Range/Units Serum Glucose 93 74-106 mg/dL Microbiology Date/Time Source Procedure Growth Status 07/21/25 16:19 Blood Blood Culture - Preliminary NO GROWTH AFTER 24 HOURS OF INCUBATION. Resulted 07/21/25 15:27 Voided Urine Urine Culture - Final Complete Labs and/or images reviewed: Labs reviewed by me, Image(s) reviewed by me Problem List/Assessment/Plan Problem List/Assessment/Plan Brianna Fair is a 50-year-old female with CAD, recurrent renal stones, and GERD, presenting with 1-day history of fever, chills, dysuria, headache, nausea, and dizziness following recent right renal laser surgery 1 week back admitted in hospital for Acute complicated UTI with Gram -ve bacteremia. Assessment #Acute complicated UTI #acute pyelonephritis #Sepsis at presentation #Gram-negative bacteremia #b/l renal calculi, non obstructive #mild bilateral hydroureter and hydronephrosis #History of recurrent renal calculi #TAMIA likely due to VMN #GERD #Enlarged fibroid #umbilical hernia, non incarcerated #Polysubstance abuse with meth and phentenyl #History of CAD, denies chest pain #vancomycin allergy #Mild Hypokalemia, 3.4 Plan: 1. Repeat Bcx, Echo to rule out Infective endocarditis. 2. Continue for now IV Meropenem and linezolid day 2 f/u CBC for pletlets. Gram -ve and +ve coverage due to recent Urinary instrumentation. Follow cx. 3. Dc Linezolid. 4. Continue rest of the management with pain mx. 5. K replenished, f/u bmp Diet: Regular Diet. GI prophylaxis: PPI DVT prophylaxis: pt ambulating Goals of care discussed with the patient team for more than29/: Full code: status Case discussed with Dr. Arias, and team. Plan discussed with: Patient My Orders My Orders Orders - JUNIOR GLEASON RESIDENT Procedure Category Date Status Time Potassium Effervesent PHA 07/24/25 In Process Tab (Klor-Con/Ef) 10:00 Complete Blood Count LAB 07/24/25 Verified 04:00 Basic Metabolic Panel LAB 07/24/25 Verified 04:00 Dietary Evaluation Review Comments: Nutrition Recommendation: 1) advanbce to cardiac diet as medically feasible 2) Monitor PO intake, lab values, weight trend, and I/O Expected Outcomes/Goals: Intake to meet >75% estimated needs Lab values to improve FU 2-3 days Date of Service: Jul 23, 2025 Billing Provider: GRISEL ARIAS MD Common Visit Codes: [id number] INP/OBS CARE(HIGH) VICTORINOJUNIOR KABA RESIDENT Jul 23, 2025 16:15 GRISEL ARIAS MD Jul 25, 2025 21:24
[2025-07-24] VITALS (8 sets, daily range): BP systolic 104–122; BP diastolic 63–81; PULSE 72–95; RESP 15–18; TEMP 98.2–98.7; O2SAT 95–97
[2025-07-24 06:17] LABS: Hematocrit 37.7 % (36.0-46.0); Hemoglobin 12.9 g/dL (12.2-16.2); Mean Corpuscular Hemoglobin 31.0 pg (28.0-32.0); Mean Corpuscular Volume 90.7 fL (80.0-100.0); Nucleated Red Blood Cells % 0.4 %
[2025-07-24 06:27] LABS: Chloride 105 mmol/L (98-107); Potassium 4.1 mmol/L (3.5-5.1); Sodium 142 mmol/L (136-145)
[2025-07-24 06:28] LABS: Anion Gap 11 (5-15); Calcium 9.3 mg/dL (8.7-10.4); Carbon Dioxide 26 mmol/L (20-31)
[2025-07-24 06:33] LABS: BUN/Creatinine Ratio 8.4 (10.0-20.0); Glucose 90 mg/dL (74-106)
[2025-07-24 06:40] LABS: Blood Urea Nitrogen 7 mg/dL (9-23)
[2025-07-24] MEDS: POTASSIUM EFFERVESENT TAB 25 MEQ PO SCH (09:41)
--- NOTE | 2025-07-24 14:23 | DVHPNRES ---
Progress Note Date Seen: Jul 24, 2025 Resident Creating Document: ALISA HANNA RESIDENT Medical Necessity Reason Pt with a Central, PICC or Fol: No Subjective Review of Systems Patient was seen and examined by me at the bedside today. Labs and charts reviewed. Patient complains of no new symptoms and reports that she feels much better than before. She denies any burning micturition, pain anywhere. Objective vital signs Vital Sign Date Time Temp Pulse Resp B/P (MAP) Pulse Ox O2 Delivery O2 Flow Rate FiO2 07/24/25 12:36 98.2 83 16 112/74 (87) 97 98.2 07/24/25 07:30 Room Air* 0 21 Total Intake and Output 07/23/25 07/23/25 07/24/25 15:00 23:00 07:00 Intake Total 50 ml 2150 ml 550 ml Balance 50 ml 2150 ml 550 ml medications Current Medications Medications Dose Ordered Sig/Natali Route Start Time Stop Time Status Last Admin Dose Admin Acetaminophen 650 mg Q6HR PO 07/22/25 00:00 07/23/25 17:29 650 MG Acetaminophen/ Hydrocodone Bitart 1 tab Q6HPRN PRN PO 07/21/25 23:15 07/22/25 01:02 1 TAB Pantoprazole Sodium 40 mg DAILY IV 07/22/25 10:00 07/24/25 09:41 40 MG Potassium Bicarbonate 25 meq DAILY PO 07/24/25 10:00 07/24/25 09:41 25 MEQ Ceftriaxone Sodium 50 ml @ 100 mls/hr DAILY@09 IV 07/24/25 12:34 07/24/25 13:12 100 MLS/HR Examination Pt is lying on bed General Appearance: Alert, Oriented X3, Cooperative, Not in acute distress HEENT: Atraumatic, Mucous membranes moist/pink Respiratory: Clear to auscultation, Normal air movement, No added sounds Cardiovascular: Regular rate, Normal S1, Normal S2, No murmurs Abdominal: Active bowel sounds, Soft, no distention, no tenderness Extremities: No edema, Normal pulses, No tenderness/swelling Skin: No Significant rash, except past surgical scars Neuro: Normal speech, sensorimotor deficits none Psych/Mental Status: Mental status NL, Mood NL Nurse was there as cyber reverse engineer during examination laboratory and microbiology Laboratory Tests 07/24/25 06:05 Test 07/24/25 06:05 Range/Units Serum Glucose 90 74-106 mg/dL Microbiology Date/Time Source Procedure Growth Status 07/23/25 06:10 Blood Blood Culture - Preliminary NO GROWTH AFTER 24 HOURS OF INCUBATION. Resulted 07/21/25 15:27 Voided Urine Urine Culture - Final Complete Labs and/or images reviewed: Labs reviewed by me, Image(s) reviewed by me Problem List/Assessment/Plan Problem List/Assessment/Plan Brianna Fair is a 50-year-old female with CAD, recurrent renal stones, and GERD, presenting with 1-day history of fever, chills, dysuria, headache, nausea, and dizziness following recent right renal laser surgery 1 week back admitted in hospital for Acute complicated UTI with Gram -ve bacteremia. Assessment #Acute complicated UTI #acute pyelonephritis #Sepsis at presentation #Gram-negative (Klebsiella) bacteremia #b/l renal calculi, non obstructive #mild bilateral hydroureter and hydronephrosis #History of recurrent renal calculi #TAMIA likely due to VMN #GERD #Enlarged fibroid #umbilical hernia, non incarcerated #Polysubstance abuse with meth and phentenyl #History of CAD, denies chest pain #vancomycin allergy #Mild Hypokalemia, 3.4 Plan: 1. Repeat Bcx in 24hours showed no growth, Echo ruled out Infective endocarditis. 2. Continue for now IV Rocephin day08/07; f/u CBC for platelets. Gram -ve and +ve coverage due to recent Urinary instrumentation. 3. midline placement 4. s/p d2 Linezolid + Meropenem day2 5. Continue rest of the management with pain mx. 6. K replenished, f/u bmp Diet: Regular Diet. GI prophylaxis: PPI DVT prophylaxis: pt ambulating Goals of care discussed with the patient team for more than 29mins: Full code status Case discussed with Dr. Arias, and team. Plan discussed with: Patient, Other (rn) My Orders My Orders Orders - ALISA HANNA RESIDENT Procedure Category Date Status Time Complete Blood Count LAB 07/25/25 Verified 04:00 Basic Metabolic Panel LAB 07/25/25 Verified 04:00 Ceftriaxone 1gm/50ml PHA 07/24/25 In Process (Rocephin) 12:34 Insert Midline ORDERS 07/24/25 Transmitted 14:01 Dietary Evaluation Review Comments: Nutrition Recommendation: 1) advanbce to cardiac diet as medically feasible 2) Monitor PO intake, lab values, weight trend, and I/O Expected Outcomes/Goals: Intake to meet >75% estimated needs Lab values to improve FU 2-3 days Visit Coding STANDARD RES Billing Provider: GRISEL ARIAS MD Date of Service if different f: Jul 24, 2025 Common Visit Codes: [id number] INP/OBS CARE(HIGH) ALISA HANNA RESIDENT Jul 24, 2025 14:23
[2025-07-25 01:00] VITALS: BP 110/66; PULSE 90; RESP 17; TEMP 98.4; O2SAT 96
[2025-07-25 05:00] VITALS: BP 96/63; PULSE 87; RESP 17; TEMP 98.1; O2SAT 97
[2025-07-25 06:22] LABS: Hematocrit 37.9 % (36.0-46.0); Hemoglobin 12.9 g/dL (12.2-16.2); Mean Corpuscular Hemoglobin 30.8 pg (28.0-32.0); Mean Corpuscular Volume 90.9 fL (80.0-100.0); Nucleated Red Blood Cells % 0.1 %
[2025-07-25 06:34] LABS: Chloride 105 mmol/L (98-107); Potassium 4.0 mmol/L (3.5-5.1); Sodium 141 mmol/L (136-145)
[2025-07-25 06:35] LABS: Anion Gap 8 (5-15); Carbon Dioxide 28 mmol/L (20-31)
[2025-07-25 06:36] LABS: Calcium 9.2 mg/dL (8.7-10.4)
[2025-07-25 06:40] LABS: BUN/Creatinine Ratio 12.2 (10.0-20.0); Blood Urea Nitrogen 11 mg/dL (9-23)
[2025-07-25 06:42] LABS: Glucose 106 mg/dL (74-106)
[2025-07-25 07:59] VITALS: PULSE 76; RESP 16
[2025-07-25 08:36] VITALS: BP 107/69; PULSE 89; RESP 20; TEMP 97.4; O2SAT 100
[2025-07-25 11:56] VITALS: BP 107/69; PULSE 89; RESP 15; TEMP 97.4; O2SAT 100
[2025-07-25 12:49] VITALS: BP 107/70; PULSE 86; RESP 15; TEMP 97.6; O2SAT 98
--- NOTE | 2025-07-25 14:25 | DVHDSRES ---
Discharge Summary Date of Admission Resident Creating Document: ALISA HANNA RESIDENT Jul 21, 2025 at 23:06 Date of Discharge: Jul 25, 2025 Admitting Diagnosis Sepsis, unspecified organism Labs/Diagnostic Data: Laboratory Results Test 07/25/25 05:49 07/22/25 06:06 07/21/25 16:13 07/21/25 15:27 White Blood Count 5.5 10^3/uL (4.4-10.8) Red Blood Count 4.17 10^6/uL (4.0-5.20) Hemoglobin 12.9 g/dL (12.2-16.2) Hematocrit 37.9 % (36.0-46.0) Mean Corpuscular Volume 90.9 fL (80.0-100.0) Mean Corpuscular Hemoglobin 30.8 pg (28.0-32.0) Mean Corpuscular Hemoglobin Concent 33.9 g/dL (32.0-36.0) Red Cell Distribution Width 14.2 % (11.8-14.3) Platelet Count 218 10^3/uL (140-450) Mean Platelet Volume 9.8 fL (6.9-10.8) Neutrophils (%) (Auto) 50.3 % (37.0-80.0) Lymphocytes (%) (Auto) 35.7 % (10.0-50.0) Monocytes (%) (Auto) 9.0 % (0.0-12.0) Eosinophils (%) (Auto) 4.5 % (0.0-7.0) Basophils (%) (Auto) 0.5 % (0.0-2.0) Neutrophils # (Auto) 2.7 10 ^3/uL (1.6-8.6) Lymphocytes # (Auto) 2.0 10 ^3/uL (0.4-5.4) Monocytes # (Auto) 0.5 10 ^3/uL (0-1.3) Eosinophils # (Auto) 0.2 10 ^3/uL (0-0.8) Basophils # (Auto) 0 10 ^3/uL (0-0.2) Nucleated Red Blood Cells 0.1 % Sodium Level 141 mmol/L (136-145) Potassium Level 4.0 mmol/L (3.5-5.1) Chloride Level 105 mmol/L (98-107) Carbon Dioxide Level 28 mmol/L (20-31) Anion Gap 8 (5-15) Blood Urea Nitrogen 11 mg/dL (9-23) Creatinine 0.90 mg/dL (0.550-1.02) Glomerular Filtration Rate Calc 78 mL/min (>90) BUN/Creatinine Ratio 12.2 (10.0-20.0) Serum Glucose 106 mg/dL (74-106) Calcium Level 9.2 mg/dL (8.7-10.4) Total Bilirubin 0.6 mg/dL (0.2-1.0) Aspartate Amino Transferase (AST) 19 U/L (13-40) Alanine Aminotransferase (ALT) 20 U/L (7-40) Alkaline Phosphatase 67 U/L (46-116) Total Protein 6.6 g/dL (5.7-8.2) Albumin 3.7 g/dL (3.2-4.8) Lactic Acid Level 1.6 mmol/L (0.4-2.0) Urine Color Light-yellow (Yellow) Urine Clarity Turbid (Clear) Urine pH 6.5 (5.0-9.0) Urine Specific [place] 1.011 (1.001-1.035) Urine Protein Trace (Negative) Urine Ketones Negative (Negative) Urine Blood 1+ /uL (Negative) Urine Nitrite Negative (Negative) Urine Bilirubin Negative (Negative) Urine Urobilinogen Normal mg/dL (Negative) Urine Leukocyte Esterase 3+ /uL (Negative) Urine RBC 13 /hpf (0 - 4) Urine Microscopic WBC 87 /HPF (0-5) Urine Squamous Epithelial Cells Few /hpf (<5) Urine Bacteria Few /hpf (None Seen) Urine Yeast (Budding) Few /hpf (None Seen) Urine Glucose Normal mg/dL (Normal) Urine Test Negative (Negative) Test 07/21/25 15:22 07/21/25 15:20 Troponin I High Sensitivity < 3 ng/L (</=34) POC Glucose 105 mg/dl (70-106) Other Laboratory Tests 07/25/25 05:49 Brief Hx & Hospital Course: Brief history of Hospitalization: 50-year-old female with history of CAD, recurrent renal stones, GERD, and polysubstance abuse (methamphetamine, fentanyl) presented with acute complicated UTI, pyelonephritis, and sepsis. Workup revealed Gram-negative bacteremia, bilateral nonobstructive renal calculi, mild bilateral hydroureter and hydronephrosis, and TAMIA likely secondary to sepsis. CT also noted enlarged uterine fibroid and nonincarcerated umbilical herniaoutpatient follow-up advised. Labs showed mild hypokalemia, corrected with potassium repletion. Management included IV fluids, IV Protonix for GERD, and pain control. Initial vancomycin therapy discontinued due to allergic reaction (rash, hives); switched to linezolid. Meropenem administered throughout hospitalization since Klebsiella bacteremia was found on blood culture she was switched to Rocephin. Patient counseled extensively on substance cessation and hydration. Clinical status improved; patient stable with no new complaints. Discharged with instructions for increased hydration and follow-up with DC clinic within a week, nephrology and primary care within 2 weeks. Patient verbalized understanding and agreed to discharge plan. patient has a midline and is to continue taking Rocephin 2g until Aug 04 after which midline will be removed. Home health has been arranged for her General Appearance: Alert, Oriented X3, Cooperative, Not in acute distress HEENT: Atraumatic, Mucous membranes moist/pink Respiratory: Clear to auscultation, Normal air movement, No added sounds Cardiovascular: Regular rate, Normal S1, Normal S2, No murmurs Abdominal: Active bowel sounds, Soft, no distention, no tenderness Extremities: No edema, Normal pulses, No tenderness/swelling Skin: No Significant rash, except past surgical scars Neuro: Normal speech, sensorimotor deficits none Psych/Mental Status: Mental status NL, Mood NL Nurse was there as director of extension work during examination Operations or Procedures PROCEDURE(s): HWOCT - HEAD WITHOUT CONTRAST REASON: DIZZINESS IMPRESSION:NO ACUTE INTRACRANIAL ABNORMALITY SEEN. EXAM: CT CT AB PEL WO CON-NO ORAL OR IV HISTORY: Renal/ureteric calculi, Pyelonephritis FINDINGS: Limited evaluation of the solid organs in the absence of IV contrast. Lungs: The lung bases are clear. Liver: Unremarkable. Spleen: Unremarkable. Pancreas: Unremarkable. Gallbladder: Prior cholecystectomy. Adrenals: Unremarkable Kidneys: Redemonstration of numerous bilateral renal calcifications, chronic cortical atrophy, and bilateral hydronephrosis and hydroureter. Mild bilateral perinephric stranding. Pelvic Viscera: Enlarged fibroid appearance of the uterus. 5.1 cm right adnexal cyst. Vasculature: Unremarkable. Retroperitoneum: Shotty retroperitoneal nodes. Bowel: No bowel obstruction. The appendix is normal. Musculoskeletal: Grade 1 anterolisthesis of L5 on S1 on the basis of bilateral pars defects. Soft tissues: Small fat containing umbilical hernia. IMPRESSION: 1. Nonspecific bilateral perinephric stranding, pyelonephritis cannot be excluded in the appropriate clinical setting. Redemonstration of mild bilateral hydroureter and numerous renal calculi. 2. Additional findings as detailed. Condition at Discharge: Stable Final Diagnosis/Problems List #Acute complicated UTI #acute pyelonephritis #Sepsis at presentation #Gram-negative (Klebsiella) bacteremia #b/l renal calculi, non obstructive #mild bilateral hydroureter and hydronephrosis #History of recurrent renal calculi #TAMIA likely due to VMN #GERD #Enlarged fibroid #umbilical hernia, non incarcerated #Polysubstance abuse with meth and phentenyl #History of CAD, denies chest pain #vancomycin allergy #Mild Hypokalemia, 3.4 Discharge Disposition: Home with Health Services Discharge Instruct/Medications Diet: Consistent carbohydrate, Cardiac 2g Na,low cholest, Renal Diet comment: cardiac, consistent Carb Activity: No Restrictions, As Tolerated Follow Up/Referral: On discharge clinic within 7 days Follow up with PCP in 1 week Medications: As per EMR Scheduled Atorvastatin Calcium (Atorvastatin Calcium), 20 MG PO HS Ergocalciferol (Vitamin D 13828 Unit), 50,000 UNIT PO QWEEKLY Fluconazole (Diflucan), 1 TAB PO DAILY Pantoprazole Sodium Sesquihydr (Pantoprazole Sodium), 20 MG PO DAILY Discharge Statement: "Patient was advised to return to the ER or call 911 if any headaches, dizziness, shortness of breath, chest pain, abdominal pain, bleeding, fevers, or worsening of medical condition. Patient was counseled about treatment plan, medications, possible side effects, patientverbalized understanding. All questions were answered to the best of my ability. This discharge took greater then 30 minutes in planning, reviewing documentation, counseling the patient, and discussing with other team members." ASSESSMENT ASSESSMENT Assessment Acute complicated UTI Acute pyelonephritis sepsis gram-negative (Klebsiella) bacteremia Visit Coding STANDARD RES Billing Provider: GRISEL ANTHONY MD Date of Service if different f: Jul 25, 2025 Common Visit Codes: 56219-NBW/[id number] DISCH DAY >30min ALISA HANNA RESIDENT Jul 25, 2025 14:25
== END 2025-07-25 13:00 | disposition home health service (06) | DRG 720 ==
LOC: ER 15:08 → OVERFLOW 23:06 → EAST 23:09
PROVIDERS: ADMIT Internal Medicine Geriatric Medicine; ATTEND Internal Medicine Geriatric Medicine
PROC: 05HC33Z Insertion of Infusion Device into Left Basilic Vein, Percutaneous Approach (ICD-10-PCS; principal; 2025-07-24)
PROC: B54NZZA Ultrasonography of Left Upper Extremity Veins, Guidance (ICD-10-PCS; 2025-07-24)
DX: A41.59 Other Gram-negative sepsis (principal); N17.0 Acute kidney failure with tubular necrosis; N13.6 Pyonephrosis; F15.10 Other stimulant abuse, uncomplicated; K21.9 Gastro-esophageal reflux disease without esophagitis; D25.9 Leiomyoma of uterus, unspecified; K42.9 Umbilical hernia without obstruction or gangrene; E87.6 Hypokalemia; I25.10 Atherosclerotic heart disease of native coronary artery without angina pectoris; Z90.49 Acquired absence of other specified parts of digestive tract; Z87.442 Personal history of urinary calculi; Z83.3 Family history of diabetes mellitus; Z88.1 Allergy status to other antibiotic agents
CPT/HCPCS: 36415; 70450; 74176; 80048; 80053; 81001; 81025; 82962; 83605; 84484; 85025; 87040; 87077; 87086; 87186; 93005; 93306; 96365; 96367; 96375; 99291; 99292; G0378; J2185; J2405; J2470; J2543; J3490